=== PATIENT | male | born 1950 | race Caucasian/White ===

== ENCOUNTER → 2021-03-16 10:59 | Outpatient (BNVA) | payer MEDICARE, MEDICAID, SELFPAY | PROVIDERS: PCP Internal Medicine; Referring Provider Internal Medicine; Visit Provider Surgery | DX: K43.9 Ventral hernia without obstruction or gangrene (principal) | CPT/HCPCS: 99202 ==

== ENCOUNTER 2021-03-21 09:33 | Day surgery (SDC) | payer MEDICARE, MEDICAID, SELFPAY ==
[2021-03-21] VITALS (7 sets, daily range): BP systolic 135–153; BP diastolic 64–84; PULSE 86–99; RESP 16–18; TEMP 36.1–36.3; O2SAT 93–98; BMI 28.8
[2021-03-21 10:06] LABS: Glucose, Whole Blood 151 mg/dL (60-115)
[2021-03-21] MEDS: Lactated Ringers 1,000 ML 100 ML IVCONT (10:08)
--- NOTE | 2021-03-21 10:16 | MHC.SHP ---
Pre-Procedural Eval Section A Date of Service: 03/21/21 The patient is an INPATIENT: No Changes since office visit: Yes Patient answered all questions; No Cold of Flu in the past 2 weeks, No New Medical Problems and No Changes in Medication The History & Physical has been completed within 30 days and I have reviewed it.: Yes Section B Chief Complaint: Ventral hernia Allergies: Allergies Allergy/AdvReac Type Severity Reaction Status Date / Time No Known Allergies Allergy Unverified 06/01/20 16:43 Plan Diagnosis/Plan: Unchanged I have reviewed the history and physical and performed a pertinent physical examination on my patient. No changes have occurred unless specified.
--- NOTE | 2021-03-21 10:19 | PC.NURSE ---
PT HAS A MASS TO LEFT ANTERIOR SHOULDER AREA STS ITS A FATTY TISSUE PER PCP
--- NOTE | 2021-03-21 10:50 | HO.ANESPROP2 ---
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 If so, by whom?: No Are you DNR?: No Advance Directives: No Advance Directives Information Provided: Yes Recently lost weight without trying: No Nutrition Risks: No Nutritional Risk Meds Allergies Allergy/AdvReac Type Severity Reaction Status Date / Time No Known Allergies Allergy Verified 03/21/21 10:21 Active Medications: Current Medications Generic Name Dose Route Start Last Admin Trade Name Freq PRN Reason Stop Dose Admin Lactated Ringer's 1,000 mls @ 100 mls/hr 03/21/21 09:45 03/21/21 10:08 Lr IVCONT 100 mls/hr .Q10H FLORY Administration Home Medications Medication Instructions Recorded Confirmed Last Taken Type aspirin 81 mg tablet,delayed 81 mg PO DAILY 03/16/21 03/20/21 History release bisacodyl 5 mg tablet 5 mg PO BEDTIME 03/16/21 Unknown History blood sugar diagnostic #10 ea 03/16/21 Unknown History gabapentin 300 mg capsule 300 mg PO TID 03/16/21 Unknown History glipizide 10 mg tablet 10 mg PO DAILY 03/16/21 Unknown History insulin glargine 100 unit/mL (3 25 unit SUBCUT QPM ml 03/16/21 Unknown History mL) subcutaneous pen lancets 28 gauge #100 ea 03/16/21 Unknown History lisinopril 5 mg tablet 5 mg PO DAILY 03/16/21 Unknown History metformin 500 mg tablet 500 mg PO DAILY 03/16/21 Unknown History omeprazole 20 mg delayed mg PO 03/16/21 Unknown History release,disintegrating tablet pen needle, diabetic 31 gauge x #50 ea 03/16/21 Unknown History 3 pen needle, diabetic 32 gauge x #50 ea 03/16/21 Unknown History pioglitazone 45 mg tablet 45 mg PO DAILY 03/16/21 Unknown History psyllium 1 tbsp PO BID 03/16/21 Unknown History simvastatin 40 mg tablet 40 mg PO DAILY 03/16/21 Unknown History Exam Exam Date and Time: March 21, 2021 1050 Height,Weight and Vital Signs: Height 5 ft 9 in Weight 88.451 kg Last Vital Signs Temp 97.4 F 03/21/21 09:45 Pulse 99 03/21/21 09:45 Resp 18 03/21/21 09:45 BP 151/79 H 03/21/21 09:45 Pulse Ox 98 03/21/21 09:45 Pertinent Lab Results Pertinent Lab Results: Laboratory Tests 03/21/21 09:46 POC Glucose 151 H Airway Mallampati Class: II TM Dist: >3cm Neck ROM: Full Denture: Upper and Lower Assessment and Plan Assessment Anesthesia Assessment: Anesthesia Plan Discussed and Chart Reviewed Final Anesthetic Review NPO: Yes ASA Class: II Final Preanesthetic Review: No Changes in Pt Med Stat, Meds/Allgs Chart Reviewed, Consent Obtained/Reviewed and Anes Risks/Benef Reviewed Patient Risk: Low Procedure Risk: Low Assessment/Block/Sedation in SS: Assess/Block/Sedation-SS Anesthetic Plan Anesthetic Plan: GA Disposition: Standard PACU
--- NOTE | 2021-03-21 11:20 | P.OP_ITS ---
Operative Note Operative Note Date of Service: 03/21/21 Narrative: Preoperative diagnosis: Ventral hernia Postoperative diagnosis: same Procedure: repair of ventral hernia with mesh Surgeon: Azam Mary MD Thermal Technician: no physician Anesthesia: general LMA Indications for procedure: 70-year-old male patient presenting with a lump located above the umbilicus measuring approximately 4 cm in diameter which increases in size with lifting and decreases with light pressure. Operative findings: 4 cm ventral hernia defect in the midline just above the umbilicus, repaired with an 8 cm Ventralex mesh Specimen: none Estimated blood loss: 5 mL Complications: none Procedure details: patient was brought to the OR and placed in a supine position. After administering general anesthesia the patient's abdomen was prepped with ChloraPrep and draped in a sterile fashion. A surgical time-out was called the consent confirmed. Patient received preoperative antibiotics and Venodyne boots were in place. Local anesthesia consisting of 0.25% Sensorcaine with epinephrine was then infiltrated around the ventral hernia. A midline incision was then made just above the umbilicus carried down through subcutaneous tissue up to the hernia sac. This was then dissected circumferentially down to the hernia defect in the fascia. The defect was further defined using electrocautery. Hernia contents were then reduced into the abdominal cavity. A preperitoneal space was then created using a combination of blunt and sharp dissection. A space measuring approximately 8 cm round was then created in the preperitoneal space. The 8 cm mesh was then obtained and placed in this preperitoneal space. It was secured in 4 quadrants using a 1 Tycron suture the fascia was then closed over the mesh using [id number] 1 Tycron sutures. The incision was then irrigated with saline suctioned dry. Wounds were checked for hemostasis. Additional local was infiltrated into the subcutaneous tissue at this time. The subcutaneous tissue was closed with interrupted 3-0 Polysorb sutures. Dermis was reapproximated using interrupted 3-0 Polysorb sutures. Skin was then closed using a running subcuticular 4-0 Polysorb suture. Steri- Strips 2 x 2 gauze and Tegaderm were then applied. The patient tolerated the procedure well. Sponge, instrument, and needle counts reported as correct. He was transferred to PACU in stable condition.
== END 2021-03-21 13:15 | disposition home or self-care (01) ==
PROVIDERS: PCP Internal Medicine; Visit Provider Surgery
PROC: (CPT 49560; principal; 2021-03-21 11:10)
DX: K43.9 Ventral hernia without obstruction or gangrene (principal); I10 Essential (primary) hypertension; E78.5 Hyperlipidemia, unspecified; E11.9 Type 2 diabetes mellitus without complications; Z79.4 Long term (current) use of insulin; Z79.82 Long term (current) use of aspirin; Z79.899 Other long term (current) drug therapy
CPT/HCPCS: 49560; 49568; 82947; C1781; J0690; J1100; J2405; J3010

== ENCOUNTER 2021-03-22 19:36 | Emergency (ER) | payer MEDICARE, MEDICAID, SELFPAY ==
[2021-03-22 20:12] VITALS: BP 138/62; PULSE 90; RESP 18; TEMP 36.6; O2SAT 97; BMI 27.9
--- NOTE | 2021-03-22 20:51 | PC.NURSE ---
Patient's dressing taken down. Bandage appeared to be wet with moisture. Steri strips intact and wound not bleeding. Cover with guaze to await MD evaluation. Patient reports no pain
--- NOTE | 2021-03-22 21:34 | ED_ITS ---
HPI - General Adult General Chief complaint: Wound/Laceration Stated complaint: post op bleeding Time Seen by Provider: 03/22/21 21:23 Source: patient Mode of arrival: ambulatory Limitations: no limitations History of Present Illness HPI narrative: 70-year-old male who presents emergency department for evaluation of postoperative bleeding. The patient had a ventral hernia repair with mesh done on 03/21/[address] Mary. patient states that prior to coming to the emergency department, he sat down on the toilet to move his bowels. He states that when he did this he noted blood on his surgical dressing. He did not move his bowels. He then came to the emergency department to be seen. According to the nursing staff, the surgical dressing appeared to be wet wiith fluid and blood. The patient states that he is having a constant, 3/10, dull, abdominal pain since the surgery. he denied nausea, vomiting or fever. He has not had a bowel movement since surgery but he states that he has passing gas. He states that he has been able to eat any staying on a basic diet of liquids, broth and bread. Related Data Home Medications Medication Instructions Recorded Confirmed aspirin 81 mg tablet,delayed 81 mg PO DAILY 03/16/21 release bisacodyl 5 mg tablet 5 mg PO BEDTIME 03/16/21 blood sugar diagnostic #10 ea 03/16/21 gabapentin 300 mg capsule 300 mg PO TID 03/16/21 glipizide 10 mg tablet 10 mg PO DAILY 03/16/21 insulin glargine 100 unit/mL (3 25 unit SUBCUT QPM ml 03/16/21 mL) subcutaneous pen lancets 28 gauge #100 ea 03/16/21 lisinopril 5 mg tablet 5 mg PO DAILY 03/16/21 metformin 500 mg tablet 500 mg PO DAILY 03/16/21 omeprazole 20 mg delayed mg PO 03/16/21 release,disintegrating tablet pen needle, diabetic 31 gauge x #50 ea 03/16/2111/28 pen needle, diabetic 32 gauge x #50 ea 03/16/21 pioglitazone 45 mg tablet 45 mg PO DAILY 03/16/21 psyllium 1 tbsp PO BID 03/16/21 simvastatin 40 mg tablet 40 mg PO DAILY 03/16/21 Previous Rx's Medication Instructions Recorded oxycodone 5 mg PO Q6H PRN #20 tab 03/21/21 Allergies Allergy/AdvReac Type Severity Reaction Status Date / Time No Known Allergies Allergy Verified 03/22/21 20:11 Review of Systems Review of Systems: Yes all other systems are reviewed and are negative Neurologic: Reports Abnormal speech present [facility] Past Medical History Medical History Diabetes mellitus Hyperlipidemia Hypertension Surgical History 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 History of right inguinal hernia repair Hx of eye surgery Family History Family History Father Cancer of unknown origin Social History Social History Alcohol intake: never Patient Tobacco Use Status: Never used Tobacco Use of substances other than those prescribed or required for medical reasons: No Advance Directives: No Advance Directives Information Provided: No Physical Exam Vital Signs: Vital Signs: Last Vital Signs Temp 98 F 03/22/21 20:12 Pulse 90 03/22/21 20:12 Resp 18 03/22/21 20:12 BP 138/62 03/22/21 20:12 Pulse Ox 97 03/22/21 20:12 Body Mass Index 27.9 Const: General: cooperative Orientation/consciousness: oriented to person and oriented to place Limitations: no limitations HENMT: Head: Yes normal to inspection, Yes normocephalic and Yes atraumatic Ears: external ears normal General nose exam: Normal external nose present Face and sinus: Yes normal facial exam Mouth: Normal oral and palatal mucosa present Throat: Yes posterior oropharynx normal Eyes: Periorbital: periorbital findings normal Eyelids: Yes eyelids normal Conjunctivae: conjunctivae normal Sclerae: sclerae normal Corneas: corneas normal Pupils: Equal, round and reactive pupils present Direct Ophthalmoscopy: normal light reflex Neck: Neck: Yes full ROM, Yes no lymphadenopathy, Yes no meningeal signs, Yes trachea midline and Yes supple Chest: Chest palpation & inspection: normal inspection of the chest and normal palpation of entire chest wall Resp: Effort & Inspection: normal respiratory effort and able to speak in complete sentences Auscultation: clear to auscultation bilaterally Cardio: Rate: regular rate Rhythm: regular rhythm Heart sounds: S1 normal heart sound present, S2 normal heart sound present and no murmurs GI: Other: Patient's abdomen is soft, nontender, nondistended, has normoactive bowel sounds. The patient's surgical wound appears intact, Steri- Strips are intact, there is dried blood around the Steri-Strips. There is no evidence for cellulitis. Palpation (GI): Tenderness to palpation present (GI), Guarding due to palpation present (GI) and Rigid due to palpation : General: Yes no CVA tenderness Back/Spine/Pelvis: Back: no CVA tenderness Cervical Spine: normal cervical lordosis Thoracic/Lumbar Spine: thoracic and lumbar spine normal to inspection Skin: Lesions: no lesions Rashes: no rashes Wounds: no wounds Neuro: General: oriented to person, oriented to place and no meningeal signs Cranial nerves: Yes Equal, round and reactive pupils present Cognition (Neuro): normal cognition Speech: Abnormal speech present Motor exam (neuro): 5/5 motor strength present throughout Extrem: General: Yes normal to inspection and Yes full ROM Psych: Appearance: well kempt Mental Status: mental status grossly normal Speech and movement: Normal speech and movement present Affect: normal affect Attitude: cooperative Thought process: Normal thought process present Thought content: Normal thought content present Course Course Course Narrative: 70-year-old male postoperative day 1 after a ventral hernia repair with mesh done on 03/21/[address] Blanc who presents to the emergency department for evaluation of bleeding from the surgical site with no other concerning symptoms. Patient's physical examination revealed a benign abdomen. The patient does have dried blood around the stairs steps from the surgical site with no clear evidence for dehiscence of the wound. I suspect the patient had either a small hematoma or serosanguineous seroma that leaked out of the wound. I did discuss this with the patient. The patient will be discharged home. The patient was given verbal and printed instructions prior to discharge. The patient was advised to follow-up with their surgeon in tomorrow to discuss follow-up and to return to the emergency department if their symptoms get worse or if they develop any new symptoms that are concerning to them Discharge Plan Discharge Clinical Impression: Postoperative seroma Patient Disposition: Home, Self-Care Instructions: Seroma (DC) Additional Instructions: Sometimes after surgery, your body can put fluid and blood underneath the surgical wound which will then can leak out. This is called a seroma. I believe that you may have a small seroma that leaked out and caused the fluid and blood to saturate your dressing. Continue to wear a dressing over the wound. If you soaked through the dressing then change it. If the drainage becomes moderate to severe then [facility] otherwise she should call your surgeon tomorrow to discuss follow-up. Please return to the emergency department if your symptoms get worse or if you develop any symptoms that are concerning to you. Prescriptions: No Action oxycodone 5 mg tablet 5 mg PO Q6H PRN (Reason: pain) Qty: 20 RF: 0 bisacodyl 5 mg tablet 5 mg PO BEDTIME RF: 0 omeprazole 20 mg tablet,disintegrat, delay rel PO RF: 0 glipizide 10 mg tablet 10 mg PO DAILY RF: 0 pioglitazone [Actos] 45 mg tablet 45 mg PO DAILY RF: 0 gabapentin 300 mg capsule 300 mg PO TID RF: 0 lisinopril 5 mg tablet 5 mg PO DAILY RF: 0 simvastatin 40 mg tablet 40 mg PO DAILY RF: 0 aspirin 81 mg tablet,delayed release (DR/EC) 81 mg PO DAILY RF: 0 metformin 500 mg tablet 500 mg PO DAILY RF: 0 (DME) pen needle, diabetic [1st Tier Unifine Pentips] 31 gauge x 3/16 needle See Rx Instructions .ROUTE .MEDSUPPLY Qty: 50 RF: 0 Lantus Solostar U-100 Insulin 100 unit/mL (3 mL) insulin pen 25 unit subcut QPM RF: 0 psyllium Powder 1 tbsp PO BID RF: 0 (DME) blood sugar diagnostic Strip See Rx Instructions .ROUTE .MEDSUPPLY Qty: 10 RF: 0 (DME) lancets [FreeStyle Lancets] 28 gauge misc See Rx Instructions .ROUTE .MEDSUPPLY Qty: 100 RF: 0 (DME) pen needle, diabetic [BD Susannah 2nd Gen Pen Needle] 32 gauge x / needle See Rx Instructions .ROUTE .MEDSUPPLY Qty: 50 RF: 0 Referrals: Azam Mary MD [Physician] - 2 days ( suspect small serosanguineous hematoma leak, wound is intact with no evidence of dehiscence or cellulitis. Advised patient to contact you for follow-up)
== END 2021-03-22 21:57 | disposition home or self-care (01) ==
PROVIDERS: Emergency Provider Emergency Medicine Emergency Medical Services; PCP Internal Medicine
DX: L76.34 Postprocedural seroma of skin and subcutaneous tissue following other procedure (principal); Y83.8 Other surgical procedures as the cause of abnormal reaction of the patient, or of later complication, without mention of misadventure at the time of the procedure; Y92.9 Unspecified place or not applicable
CPT/HCPCS: 99284

== ENCOUNTER → 2021-04-03 11:01 | Outpatient (BNVA) | payer MEDICARE, MEDICAID, SELFPAY | PROVIDERS: PCP Internal Medicine; Referring Provider Internal Medicine; Visit Provider Surgery | DX: Z48.815 Encounter for surgical aftercare following surgery on the digestive system (principal); Z87.19 Personal history of other diseases of the digestive system | CPT/HCPCS: 99212 ==

== ENCOUNTER → 2021-05-04 11:25 | Outpatient (BNVA) | payer MEDICARE, MEDICAID, SELFPAY | PROVIDERS: PCP Internal Medicine; Referring Provider Internal Medicine; Visit Provider Surgery | DX: Z09 Encounter for follow-up examination after completed treatment for conditions other than malignant neoplasm (principal); Z87.19 Personal history of other diseases of the digestive system | CPT/HCPCS: 99212 ==

== ENCOUNTER 2021-08-20 13:43 | Outpatient (REF) | payer MEDICARE, MEDICAID, SELFPAY ==
--- NOTE | ~2021-08-20 | XR_ITS ---
EXAMINATION: XR FOOT, RIGHT CLINICAL INFORMATION: Foot ulcer COMPARISON: Previous x-ray May 2019 TECHNIQUE: AP, lateral, and oblique views of the right foot. FINDINGS: There is amputation of the toes of the foot. There is new osteopenia and cortical irregularity of the second metatarsal bone worrisome for osteomyelitis. There is soft tissue swelling seen in this region. There is a small radiopaque soft tissue foreign body measuring 3 mm in length that is unchanged. There are degenerative changes of the midfoot. There are calcaneal spurs. XR/XR foot RT min 3V IMPRESSION: Question osteomyelitis of the second metatarsal head.
== END 2021-08-20 13:44 | disposition home or self-care (01) ==
LOC: HO.XRAY 13:43
PROVIDERS: PCP Internal Medicine; Visit Provider Nurse Practitioner Family
DX: E11.621 Type 2 diabetes mellitus with foot ulcer (principal)
CPT/HCPCS: 73630

== ENCOUNTER 2021-08-21 10:42 | Inpatient (IN) | payer MEDICARE, MEDICAID, SELFPAY ==
--- NOTE | ~2021-08-21 | MR_ITS ---
EXAMINATION: MR FOOT WITHOUT AND WITH CONTRAST, RIGHT CLINICAL INFORMATION: Osteomyelitis. COMPARISON: Multiple priors, most recent right foot radiographs dated 08/20/2021 and right foot MRI dated 02/15/2019. TECHNIQUE: Multisequence MR imaging of the right foot was obtained before and after the administration of 9 mL Gadavist contrast on a high-field strength scanner. FINDINGS: Resection of the phalanges is redemonstrated. There is soft tissue ulceration anterior to the 2nd metatarsal head with prominent adjacent soft tissue swelling as well as a lobulated, complex and enhancing fluid collection which measures approximately 3.5 x 2.8 x 4.7 cm. Findings are consistent with cellulitis and associated soft tissue abscess. There is diffuse osseous erosion throughout the 2nd metatarsal head with associated periosteal reaction as well as edema and postcontrast enhancement extending proximally along the diaphysis. Findings are consistent with acute osteomyelitis. No additional evidence of acute osteomyelitis. 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 Edema within the intrinsic musculature of the foot, which can be seen in diabetic patients. MR/MR foot RT wo/w con IMPRESSION: Soft tissue ulceration anterior to the 2nd metatarsal head with prominent cellulitis and an associated soft tissue abscess measuring up to 4.7 cm. There is erosion of the 2nd metatarsal head with prominent marrow edema and enhancement, consistent with acute osteomyelitis.
[2021-08-21 10:57] VITALS: BP 125/70; PULSE 108; RESP 18; TEMP 36.3; O2SAT 98; BMI 27.9
[2021-08-21 12:51] LABS: MANUAL DIFF FLAG NO
[2021-08-21 13:00] LABS: INTERNATIONAL NORM RATIO 1.2 (0.9-1.1); Prothrombin Time 13.4 SEC (9.9-13.0)
[2021-08-21 13:02] LABS: Basophils Percent Auto 0.2 % (0-2); Eosinophils Absolute Auto 0.1 X10*3/uL (0.0-0.4); Eosinophils Percent Auto 1.5 % (0-4); Hemoglobin 11.1 g/dl (14.0-18.0); Imm Gran Abs Auto 0.02 X10*3/uL (0.00-0.03); Imm Gran Pct Auto 0.3 % (0.0-0.4); Lymphocytes Absolute Auto 1.4 X10*3/uL (1.2-4.9); Lymphocytes Percent Auto 20.9 % (20-40); Mean Corpuscular HGB Conc 30.8 g/dl (31.0-36.0); Mean Corpuscular Hemoglobin 24.4 pg (27.0-33.0); Mean Corpuscular Volume 79.3 fL (80.0-98.0); Mean Platelet Volume 11.3 fL (9.4-12.4); Monocytes Absolute Auto 0.5 X10*3/uL (0.1-1.2); Monocytes Percent Auto 7.3 % (2-11); Neutrophils Absolute Auto 4.6 x10*3/uL (2.0-8.3); Neutrophils Percent Auto 69.8 % (45-73); Platelet Count 230 X10*3/uL (160-400); Red Blood Count 4.54 X10*6/uL (4.60-5.80); Red Cell Distribution Width 15.6 % (11.0-16.0); White Blood Count 6.6 X10*3/uL (4.8-10.8)
[2021-08-21 13:03] LABS: Partial Thromboplastin Time 40.7 SEC (24.1-38.0)
[2021-08-21 13:09] LABS: Lactic Acid 2.7 mmol/L (0.5-2.0)
[2021-08-21 13:10] LABS: Alanine Aminotransferase 22 U/L (0-40); Alkaline Phosphatase 89 U/L (39-117); Anion Gap 13 (12-20); Aspartate Amino Transferase 16 U/L (5-37); Bilirubin Direct 0.2 mg/dL (0.0-0.5); Bilirubin Total 0.4 mg/dL (0.0-1.0); Blood Urea Nitrogen 19 mg/dL (9-16); Calcium 10.2 mg/dL (8.4-10.2); Carbon Dioxide 25 mmol/L (22-29); Chloride 104 mmol/L (96-108); Creatinine Clr Calc Pharmacy 69.8; Estimated Glomerular Filt Rate > 60; Glucose Random 295 mg/dL (60-115); Potassium 4.8 mmol/L (3.3-5.1); Sodium 137 mmol/L (135-145); Total Protein 8.2 g/dL (6.5-8.0)
--- NOTE | 2021-08-21 13:50 | ED_ITS ---
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 He states with the sandals he wears he thinks he irritated the area and 1 week ago noticed an open wound. His doctor arranged for an outpatient XR which was done here yesterday. Last night when he got home he reports looking down at his foot and there was bleeding from the wound. He denies any recent trauma. He denies any fever or chills. He states the foot / open wound has been hurting more for the last few days and he is worried about needing more surgeries/amputations. Onset (ago): week(s) (1) Extremity Location: right: foot Place: home Patient tetanus UTD: Yes Context: accidental Associated symptoms: pain Treatments prior to arrival: bandage Related Data Home Medications Medication Instructions Recorded Confirmed aspirin 81 mg tablet,delayed 81 mg PO DAILY 03/16/21 08/21/21 release bisacodyl 5 mg tablet 5 mg PO DAILY 03/16/21 08/21/21 blood sugar diagnostic #10 ea 03/16/21 gabapentin 300 mg capsule 300 mg PO TID 03/16/21 08/21/21 lancets 28 gauge (FreeStyle #100 ea 03/16/21 Lancets) metformin 500 mg tablet 500 mg PO TID 03/16/21 08/21/21 omeprazole 20 mg delayed 20 mg PO DAILY 03/16/21 08/21/21 release,disintegrating tablet pen needle, diabetic 31 gauge x #50 ea 03/16/2111/28 (1st Tier Unifine Pentips) pen needle, diabetic 32 gauge x #50 ea 03/16/21 (BD Susannah 2nd Gen Pen Needle) pioglitazone 45 mg tablet (Actos) 45 mg PO DAILY 03/16/21 08/21/21 amlodipine 2.5 mg tablet 1 tab PO DAILY 08/21/21 08/21/21 atorvastatin 40 mg tablet 1 tab PO DAILY 08/21/21 08/21/21 glipizide 10 mg tablet, extended 1 tab PO BID 08/21/21 08/21/21 release 24 hr insulin detemir U-100 100 unit/mL 50 unit SUBCUT BEDTIME 08/21/21 08/21/21 (3 mL) subcutaneous pen (Levemir FlexTouch U-100 Insulin) Allergies Allergy/AdvReac Type Severity Reaction Status Date / Time No Known Allergies Allergy Verified 05/04/21 11:40 Review of Systems Review of Systems: Constitutional: No Fever, No Chills ENT/Mouth: No sore throat, No Rhinorrhea, No Swallowing Difficulty Cardiovascular: No Chest Pain, No SOB, No Orthopnea, No Edema Respiratory: No Cough, No Sputum, No Wheezing, No dyspnea Gastrointestinal: No Nausea, No Vomiting, No Diarrhea, No abdominal Pain, No Hematochezia, No Melena Genitourinary: No Dysuria, No Urinary Frequency, No Hematuria Musculoskeletal: + joint pain, No Myalgias Skin: + Skin Lesions, No rash Neuro: No Weakness, No Numbness, No Dizziness, No Headache Psych: + Anxiety/Panic, No Depression Heme/Lymph: No Bruising, No Lymphadenopathy, +easy bleeding Endocrine: No Polyuria, No Polydipsia PMFSH Past Medical History Medical History (Updated 08/21/21 @ 18:49 by JUSTUS Melara) Diabetes mellitus Hyperlipidemia Hypertension Surgical History (Updated 05/04/21 @ 11:41 by DENNIS Hong) 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 History of right inguinal hernia repair History of ventral hernia repair Hx of eye surgery Family History Family History Father Cancer of unknown origin Social History Social History Alcohol intake: never Patient Tobacco Use Status: Never used Tobacco Advance Directives: No Advance Directives Information Provided: No Physical Exam Vital Signs: Vital Signs: Last Vital Signs Temp 98.8 F 08/21/21 17:56 Pulse 74 08/21/21 17:56 Resp 18 08/21/21 17:56 BP 132/76 08/21/21 17:56 Pulse Ox 98 08/21/21 17:56 BMI result Body Mass Index 27.9 Appearance: Alert. Oriented X3. No acute distress. Eyes: Pupils equal, round and reactive to light. ENT: Pharynx normal. Neck: Normal inspection. Neck supple. CVS: Normal heart rate and rhythm. Pulses normal. Respiratory: No respiratory distress. Breath sounds normal. Abdomen: Soft and nontender. +BS x4 Skin: Skin warm and dry. Normal skin color. Normal skin turgor. No rashes. Extremities: Right foot s/p TMA with moderate sized edematous wound centrally with clear drainage, minor area of fluctuance to medial aspect, minimal surround erythema, calleous on the plantar aspect. foot is warm with 1+ pulses Neuro: Oriented X 3. No motor deficit. No sensory deficit. Course Course Course Narrative: 71-year-old male with a history of diabetes and history of osteomyelitis in the past with several toe and ultimately had transmetatarsal amputation of the right foot who presents to the ER with oral wound on the right foot as well as some bleeding of the area. The wound has been present for about 1 week. He has had no fever or chills. He had an outpatient x-ray yesterday that is showing concerning signs of osteomyelitis. Will get septic workup and plan for IV antibiotics and admission. Reevaluation(s) Reevaluation #1: White blood cell count is normal. His lactic acid is 2.7. IV vancomycin and Zosyn have been ordered in addition to IVF, repeat lactic acid pending. He has a history of MSSA osteomyelitis in the past. Inflammatory markers added. Patient agreeable for admission. Rocío Jean NP has been tiger texted who accepts patient for admission. MDM - Wound/Laceration Lab Data Result diagrams: 08/21/21 12:43 08/21/21 12:42 Labs: Lab Results 08/21/21 08/21/21 08/21/21 Range/Units 12:42 12:42 12:42 WBC (4.8-10.8) X10*3/uL RBC (4.60-5.80) X10*6/uL Hgb (14.0-18.0) g/dl Hct (42.0-52.0) % MCV (80.0-98.0) fL MCH (27.0-33.0) pg MCHC (31.0-36.0) g/dl RDW (11.0-16.0) % Plt Count (160-400) X10*3/uL MPV (9.4-12.4) fL Immature Gran % (Auto) (0.0-0.4) % Neut % (Auto) (45-73) % Lymph % (Auto) (20-40) % [place] % (Auto) (2-11) % Eos % (Auto) (0-4) % Baso % (Auto) (0-2) % Lymph # (Auto) (1.2-4.9) X10*3/uL [place] # (Auto) (0.1-1.2) X10*3/uL Eos # (Auto) (0.0-0.4) X10*3/uL Baso # (Auto) (0.0-0.2) X10*3/uL Abs Immat Gran (auto) (0.00-0.03) X10*3/uL Absolute Neuts (auto) (2.0-8.3) x10*3/uL Absolute Nucleated RBC (0.0-0.012) X10*3/uL Nucleated RBC % (auto) (0.0-0.2) /100WBC ESR (0-15) MM/HR PT 13.4 H (9.9-13.0) SEC INR 1.2 H (0.9-1.1) APTT 40.7 H (24.1-38.0) SEC Sodium 137 (135-145) mmol/L Potassium 4.8 (3.3-5.1) mmol/L Chloride 104 (96-108) mmol/L Carbon Dioxide 25 (22-29) mmol/L Anion Gap 13 (12-20) BUN 19 H (9-16) mg/dL Creatinine 1.07 (0.5-1.4) mg/dL Estim Creat Clear Calc 69.8 Estimated GFR > 60 Random Glucose 295 H (60-115) mg/dL Lactic Acid 2.7 H* (0.5-2.0) mmol/L Lactic Acid Fup @ 2Hr (0.5-2.0) mmol/L Calcium 10.2 (8.4-10.2) mg/dL Total Bilirubin 0.4 (0.0-1.0) mg/dL Direct Bilirubin 0.2 (0.0-0.5) mg/dL AST 16 (5-37) U/L ALT 22 (0-40) U/L Alkaline Phosphatase 89 (39-117) U/L C-Reactive Protein 4.44 H (< or = 0.50) mg/dL Total Protein 8.2 H (6.5-8.0) g/dL Albumin 4.0 (3.5-5.0) g/dL COVID-19 (SERENA) (Negative) COVID-19 Clin Com 08/21/21 08/21/21 08/21/21 Range/Units 12:43 12:43 14:40 WBC 6.6 (4.8-10.8) X10*3/uL RBC 4.54 L (4.60-5.80) X10*6/uL Hgb 11.1 L (14.0-18.0) g/dl Hct 36.0 L (42.0-52.0) % MCV 79.3 L (80.0-98.0) fL MCH 24.4 L (27.0-33.0) pg MCHC 30.8 L (31.0-36.0) g/dl RDW 15.6 (11.0-16.0) % Plt Count 230 (160-400) X10*3/uL MPV 11.3 (9.4-12.4) fL Immature Gran % (Auto) 0.3 (0.0-0.4) % Neut % (Auto) 69.8 (45-73) % Lymph % (Auto) 20.9 (20-40) % [place] % (Auto) 7.3 (2-11) % Eos % (Auto) 1.5 (0-4) % Baso % (Auto) 0.2 (0-2) % Lymph # (Auto) 1.4 (1.2-4.9) X10*3/uL [place] # (Auto) 0.5 (0.1-1.2) X10*3/uL Eos # (Auto) 0.1 (0.0-0.4) X10*3/uL Baso # (Auto) 0.0 (0.0-0.2) X10*3/uL Abs Immat Gran (auto) 0.02 (0.00-0.03) X10*3/uL Absolute Neuts (auto) 4.6 (2.0-8.3) x10*3/uL Absolute Nucleated RBC 0.000 (0.0-0.012) X10*3/uL Nucleated RBC % (auto) 0.0 (0.0-0.2) /100WBC ESR 83 H (0-15) MM/HR PT (9.9-13.0) SEC INR (0.9-1.1) APTT (24.1-38.0) SEC Sodium (135-145) mmol/L Potassium (3.3-5.1) mmol/L Chloride (96-108) mmol/L Carbon Dioxide (22-29) mmol/L Anion Gap (12-20) BUN (9-16) mg/dL Creatinine (0.5-1.4) mg/dL Estim Creat Clear Calc Estimated GFR Random Glucose (60-115) mg/dL Lactic Acid (0.5-2.0) mmol/L Lactic Acid Fup @ 2Hr (0.5-2.0) mmol/L Calcium (8.4-10.2) mg/dL Total Bilirubin (0.0-1.0) mg/dL Direct Bilirubin (0.0-0.5) mg/dL AST (5-37) U/L ALT (0-40) U/L Alkaline Phosphatase (39-117) U/L C-Reactive Protein (< or = 0.50) mg/dL Total Protein (6.5-8.0) g/dL Albumin (3.5-5.0) g/dL COVID-19 (SERENA) Negative (Negative) COVID-19 Clin Com See Note 08/21/21 Range/Units 15:37 WBC (4.8-10.8) X10*3/uL RBC (4.60-5.80) X10*6/uL Hgb (14.0-18.0) g/dl Hct (42.0-52.0) % MCV (80.0-98.0) fL MCH (27.0-33.0) pg MCHC (31.0-36.0) g/dl RDW (11.0-16.0) % Plt Count (160-400) X10*3/uL MPV (9.4-12.4) fL Immature Gran % (Auto) (0.0-0.4) % Neut % (Auto) (45-73) % Lymph % (Auto) (20-40) % [place] % (Auto) (2-11) % Eos % (Auto) (0-4) % Baso % (Auto) (0-2) % Lymph # (Auto) (1.2-4.9) X10*3/uL [place] # (Auto) (0.1-1.2) X10*3/uL Eos # (Auto) (0.0-0.4) X10*3/uL Baso # (Auto) (0.0-0.2) X10*3/uL Abs Immat Gran (auto) (0.00-0.03) X10*3/uL Absolute Neuts (auto) (2.0-8.3) x10*3/uL Absolute Nucleated RBC (0.0-0.012) X10*3/uL Nucleated RBC % (auto) (0.0-0.2) /100WBC ESR (0-15) MM/HR PT (9.9-13.0) SEC INR (0.9-1.1) APTT (24.1-38.0) SEC Sodium (135-145) mmol/L Potassium (3.3-5.1) mmol/L Chloride (96-108) mmol/L Carbon Dioxide (22-29) mmol/L Anion Gap (12-20) BUN (9-16) mg/dL Creatinine (0.5-1.4) mg/dL Estim Creat Clear Calc Estimated GFR Random Glucose (60-115) mg/dL Lactic Acid (0.5-2.0) mmol/L Lactic Acid Fup @ 2Hr 2.0 (0.5-2.0) mmol/L Calcium (8.4-10.2) mg/dL Total Bilirubin (0.0-1.0) mg/dL Direct Bilirubin (0.0-0.5) mg/dL AST (5-37) U/L ALT (0-40) U/L Alkaline Phosphatase (39-117) U/L C-Reactive Protein (< or = 0.50) mg/dL Total Protein (6.5-8.0) g/dL Albumin (3.5-5.0) g/dL COVID-19 (SERENA) (Negative) COVID-19 Clin Com Critical Care Time Critical Care Time Critical Care Time: Yes Total Critical Care Time: 38 Attestation: I have personally provided critical care time exclusive of time spent on separately billable procedures. Time includes review of lab data, radiology results, discussion with consultants/hospitalist, and monitoring for potential decompensation. Intervention performed as documented. Discharge Plan Discharge Clinical Impression: Osteomyelitis Qualifiers: Osteomyelitis type: other Osteomyelitis location: foot Laterality: right Qualified Code(s): M86.8X7 - Other osteomyelitis, ankle and foot Patient Disposition: Admitted As Inpatient
[2021-08-21] MEDS: Piperacillin Sodium/Tazobactam 3.375 GM in 0.9 % Sodium Chloride 50 ML IV ×2 (14:36→21:14)
[2021-08-21] MEDS: 0.9 % Sodium Chloride 1,000 ML 999 ML IVCONT (14:36)
[2021-08-21 14:49] LABS: Reflex Lactate? Lactic Acid Added
--- NOTE | 2021-08-21 15:06 | PHA.MEDREC ---
Pharmacy Consult ? Medication Reconciliation Pharmacy has completed the medication reconciliation.
[2021-08-21 15:08] LABS: COVID-19 Test Negative (Negative)
[2021-08-21 15:10] LABS: C Reactive Protein 4.44 mg/dL (< or = 0.50)
[2021-08-21] MEDS: vancomycin HCL 1,000 MG in 0.9 % Sodium Chloride 250 ML 270 MG IV (15:11)
--- NOTE | 2021-08-21 15:13 | P.HPHOSP_ITS ---
History of Present Illness Date of Service: 08/21/21 Attending physician on admission: [facility] Chief Complaint: Foot pain 71 year old man presenting with infected wound on the dorsal aspect of the right foot at the area of prior amputation. He states with the sandals he wears he thi nks he irritated the area and one week ago noticed an open wound. He had an xray through his PCP yesterday and showed possible osteomyelitis 2nd metatarsal head. He started experiencing some bleeding and increased pain over the last several days and decided to come to the ER to be evaluated. His vital signs were stable, labs within acceptable limits other than elevated lactic acid of 2.7 He received a dose of vancomycin, Zosyn, 1 L of IV fluid. Review of Systems Verdana 4l Review of Systems: Verdana 4d Verdana 4d Denies any recent fever chills or decrease in appetite respiratory denies any shortness of breath coverage production cardiovascular denies chest pain gastrointestinal denies any dysphagia abdominal pain nausea vomiting or diarrhea genitourinarygenitourinary denies any dysuria frequency or hematuria musculoskeletal denies any joint pain or swelling neuropsych denies any weakness or seizures all other systems reviewed are negative [facility] Medical History (Updated 08/21/21 @ 16:55 by Rocío Jean NP) Diabetes mellitus Hyperlipidemia Hypertension Family History Father Cancer of unknown origin Surgical History (Updated 05/04/21 @ 11:41 by DENNIS Hong) 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 History of right inguinal hernia repair History of ventral hernia repair Hx of eye surgery Social History Alcohol intake: never Patient Tobacco Use Status: Never used Tobacco Advance Directives: No Advance Directives Information Provided: No Meds Allergies Allergy/AdvReac Type Severity Reaction Status Date / Time No Known Allergies Allergy Verified 05/04/21 11:40 Active Medications: Current Medications Pharmacy Consult (Consult Rx Perform Med Rec) 1 each MISCELLANE ONCE PRN PRN Reason: Consult order Home Medications Medication Instructions Recorded Confirmed Last Taken Type aspirin 81 mg 81 mg PO DAILY 03/16/21 08/21/21 08/21/21 History tablet,delayed release bisacodyl 5 mg 5 mg PO DAILY 03/16/21 08/21/21 08/21/21 History tablet blood sugar #10 ea 03/16/21 Unknown History diagnostic gabapentin 300 mg 300 mg PO TID 03/16/21 08/21/21 08/21/21 History capsule lancets 28 gauge #100 ea 03/16/21 Unknown History (FreeStyle Lancets) metformin 500 mg 500 mg PO TID 03/16/21 08/21/21 08/21/21 History tablet omeprazole 20 mg 20 mg PO DAILY 03/16/21 08/21/21 08/21/21 History delayed release,disintegr ating tablet pen needle, #50 ea 03/16/21 Unknown History diabetic 31 gauge x 3/16 (1st Tier Unifine Pentips) pen needle, #50 ea 03/16/21 Unknown History diabetic 32 gauge x 5/32 (BD Susannah 2nd Gen Pen Needle) pioglitazone 45 45 mg PO DAILY 03/16/21 08/21/21 08/21/21 History mg tablet (Actos) amlodipine 2.5 mg 1 tab PO DAILY 08/21/21 08/21/21 08/21/21 History tablet atorvastatin 40 1 tab PO DAILY 08/21/21 08/21/21 08/21/21 History mg tablet glipizide 10 mg 1 tab PO BID 08/21/21 08/21/21 08/21/21 History tablet, extended release 24 hr insulin detemir 50 unit SUBCUT 08/21/21 08/21/21 08/20/21 History U-100 100 unit/mL BEDTIME (3 mL) subcutaneous pen (Levemir FlexTouch U-100 Insulin) Physical Exam Verdana 4l Vital Signs and Narrative: Verdana 4d Verdana 4d Vital Signs: Verdana 4d Verdana 4Bd Last Vital Signs Verdana 4d Budget Accountant New 4d Budget Accountant New 4d Temp 97.4 F 08/21/21 10:57 Budget Accountant New 4d Pulse 108 H 08/21/21 10:57 Kanu TrejoNew 4d Resp 18 08/21/21 10:57 BP 125/70 08/21/21 10:57 Pulse Ox 98 08/21/21 10:57 BMI result Body Mass Index 27.9 Appearing in no acute distress head is normocephalic atraumatic eyes pupils are PERRLA sclera is anicteric mouth throat mucous membranes are intact and moist neck is supple no lymphadenopathy, no JVD noted lung sounds are clear to auscultation heart regular rate rhythm, clear S1, S2 positive bowel sounds, abdomen is soft, nontender neuro patient is alert x3, no focal deficits Right foot wound Results Labs CBC and Chem 7: 08/21/21 12:43 08/21/21 12:42 Labs: Laboratory Results - last 24 hr 08/21/21 08/21/21 08/21/21 12:42 12:42 12:42 MCV MCH MCHC RDW Plt Count MPV Immature Gran % (Auto) Neut % (Auto) Lymph % (Auto) [place] % (Auto) Eos % (Auto) Baso % (Auto) Lymph # (Auto) [place] # (Auto) Eos # (Auto) Baso # (Auto) Abs Immat Gran (auto) Absolute Neuts (auto) Absolute Nucleated RBC Nucleated RBC % (auto) PT 13.4 H INR 1.2 H APTT 40.7 H Anion Gap 13 Estim Creat Clear Calc 69.8 Estimated GFR > 60 Random Glucose 295 H Lactic Acid 2.7 H* Calcium 10.2 Total Bilirubin 0.4 Direct Bilirubin 0.2 AST 16 ALT 22 Alkaline Phosphatase 89 C-Reactive Protein 4.44 H Total Protein 8.2 H Albumin 4.0 COVID-19 (SERENA) COVID-19 Clin Com 08/21/21 08/21/21 12:43 14:40 MCV 79.3 L MCH 24.4 L MCHC 30.8 L RDW 15.6 Plt Count 230 MPV 11.3 Immature Gran % (Auto) 0.3 Neut % (Auto) 69.8 Lymph % (Auto) 20.9 [place] % (Auto) 7.3 Eos % (Auto) 1.5 Baso % (Auto) 0.2 Lymph # (Auto) 1.4 [place] # (Auto) 0.5 Eos # (Auto) 0.1 Baso # (Auto) 0.0 Abs Immat Gran (auto) 0.02 Absolute Neuts (auto) 4.6 Absolute Nucleated RBC 0.000 Nucleated RBC % (auto) 0.0 PT INR APTT Anion Gap Estim Creat Clear Calc Estimated GFR Random Glucose Lactic Acid Calcium Total Bilirubin Direct Bilirubin AST ALT Alkaline Phosphatase C-Reactive Protein Total Protein Albumin COVID-19 (SERENA) Negative COVID-19 Clin Com See Note Assessment and Plan (1) Osteomyelitis: Status: Acute (2) H/O: HTN (hypertension): Status: Acute (3) Diabetes mellitus: Status: Acute 71 year old man admitted with right foot wound and possible osteomyelitis Osteomyelitis. Right foot TMA Vancomycin and zosyn MRI ID consult blood cx wound care as per wound nurse Hypertension. Stable Continue home medications Diabetes mellitus. Sliding scale, ADA diet DVT prophylaxis with heparin Attending Dr. Harrell Quality Stroke Does the patient have a stroke diagnosis?: No VTE Prior VTE?: No VTE Risk Level:: Medical - moderate - high VTE Device Contraindication: Treatment Not Indicated VTE Drug Contraindication: N/A - Med Ordered
[2021-08-21 15:14] VITALS: BP 142/65; PULSE 88; RESP 18; TEMP 37.1; O2SAT 98
[2021-08-21 15:32] LABS: Erythrocyte Sedimentation Rate 83 MM/HR (0-15)
--- NOTE | 2021-08-21 17:17 | PHA.PROG ---
Admission Date/Time: August 21, 2021 16:46 Indication: BONE AND JOINT INFECTION Weight in k.451 kg Adjusted body weight in K.2 KG [place] body weight in K KG Obesity Dosing Indication % IBW: Serum Creatinine - Last 168 Hours 08/21/21 12:42 Creatinine 1.07 Estimated CrCl and GFR - Last 168 Hours 08/21/21 12:42 Estim Creat Clear Calc 69.8 Estimated GFR > 60 Vancomycin Loading Dose: 1000 MG + 500 MG = 1500 MG Current Vancomycin Dosing Regimen: 1500 MG q24H Vancomycin Monitoring using AUC goal of 400 - 600 range with trough as surrogate marker: PREDICTED AUC 451 Date and Time for next Vancomycin Level to be drawn: RANDOM LEVEL 08/23/21 @1400 (BEFORE [address] RD DOSE) Pharmacist Comments on Vancomycin Plan: EXTRA 500 MG DOSE GIVEN IN ADDITION TO 1000 MG DOSE ORDERED IN ED. Vancomycin dosing will take advantage of [employer] as a clinical decision support tool that uses Bayesian modeling to calculate individual patient's pharmacokinetic parameters and forecast the patient's drug concentration time course with the target goal AUC 24 range of 400 - 600 mg/L/hr.
[2021-08-21] MEDS: vancomycin HCL 500 MG in 0.9 % Sodium Chloride 100 ML 110 MG IV (17:44)
[2021-08-21] MEDS: Heparin Sodium,Porcine 5,000 UNIT/ML VIAL 5000 UNIT SUBCUT (17:45)
[2021-08-21 17:56] VITALS: BP 132/76; PULSE 74; RESP 18; TEMP 37.1; O2SAT 98
[2021-08-21 18:28] LABS: Glucose, Whole Blood 119 mg/dL (60-115)
[2021-08-21 20:27] LABS: Glucose, Whole Blood 249 mg/dL (60-115)
[2021-08-21] MEDS: Gabapentin 300 MG CAPSULE PO (21:11)
[2021-08-21] MEDS: Insulin Lispro 100 UNIT/ML 3 ML VIAL SUBCUT (21:12)
[2021-08-21] MEDS: Insulin Glargine,Hum.rec.anlog 100 UNIT/ML 10 ML VIAL 35 UNIT SUBCUT (21:12)
--- NOTE | 2021-08-21 22:01 | MHC.CM.PN ---
CM met with admitted patient with bed assignment pending. A&Ox3. IMM reviewed and signed per protocol 08/21/2021@2130. Copy given and copy to medical records. No HCP on file. Reviewed, completed and signed. Copies given and [place] into [facility] and [facility] [place] Pt lives alone. Has 9 children (4 live locally), 18 grandchildren and 5 great grand-children. 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 Pt is fully vaccinated with Moderna and was scheduled to get his booster tomorrow at [facility]. D/C plan is home with VNA, wound management and probable home IV terminal make up operator antibiotic therapy. Pt has had this in the past and is comfortable with process. States had [facility] in the past. MRI and ID consults pending. No referrals placed yet. Pt will arrange transportation home. CM to follow for d/c needs.
[2021-08-21 22:10] VITALS: BP 155/70; PULSE 69; RESP 16; TEMP 36.8; O2SAT 98
--- NOTE | 2021-08-21 23:07 | PC.NURSE ---
Report called to chandrika MEJIA. Pt transported to floor via , sent in stable condition w/ all belongings
[2021-08-22] VITALS (7 sets, daily range): BP systolic 106–140; BP diastolic 50–77; PULSE 55–97; RESP 16–18; TEMP 35.9–36.4; O2SAT 96–99
[2021-08-22] MEDS: Piperacillin Sodium/Tazobactam 3.375 GM in 0.9 % Sodium Chloride 50 ML IV ×4 (02:35→21:11)
[2021-08-22 05:52] LABS: MANUAL DIFF FLAG NO
[2021-08-22 06:05] LABS: Basophils Percent Auto 0.5 % (0-2); Eosinophils Absolute Auto 0.2 X10*3/uL (0.0-0.4); Eosinophils Percent Auto 3.6 % (0-4); Hemoglobin 10.6 g/dl (14.0-18.0); Imm Gran Abs Auto 0.02 X10*3/uL (0.00-0.03); Imm Gran Pct Auto 0.3 % (0.0-0.4); Lymphocytes Absolute Auto 1.5 X10*3/uL (1.2-4.9); Lymphocytes Percent Auto 23.6 % (20-40); Mean Corpuscular HGB Conc 31.2 g/dl (31.0-36.0); Mean Corpuscular Hemoglobin 24.7 pg (27.0-33.0); Mean Corpuscular Volume 79.3 fL (80.0-98.0); Mean Platelet Volume 11.6 fL (9.4-12.4); Monocytes Absolute Auto 0.6 X10*3/uL (0.1-1.2); Monocytes Percent Auto 9.3 % (2-11); Neutrophils Absolute Auto 3.9 x10*3/uL (2.0-8.3); Neutrophils Percent Auto 62.7 % (45-73); Platelet Count 224 X10*3/uL (160-400); Red Blood Count 4.29 X10*6/uL (4.60-5.80); Red Cell Distribution Width 15.6 % (11.0-16.0); White Blood Count 6.2 X10*3/uL (4.8-10.8)
[2021-08-22] MEDS: Omeprazole 20 MG CAPSULE.DR PO (06:10)
[2021-08-22] MEDS: Heparin Sodium,Porcine 5,000 UNIT/ML VIAL 5000 UNIT SUBCUT (06:10)
[2021-08-22 06:11] LABS: Anion Gap 12 (12-20); Blood Urea Nitrogen 12 mg/dL (9-16); Calcium 9.6 mg/dL (8.4-10.2); Carbon Dioxide 27 mmol/L (22-29); Chloride 106 mmol/L (96-108); Creatinine Clr Calc Pharmacy 82.1; Estimated Glomerular Filt Rate > 60; Glucose Random 141 mg/dL (60-115); Potassium 4.4 mmol/L (3.3-5.1); Sodium 141 mmol/L (135-145)
--- NOTE | 2021-08-22 08:27 | PM.CNGS ---
History of Present Illness Consult details Consult date: 08/22/21 Narrative: 71-year-old male with longstanding diabetes, did yesterday because drainage from his transmetatarsal amputation site. 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 He describes having this an ulcer on the middle part of the stump for about 4 days now. He says he has had some scanty drainage with blood. He therefore came to the ED yesterday. He thinks that this is because his stump rubs on his slippers frequently causing this irritation of the skin with breakdown. Other than that, he says that he has had good sugar control at home. He was admitted for similar problem in 2019 and was treated with antibiotics. Review of Systems Constitutional: Constitutional: Denies chills and Denies fever(s) Cardiovascular: Cardiovascular: Denies chest pain, Denies dyspnea and Denies dyspnea on exertion Respiratory: Respiratory: Denies cough, Denies dyspnea and Denies dyspnea on exertion Gastrointestinal: Gastrointestinal: Denies hematochezia and Denies change in bowel habits Genitourinary: Genitourinary: Denies hematuria and Denies difficulty urinating Musculoskeletal: Musculoskeletal: Denies back pain and Denies limited range of motion Neurologic: Denies focal weakness and Denies convulsions Psychiatric: Psychiatric: Denies depression and Denies mood swings PMFSH Past Medical History Medical History Diabetes mellitus Hyperlipidemia Hypertension Family History Family History Father Cancer of unknown origin Surgical History Surgical History 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 History of right inguinal hernia repair History of ventral hernia repair Hx of eye surgery Social History Social History Household Members: None Housing: Apartment Alcohol intake: never Patient Tobacco Use Status: Never used Tobacco service: No Current occupational status: retired Meds Allergies Allergy/AdvReac Type Severity Reaction Status Date / Time No Known Allergies Allergy Verified 05/04/21 11:40 Active Medications: Current Medications Acetaminophen (Acetaminophen 325 Mg Tablet) 650 mg PO Q6H PRN PRN Reason: Pain, Mild (Pain Scale 1-3) Amlodipine Besylate (Amlodipine Besylate 2.5 Mg Tablet) 2.5 mg PO DAILY [facility]; Protocol Aspirin (Aspirin Enteric Coated 81 Mg Tablet.) 81 mg PO DAILY [facility] Atorvastatin Calcium (Atorvastatin Calcium 40 Mg Tablet) 40 mg PO DAILY [facility] Bisacodyl (Bisacodyl 5 Mg Tablet.) 5 mg PO DAILY [facility] Dextrose (Dextrose 50 % 25 Gm/50 Ml Vial) 25 gm IVPUSH Q15M PRN; Protocol PRN Reason: per Hypoglycemia Standing Ord. Gabapentin (Gabapentin 300 Mg Capsule) 300 mg PO TID [facility] Last Admin: 08/21/21 21:11 Dose: 300 mg Documented by: Glucose (Glucose Gel 15 Gm Gel..Gram.) 15 gm PO Q15M PRN; Protocol PRN Reason: per Hypoglycemia Standing Ord. Heparin Sodium (Porcine) (Heparin Sodium,Porcine 5,000 Unit/Ml Vial) 5,000 unit SUBCUT Q12H [facility] Last Admin: 08/22/21 06:10 Dose: 5,000 unit Documented by: Piperacillin Sod/Tazobactam (Sod 3.375 gm/ Sodium Chloride) 50 mls @ 100 mls/hr IV Q6H [facility] Last Infusion: 08/22/21 03:08 Dose: Infused Documented by: Vancomycin HCl 1,500 mg/ (Sodium Chloride) 500 mls @ 333.333 mls/hr IV Q24H [facility] Insulin Glargine (Insulin Glargine,Hum.Rec.Anlog 100 Unit/Ml 10 Ml Vial) 35 unit SUBCUT BEDTIME [facility] Last Admin: 08/21/21 21:12 Dose: 35 unit Documented by: Insulin Human Lispro (Insulin Lispro 100 Unit/Ml 3 Ml Vial) 0 unit SUBCUT QIDACHS [facility]; Protocol Last Admin: 08/21/21 21:12 Dose: 4 unit Documented by: Omeprazole (Omeprazole 20 Mg Capsule.) 20 mg PO DAILY@0630 [facility] Last Admin: 08/22/21 06:10 Dose: 20 mg Documented by: Ondansetron HCl (Ondansetron Hcl 4 Mg/2 Ml Vial) 4 mg IVPUSH Q8H PRN PRN Reason: Nausea and Vomiting Pharmacy Consult (Consult Rx Perform Med Rec) 1 each MISCELLANE ONCE PRN PRN Reason: Consult order Pharmacy Consult (Consult Rx Vancomycin Dosing) 1 each MISCELLANE DAILY PRN PRN Reason: Consult order Sodium Chloride (0.9 % Sodium Chloride Flush 3 Ml Syringe) [facility] Admin: 08/21/21 23:16 Dose: Not Given Documented by: Home Medications Medication Instructions Recorded Confirmed Last Taken Type aspirin 81 mg tablet,delayed 81 mg PO DAILY 03/16/21 08/21/21 08/21/21 History release bisacodyl 5 mg tablet 5 mg PO DAILY 03/16/21 08/21/21 08/21/21 History blood sugar diagnostic #10 ea 03/16/21 Unknown History gabapentin 300 mg capsule 300 mg PO TID 03/16/21 08/21/21 08/21/21 History lancets 28 gauge (FreeStyle #100 ea 03/16/21 Unknown History Lancets) metformin 500 mg tablet 500 mg PO TID 03/16/21 08/21/21 08/21/21 History omeprazole 20 mg delayed 20 mg PO DAILY 03/16/21 08/21/21 08/21/21 History release,disintegrating tablet pen needle, diabetic 31 gauge x #50 ea 03/16/21 Unknown History 3 (1st Tier Unifine Pentips) pen needle, diabetic 32 gauge x #50 ea 03/16/21 Unknown History (BD Susannah 2nd Gen Pen Needle) pioglitazone 45 mg tablet (Actos) 45 mg PO DAILY 03/16/21 08/21/21 08/21/21 History amlodipine 2.5 mg tablet 1 tab PO DAILY 08/21/21 08/21/21 08/21/21 History atorvastatin 40 mg tablet 1 tab PO DAILY 08/21/21 08/21/21 08/21/21 History glipizide 10 mg tablet, extended 1 tab PO BID 08/21/21 08/21/21 08/21/21 History release 24 hr insulin detemir U-100 100 unit/mL 50 unit SUBCUT BEDTIME 08/21/21 08/21/21 08/20/21 History (3 mL) subcutaneous pen (Levemir FlexTouch U-100 Insulin) Physical Exam Vital Signs: Vital Signs: Last Vital Signs Temp 97.4 F 08/22/21 08:00 Pulse 85 12/08/21 08:00 Resp 16 08/22/21 08:00 BP 132/77 08/22/21 08:00 Pulse Ox 99 08/22/21 08:00 BMI result Body Mass Index 27.9 Const: General: comfortable and no acute distress Orientation/consciousness: patient oriented x3 Neck: Neck: Yes no lymphadenopathy Resp: Auscultation: clear to auscultation bilaterally Cardio: Rhythm: regular rhythm GI: Palpation (GI): Soft to palpation, nontender and no guarding Neuro: General: patient oriented x3 Extrem: Other: Transmetatarsal amputation stump on the right foot, with what appears to be an ulcer/sinus on the mid part, with scanty drainage, no cellulitis Results Labs Result diagrams: 08/23/21 05:25 08/24/21 07:18 Labs: Abnormal lab results 08/21/21 08/21/21 08/21/21 Range/Units 12:42 12:42 12:42 RBC (4.60-5.80) X10*6/uL Hgb (14.0-18.0) g/dl Hct (42.0-52.0) % MCV (80.0-98.0) fL MCH (27.0-33.0) pg MCHC (31.0-36.0) g/dl ESR (0-15) MM/HR PT 13.4 H (9.9-13.0) SEC INR 1.2 H (0.9-1.1) APTT 40.7 H (24.1-38.0) SEC BUN 19 H (9-16) mg/dL POC Glucose (60-115) mg/dL Random Glucose 295 H (60-115) mg/dL Lactic Acid 2.7 H* (0.5-2.0) mmol/L C-Reactive Protein 4.44 H (< or = 0.50) mg/dL Total Protein 8.2 H (6.5-8.0) g/dL 08/21/21 08/21/21 08/21/21 Range/Units 12:43 12:43 18:25 RBC 4.54 L (4.60-5.80) X10*6/uL Hgb 11.1 L (14.0-18.0) g/dl Hct 36.0 L (42.0-52.0) % MCV 79.3 L (80.0-98.0) fL MCH 24.4 L (27.0-33.0) pg MCHC 30.8 L (31.0-36.0) g/dl ESR 83 H (0-15) MM/HR PT (9.9-13.0) SEC INR (0.9-1.1) APTT (24.1-38.0) SEC BUN (9-16) mg/dL POC Glucose 119 H (60-115) mg/dL Random Glucose (60-115) mg/dL Lactic Acid (0.5-2.0) mmol/L C-Reactive Protein (< or = 0.50) mg/dL Total Protein (6.5-8.0) g/dL 08/21/21 08/22/21 08/22/21 Range/Units 20:23 05:21 05:21 RBC 4.29 L (4.60-5.80) X10*6/uL Hgb 10.6 L (14.0-18.0) g/dl Hct 34.0 L (42.0-52.0) % MCV 79.3 L (80.0-98.0) fL MCH 24.7 L (27.0-33.0) pg MCHC (31.0-36.0) g/dl ESR (0-15) MM/HR PT (9.9-13.0) SEC INR (0.9-1.1) APTT (24.1-38.0) SEC BUN (9-16) mg/dL POC Glucose 249 H (60-115) mg/dL Random Glucose 141 H D (60-115) mg/dL Lactic Acid (0.5-2.0) mmol/L C-Reactive Protein (< or = 0.50) mg/dL Total Protein (6.5-8.0) g/dL Short CBC 08/21/21 08/22/21 Range/Units 12:43 05:21 WBC 6.6 6.2 (4.8-10.8) X10*3/uL Hgb 11.1 L 10.6 L (14.0-18.0) g/dl Hct 36.0 L 34.0 L (42.0-52.0) % Plt Count 230 224 (160-400) X10*3/uL BMP 08/21/21 08/22/21 12:42 05:21 Sodium 137 141 Potassium 4.8 4.4 Chloride 104 106 Carbon Dioxide 25 27 BUN 19 H 12 Creatinine 1.07 0.91 Calcium 10.2 9.6 Liver Function 08/21/21 Range/Units 12:42 Total Bilirubin 0.4 (0.0-1.0) mg/dL Direct Bilirubin 0.2 (0.0-0.5) mg/dL AST 16 (5-37) U/L ALT 22 (0-40) U/L Alkaline Phosphatase 89 (39-117) U/L Albumin 4.0 (3.5-5.0) g/dL All other labs normal. Assessment and Plan (1) Osteomyelitis: Qualifiers: Laterality: right Osteomyelitis location: foot Osteomyelitis type: other Qualified Code(s): M86.8X7 - Other osteomyelitis, ankle and foot Status: Acute He has this draining small ulcer on his amputation site right foot. He had an x-ray showing suggestion of osteomyelitis on the 2nd metatarsal head of the amputation stump. I have changes dressings. Treatment options would include more proximal amputation of the 2nd metatarsal versus prolonged antibiotic treatment. At this time, he prefers not to proceed with any amputation for now. He is willing to go for antibiotic treatment. He needs good wound care as well and sugar control. I will follow along while he is in the hospital. Procedures Date of Service Date of Service: 08/22/21
[2021-08-22] MEDS: amLODIPine Besylate 2.5 MG TABLET PO (08:34)
[2021-08-22] MEDS: Aspirin Enteric Coated 81 MG TABLET.DR PO (08:34)
[2021-08-22] MEDS: Gabapentin 300 MG CAPSULE PO ×3 (08:34→21:11)
[2021-08-22] MEDS: bisacodyL 5 MG TABLET.DR PO (08:34)
[2021-08-22] MEDS: Atorvastatin Calcium 40 MG TABLET PO (08:34)
[2021-08-22] MEDS: 0.9 % Sodium Chloride Flush 3 ML SYRINGE IVFLUSH ×2 (08:35→16:36)
[2021-08-22 08:56] LABS: Glucose, Whole Blood 156 mg/dL (60-115)
--- NOTE | 2021-08-22 10:07 | MHC.CM.PN ---
Addendum entered by Mackenzie Felix RN 08/22/21 12:11: PER PT PREFERENCE REFERRALS SENT TO [facility] AND [facility], PT REPORTS HE HAS DONE IV ABX AT HOME BEFORE AND IS CONFIDENT HE CAN SELF-ADMINISTER. Original Note: EMR REVIEWED, CM MET W/HOSPITALIST TO DISCUSS CASE AND LIKELY PT WILL NEED NURSING HOME IV ABX AT HOME, CM TO PLACE REFERRALS BASED ON PT PREFERNCES FOR [facility] AND HOME [facility]ION.
--- NOTE | 2021-08-22 10:38 | PC.NURSE ---
Skin/wound assessment completed today. Patient has a diabetic ulcer to top of right foot amputation site with possibility of osteomyelitis. Wound cleansed with wound cleanser, silver alginate applied covered with non woven gauze and roll gauze. No other skin issues noted at this time.
[2021-08-22 12:15] LABS: Glucose, Whole Blood 272 mg/dL (60-115)
[2021-08-22] MEDS: Insulin Lispro 100 UNIT/ML 3 ML VIAL SUBCUT ×3 (12:37→21:11)
--- NOTE | 2021-08-22 13:08 | P.PNIM_ITS ---
Subjective Subjective Date of Service: 08/22/21 Review of Systems Follow up right foot cellulitis no pain able to ambulate in room All other systems are reviewed and are negative Physical Exam Vital Signs: Vital Signs: Last Vital Signs Temp 97.1 F 08/22/21 11:54 Pulse 65 08/22/21 11:54 Resp 18 08/22/21 11:54 BP 106/50 L 08/22/21 11:54 Pulse Ox 99 08/22/21 11:54 BMI result Body Mass Index 27.9 Appearing in no acute distress lung sounds are clear to auscultation heart regular rate rhythm, clear S1, S2 positive bowel sounds, abdomen is soft, nontender neuro patient is alert x3, no focal deficits Objective Data Active Medications Acetaminophen (Acetaminophen 325 Mg Tablet) 650 mg PO Q6H PRN PRN Reason: Pain, Mild (Pain Scale 1-3) Amlodipine Besylate (Amlodipine Besylate 2.5 Mg Tablet) 2.5 mg PO DAILY [facility]; Protocol Last Admin: 08/22/21 08:34 Dose: 2.5 mg Documented by: ELIJAH Aspirin (Aspirin Enteric Coated 81 Mg Tablet.) 81 mg PO DAILY [facility] Last Admin: 08/22/21 08:34 Dose: 81 mg Documented by: ELIJAH Atorvastatin Calcium (Atorvastatin Calcium 40 Mg Tablet) 40 mg PO DAILY [facility] Last Admin: 08/22/21 08:34 Dose: 40 mg Documented by: ELIJAH Bisacodyl (Bisacodyl 5 Mg Tablet.) 5 mg PO DAILY [facility] Last Admin: 08/22/21 08:34 Dose: 5 mg Documented by: ELIJAH Dextrose (Dextrose 50 % 25 Gm/50 Ml Vial) 25 gm IVPUSH Q15M PRN; Protocol PRN Reason: per Hypoglycemia Standing Ord. Gabapentin (Gabapentin 300 Mg Capsule) 300 mg PO TID [facility] Last Admin: 08/22/21 08:34 Dose: 300 mg Documented by: ELIJAH Glucose (Glucose Gel 15 Gm Gel..Gram.) 15 gm PO Q15M PRN; Protocol PRN Reason: per Hypoglycemia Standing Ord. Heparin Sodium (Porcine) (Heparin Sodium,Porcine 5,000 Unit/Ml Vial) 5,000 unit SUBCUT Q12H [facility] Last Admin: 08/22/21 06:10 Dose: 5,000 unit Documented by: HO.RAINAS Piperacillin Sod/Tazobactam (Sod 3.375 gm/ Sodium Chloride) 50 mls @ 100 mls/hr IV Q6H [facility] Last Infusion: 08/22/21 09:38 Dose: 0 mls/hr Documented by: ELIJAH Vancomycin HCl 1,500 mg/ (Sodium Chloride) 500 mls @ 333.333 mls/hr IV Q24H [facility] Insulin Glargine (Insulin Glargine,Hum.Rec.Anlog 100 Unit/Ml 10 Ml Vial) 35 unit SUBCUT BEDTIME [facility] Last Admin: 08/21/21 21:12 Dose: 35 unit Documented by: PEARL Insulin Human Lispro (Insulin Lispro 100 Unit/Ml 3 Ml Vial) 0 unit SUBCUT QIDACHS [facility]; Protocol Last Admin: 08/22/21 12:37 Dose: 6 unit Documented by: ELIJAH Omeprazole (Omeprazole 20 Mg Capsule.Dr) 20 mg PO DAILY@0630 [facility] Last Admin: 08/22/21 06:10 Dose: 20 mg Documented by: JEREMI Ondansetron HCl (Ondansetron Hcl 4 Mg/2 Ml Vial) 4 mg IVPUSH Q8H PRN PRN Reason: Nausea and Vomiting Pharmacy Consult (Consult Rx Perform Med Rec) 1 each MISCELLANE ONCE PRN PRN Reason: Consult order Pharmacy Consult (Consult Rx Vancomycin Dosing) 1 each MISCELLANE DAILY PRN PRN Reason: Consult order Sodium Chloride (0.9 % Sodium Chloride Flush 3 Ml Syringe) 3 ml IVFLUSH QSHIFT [facility] Last Admin: 08/22/21 08:35 Dose: 3 ml Documented by: ELIJAH Labs CBC & Chem 7: 08/22/21 05:21 08/22/21 05:21 Labs: Laboratory Results - last 24 hr 08/21/21 08/21/21 08/21/21 12:42 12:42 12:43 MCV MCH MCHC RDW Plt Count MPV Immature Gran % (Auto) Neut % (Auto) Lymph % (Auto) Cook % (Auto) Eos % (Auto) Baso % (Auto) Lymph # (Auto) Cook # (Auto) Eos # (Auto) Baso # (Auto) Abs Immat Gran (auto) Absolute Neuts (auto) Absolute Nucleated RBC Nucleated RBC % (auto) ESR 83 H Anion Gap 13 Estim Creat Clear Calc 69.8 Estimated GFR > 60 POC Glucose Random Glucose 295 H Lactic Acid 2.7 H* Lactic Acid Fup @ 2Hr Calcium 10.2 Total Bilirubin 0.4 Direct Bilirubin 0.2 AST 16 ALT 22 Alkaline Phosphatase 89 C-Reactive Protein 4.44 H Total Protein 8.2 H Albumin 4.0 COVID-19 ([facility]) COVID-19 [place] 08/21/21 08/21/21 08/21/21 14:40 15:37 18:25 MCV MCH MCHC RDW Plt Count MPV Immature Gran % (Auto) Neut % (Auto) Lymph % (Auto) Cook % (Auto) Eos % (Auto) Baso % (Auto) Lymph # (Auto) Cook # (Auto) Eos # (Auto) Baso # (Auto) Abs Immat Gran (auto) Absolute Neuts (auto) Absolute Nucleated RBC Nucleated RBC % (auto) ESR Anion Gap Estim Creat Clear Calc Estimated GFR POC Glucose 119 H Random Glucose Lactic Acid Lactic Acid Fup @ 2Hr 2.0 Calcium Total Bilirubin Direct Bilirubin AST ALT Alkaline Phosphatase C-Reactive Protein Total Protein Albumin COVID-19 ([facility]) Negative [facility]-[employer] [place] See Note 08/21/21 08/22/21 08/22/21 20:23 05:21 05:21 MCV 79.3 L MCH 24.7 L MCHC 31.2 RDW 15.6 Plt Count 224 MPV 11.6 Immature Gran % (Auto) 0.3 Neut % (Auto) 62.7 Lymph % (Auto) 23.6 Cook % (Auto) 9.3 Eos % (Auto) 3.6 Baso % (Auto) 0.5 Lymph # (Auto) 1.5 Cook # (Auto) 0.6 Eos # (Auto) 0.2 Baso # (Auto) 0.0 Abs Immat Gran (auto) 0.02 Absolute Neuts (auto) 3.9 Absolute Nucleated RBC 0.000 Nucleated RBC % (auto) 0.0 ESR Anion Gap 12 Estim Creat Clear Calc 82.1 Estimated GFR > 60 POC Glucose 249 H Random Glucose 141 H D Lactic Acid Lactic Acid Fup @ 2Hr Calcium 9.6 Total Bilirubin Direct Bilirubin AST ALT Alkaline Phosphatase C-Reactive Protein Total Protein Albumin COVID-19 ([facility]) [facility] [place] 08/22/21 08/22/21 08:10 11:56 MCV MCH MCHC RDW Plt Count MPV Immature Gran % (Auto) Neut % (Auto) Lymph % (Auto) Cook % (Auto) Eos % (Auto) Baso % (Auto) Lymph # (Auto) Cook # (Auto) Eos # (Auto) Baso # (Auto) Abs Immat Gran (auto) Absolute Neuts (auto) Absolute Nucleated RBC Nucleated RBC % (auto) ESR Anion Gap Estim Creat Clear Calc Estimated GFR POC Glucose 156 H 272 H Random Glucose Lactic Acid Lactic Acid Fup @ 2Hr Calcium Total Bilirubin Direct Bilirubin AST ALT Alkaline Phosphatase C-Reactive Protein Total Protein Albumin COVID-19 ([facility]) COVID-19 Clin Com Microbiology Microbiology Results: Microbiology 08/21/21 14:57 Gram Stain - Final Foot Right Routine Culture - Preliminary Culture in progress. Assessment and Plan (1) Osteomyelitis: Status: Acute (2) H/O: HTN (hypertension): Status: Acute (3) Diabetes mellitus: Status: Acute Assessment and Plan: 71 year old man admitted with right foot wound and possible osteomyelitis Osteomyelitis. Right foot TMA Vancomycin and zosyn MRI consistent with acute osteomyelitis ID consult blood cx wound care as per wound nurse PICC line ordered for extended tx with vancomycin Hypertension.? Stable Continue home medications Diabetes mellitus.? Sliding scale, ADA diet DVT prophylaxis with SCD boots Attending Dr. Wallis Quality Stroke Does the patient have a stroke diagnosis?: No VTE Prior VTE?: No VTE Risk Level:: Medical - moderate - high VTE Device Contraindication: Treatment Not Indicated VTE Drug Contraindication: N/A - Med Ordered
--- NOTE | 2021-08-22 13:35 | MHC.CLN ---
NUTRITION CONSULT FOR SKIN. HAS RIGHT FOOT DIABETIC ULCER, NOT PRESSURE INJURY. NO ADDITIONAL NUTRITION INTERVENTIONS.
[2021-08-22 16:08] LABS: Glucose, Whole Blood 249 mg/dL (60-115)
[2021-08-22] MEDS: vancomycin HCL 1,500 MG in 0.9 % Sodium Chloride 500 ML 333.33 MG IV (16:31)
[2021-08-22 20:42] LABS: Glucose, Whole Blood 378 mg/dL (60-115)
[2021-08-22] MEDS: Insulin Glargine,Hum.rec.anlog 100 UNIT/ML 10 ML VIAL 35 UNIT SUBCUT (21:12)
[2021-08-23] VITALS (8 sets, daily range): BP systolic 111–153; BP diastolic 59–90; PULSE 79–106; RESP 16–18; TEMP 36.2–36.6; O2SAT 97–100
[2021-08-23] MEDS: Piperacillin Sodium/Tazobactam 3.375 GM in 0.9 % Sodium Chloride 50 ML IV ×4 (02:29→19:50)
[2021-08-23 05:42] LABS: Hematocrit 34.9 % (42.0-52.0); Hemoglobin 10.9 g/dl (14.0-18.0); Mean Corpuscular HGB Conc 31.2 g/dl (31.0-36.0); Mean Corpuscular Hemoglobin 24.7 pg (27.0-33.0); Mean Corpuscular Volume 79.1 fL (80.0-98.0); Mean Platelet Volume 10.6 fL (9.4-12.4); Platelet Count 222 X10*3/uL (160-400); Red Blood Count 4.41 X10*6/uL (4.60-5.80); Red Cell Distribution Width 15.3 % (11.0-16.0); White Blood Count 5.3 X10*3/uL (4.8-10.8)
[2021-08-23 05:58] LABS: Anion Gap 11 (12-20); Blood Urea Nitrogen 14 mg/dL (9-16); Calcium 9.5 mg/dL (8.4-10.2); Carbon Dioxide 27 mmol/L (22-29); Chloride 105 mmol/L (96-108); Creatinine Clr Calc Pharmacy 71.2; Estimated Glomerular Filt Rate > 60; Glucose Random 268 mg/dL (60-115); Potassium 4.6 mmol/L (3.3-5.1); Sodium 138 mmol/L (135-145)
[2021-08-23] MEDS: Omeprazole 20 MG CAPSULE.DR PO (06:35)
[2021-08-23 07:18] LABS: Glucose, Whole Blood 227 mg/dL (60-115)
[2021-08-23] MEDS: Insulin Lispro 100 UNIT/ML 3 ML VIAL SUBCUT ×4 (08:05→20:05)
[2021-08-23] MEDS: amLODIPine Besylate 2.5 MG TABLET PO (08:05)
[2021-08-23] MEDS: Aspirin Enteric Coated 81 MG TABLET.DR PO (08:05)
[2021-08-23] MEDS: Gabapentin 300 MG CAPSULE PO ×3 (08:05→19:57)
[2021-08-23] MEDS: 0.9 % Sodium Chloride Flush 3 ML SYRINGE IVFLUSH ×2 (08:05→17:50)
[2021-08-23] MEDS: bisacodyL 5 MG TABLET.DR PO (08:05)
[2021-08-23] MEDS: Atorvastatin Calcium 40 MG TABLET PO (08:05)
[2021-08-23 11:41] LABS: Glucose, Whole Blood 306 mg/dL (60-115)
--- NOTE | 2021-08-23 12:04 | MHC.CM.PN ---
CM MET W/HOSPITALIST TO DISCUSS CASE, PT STILL AWAITING PICC LINE PLACEMENT AND ID CONSULT, PLAN FOR D/C TOMORROW 08/24, [facility] AWARE.
[2021-08-23 14:55] LABS: Vancomycin Random 6.5 mcg/mL (15-20)
--- NOTE | 2021-08-23 15:13 | P.PNGS_ITS ---
Subjective Subjective Date of Service: 08/23/21 Interval history: Feels well denies complaints no fever Physical Exam Vital Signs: Vital Signs: Last Vital Signs Temp 97.9 F 08/23/21 11:33 Pulse 87 08/23/21 11:33 Resp 18 08/23/21 11:33 BP 119/66 08/23/21 11:33 Pulse Ox 100 08/23/21 11:33 BMI result Body Mass Index 27.9 Const: General: comfortable and no acute distress Resp: Effort & Inspection: normal respiratory effort Cardio: Rate: regular rate GI: Palpation (GI): Soft to palpation and nontender Extrem: Other: right foot with ulcer at the transmetatarsal stump, scanty drainage, no cellulitis Objective Data Active Medications Acetaminophen (Acetaminophen 325 Mg Tablet) 650 mg PO Q6H PRN PRN Reason: Pain, Mild (Pain Scale 1-3) Amlodipine Besylate (Amlodipine Besylate 2.5 Mg Tablet) 2.5 mg PO DAILY [facility]; Protocol Last Admin: 08/23/21 08:05 Dose: 2.5 mg Documented by: VALENTINA Aspirin (Aspirin Enteric Coated 81 Mg Tablet.) 81 mg PO DAILY [facility] Last Admin: 08/23/21 08:05 Dose: 81 mg Documented by: VALENTINA Atorvastatin Calcium (Atorvastatin Calcium 40 Mg Tablet) 40 mg PO DAILY [facility] Last Admin: 08/23/21 08:05 Dose: 40 mg Documented by: VALENTINA Bisacodyl (Bisacodyl 5 Mg Tablet.) 5 mg PO DAILY [facility] Last Admin: 08/23/21 08:05 Dose: 5 mg Documented by: VALENTINA Dextrose (Dextrose 50 % 25 Gm/50 Ml Vial) 25 gm IVPUSH Q15M PRN; Protocol PRN Reason: per Hypoglycemia Standing Ord. Gabapentin (Gabapentin 300 Mg Capsule) 300 mg PO TID [facility] Last Admin: 08/23/21 08:05 Dose: 300 mg Documented by: VALENTINA Glucose (Glucose Gel 15 Gm Gel..Gram.) 15 gm PO Q15M PRN; Protocol PRN Reason: per Hypoglycemia Standing Ord. Piperacillin Sod/Tazobactam (Sod 3.375 gm/ Sodium Chloride) 50 mls @ 100 mls/hr IV Q6H [facility] Last Infusion: 08/23/21 14:58 Dose: 0 mls/hr Documented by: VALENTINA Vancomycin HCl 2,000 mg/ (Sodium Chloride) 540 mls @ 270 mls/hr IV Q24H [facility] Insulin Glargine (Insulin Glargine,Hum.Rec.Anlog 100 Unit/Ml 10 Ml Vial) 35 unit SUBCUT BEDTIME [facility] Last Admin: 08/22/21 21:12 Dose: 35 unit Documented by: JEREMI Insulin Human Lispro (Insulin Lispro 100 Unit/Ml 3 Ml Vial) 0 unit SUBCUT Q IDACHS [facility]; Protocol Last Admin: 08/23/21 11:50 Dose: 8 unit Documented by: VALENTINA Omeprazole (Omeprazole 20 Mg Capsule.Dr) 20 mg PO DAILY@0630 [facility] Last Admin: 08/23/21 06:35 Dose: 20 mg Documented by: JEREMI Ondansetron HCl (Ondansetron Hcl 4 Mg/2 Ml Vial) 4 mg IVPUSH Q8H PRN PRN Reason: Nausea and Vomiting Pharmacy Consult (Consult Rx Perform Med Rec) 1 each MISCELLANE ONCE PRN PRN Reason: Consult order Pharmacy Consult (Consult Rx Vancomycin Dosing) 1 each MISCELLANE DAILY PRN PRN Reason: Consult order Sodium Chloride (0.9 % Sodium Chloride Flush 3 Ml Syringe) 3 ml IVFLUSH QSHIFT [facility] Last Admin: 08/23/21 08:05 Dose: 3 ml Documented by: VALENTINA Labs CBC & Chem 7: 08/23/21 05:25 08/23/21 05:25 Labs: Laboratory Results - last 24 hr 08/22/21 08/22/21 08/23/21 16:03 20:27 05:25 MCV 79.1 L MCH 24.7 L MCHC 31.2 RDW 15.3 Plt Count 222 MPV 10.6 Absolute Nucleated RBC 0.000 Nucleated RBC % (auto) 0.0 Anion Gap Estim Creat Clear Calc Estimated GFR POC Glucose 249 H 378 H* Random Glucose Calcium Random Vancomycin 08/23/21 08/23/21 08/23/21 05:25 07:13 11:34 MCV MCH MCHC RDW Plt Count MPV Absolute Nucleated RBC Nucleated RBC % (auto) Anion Gap 11 L Estim Creat Clear Calc 71.2 Estimated GFR > 60 POC Glucose 227 H 306 H Random Glucose 268 H D Calcium 9.5 Random Vancomycin 08/23/21 14:04 MCV MCH MCHC RDW Plt Count MPV Absolute Nucleated RBC Nucleated RBC % (auto) Anion Gap Estim Creat Clear Calc Estimated GFR POC Glucose Random Glucose Calcium Random Vancomycin 6.5 L Microbiology Microbiology Results: Microbiology 08/21/21 12:43 Blood Culture - Preliminary Blood - Venous No growth after 48 hours. 08/21/21 12:43 Blood Culture - Preliminary Blood - Venous No growth after 48 hours. 08/21/21 14:57 Gram Stain - Final Foot Right Routine Culture - Final Procedures Date of Service Date of Service: 08/23/21 Progress Note: A&P Assessment and plan (1) Osteomyelitis: Status: Acute Assessment and Plan: I changes dressings alginate dressings reapplied foot wrapped in Andrea roll patient does not want for proximal amputation of the involved bone at this time IV antibiotics with PICC line Fall Risk Details Current Medications: Current Medications Acetaminophen (Acetaminophen 325 Mg Tablet) 650 mg PO Q6H PRN PRN Reason: Pain, Mild (Pain Scale 1-3) Amlodipine Besylate (Amlodipine Besylate 2.5 Mg Tablet) 2.5 mg PO DAILY [facility]; Protocol Last Admin: 08/23/21 08:05 Dose: 2.5 mg Documented by: Aspirin (Aspirin Enteric Coated 81 Mg Tablet.) 81 mg PO DAILY [facility] Last Admin: 08/23/21 08:05 Dose: 81 mg Documented by: Atorvastatin Calcium (Atorvastatin Calcium 40 Mg Tablet) 40 mg PO DAILY [facility] Last Admin: 08/23/21 08:05 Dose: 40 mg Documented by: Bisacodyl (Bisacodyl 5 Mg Tablet.) 5 mg PO DAILY [facility] Last Admin: 08/23/21 08:05 Dose: 5 mg Documented by: Dextrose (Dextrose 50 % 25 Gm/50 Ml Vial) 25 gm IVPUSH Q15M PRN; Protocol PRN Reason: per Hypoglycemia Standing Ord. Gabapentin (Gabapentin 300 Mg Capsule) 300 mg PO TID [facility] Last Admin: 08/23/21 08:05 Dose: 300 mg Documented by: Glucose (Glucose Gel 15 Gm Gel..Gram.) 15 gm PO Q15M PRN; Protocol PRN Reason: per Hypoglycemia Standing Ord. Piperacillin Sod/Tazobactam (Sod 3.375 gm/ Sodium Chloride) 50 mls @ 100 mls/hr IV Q6H [facility] Last Infusion: 08/23/21 14:58 Dose: Infused Documented by: Vancomycin HCl 2,000 mg/ (Sodium Chloride) 540 mls @ 270 mls/hr IV Q24H [facility] Insulin Glargine (Insulin Glargine,Hum.Rec.Anlog 100 Unit/Ml 10 Ml Vial) 35 unit SUBCUT BEDTIME [facility] Last Admin: 08/22/21 21:12 Dose: 35 unit Documented by: Insulin Human Lispro (Insulin Lispro 100 Unit/Ml 3 Ml Vial) 0 unit SUBCUT QIDACHS [facility]; Protocol Last Admin: 08/23/21 11:50 Dose: 8 unit Documented by: Omeprazole (Omeprazole 20 Mg Capsule.Dr) 20 mg PO DAILY@0630 [facility] Last Admin: 08/23/21 06:35 Dose: 20 mg Documented by: Ondansetron HCl (Ondansetron Hcl 4 Mg/2 Ml Vial) 4 mg IVPUSH Q8H PRN PRN Reason: Nausea and Vomiting Pharmacy Consult (Consult Rx Perform Med Rec) 1 each MISCELLANE ONCE PRN PRN Reason: Consult order Pharmacy Consult (Consult Rx Vancomycin Dosing) 1 each MISCELLANE DAILY PRN PRN Reason: Consult order Sodium Chloride (0.9 % Sodium Chloride Flush 3 Ml Syringe) 3 ml IVFLUSH QSHIFT [facility] Last Admin: 08/23/21 08:05 Dose: 3 ml Documented by: Time Spent With Patient Time: Total time spent is greater than 50% in coordination of care (as documented) at patient's floor/unit and/or counseling patient: Time with patient: 15 - 24 minutes Quality Stroke Does the patient have a stroke diagnosis?: No VTE Prior VTE?: No VTE Risk Level:: Medical - moderate - high VTE Device Contraindication: Treatment Not Indicated VTE Drug Contraindication: N/A - Med Ordered
--- NOTE | 2021-08-23 15:28 | HO.PM.IMPN ---
Subjective Subjective Date of Service: 08/23/21 Interval History: . no acute issues. Awaiting PICC line Review of Systems denies chest been excellent denies shortness of breath Denies nausea vomiting diarrhea Physical Exam Vital Signs: Vital Signs: Last Vital Signs Temp 97.9 F 08/23/21 11:33 Pulse 87 08/23/21 11:33 Resp 18 08/23/21 11:33 BP 119/66 08/23/21 11:33 Pulse Ox 100 08/23/21 11:33 BMI result Body Mass Index 27.9 Const: Other: no acute distress; pain-free Resp: Other: clear to auscultation bilaterally no rales rhonchi wheezes Cardio: Other: no S4; positive S1-S2; no S3 murmurs rubs gallops Extrem: Other: right foot with ulcer at the transmetatarsal stump, scanty drainage, no cellulitis Objective Data Active Medications Acetaminophen (Acetaminophen 325 Mg Tablet) 650 mg PO Q6H PRN PRN Reason: Pain, Mild (Pain Scale 1-3) Amlodipine Besylate (Amlodipine Besylate 2.5 Mg Tablet) 2.5 mg PO DAILY [facility]; Protocol Last Admin: 08/23/21 08:05 Dose: 2.5 mg Documented by: VALENTINA Aspirin (Aspirin Enteric Coated 81 Mg Tablet.) 81 mg PO DAILY [facility] Last Admin: 08/23/21 08:05 Dose: 81 mg Documented by: VALENTINA Atorvastatin Calcium (Atorvastatin Calcium 40 Mg Tablet) 40 mg PO DAILY [facility] Last Admin: 08/23/21 08:05 Dose: 40 mg Documented by: VALENTINA Bisacodyl (Bisacodyl 5 Mg Tablet.) 5 mg PO DAILY [facility] Last Admin: 08/23/21 08:05 Dose: 5 mg Documented by: VALENTINA Dextrose (Dextrose 50 % 25 Gm/50 Ml Vial) 25 gm IVPUSH Q15M PRN; Protocol PRN Reason: per Hypoglycemia Standing Ord. Gabapentin (Gabapentin 300 Mg Capsule) 300 mg PO TID [facility] Last Admin: 08/23/21 15:27 Dose: 300 mg Documented by: VALENTINA Glucose (Glucose Gel 15 Gm Gel..Gram.) 15 gm PO Q15M PRN; Protocol PRN Reason: per Hypoglycemia Standing Ord. Piperacillin Sod/Tazobactam (Sod 3.375 gm/ Sodium Chloride) 50 mls @ 100 mls/hr IV Q6H [facility] Last Infusion: 08/23/21 14:58 Dose: 0 mls/hr Documented by: VALENTINA Vancomycin HCl 2,000 mg/ (Sodium Chloride) 540 mls @ 270 mls/hr IV Q24H [facility] Insulin Glargine (Insulin Glargine,Hum.Rec.Anlog 100 Unit/Ml 10 Ml Vial) 35 unit SUBCUT BEDTIME [facility] Last Admin: 08/22/21 21:12 Dose: 35 unit Documented by: JEREMI Insulin Human Lispro (Insulin Lispro 100 Unit/Ml 3 Ml Vial) 0 unit SUBCUT QIDACHS [facility]; Protocol Last Admin: 08/23/21 11:50 Dose: 8 unit Documented by: VALENTINA Omeprazole (Omeprazole 20 Mg Capsule.) 20 mg PO DAILY@0630 [facility] Last Admin: 08/23/21 06:35 Dose: 20 mg Documented by: JEREMI Ondansetron HCl (Ondansetron Hcl 4 Mg/2 Ml Vial) 4 mg IVPUSH Q8H PRN PRN Reason: Nausea and Vomiting Pharmacy Consult (Consult Rx Perform Med Rec) 1 each MISCELLANE ONCE PRN PRN Reason: Consult order Pharmacy Consult (Consult Rx Vancomycin Dosing) 1 each MISCELLANE DAILY PRN PRN Reason: Consult order Sodium Chloride (0.9 % Sodium Chloride Flush 3 Ml Syringe) 3 ml IVFLUSH QSHIFT [facility] Last Admin: 08/23/21 08:05 Dose: 3 ml Documented by: VALENTINA Labs CBC & Chem 7: 08/23/21 05:25 08/23/21 05:25 Labs: Laboratory Results - last 24 hr 08/22/21 08/22/21 08/23/21 16:03 20:27 05:25 MCV 79.1 L MCH 24.7 L MCHC 31.2 RDW 15.3 Plt Count 222 MPV 10.6 Absolute Nucleated RBC 0.000 Nucleated RBC % (auto) 0.0 Anion Gap Estim Creat Clear Calc Estimated GFR POC Glucose 249 H 378 H* Random Glucose Calcium Random Vancomycin 08/23/21 08/23/21 08/23/21 05:25 07:13 11:34 MCV MCH MCHC RDW Plt Count MPV Absolute Nucleated RBC Nucleated RBC % (auto) Anion Gap 11 L Estim Creat Clear Calc 71.2 Estimated GFR > 60 POC Glucose 227 H 306 H Random Glucose 268 H D Calcium 9.5 Random Vancomycin 08/23/21 14:04 MCV MCH MCHC RDW Plt Count MPV Absolute Nucleated RBC Nucleated RBC % (auto) Anion Gap Estim Creat Clear Calc Estimated GFR POC Glucose Random Glucose Calcium Random Vancomycin 6.5 L Microbiology Microbiology Results: Microbiology 08/21/21 12:43 Blood Culture - Preliminary Blood - Venous No growth after 48 hours. 08/21/21 12:43 Blood Culture - Preliminary Blood - Venous No growth after 48 hours. 08/21/21 14:57 Gram Stain - Final Foot Right Routine Culture - Final Assessment and Plan (1) Osteomyelitis: Status: Acute (2) Diabetes mellitus: Status: Acute Assessment and Plan: 71 year old man admitted with right 2nd metatarsal head osteomyelitis 1.Osteomyelitis( right 2nd metatarsal head) Continue IV vancomycin / Zosyn 6 weeks wound care as ordered 2.Hypertension.? Acceptable control on current therapies; adjust as indicated 3.Diabetes Mellitus.? sliding scale coverage, ADA diet DVT prophylaxis with SCD boots Quality Stroke Does the patient have a stroke diagnosis?: No VTE Prior VTE?: No VTE Risk Level:: Medical - moderate - high VTE Device Contraindication: Treatment Not Indicated VTE Drug Contraindication: N/A - Med Ordered
[2021-08-23 15:58] LABS: Glucose, Whole Blood 274 mg/dL (60-115)
--- NOTE | 2021-08-23 17:37 | HO.PICC ---
PICC Line Insertion NPICC Diagnosis: [OSTEOMYELITIS] Indication: 6 WEEKS OF ANTIBX VANCOMYCIN Pertinent Labs: [REVIEWED] Technique: Following informed consent including risks, benefits and alternatives and using sterile technique including cap and mask, sterile gown, glove and drape, the [RIGHT] arm was prepped and draped in the usual sterile fashion of full barrier technique with CHG. Following completion of [place] Protocol the skin and soft tissues were anesthetized with 1% Lidocaine plain. Using ultrasound guidance, [RIGHT BASILIC] vein access was obtained ON FIRST ATTEMPT. Over an 0.018 wire through peel-away sheath, a [4FR SINGLE LUMEN] PICC line was positioned. Catheter length is [44CM] internal length, [1CM] external length, for a total trimmed length of [45CM]. The procedure was performed in [RM. 272]. Tip verification was performed by Brenda Mooney with [employer]lock 3CG. Tip located in SVC. Ultrasound was used to document vein patency and for needle entry. A formal ultrasound picture and cardiac rhythm strip was recorded. Vascular Biochemistry Technologist has released the line for use and it is currently dressed with a StatLock, Tegaderm, and CHG disc. Verification has been performed for blood return and line patency. Arm Circumference: [29.5CM] Equipment: [[employer] POWER PICC SOLO Catheter Type: [4FR SINGLE LUMEN PICC] Lot #: [[id number]]
[2021-08-23] MEDS: 0.9 % Sodium Chloride Flush 10 ML SYRINGE 5 ML IVFLUSH (19:58)
[2021-08-23] MEDS: Insulin Glargine,Hum.rec.anlog 100 UNIT/ML 10 ML VIAL 35 UNIT SUBCUT (20:05)
[2021-08-23 20:15] LABS: Glucose, Whole Blood 305 mg/dL (60-115)
[2021-08-24] MEDS: Piperacillin Sodium/Tazobactam 3.375 GM in 0.9 % Sodium Chloride 50 ML IV ×2 (03:49→08:32)
[2021-08-24] MEDS: Omeprazole 20 MG CAPSULE.DR PO (06:14)
[2021-08-24 07:22] VITALS: BP 128/72; PULSE 85; RESP 16; TEMP 36.5; O2SAT 100
[2021-08-24 07:28] LABS: Glucose, Whole Blood 202 mg/dL (60-115)
[2021-08-24 07:50] LABS: Anion Gap 10 (12-20); Blood Urea Nitrogen 13 mg/dL (9-16); Calcium 9.3 mg/dL (8.4-10.2); Carbon Dioxide 27 mmol/L (22-29); Chloride 107 mmol/L (96-108); Creatinine Clr Calc Pharmacy 81.2; Estimated Glomerular Filt Rate > 60; Glucose Random 213 mg/dL (60-115); Potassium 4.3 mmol/L (3.3-5.1); Sodium 140 mmol/L (135-145)
[2021-08-24] MEDS: Insulin Lispro 100 UNIT/ML 3 ML VIAL SUBCUT ×2 (08:31→12:08)
[2021-08-24] MEDS: 0.9 % Sodium Chloride Flush 10 ML SYRINGE 5 ML IVFLUSH ×2 (08:33→15:50)
[2021-08-24] MEDS: bisacodyL 5 MG TABLET.DR PO (08:33)
[2021-08-24] MEDS: Aspirin Enteric Coated 81 MG TABLET.DR PO (08:33)
[2021-08-24] MEDS: amLODIPine Besylate 2.5 MG TABLET PO (08:33)
[2021-08-24] MEDS: Atorvastatin Calcium 40 MG TABLET PO (08:33)
[2021-08-24] MEDS: Gabapentin 300 MG CAPSULE PO ×2 (08:34→15:51)
[2021-08-24 11:04] VITALS: BP 100/65; PULSE 81; RESP 16; TEMP 36.7; O2SAT 99
[2021-08-24 11:14] LABS: Glucose, Whole Blood 360 mg/dL (60-115)
--- NOTE | 2021-08-24 14:07 | P.CNID_ITS ---
History of Present Illness Data of Consult Service Date: 08/24/21 Requesting physician: Jasbir Khan Primary Care Provider: MD ELIAS Silva Reason for consult: right foot osteomyelitis He presents to hospital with right dorsal foot discomfort and pain I had seen him in the past with diabetic foot complications. He has one week of foot discomfort after wearing tight shoes. 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 History of right inguinal hernia repair History of ventral hernia repair Hx of eye surgery Social History Social History Household Members: None Housing: Apartment Alcohol intake: never Patient Tobacco Use Status: Never used Tobacco service: No Current occupational status: retired [employer] Allergies Allergy/AdvReac Type Severity Reaction Status Date / Time No Known Allergies Allergy Verified 05/04/21 11:40 Active Medications: Current Medications Acetaminophen (Acetaminophen 325 Mg Tablet) 650 mg PO Q6H PRN PRN Reason: Pain, Mild (Pain Scale 1-3) Amlodipine Besylate (Amlodipine Besylate 2.5 Mg Tablet) 2.5 mg PO DAILY [facility]; Protocol Last Admin: 08/24/21 08:33 Dose: 2.5 mg Documented by: Aspirin (Aspirin Enteric Coated 81 Mg Tablet.) 81 mg PO DAILY [facility] Last Admin: 08/24/21 08:33 Dose: 81 mg Documented by: Atorvastatin Calcium (Atorvastatin Calcium 40 Mg Tablet) 40 mg PO DAILY [facility] Last Admin: 08/24/21 08:33 Dose: 40 mg Documented by: Bisacodyl (Bisacodyl 5 Mg Tablet.) 5 mg PO DAILY [facility] Last Admin: 08/24/21 08:33 Dose: 5 mg Documented by: Dextrose (Dextrose 50 % 25 Gm/50 Ml Vial) 25 gm IVPUSH Q15M PRN; Protocol PRN Reason: per Hypoglycemia Standing Ord. Gabapentin (Gabapentin 300 Mg Capsule) 300 mg PO TID [facility] Last Admin: 08/24/21 08:34 Dose: 300 mg Documented by: Glucose (Glucose Gel 15 Gm Gel..Gram.) 15 gm PO Q15M PRN; Protocol PRN Reason: per Hypoglycemia Standing Ord. Insulin Glargine (Insulin Glargine,Hum.Rec.Anlog 100 Unit/Ml 10 Ml Vial) 35 unit SUBCUT BEDTIME [facility] Last Admin: 08/23/21 20:05 Dose: 35 unit Documented by: Insulin Human Lispro (Insulin Lispro 100 Unit/Ml 3 Ml Vial) 0 unit SUBCUT QIDACHS [facility]; Protocol Last Admin: 08/24/21 12:08 Dose: 10 unit Documented by: Omeprazole (Omeprazole 20 Mg Capsule.Dr) 20 mg PO DAILY@0630 [facility] Last Admin: 08/24/21 06:14 Dose: 20 mg Documented by: Ondansetron HCl (Ondansetron Hcl 4 Mg/2 Ml Vial) 4 mg IVPUSH Q8H PRN PRN Reason: Nausea and Vomiting Pharmacy Consult (Consult Rx Perform Med Rec) 1 each MISCELLANE ONCE PRN PRN Reason: Consult order Pharmacy Consult (Consult Rx Vancomycin Dosing) 1 each MISCELLANE DAILY PRN PRN Reason: Consult order Sodium Chloride (0.9 % Sodium Chloride Flush 3 Ml Syringe) 3 ml IVFLUSH QSHIFT [facility] Last Admin: 08/24/21 08:32 Dose: Not Given Documented by: Sodium Chloride (0.9 % Sodium Chloride Flush 10 Ml Syringe) 5 ml IVFLUSH TID [facility] Last Admin: 08/24/21 08:33 Dose: 5 ml Documented by: Home Medications Medication Instructions Recorded Confirmed Last Taken Type aspirin 81 mg tablet,delayed 81 mg PO DAILY 03/16/21 08/21/21 08/21/21 History release bisacodyl 5 mg tablet 5 mg PO DAILY 03/16/21 08/21/21 08/21/21 History blood sugar diagnostic #10 ea 03/16/21 Unknown History gabapentin 300 mg capsule 300 mg PO TID 03/16/21 08/21/21 08/21/21 History lancets 28 gauge (FreeStyle #100 ea 03/16/21 Unknown History Lancets) metformin 500 mg tablet 500 mg PO TID 03/16/21 08/21/21 08/21/21 History omeprazole 20 mg delayed 20 mg PO DAILY 03/16/21 08/21/21 08/21/21 History release,disintegrating tablet pen needle, diabetic 31 gauge x #50 ea 03/16/21 Unknown History 3/16 (1st Tier Unifine Pentips) pen needle, diabetic 32 gauge x #50 ea 03/16/21 Unknown History (BD Susannah 2nd Gen Pen Needle) pioglitazone 45 mg tablet (Actos) 45 mg PO DAILY 03/16/21 08/21/21 08/21/21 History amlodipine 2.5 mg tablet 1 tab PO DAILY 08/21/21 08/21/21 08/21/21 History atorvastatin 40 mg tablet 1 tab PO DAILY 08/21/21 08/21/21 08/21/21 History glipizide 10 mg tablet, extended 1 tab PO BID 08/21/21 08/21/21 08/21/21 History release 24 hr insulin detemir U-100 100 unit/mL 50 unit SUBCUT BEDTIME 08/21/21 08/21/21 08/20/21 History (3 mL) subcutaneous pen (Levemir FlexTouch U-100 Insulin) Physical Exam Vital Signs: Vital Signs: Last Vital Signs Temp 98.0 F 08/24/21 11:04 Pulse 81 08/24/21 11:04 Resp 16 08/24/21 11:04 BP 100/65 08/24/21 11:04 Pulse Ox 99 08/24/21 11:04 BMI result Body Mass Index 27.9 Const: General: cooperative Eyes: General: appearance normal, both eyes and all related structures Resp: Effort & Inspection: normal respiratory effort Cardio: Rate: regular rate Rhythm: regular rhythm GI: Palpation (GI): Soft to palpation and nontender : General: Yes no CVA tenderness Back/Spine/Pelvis: Back: no CVA tenderness Extrem: Other: right dorsum foot 2 cm open area neuropathy no cellulitis Results Labs CBC & Chem 7: 08/23/21 05:25 08/24/21 07:18 Labs: BMP 08/24/21 07:18 Sodium 140 Potassium 4.3 Chloride 107 Carbon Dioxide 27 BUN 13 Creatinine 0.92 Calcium 9.3 Microbiology Microbiology Results: Microbiology 08/21/21 12:43 Blood - Venous Blood Culture - Preliminary No growth after 48 hours. 12/07/21 12:43 Blood - Venous Blood Culture - Preliminary No growth after 48 hours. 08/21/21 14:57 Foot Right Gram Stain - Final 08/21/21 14:57 Foot Right Routine Culture - Final Assessment and Plan (1) Diabetes mellitus: Status: Acute (2) Osteomyelitis: Qualifiers: Laterality: right Osteomyelitis location: foot Osteomyelitis type: other Qualified Code(s): M86.8X7 - Other osteomyelitis, ankle and foot Status: Acute New osteomyelitis with erosion second metatarsal head He has had MSSA bacteremia before,no MRSA seen Six weeks IV Ertapenem one gram IV daily and then po Doxycycline for one to two months
--- NOTE | 2021-08-24 14:23 | PM.EVENT ---
Event Note Date of Service: 08/24/21 Event Note: He feels well Denies significant foot pain Dressings changed Note of ulcer on the transmetatarsal site, scanty drainage I placed a dressings and wrapped the foot in Andrea roll IV antibiotics Patient already has a PICC line The rest of management as per hospitalist service
--- NOTE | 2021-08-24 15:24 | PM.DS ---
DS: Providers Provider Date of Service: 08/24/21 Date of admission: 08/21/21 16:46 Primary care physician: Ania Ballesteros MD Consults: 08/21/21 16:50 Consult to General Surgery Routine Consulting Provider: Jaxon Qiu Reason for consultation: foot wound, right tma Has provider been notified: No 08/22/21 13:09 Consult to Infectious Diseases Routine Consulting Provider: Michelle Quiñonez Reason for consultation: osteo right foot Has provider been notified: No 08/24/21 14:57 Consult to Infectious Diseases Routine Consulting Provider: Michelle Quiñonez Reason for consultation: seen for osteo Has provider been notified: Yes DS: Diagnosis Discharge Diagnosis (1) Diabetes mellitus: Status: Acute (2) Osteomyelitis: Status: Acute DS: Summary Hospital Course Hospital Course: 71-year-old male presents with infected wound on the dorsal aspect of his right foot at the area of prior amputation. He was admitted and placed on IV vancomycin and IV Zosyn. Subsequent MRI confirmed diagnosis. PICC line was placed for long-term antibiotics; discussed with surgeon and offered further debridement verses long-term antibiotic and patient prefers antibiotic trial prior to consideration of further surgery. Seen by Infectious Disease, recommendation her to pendulum 1 g daily for 6 weeks followed by doxycycline 100 mg b.i.d. for 2 weeks. He will be given the 1st dose of ertapenem in the hospital and discharged to home for completion of therapy in follow-up with PCP Time Spent with Patient Time attestation: Total time spent providing and/or coordinating discharge services: Discharge coordination time: Greater than 30 minutes Quality: Stroke Does the patient have a stroke diagnosis?: No Physical Exam Vital Signs: Vital Signs: Last Vital Signs Temp 98.0 F 08/24/21 11:04 Pulse 81 08/24/21 11:04 Resp 16 08/24/21 11:04 BP 100/65 08/24/21 11:04 Pulse Ox 99 08/24/21 11:04 BMI result Body Mass Index 27.9 Const: Other: no acute distress; pain-free Resp: Other: clear to auscultation bilaterally no rales rhonchi wheezes Cardio: Other: no S4; positive S1-S2; no S3 murmurs rubs gallops Extrem: Other: right foot with ulcer at the transmetatarsal stump, scanty drainage, no cellulitis DS: Data Data Completed and Pending Labs on day of discharge: Laboratory Results - last 24 hr 08/23/21 08/23/21 08/24/21 15:53 20:01 07:18 Sodium 140 Potassium 4.3 Chloride 107 Carbon Dioxide 27 Anion Gap 10 L BUN 13 Creatinine 0.92 Estim Creat Clear Calc 81.2 Estimated GFR > 60 POC Glucose 274 H 305 H Random Glucose 213 H Calcium 9.3 08/24/21 08/24/21 07:21 11:06 Sodium Potassium Chloride Carbon Dioxide Anion Gap BUN Creatinine Estim Creat Clear Calc Estimated GFR POC Glucose 202 H 360 H* Random Glucose Calcium Preliminary micro results at discharge 08/21/21 12:43 Blood Culture - Preliminary Blood - Venous No growth after 48 hours. 08/21/21 12:43 Blood Culture - Preliminary Blood - Venous No growth after 48 hours. Discharge Plan Discharge Patient Disposition: Home Health Service Discharge Diagnosis: ostomyelitis 2nd right metatarsal head Referrals: Ania Ballesteros MD [Primary Care Provider] - 1 Week Discharge Medications: New ertapenem 1 gram recon soln 1 g IV DAILY Qty: 10 RF: 3 Continued amlodipine 2.5 mg tablet 1 tab PO DAILY RF: 0 Levemir FlexTouch U-100 Insuln 100 unit/mL (3 mL) insulin pen 50 unit subcut BEDTIME RF: 0 glipizide 10 mg tablet extended release 24hr 1 tab PO BID RF: 0 atorvastatin 40 mg tablet 1 tab PO DAILY RF: 0 bisacodyl 5 mg tablet 5 mg PO DAILY RF: 0 omeprazole 20 mg tablet,disintegrat, delay rel 20 mg PO DAILY RF: 0 pioglitazone [Actos] 45 mg tablet 45 mg PO DAILY RF: 0 gabapentin 300 mg capsule 300 mg PO TID RF: 0 aspirin 81 mg tablet,delayed release (DR/EC) 81 mg PO DAILY RF: 0 metformin 500 mg tablet 500 mg PO TID RF: 0 (DME) pen needle, diabetic [1st Tier Unifine Pentips] 31 gauge x 3/16 needle See Rx Instructions .ROUTE .MEDSUPPLY Qty: 50 RF: 0 (DME) blood sugar diagnostic Strip See Rx Instructions .ROUTE .MEDSUPPLY Qty: 10 RF: 0 (DME) lancets [FreeStyle Lancets] 28 gauge misc See Rx Instructions .ROUTE .MEDSUPPLY Qty: 100 RF: 0 (DME) pen needle, diabetic [BD Susannah 2nd Gen Pen Needle] 32 gauge x 5/32 needle See Rx Instructions .ROUTE .MEDSUPPLY Qty: 50 RF: 0 Discharge Orders: Discharge Order (Routine); Ordered 08/24/21 Ordered By: Jasbir Khan Diet: advance to usual diet Activity on Discharge: As tolerated Stand Alone Forms: Patient Portal Discharge page Care Plan Goals: complete IV therapy in follow-up with PCM [facility] Concerns: resolution Plan of Treatment: as ordered Assessment: osteomyelitis
[2021-08-24] MEDS: Ertapenem Sodium 1 GM in 0.9 % Sodium Chloride 50 ML IV (15:49)
--- NOTE | 2021-08-24 15:59 | P.F2F_ITS ---
Service Date Service Date: 08/24/21 Encounter Encounter: seen in hospital 08/24/2021 Reasons for Services Signs and symptoms assessed: osteomyelitis right foot on IV antibiotics x6 weeks Homebound: Leaving the home is medically contraindicated at this time without the asist of a device and/or another person due th the listed conditions above and below. Certification: Based on the above findings, I certify that this patient is confined to the home and needs intermittent long-term care, physical therapy and/or speech therapy, or continues to need occupational therapy. The patient is under my care, and I have initiated the establishment of the plan of care. The patient will be followed by a physician who will periodically review the plan of care.
--- NOTE | 2021-08-24 16:33 | P.F2F_ITS ---
Service Date Service Date: 08/24/21 Encounter Encounter: clarita as inpatient 08/24/21 Reasons for Services Reason for custodial: wound care and administration of IV, SQ, or IM injection Homebound: Leaving the home is medically contraindicated at this time without the asist of a device and/or another person due th the listed conditions above and below. Certification: Based on the above findings, I certify that this patient is confined to the home and needs intermittent custodial care, physical therapy and/or speech therapy, or continues to need occupational therapy. The patient is under my care, and I have initiated the establishment of the plan of care. The patient will be followed by a physician who will periodically review the plan of care.
--- NOTE | 2021-08-24 16:35 | MHC.CM.PN ---
PT DISCHARGING HOME W/NEW [facility] FOR IV ERTAPENEM X6 WKS, PT'S SON FOR TRANSPORT.
== END 2021-08-24 17:16 | disposition home health service (06) | DRG 565 ==
LOC: HO.ED 14:23 → HO.EDOVER 16:55 → HO.S3 22:40
PROVIDERS: Physician Assistant; Admitting Provider Nurse Practitioner Acute Care; Emergency Provider Emergency Medicine Emergency Medical Services; PCP Internal Medicine; Visit Provider Hospitalist
DX: T87.43 Infection of amputation stump, right lower extremity (principal); M86.171 Other acute osteomyelitis, right ankle and foot; L02.611 Cutaneous abscess of right foot; E11.69 Type 2 diabetes mellitus with other specified complication; E78.5 Hyperlipidemia, unspecified; K21.9 Gastro-esophageal reflux disease without esophagitis; Z20.822 Contact with and (suspected) exposure to COVID-19; Z79.82 Long term (current) use of aspirin; Z79.84 Long term (current) use of oral hypoglycemic drugs; Z79.899 Other long term (current) drug therapy
CPT/HCPCS: 36415; 36573; 73630; 73720; 80048; 80076; 80202; 82947; 83605; 85025; 85027; 85610; 85652; 85730; 86140; 87040; 87071; 87205; 87635; 99284; A9585; C1751; J1335; J2543; J3370

== ENCOUNTER 2021-08-30 11:28 | Outpatient (REF) | payer MEDICARE, MEDICAID, SELFPAY ==
[2021-08-30 11:32] LABS: MANUAL DIFF FLAG NO
[2021-08-30 11:38] LABS: Basophils Percent Auto 0.3 % (0-2); Eosinophils Absolute Auto 0.2 X10*3/uL (0.0-0.4); Eosinophils Percent Auto 2.7 % (0-4); Hematocrit 34.5 % (42.0-52.0); Hemoglobin 10.9 g/dl (14.0-18.0); Imm Gran Abs Auto 0.02 X10*3/uL (0.00-0.03); Imm Gran Pct Auto 0.3 % (0.0-0.4); Lymphocytes Absolute Auto 1.6 X10*3/uL (1.2-4.9); Lymphocytes Percent Auto 24.1 % (20-40); Mean Corpuscular HGB Conc 31.6 g/dl (31.0-36.0); Mean Corpuscular Hemoglobin 24.9 pg (27.0-33.0); Mean Corpuscular Volume 78.9 fL (80.0-98.0); Mean Platelet Volume 11.7 fL (9.4-12.4); Monocytes Absolute Auto 0.5 X10*3/uL (0.1-1.2); Monocytes Percent Auto 6.7 % (2-11); Neutrophils Absolute Auto 4.4 x10*3/uL (2.0-8.3); Neutrophils Percent Auto 65.9 % (45-73); Platelet Count 220 X10*3/uL (160-400); Red Blood Count 4.37 X10*6/uL (4.60-5.80); Red Cell Distribution Width 15.9 % (11.0-16.0); White Blood Count 6.7 X10*3/uL (4.8-10.8)
[2021-08-30 12:10] LABS: Alanine Aminotransferase 26 U/L (0-40); Albumin Level 3.8 g/dL (3.5-5.0); Alkaline Phosphatase 79 U/L (39-117); Anion Gap 12 (12-20); Aspartate Amino Transferase 18 U/L (5-37); Bilirubin Total 0.3 mg/dL (0.0-1.0); Blood Urea Nitrogen 17 mg/dL (9-16); Calcium 9.4 mg/dL (8.4-10.2); Carbon Dioxide 26 mmol/L (22-29); Chloride 105 mmol/L (96-108); Estimated Glomerular Filt Rate > 60; Glucose Random 199 mg/dL (60-115); Potassium 4.7 mmol/L (3.3-5.1); Sodium 138 mmol/L (135-145); Total Protein 7.7 g/dL (6.5-8.0)
== END 2021-08-30 11:29 | disposition home or self-care (01) ==
LOC: HO.HVNA 11:28
PROVIDERS: Visit Provider Internal Medicine
DX: M86.171 Other acute osteomyelitis, right ankle and foot (principal)
CPT/HCPCS: 36415; 80053; 85025

== ENCOUNTER 2021-09-06 13:20 | Outpatient (REF) | payer MEDICARE, MEDICAID, SELFPAY ==
[2021-09-06 13:25] LABS: MANUAL DIFF FLAG NO
[2021-09-06 13:36] LABS: Basophils Percent Auto 0.3 % (0-2); Eosinophils Absolute Auto 0.2 X10*3/uL (0.0-0.4); Hematocrit 32.9 % (42.0-52.0); Hemoglobin 10.3 g/dl (14.0-18.0); Imm Gran Abs Auto 0.02 X10*3/uL (0.00-0.03); Imm Gran Pct Auto 0.3 % (0.0-0.4); Lymphocytes Absolute Auto 1.5 X10*3/uL (1.2-4.9); Lymphocytes Percent Auto 23.5 % (20-40); Mean Corpuscular HGB Conc 31.3 g/dl (31.0-36.0); Mean Corpuscular Hemoglobin 24.6 pg (27.0-33.0); Mean Corpuscular Volume 78.7 fL (80.0-98.0); Mean Platelet Volume 12.4 fL (9.4-12.4); Monocytes Absolute Auto 0.4 X10*3/uL (0.1-1.2); Monocytes Percent Auto 6.9 % (2-11); Neutrophils Absolute Auto 4.2 x10*3/uL (2.0-8.3); Platelet Count 210 X10*3/uL (160-400); Red Blood Count 4.18 X10*6/uL (4.60-5.80); Red Cell Distribution Width 15.9 % (11.0-16.0); White Blood Count 6.4 X10*3/uL (4.8-10.8)
[2021-09-06 13:48] LABS: Alanine Aminotransferase 28 U/L (0-40); Albumin Level 3.8 g/dL (3.5-5.0); Alkaline Phosphatase 75 U/L (39-117); Anion Gap 10 (12-20); Aspartate Amino Transferase 18 U/L (5-37); Bilirubin Total 0.4 mg/dL (0.0-1.0); Blood Urea Nitrogen 19 mg/dL (9-16); Calcium 9.7 mg/dL (8.4-10.2); Carbon Dioxide 27 mmol/L (22-29); Chloride 104 mmol/L (96-108); Estimated Glomerular Filt Rate > 60; Glucose Random 208 mg/dL (60-115); Potassium 4.9 mmol/L (3.3-5.1); Sodium 136 mmol/L (135-145); Total Protein 7.5 g/dL (6.5-8.0)
== END 2021-09-06 13:21 | disposition home or self-care (01) ==
LOC: HO.LNP 13:20
PROVIDERS: Visit Provider Internal Medicine
DX: T87.89 Other complications of amputation stump (principal)
CPT/HCPCS: 80053; 85025

== ENCOUNTER 2021-09-13 11:28 | Outpatient (REF) | payer MEDICARE, MEDICAID, SELFPAY ==
[2021-09-13 11:32] LABS: MANUAL DIFF FLAG NO
[2021-09-13 11:35] LABS: Basophils Percent Auto 0.3 % (0-2); Eosinophils Absolute Auto 0.2 X10*3/uL (0.0-0.4); Eosinophils Percent Auto 2.4 % (0-4); Hematocrit 33.4 % (42.0-52.0); Hemoglobin 10.6 g/dl (14.0-18.0); Imm Gran Abs Auto 0.02 X10*3/uL (0.00-0.03); Imm Gran Pct Auto 0.3 % (0.0-0.4); Lymphocytes Absolute Auto 1.6 X10*3/uL (1.2-4.9); Lymphocytes Percent Auto 23.6 % (20-40); Mean Corpuscular HGB Conc 31.7 g/dl (31.0-36.0); Mean Corpuscular Volume 78.8 fL (80.0-98.0); Mean Platelet Volume 11.3 fL (9.4-12.4); Monocytes Absolute Auto 0.5 X10*3/uL (0.1-1.2); Monocytes Percent Auto 7.4 % (2-11); Neutrophils Absolute Auto 4.5 x10*3/uL (2.0-8.3); Platelet Count 189 X10*3/uL (160-400); Red Blood Count 4.24 X10*6/uL (4.60-5.80); Red Cell Distribution Width 16.1 % (11.0-16.0); White Blood Count 6.8 X10*3/uL (4.8-10.8)
[2021-09-13 12:23] LABS: Alanine Aminotransferase 27 U/L (0-40); Albumin Level 3.7 g/dL (3.5-5.0); Alkaline Phosphatase 71 U/L (39-117); Anion Gap 9 (12-20); Aspartate Amino Transferase 17 U/L (5-37); Bilirubin Total 0.4 mg/dL (0.0-1.0); Blood Urea Nitrogen 26 mg/dL (9-16); Calcium 9.4 mg/dL (8.4-10.2); Carbon Dioxide 27 mmol/L (22-29); Chloride 106 mmol/L (96-108); Estimated Glomerular Filt Rate > 60; Glucose Random 141 mg/dL (60-115); Potassium 4.7 mmol/L (3.3-5.1); Sodium 137 mmol/L (135-145); Total Protein 7.5 g/dL (6.5-8.0)
== END 2021-09-13 11:29 | disposition home or self-care (01) ==
LOC: HO.HVNA 11:28
PROVIDERS: Visit Provider Internal Medicine
DX: T87.89 Other complications of amputation stump (principal)
CPT/HCPCS: 36415; 80053; 85025

== ENCOUNTER 2021-09-20 11:19 | Outpatient (REF) | payer MEDICARE, MEDICAID, SELFPAY ==
[2021-09-20 11:23] LABS: MANUAL DIFF FLAG NO
[2021-09-20 11:32] LABS: Basophils Percent Auto 0.2 % (0-2); Eosinophils Absolute Auto 0.3 X10*3/uL (0.0-0.4); Eosinophils Percent Auto 6.9 % (0-4); Hematocrit 31.6 % (42.0-52.0); Hemoglobin 10.3 g/dl (14.0-18.0); Imm Gran Abs Auto 0.01 X10*3/uL (0.00-0.03); Imm Gran Pct Auto 0.2 % (0.0-0.4); Lymphocytes Absolute Auto 1.1 X10*3/uL (1.2-4.9); Lymphocytes Percent Auto 23.2 % (20-40); Mean Corpuscular HGB Conc 32.6 g/dl (31.0-36.0); Mean Corpuscular Hemoglobin 25.2 pg (27.0-33.0); Mean Corpuscular Volume 77.3 fL (80.0-98.0); Mean Platelet Volume 11.2 fL (9.4-12.4); Monocytes Absolute Auto 0.5 X10*3/uL (0.1-1.2); Monocytes Percent Auto 9.2 % (2-11); Neutrophils Percent Auto 60.3 % (45-73); Platelet Count 166 X10*3/uL (160-400); Red Blood Count 4.09 X10*6/uL (4.60-5.80); Red Cell Distribution Width 15.9 % (11.0-16.0); White Blood Count 4.9 X10*3/uL (4.8-10.8)
[2021-09-20 12:00] LABS: Alanine Aminotransferase 27 U/L (0-40); Albumin Level 3.6 g/dL (3.5-5.0); Alkaline Phosphatase 67 U/L (39-117); Anion Gap 10 (12-20); Aspartate Amino Transferase 21 U/L (5-37); Bilirubin Total 0.2 mg/dL (0.0-1.0); Blood Urea Nitrogen 19 mg/dL (9-16); Calcium 9.6 mg/dL (8.4-10.2); Carbon Dioxide 28 mmol/L (22-29); Chloride 106 mmol/L (96-108); Estimated Glomerular Filt Rate > 60; Glucose Random 97 mg/dL (60-115); Potassium 4.8 mmol/L (3.3-5.1); Sodium 139 mmol/L (135-145); Total Protein 7.3 g/dL (6.5-8.0)
== END 2021-09-20 11:20 | disposition home or self-care (01) ==
LOC: HO.HVNA 11:19
PROVIDERS: Visit Provider Internal Medicine
DX: T87.43 Infection of amputation stump, right lower extremity (principal)
CPT/HCPCS: 36415; 80053; 85025

== ENCOUNTER 2021-09-27 11:25 | Outpatient (REF) | payer MEDICARE, MEDICAID, SELFPAY ==
[2021-09-27 11:29] LABS: MANUAL DIFF FLAG NO
[2021-09-27 11:34] LABS: Basophils Percent Auto 0.4 % (0-2); Eosinophils Absolute Auto 0.2 X10*3/uL (0.0-0.4); Eosinophils Percent Auto 2.7 % (0-4); Imm Gran Abs Auto 0.04 X10*3/uL (0.00-0.03); Imm Gran Pct Auto 0.5 % (0.0-0.4); Lymphocytes Absolute Auto 1.9 X10*3/uL (1.2-4.9); Lymphocytes Percent Auto 25.2 % (20-40); Mean Corpuscular HGB Conc 31.4 g/dl (31.0-36.0); Mean Corpuscular Hemoglobin 24.7 pg (27.0-33.0); Mean Corpuscular Volume 78.5 fL (80.0-98.0); Mean Platelet Volume 11.6 fL (9.4-12.4); Monocytes Absolute Auto 0.6 X10*3/uL (0.1-1.2); Monocytes Percent Auto 7.9 % (2-11); Neutrophils Absolute Auto 4.7 x10*3/uL (2.0-8.3); Neutrophils Percent Auto 63.3 % (45-73); Platelet Count 265 X10*3/uL (160-400); Red Blood Count 4.46 X10*6/uL (4.60-5.80); Red Cell Distribution Width 15.9 % (11.0-16.0); White Blood Count 7.4 X10*3/uL (4.8-10.8)
[2021-09-27 12:31] LABS: Alanine Aminotransferase 26 U/L (0-40); Albumin Level 3.9 g/dL (3.5-5.0); Alkaline Phosphatase 79 U/L (39-117); Anion Gap 10 (12-20); Aspartate Amino Transferase 18 U/L (5-37); Bilirubin Total 0.3 mg/dL (0.0-1.0); Blood Urea Nitrogen 24 mg/dL (9-16); Calcium 9.7 mg/dL (8.4-10.2); Carbon Dioxide 28 mmol/L (22-29); Chloride 105 mmol/L (96-108); Estimated Glomerular Filt Rate > 60; Glucose Random 184 mg/dL (60-115); Sodium 138 mmol/L (135-145); Total Protein 7.9 g/dL (6.5-8.0)
== END 2021-09-27 11:26 | disposition home or self-care (01) ==
LOC: HO.HVNA 11:25
PROVIDERS: Visit Provider Internal Medicine
DX: T87.43 Infection of amputation stump, right lower extremity (principal)
CPT/HCPCS: 36415; 80053; 85025

== ENCOUNTER 2021-10-04 11:17 | Outpatient (REF) | payer MEDICARE, MEDICAID, SELFPAY ==
[2021-10-04 11:20] LABS: MANUAL DIFF FLAG NO
[2021-10-04 11:37] LABS: Basophils Percent Auto 0.3 % (0-2); Eosinophils Absolute Auto 0.1 X10*3/uL (0.0-0.4); Eosinophils Percent Auto 2.4 % (0-4); Hematocrit 33.6 % (42.0-52.0); Hemoglobin 10.6 g/dl (14.0-18.0); Imm Gran Abs Auto 0.02 X10*3/uL (0.00-0.03); Imm Gran Pct Auto 0.3 % (0.0-0.4); Lymphocytes Absolute Auto 1.4 X10*3/uL (1.2-4.9); Lymphocytes Percent Auto 23.2 % (20-40); Mean Corpuscular HGB Conc 31.5 g/dl (31.0-36.0); Mean Corpuscular Hemoglobin 24.4 pg (27.0-33.0); Mean Corpuscular Volume 77.2 fL (80.0-98.0); Mean Platelet Volume 11.9 fL (9.4-12.4); Monocytes Absolute Auto 0.5 X10*3/uL (0.1-1.2); Monocytes Percent Auto 7.7 % (2-11); Neutrophils Absolute Auto 3.9 x10*3/uL (2.0-8.3); Neutrophils Percent Auto 66.1 % (45-73); Platelet Count 220 X10*3/uL (160-400); Red Blood Count 4.35 X10*6/uL (4.60-5.80); Red Cell Distribution Width 16.2 % (11.0-16.0); White Blood Count 5.9 X10*3/uL (4.8-10.8)
[2021-10-04 12:11] LABS: Alanine Aminotransferase 28 U/L (0-40); Albumin Level 3.8 g/dL (3.5-5.0); Alkaline Phosphatase 72 U/L (39-117); Anion Gap 10 (12-20); Aspartate Amino Transferase 18 U/L (5-37); Bilirubin Total 0.3 mg/dL (0.0-1.0); Blood Urea Nitrogen 20 mg/dL (9-16); Calcium 9.6 mg/dL (8.4-10.2); Carbon Dioxide 28 mmol/L (22-29); Chloride 106 mmol/L (96-108); Estimated Glomerular Filt Rate > 60; Glucose Random 139 mg/dL (60-115); Sodium 139 mmol/L (135-145); Total Protein 7.5 g/dL (6.5-8.0)
== END 2021-10-04 11:18 | disposition home or self-care (01) ==
LOC: HO.HVNA 11:17
PROVIDERS: Internal Medicine; Visit Provider Orthopaedic Surgery
DX: T87.43 Infection of amputation stump, right lower extremity (principal)
CPT/HCPCS: 36415; 80053; 85025

== ENCOUNTER 2022-06-11 08:03 | Outpatient (RCR) | payer MEDICARE, MEDICAID, SELFPAY ==
--- NOTE | ~2022-06-11 | XR_ITS ---
EXAMINATION: XR FOOT, LEFT CLINICAL INFORMATION: Wound. COMPARISON: Radiographs dated 09/01/2022. TECHNIQUE: AP, lateral, and oblique views of the left foot. FINDINGS: There has been a prior fusion of the left first metatarsophalangeal joint. There has been a prior resection of the left fourth toe and the head of the left fourth metatarsal, with some heterotopic bone now noted at the resection site. No acute fracture or dislocation is seen. There is soft tissue irregularity of the plantar forefoot, without gas or foreign body. Boehler's angle is normal. There is no left ankle joint effusion. No focal erosion is noted. There are small posterior and minimal plantar calcaneal spurs. XR/XR foot LT 2V IMPRESSION: There are postoperative changes, as detailed. There is soft tissue irregularity of the plantar forefoot, without gas or foreign body noted. No abnormal bone erosion or periosteal thickening is seen.
--- NOTE | ~2022-06-11 | XR_ITS ---
EXAMINATION: XR FOOT, LEFT CLINICAL INFORMATION: Question osteochondral. COMPARISON: 10/08/2013 and 07/22/2013. TECHNIQUE: AP, lateral, and oblique views of the left foot. FINDINGS: Status post previous resection 4th toe and metatarsal head. No erosive change about the amputation site is seen. There is some soft tissue edema present within adjacent soft tissues. There is a linear metallic density along the lateral aspect of the 4th proximal interphalangeal joint with narrowing of the joint space. There is appearance of surgical resection portion distal tuft of the 2nd distal phalanx without new erosive change. There is some soft tissue prominence present. There appears be surgical resection portion of the 1st distal tuft. There is loss of joint space of the 2nd distal interphalangeal joint. There is loss of the 1st metatarsophalangeal joint with what appears to be bony union. No acute fracture or dislocation is evident. There is flattening of the 3rd and 4th metatarsal heads without definite acute erosive change. Calcaneal spurs are present. XR/XR foot LT min 3V IMPRESSION: Stable postsurgical changes of the left foot. No definite plain film findings to suggest acute osteomyelitis. Linear metallic density about the 4th proximal interphalangeal joint which may be postsurgical in nature. No new destructive erosive change appreciated. Plantar and Achilles calcaneal spurs.
[2022-06-27 10:17] LABS: MANUAL DIFF FLAG NO
[2022-06-27 10:35] LABS: Basophils Percent Auto 0.3 % (0-2); Eosinophils Absolute Auto 0.2 X10*3/uL (0.0-0.4); Eosinophils Percent Auto 2.6 % (0-4); Hematocrit 35.7 % (42.0-52.0); Hemoglobin 11.2 g/dl (14.0-18.0); Imm Gran Abs Auto 0.03 X10*3/uL (0.00-0.03); Imm Gran Pct Auto 0.5 % (0.0-0.4); Lymphocytes Absolute Auto 1.7 X10*3/uL (1.2-4.9); Lymphocytes Percent Auto 25.8 % (20-40); Mean Corpuscular HGB Conc 31.4 g/dl (31.0-36.0); Mean Corpuscular Hemoglobin 25.4 pg (27.0-33.0); Mean Platelet Volume 12.4 fL (9.4-12.4); Monocytes Absolute Auto 0.4 X10*3/uL (0.1-1.2); Monocytes Percent Auto 6.7 % (2-11); Neutrophils Absolute Auto 4.2 x10*3/uL (2.0-8.3); Neutrophils Percent Auto 64.1 % (45-73); Platelet Count 206 X10*3/uL (160-400); Red Blood Count 4.41 X10*6/uL (4.60-5.80); Red Cell Distribution Width 15.2 % (11.0-16.0); White Blood Count 6.5 X10*3/uL (4.8-10.8)
[2022-06-27 10:43] LABS: Estimated Average Glucose 232 mg/dL; Hemoglobin A1c % 9.7 %
[2022-06-27 11:21] LABS: Erythrocyte Sedimentation Rate 28 MM/HR (0-15)
[2022-06-27 12:48] LABS: Anion Gap 19 (12-20); Blood Urea Nitrogen 33 mg/dL (9-16); C Reactive Protein 0.78 mg/dL (< or = 0.50); Calcium 9.5 mg/dL (8.4-10.2); Carbon Dioxide 19 mmol/L (22-29); Chloride 103 mmol/L (96-108); Estimated Glomerular Filt Rate 52; Glucose Random 357 mg/dL (60-115); Potassium 5.5 mmol/L (3.3-5.1); Sodium 135 mmol/L (135-145)
[2022-07-25 10:10] LABS: MANUAL DIFF FLAG NO
[2022-07-25 10:57] LABS: Basophils Percent Auto 0.4 % (0-2); Eosinophils Absolute Auto 0.1 X10*3/uL (0.0-0.4); Eosinophils Percent Auto 2.4 % (0-4); Hematocrit 35.6 % (42.0-52.0); Hemoglobin 11.4 g/dl (14.0-18.0); Imm Gran Abs Auto 0.02 X10*3/uL (0.00-0.03); Imm Gran Pct Auto 0.4 % (0.0-0.4); Lymphocytes Absolute Auto 1.3 X10*3/uL (1.2-4.9); Lymphocytes Percent Auto 24.9 % (20-40); Mean Corpuscular Hemoglobin 25.8 pg (27.0-33.0); Mean Corpuscular Volume 80.5 fL (80.0-98.0); Mean Platelet Volume 12.1 fL (9.4-12.4); Monocytes Absolute Auto 0.5 X10*3/uL (0.1-1.2); Monocytes Percent Auto 9.3 % (2-11); Neutrophils Absolute Auto 3.4 x10*3/uL (2.0-8.3); Neutrophils Percent Auto 62.6 % (45-73); Platelet Count 199 X10*3/uL (160-400); Red Blood Count 4.42 X10*6/uL (4.60-5.80); Red Cell Distribution Width 14.9 % (11.0-16.0); White Blood Count 5.4 X10*3/uL (4.8-10.8)
[2022-07-25 11:03] LABS: Blood Urea Nitrogen 19 mg/dL (9-16); Calcium 9.8 mg/dL (8.4-10.2); Estimated Glomerular Filt Rate > 60; Glucose Random 252 mg/dL (60-115)
[2022-07-25 11:08] LABS: Estimated Average Glucose 240 mg/dL
[2022-07-25 11:22] LABS: Anion Gap 16 (12-20); Carbon Dioxide 24 mmol/L (22-29); Chloride 103 mmol/L (96-108); Potassium 6.1 mmol/L (3.3-5.1); Sodium 137 mmol/L (135-145)
[2022-07-25 12:01] LABS: Erythrocyte Sedimentation Rate 26 MM/HR (0-15)
== END 2022-12-30 12:59 | disposition home or self-care (01) ==
LOC: HO.WCC 08:03
PROVIDERS: PCP Internal Medicine; Visit Provider Physician Assistant
DX: Z09 Encounter for follow-up examination after completed treatment for conditions other than malignant neoplasm (principal); E11.51 Type 2 diabetes mellitus with diabetic peripheral angiopathy without gangrene; E11.40 Type 2 diabetes mellitus with diabetic neuropathy, unspecified; L84 Corns and callosities; I10 Essential (primary) hypertension; Z89.422 Acquired absence of other left toe(s); Z89.421 Acquired absence of other right toe(s); Z89.411 Acquired absence of right great toe; Z86.31 Personal history of diabetic foot ulcer
CPT/HCPCS: 10060; 11042; 11043; 36415; 73620; 73630; 80048; 83036; 84134; 85025; 85652; 86140; 87070; 87073; 87077; 87186; 87205; 99212; 99213

== ENCOUNTER 2022-07-25 16:31 | Emergency (ER) | payer MEDICARE, MEDICAID, SELFPAY ==
[2022-07-25 16:33] VITALS: BP 153/80; PULSE 109; RESP 18; TEMP 36.4; O2SAT 99; BMI 27.9
--- NOTE | 2022-07-25 16:35 | ECG_ITS ---
Test Reason : elevated Potassium Blood Pressure : / mmHG Vent. Rate : 106 BPM Atrial Rate : 106 BPM P-R Int : 194 ms QRS Dur : 088 ms QT Int : 346 ms P-R-T Axes : 051 -38 035 degrees QTc Int : 459 ms Sinus tachycardia with frequent Premature ventricular complexes Left anterior fascicular block Abnormal ECG When compared with ECG of 17-JAN-2019 09:49, in a pattern of bigeminy is no longer Present Referred By: Carin Gaffney Electronically Signed By:PEDRO DALY MD
--- NOTE | 2022-07-25 16:37 | ED.RECABL ---
HPI - Recheck/Abnormal Lab/Rx General Chief Complaint: Recheck/Abnormal Lab/Rx <JUSTUS Prieto - Last Filed: 07/25/22 16:38> Stated Complaint: Abnormal Labs <JUSTUS Prieto - Last Filed: 07/25/22 16:38> Time Seen by Provider: 07/25/22 20:41 <JUSTUS Prieto - Last Filed: 07/25/22 16:38> Source: patient <Dorita Streeter MD - Last Filed: 07/25/22 21:54> Mode of arrival: ambulatory <Dorita Streeter MD - Last Filed: 07/25/22 21:54> Limitations: no limitations <Dorita Streeter MD - Last Filed: 07/25/22 21:54> History of Present Illness HPI narrative: Patient comes to the emergency room complaining of abnormal labs. Patient states that he was seen at the wound clinic for an open wound on his left foot which has been healing well. Blood work was done today, showed hyperkalemia, potassium of 6.1 at 10 in the morning. Patient was asked to come to the emergency room for further evaluation. When patient was seen in triage, labs were ordered around 17:00, potassium was 5.4. EKG was done showing no peak T-waves, patient received 1 dose of Lokelma. Repeat labs are pending. Patient states that he is completely asymptomatic. <Dorita Streeter MD - Last Filed: 07/25/22 21:54> Related Data Home Medications: Home Medications Medication Instructions Recorded Confirmed aspirin 81 mg tablet,delayed 81 mg PO DAILY 03/16/21 08/21/21 release bisacodyl 5 mg tablet 5 mg PO DAILY 03/16/21 08/21/21 blood sugar diagnostic #10 ea 03/16/21 gabapentin 300 mg capsule 300 mg PO TID 03/16/21 08/21/21 lancets 28 gauge (FreeStyle #100 ea 03/16/21 Lancets) metformin 500 mg tablet 500 mg PO TID 03/16/21 08/21/21 omeprazole 20 mg delayed 20 mg PO DAILY 03/16/21 08/21/21 release,disintegrating tablet pen needle, diabetic 31 gauge x #50 ea 03/16/2111/28 (1st Tier Unifine Pentips) pen needle, diabetic 32 gauge x #50 ea 03/16/21 (BD Susannah 2nd Gen Pen Needle) pioglitazone 45 mg tablet (Actos) 45 mg PO DAILY 03/16/21 08/21/21 amlodipine 2.5 mg tablet 1 tab PO DAILY 08/21/21 08/21/21 atorvastatin 40 mg tablet 1 tab PO DAILY 08/21/21 08/21/21 glipizide 10 mg tablet, extended 1 tab PO BID 08/21/21 08/21/21 release 24 hr insulin detemir U-100 100 unit/mL 50 unit subcut BEDTIME 08/21/21 08/21/21 (3 mL) subcutaneous pen (Levemir FlexTouch U-100 Insulin) Previous Rx's Medication Instructions Recorded ertapenem 1 gram solution for 1 g IV DAILY #10 ea 08/24/21 injection <JUSTUS Prieto - Last Filed: 07/25/22 16:38> Allergies/Adverse Reactions: Allergies Allergy/AdvReac Type Severity Reaction Status Date / Time No Known Allergies Allergy Verified 07/25/22 16:33 <JUSTUS Prieto - Last Filed: 07/25/22 16:38> Review of Systems Review of Systems: Constitutional : No Weight loss, No Fever, No Chills, No Night Sweats, No Fatigue, No Malaise ENT/Mouth : No Hearing loss, No Ear Pain, No Nasal Congestion, No Sinus Pain, No Hoarseness, No sore throat, No Rhinorrhea, No Swallowing Difficulty Eyes: No Eye Pain, No Swelling, No Redness, No Foreign Body, No Discharge, No Vision Changes Cardiovascular : No Chest Pain, No SOB, No Dyspnea on Exertion, No Orthopnea, No Edema, No Palpitations Respiratory : No Cough, No Sputum, No Wheezing, No Smoke Exposure, No Dyspnea Gastrointestinal : No Nausea, No Vomiting, No Diarrhea, No Constipation, No abdominal Pain, No Hematochezia, No Melena Genitourinary : no irregular bleeding, No Dysuria, No Urinary Frequency, No Hematuria, No Urinary Incontinence, No Urgency, No Flank Pain, No Urinary Flow Changes, No Hesitancy Musculoskeletal : No joint pain, No Myalgias, No Joint Swelling Skin : No Skin Lesions, No rash Neuro : No Weakness, No Numbness, No Paresthesias, No Loss of Consciousness, No Dizziness, No Headache Psych : No Anxiety/Panic, No Depression, No SI/HI/AH/VH, No Social Issues, Heme/Lymph: No Bruising, No Bleeding,No Lymphadenopathy Endocrine : No Polyuria, No Polydipsia, No Temperature Intolerance <Dorita Streeter MD - Last Filed: 07/25/22 21:54> [facility] Past Medical History Medical History: Medical History Diabetes mellitus History of acute renal failure Hyperlipidemia Hypertension <JUSTUS Prieto - Last Filed: 07/25/22 16:38> Surgical History: Surgical History 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 History of right inguinal hernia repair History of ventral hernia repair Hx of eye surgery <JUSTUS Prieto - Last Filed: 07/25/22 16:38> Family History Family History: Family History Father Cancer of unknown origin <JUSTUS Prieto - Last Filed: 07/25/22 16:38> Social History Social History: Social History Household Members: None Housing: Apartment Alcohol intake: never Patient Tobacco Use Status: Never used Tobacco Smoked in Last 30 Days: No Use of substances other than those prescribed or required for medical reasons: No service: No Current occupational status: retired <JUSTUS Prieto - Last Filed: 07/25/22 16:38> Physical Exam Vital Signs: Vital Signs: Last Vital Signs Temp 98.0 F 07/25/22 21:44 Pulse 72 07/25/22 21:44 Resp 22 H 07/25/22 21:44 BP 132/53 L 07/25/22 21:44 Pulse Ox 98 07/25/22 21:44 O2 Del Method 07/25/22 21:44 BMI result Body Mass Index 27.9 <JUSTUS Prieto - Last Filed: 07/25/22 16:38> Vital Signs: Last Vital Signs Temp 98.0 F 07/25/22 21:44 Pulse 72 07/25/22 21:44 Resp 22 H 07/25/22 21:44 BP 132/53 L 07/25/22 21:44 Pulse Ox 98 07/25/22 21:44 O2 Del Method 07/25/22 21:44 BMI result Body Mass Index 27.9 <Dorita Streeter MD - Last Filed: 07/25/22 21:54> Const: Other: Appearance: Alert. Oriented X3. No acute distress. Eyes: Pupils equal, round and reactive to light. ENT: Pharynx normal. Neck: Normal inspection. Neck supple. No lymph nodes noted. No crepitus CVS: Normal heart rate and rhythm. Pulses normal. Normal S1 and S2 Respiratory: No respiratory distress. Breath sounds normal. No Wheezing. No rales Abdomen: Soft and nontender. No rigidity. No distention. Skin: Skin warm and dry. Normal skin color. Normal skin turgor. Extremities: No lower extremity edema. No Lacerations. No Rash Neuro: Oriented X 3. No motor deficit. No sensory deficit. Moving all extremities. No slurred speech. CN 2 through 12 grossly intact Psych: calm, cooperative, normal affect <Dorita Streeter MD - Last Filed: 07/25/22 21:54> Course Course Course Narrative: RME--71yo M sent in from wound clinic for hyperkalemia noted 6.1. admits to intermittent cp x1 week. Wound is healing appropriately. EKG, Labs and 10g Lokelma ordered in triage <JUSTUS Prieto - Last Filed: 07/25/22 16:38> RME--71yo M sent in from wound clinic for hyperkalemia noted 6.1. admits to intermittent cp x1 week. Wound is healing appropriately. EKG, Labs and 10g Lokelma ordered in triage Patient's potassium is 5.0. Borderline on the higher side. Patient will receive 1 more dose of Lokelma. Patient instructed to have close follow-up with his primary care physician. Patient remains asymptomatic <Dorita Streeter MD - Last Filed: 07/25/22 21:54> Medications Administered Discontinued Medications Generic Name Dose Route Start Last Admin Trade Name Freq PRN Reason Stop Dose Admin Sodium Zirconium Cyclosilicate 10 gm 07/25/22 16:33 07/25/22 18:30 Sodium Zirconium Cyclosilicate 10 Gm Powd.Pack PO 07/25/22 16:34 10 gm ONCE ONE Administration <JUSTUS Prieto - Last Filed: 07/25/22 16:38> Medications Administered Discontinued Medications Generic Name Dose Route Start Last Admin Trade Name Aaron PRN Reason Stop Dose Admin Sodium Zirconium Cyclosilicate 10 gm 07/25/22 16:33 07/25/22 18:30 Sodium Zirconium Cyclosilicate 10 Gm Powd.Pack PO 07/25/22 16:34 10 gm ONCE ONE Administration <Dorita Streeter MD - Last Filed: 07/25/22 21:54> MDM - Recheck/Abnormal Lab/Rx Lab Data Result diagrams: : 07/25/22 16:50 07/25/22 20:27 <JUSTUS Prieto - Last Filed: 07/25/22 16:38> Labs: Lab Results 07/25/22 07/25/22 07/25/22 Range/Units 16:50 16:50 16:50 WBC 6.0 (4.8-10.8) X10*3/uL RBC 4.18 L (4.60-5.80) X10*6/uL Hgb 10.5 L (14.0-18.0) g/dl Hct 33.5 L (42.0-52.0) % MCV 80.1 (80.0-98.0) fL MCH 25.1 L (27.0-33.0) pg MCHC 31.3 (31.0-36.0) g/dl RDW 15.0 (11.0-16.0) % Plt Count 187 (160-400) X10*3/uL MPV 11.7 (9.4-12.4) fL Immature Gran % (Auto) 0.3 (0.0-0.4) % Neut % (Auto) 64.0 (45-73) % Lymph % (Auto) 23.4 (20-40) % [place] % (Auto) 9.5 (2-11) % Eos % (Auto) 2.5 (0-4) % Baso % (Auto) 0.3 (0-2) % Lymph # (Auto) 1.4 (1.2-4.9) X10*3/uL [place] # (Auto) 0.6 (0.1-1.2) X10*3/uL Eos # (Auto) 0.2 (0.0-0.4) X10*3/uL Baso # (Auto) 0.0 (0.0-0.2) X10*3/uL Abs Immat Gran (auto) 0.02 (0.00-0.03) X10*3/uL Absolute Neuts (auto) 3.9 (2.0-8.3) x10*3/uL Absolute Nucleated RBC 0.000 (0.0-0.012) X10*3/uL Nucleated RBC % (auto) 0.0 (0.0-0.2) /100WBC Sodium 136 (135-145) mmol/L Potassium 5.4 H (3.3-5.1) mmol/L Chloride 104 (96-108) mmol/L Carbon Dioxide 22 (22-29) mmol/L Anion Gap 15 (12-20) BUN 18 H (9-16) mg/dL Creatinine 1.16 (0.5-1.4) mg/dL Estim Creat Clear Calc 64.4 Estimated GFR > 60 Random Glucose 344 H D (60-115) mg/dL Calcium 9.1 D (8.4-10.2) mg/dL Magnesium 1.7 (1.6-2.6) mg/dL Troponin I High Sens < 3.5 (<3.5-35.0) ng/L 07/25/22 Range/Units 20:27 WBC (4.8-10.8) X10*3/uL RBC (4.60-5.80) X10*6/uL Hgb (14.0-18.0) g/dl Hct (42.0-52.0) % MCV (80.0-98.0) fL MCH (27.0-33.0) pg MCHC (31.0-36.0) g/dl RDW (11.0-16.0) % Plt Count (160-400) X10*3/uL MPV (9.4-12.4) fL Immature Gran % (Auto) (0.0-0.4) % Neut % (Auto) (45-73) % Lymph % (Auto) (20-40) % [place] % (Auto) (2-11) % Eos % (Auto) (0-4) % Baso % (Auto) (0-2) % Lymph # (Auto) (1.2-4.9) X10*3/uL [place] # (Auto) (0.1-1.2) X10*3/uL Eos # (Auto) (0.0-0.4) X10*3/uL Baso # (Auto) (0.0-0.2) X10*3/uL Abs Immat Gran (auto) (0.00-0.03) X10*3/uL Absolute Neuts (auto) (2.0-8.3) x10*3/uL Absolute Nucleated RBC (0.0-0.012) X10*3/uL Nucleated RBC % (auto) (0.0-0.2) /100WBC Sodium 138 (135-145) mmol/L Potassium 5.0 (3.3-5.1) mmol/L Chloride 104 (96-108) mmol/L Carbon Dioxide 23 (22-29) mmol/L Anion Gap 16 (12-20) BUN 16 (9-16) mg/dL Creatinine 1.05 (0.5-1.4) mg/dL Estim Creat Clear Calc 71.2 Estimated GFR > 60 Random Glucose 202 H D (60-115) mg/dL Calcium 9.6 (8.4-10.2) mg/dL Magnesium (1.6-2.6) mg/dL Troponin I High Sens (<3.5-35.0) ng/L <JUSTUS Prieto - Last Filed: 07/25/22 16:38> Lab Results 07/25/22 07/25/22 07/25/22 Range/Units 16:50 16:50 16:50 WBC 6.0 (4.8-10.8) X10*3/uL RBC 4.18 L (4.60-5.80) X10*6/uL Hgb 10.5 L (14.0-18.0) g/dl Hct 33.5 L (42.0-52.0) % MCV 80.1 (80.0-98.0) fL MCH 25.1 L (27.0-33.0) pg MCHC 31.3 (31.0-36.0) g/dl RDW 15.0 (11.0-16.0) % Plt Count 187 (160-400) X10*3/uL MPV 11.7 (9.4-12.4) fL Immature Gran % (Auto) 0.3 (0.0-0.4) % Neut % (Auto) 64.0 (45-73) % Lymph % (Auto) 23.4 (20-40) % [place] % (Auto) 9.5 (2-11) % Eos % (Auto) 2.5 (0-4) % Baso % (Auto) 0.3 (0-2) % Lymph # (Auto) 1.4 (1.2-4.9) X10*3/uL [place] # (Auto) 0.6 (0.1-1.2) X10*3/uL Eos # (Auto) 0.2 (0.0-0.4) X10*3/uL Baso # (Auto) 0.0 (0.0-0.2) X10*3/uL Abs Immat Gran (auto) 0.02 (0.00-0.03) X10*3/uL Absolute Neuts (auto) 3.9 (2.0-8.3) x10*3/uL Absolute Nucleated RBC 0.000 (0.0-0.012) X10*3/uL Nucleated RBC % (auto) 0.0 (0.0-0.2) /100WBC Sodium 136 (135-145) mmol/L Potassium 5.4 H (3.3-5.1) mmol/L Chloride 104 (96-108) mmol/L Carbon Dioxide 22 (22-29) mmol/L Anion Gap 15 (12-20) BUN 18 H (9-16) mg/dL Creatinine 1.16 (0.5-1.4) mg/dL Estim Creat Clear Calc 64.4 Estimated GFR > 60 Random Glucose 344 H D (60-115) mg/dL Calcium 9.1 D (8.4-10.2) mg/dL Magnesium 1.7 (1.6-2.6) mg/dL Troponin I High Sens < 3.5 (<3.5-35.0) ng/L 07/25/22 Range/Units 20:27 WBC (4.8-10.8) X10*3/uL RBC (4.60-5.80) X10*6/uL Hgb (14.0-18.0) g/dl Hct (42.0-52.0) % MCV (80.0-98.0) fL MCH (27.0-33.0) pg MCHC (31.0-36.0) g/dl RDW (11.0-16.0) % Plt Count (160-400) X10*3/uL MPV (9.4-12.4) fL Immature Gran % (Auto) (0.0-0.4) % Neut % (Auto) (45-73) % Lymph % (Auto) (20-40) % [place] % (Auto) (2-11) % Eos % (Auto) (0-4) % Baso % (Auto) (0-2) % Lymph # (Auto) (1.2-4.9) X10*3/uL [place] # (Auto) (0.1-1.2) X10*3/uL Eos # (Auto) (0.0-0.4) X10*3/uL Baso # (Auto) (0.0-0.2) X10*3/uL Abs Immat Gran (auto) (0.00-0.03) X10*3/uL Absolute Neuts (auto) (2.0-8.3) x10*3/uL Absolute Nucleated RBC (0.0-0.012) X10*3/uL Nucleated RBC % (auto) (0.0-0.2) /100WBC Sodium 138 (135-145) mmol/L Potassium 5.0 (3.3-5.1) mmol/L Chloride 104 (96-108) mmol/L Carbon Dioxide 23 (22-29) mmol/L Anion Gap 16 (12-20) BUN 16 (9-16) mg/dL Creatinine 1.05 (0.5-1.4) mg/dL Estim Creat Clear Calc 71.2 Estimated GFR > 60 Random Glucose 202 H D (60-115) mg/dL Calcium 9.6 (8.4-10.2) mg/dL Magnesium (1.6-2.6) mg/dL Troponin I High Sens (<3.5-35.0) ng/L <Dorita Streeter MD - Last Filed: 07/25/22 21:54> Discharge Plan Discharge Clinical Impression: Acute hyperkalemia <JUSTUS Prieto - Last Filed: 07/25/22 16:38> Patient Disposition: Home, Self-Care <JUSTUS Prieto - Last Filed: 07/25/22 16:38> Instructions: Hyperkalemia (ED) <JUSTUS Prieto - Last Filed: 07/25/22 16:38> Additional Instructions: Please follow-up with your primary care physician tomorrow. If you have any worsening or new symptoms, please return to the emergency room or call 911 <JUSTUS Prieto - Last Filed: 07/25/22 16:38> Prescriptions: No Action amlodipine 2.5 mg tablet 1 tab PO DAILY Levemir FlexTouch U-100 Insuln 100 unit/mL (3 mL) insulin pen 50 unit subcut BEDTIME glipizide 10 mg tablet extended release 24hr 1 tab PO BID atorvastatin 40 mg tablet 1 tab PO DAILY ertapenem 1 gram recon soln 1 g IV DAILY Qty: 10 3RF bisacodyl 5 mg tablet 5 mg PO DAILY omeprazole 20 mg tablet,disintegrat, delay rel 20 mg PO DAILY pioglitazone [Actos] 45 mg tablet 45 mg PO DAILY gabapentin 300 mg capsule 300 mg PO TID aspirin 81 mg tablet,delayed release (DR/EC) 81 mg PO DAILY metformin 500 mg tablet 500 mg PO TID (DME) pen needle, diabetic [1st Tier Unifine Pentips] 31 gauge x 3/16 needle See Rx Instructions .ROUTE .MEDSUPPLY Qty: 50 Rx Instructions: As directed (DME) blood sugar diagnostic Strip See Rx Instructions .ROUTE .MEDSUPPLY Qty: 10 Rx Instructions: As directed (DME) lancets [FreeStyle Lancets] 28 gauge misc See Rx Instructions .ROUTE .MEDSUPPLY Qty: 100 Rx Instructions: As directed (DME) pen needle, diabetic [BD Susannah 2nd Gen Pen Needle] 32 gauge x 5/32 needle See Rx Instructions .ROUTE .MEDSUPPLY Qty: 50 Rx Instructions: As directed <JUSTUS Prieto - Last Filed: 07/25/22 16:38>
[2022-07-25 16:54] LABS: MANUAL DIFF FLAG NO
[2022-07-25 16:56] LABS: Basophils Percent Auto 0.3 % (0-2); Eosinophils Absolute Auto 0.2 X10*3/uL (0.0-0.4); Eosinophils Percent Auto 2.5 % (0-4); Hematocrit 33.5 % (42.0-52.0); Hemoglobin 10.5 g/dl (14.0-18.0); Imm Gran Abs Auto 0.02 X10*3/uL (0.00-0.03); Imm Gran Pct Auto 0.3 % (0.0-0.4); Lymphocytes Absolute Auto 1.4 X10*3/uL (1.2-4.9); Lymphocytes Percent Auto 23.4 % (20-40); Mean Corpuscular HGB Conc 31.3 g/dl (31.0-36.0); Mean Corpuscular Hemoglobin 25.1 pg (27.0-33.0); Mean Corpuscular Volume 80.1 fL (80.0-98.0); Mean Platelet Volume 11.7 fL (9.4-12.4); Monocytes Absolute Auto 0.6 X10*3/uL (0.1-1.2); Monocytes Percent Auto 9.5 % (2-11); Neutrophils Absolute Auto 3.9 x10*3/uL (2.0-8.3); Platelet Count 187 X10*3/uL (160-400); Red Blood Count 4.18 X10*6/uL (4.60-5.80)
[2022-07-25 17:16] LABS: Anion Gap 15 (12-20); Blood Urea Nitrogen 18 mg/dL (9-16); Calcium 9.1 mg/dL (8.4-10.2); Carbon Dioxide 22 mmol/L (22-29); Chloride 104 mmol/L (96-108); Creatinine Clr Calc Pharmacy 64.4; Estimated Glomerular Filt Rate > 60; Glucose Random 344 mg/dL (60-115); Magnesium 1.7 mg/dL (1.6-2.6); Potassium 5.4 mmol/L (3.3-5.1); Sodium 136 mmol/L (135-145)
[2022-07-25 17:25] LABS: Troponin-I High Sensitivity < 3.5 ng/L (<3.5-35.0)
[2022-07-25] MEDS: Sodium Zirconium Cyclosilicate 10 GM POWD.PACK PO (18:30)
--- NOTE | 2022-07-25 18:30 | PC.NURSE ---
pt medicated per order
[2022-07-25 20:29] VITALS: BP 143/82; PULSE 95; RESP 16; TEMP 37.1; O2SAT 98
[2022-07-25 20:56] LABS: Anion Gap 16 (12-20); Blood Urea Nitrogen 16 mg/dL (9-16); Calcium 9.6 mg/dL (8.4-10.2); Carbon Dioxide 23 mmol/L (22-29); Chloride 104 mmol/L (96-108); Creatinine Clr Calc Pharmacy 71.2; Estimated Glomerular Filt Rate > 60; Glucose Random 202 mg/dL (60-115); Sodium 138 mmol/L (135-145)
[2022-07-25 21:44] VITALS: BP 132/53; PULSE 72; RESP 22; TEMP 36.7; O2SAT 98
[2022-07-25] MEDS: Sodium Zirconium Cyclosilicate 5 GM POWD.PACK 10 GM PO (22:02)
== END 2022-07-25 22:08 | disposition home or self-care (01) ==
LOC: HO.ED 21:56
PROVIDERS: Physician Assistant; Emergency Provider Emergency Medicine; PCP Internal Medicine
DX: E87.5 Hyperkalemia (principal); E11.9 Type 2 diabetes mellitus without complications; I10 Essential (primary) hypertension; E78.5 Hyperlipidemia, unspecified; Z79.84 Long term (current) use of oral hypoglycemic drugs; Z79.899 Other long term (current) drug therapy; Z79.02 Long term (current) use of antithrombotics/antiplatelets
CPT/HCPCS: 36415; 80048; 83735; 84484; 85025; 93005; 99283; 99284

== ENCOUNTER 2022-08-12 09:49 | Outpatient (REF) | payer MEDICARE, MEDICAID, SELFPAY ==
--- NOTE | ~2022-08-12 | CT_ITS ---
EXAMINATION: CT FOOT WITHOUT AND WITH CONTRAST, LEFT CLINICAL INFORMATION: Type 2 diabetes melitis. Osteomyelitis. COMPARISON: Multiple priors, most recent left foot radiographs dated 06/27/2022. Left foot MRI dated 10/08/2013. TECHNIQUE: Contiguous axial CT images of the left foot were obtained before and after the administration of 85 mL Omnipaque 350 contrast. Multiplanar reformats were provided and reviewed. This CT examination was performed using dose optimization techniques as appropriate, variously including the following: *Automated exposure control *Adjustment of mA and/or kV according to patient size (this includes techniques or standardized protocols for targeted exams where dose is matched to indication/reason for exam; i.e. extremities or head) *Use of iterative reconstruction technique DLP: 300 mGy-cm FINDINGS: Soft tissue ulceration along the plantar aspect of the distal 4th metatarsal with prominent skin thickening and associated enhancement, consistent with acute cellulitis. No peripherally enhancing fluid collection to suggest abscess formation. Resection of the adjacent distal 4th metatarsal and 4th phalanx is redemonstrated. No adjacent osseous erosion or periosteal reaction to suggest acute osteomyelitis. Very early osteomyelitis may be occult on CT examination and if there is persistent clinical concern, nuclear medicine bone scan or MRI without and with contrast could help further evaluate. Irregularity of the 2nd and 3rd metatarsal heads as well as joint effusion at the 1st metatarsophalangeal joint and 3rd proximal interphalangeal joint appear unchanged when compared to the prior examination. No acute fracture or dislocation. No concerning lytic or blastic osseous lesion. Small plantar and dorsal calcaneal spurs. Focal subchondral cystic change within the anteromedial aspect of the talar dome measuring up to 0.4 cm without evidence of fragmentation or instability. The visualized muscles and tendons are grossly intact however, evaluation is limited on CT examination. CT/CT foot LT wo/w IV con IMPRESSION: 1. Soft tissue ulceration along the plantar aspect of the distal fourth metatarsal with prominent skin thickening and associated enhancement, consistent with acute cellulitis. No evidence of abscess formation. Resection of the adjacent distal fourth metatarsal and fourth phalanx is redemonstrated. No adjacent osseous erosion or periosteal reaction to suggest acute osteomyelitis. Very early osteomyelitis may be occult on CT examination and if there is persistent clinical concern, nuclear medicine bone scan or MRI without and with contrast could help further evaluate. 2. Irregularity of the second and third metatarsal heads as well as joint effusions at the first metatarsophalangeal joint and third proximal interphalangeal joint appear unchanged when compared to the prior examination. 3. Focal subchondral cystic change within the anteromedial aspect of the talar dome measuring up to 0.4 cm without evidence of fragmentation or instability.
[2022-08-12] MEDS: iohexoL 350 MG/ML 100 ML INFUS..BTL IV (11:45)
== END 2022-08-12 09:50 | disposition home or self-care (01) ==
LOC: HO.CT 09:49
PROVIDERS: PCP Internal Medicine; Visit Provider Physician Assistant
DX: L97.522 Non-pressure chronic ulcer of other part of left foot with fat layer exposed (principal); E11.621 Type 2 diabetes mellitus with foot ulcer
CPT/HCPCS: 73702; Q9967

== ENCOUNTER 2022-09-01 11:16 | Inpatient (IN) | payer MEDICARE, MEDICAID, SELFPAY ==
--- NOTE | ~2022-09-01 | MR_ITS ---
EXAMINATION: MR FOOT WITHOUT AND WITH CONTRAST, LEFT CLINICAL INFORMATION: Osteomyelitis COMPARISON: Most recent left foot radiographs dated 09/01/[address] dated 08/12/2022. TECHNIQUE: Multisequence MR imaging of the left foot was obtained before and after the IV administration of 9 mL Gadavist contrast on a high-field strength scanner. FINDINGS: Soft tissue ulceration/wound along the plantar aspect of the distal 4th metatarsal in the region of the previous resection. There is associated skin thickening and subcutaneous edema with mild postcontrast enhancement, consistent with acute cellulitis. There is a peripherally enhancing collection dorsally which measures 3.8 x 1.9 x 1.2 cm (AP by ML by CC), concerning for abscess formation. Correlate for history of recent incision and drainage. The adjacent 4th metatarsal in the region of the resection demonstrates normal T1 and T2 signal without significant postcontrast enhancement. No definite evidence of recurrent osteomyelitis. Joint space narrowing with marginal osteophytes at the metatarsophalangeal joints. No stress reaction or fracture. Edema and atrophy throughout the intrinsic musculature of the foot which can be seen in diabetic patients. No measurable muscle or tendon tear. The Lisfranc ligament is intact. Prominent dorsal subcutaneous edema without additional abscess formation. MR/MR foot LT wo/w con IMPRESSION: 1. Soft tissue ulceration/wound along the plantar aspect of the distal 4th metatarsal in the region of the previous resection. Adjacent soft tissue edema and enhancement, consistent with cellulitis. Peripherally enhancing collection dorsally measuring up to 3.8 cm, concerning for abscess formation. No definite evidence of recurrent osteomyelitis. 2. Prominent dorsal subcutaneous edema without an additional abscess formation. 3. 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 4. Edema and atrophy throughout the intrinsic musculature of the foot which can be seen in diabetic patients.
--- NOTE | ~2022-09-01 | XR_ITS ---
EXAMINATION: XR FOOT, LEFT CLINICAL INFORMATION: Osteomyelitis. COMPARISON: Multiple priors, most recent left foot CT dated 08/12/2022. TECHNIQUE: AP, lateral, and oblique views of the left foot. FINDINGS: Resection of the 4th phalanx is redemonstrated. Fusion of the 1st metatarsophalangeal joint is redemonstrated. No acute fracture or dislocation. No new osseous erosion. Flattening of the 2nd and 3rd metatarsal heads is unchanged. No abnormal soft tissue calcification. XR/XR foot LT 2V IMPRESSION: No new osseous erosion. Early osteomyelitis may be occult on plain radiographs, and if there is clinical concern, bone scan or MR without and with contrast could help further evaluate.
--- NOTE | ~2022-09-01 | US_ITS ---
EXAMINATION: COLOR-FLOW DUPLEX IMAGING OF THE BILATERAL LOWER EXTREMITY ARTERIAL SYSTEM. VELOCITY MEASUREMENTS THROUGHOUT THE FEMORAL ARTERIES. CLINICAL INFORMATION: This is a 72-year-old female with osteomyelitis and nonpalpable pedal pulses. RIGHT FEMORAL RUNOFF VELOCITIES: The right common femoral artery peak systolic velocity is 149 cm/s. The waveform is triphasic. The right proximal profunda femoral artery peak systolic velocity is 97 cm/s. The waveform is biphasic. The right proximal superficial femoral artery peak systolic velocity is 100 cm/s. The waveform is triphasic. The right mid superficial femoral artery peak systolic velocity is 70 cm/s. The waveform is triphasic. The right distal superficial femoral artery peak systolic velocity is 74 cm/s. The waveform is triphasic. The right popliteal artery peak systolic velocity is 106 cm/s. The waveform is triphasic. The right posterior tibial artery peak systolic velocity is 106 cm/s. The waveform is triphasic. LEFT FEMORAL RUNOFF VELOCITIES: The left common femoral artery peak systolic velocity is 178 cm/s. The waveform is triphasic. The left proximal profunda femoral artery peak systolic velocity is 107 cm/s. The waveform is biphasic. The left proximal superficial femoral artery peak systolic velocity is 129 cm/s. The waveform is triphasic. The left mid superficial femoral artery peak systolic velocity is 114 cm/s. The waveform is triphasic. The left distal superficial femoral artery peak systolic velocity is 122 cm/s. The waveform is triphasic. The left popliteal artery peak systolic velocity is 180 cm/s. The waveform is biphasic. The left posterior tibial artery peak systolic velocity is 145 cm/s. The waveform is triphasic. US/US arterial duplex LE BI IMPRESSION: No hemodynamically significant bilateral lower extremity inflow or outflow peripheral arterial disease is noted.
[2022-09-01 11:34] VITALS: BP 148/86; BP 154/84; PULSE 112; PULSE 120; RESP 20; TEMP 36.8; O2SAT 98; BMI 27.8
--- NOTE | 2022-09-01 12:39 | ED.GENADULT ---
HPI - General Adult General Chief complaint: Skin/Abscess/Foreign Body Stated complaint: LEFT FOOT PAIN FROM WOUND PER EMS Time Seen by Provider: 09/01/22 12:15 Source: patient Mode of arrival: ambulatory Limitations: no limitations History of Present Illness HPI narrative: 71-year-old male past medical history of GERD, diabetic foot, peripheral vascular disease, to adenocarcinoma, diabetes, and osteomyelitis presents to ED for left plantar for wound evaluation. Patient states having wound for 4 months came to the ED for mild yellow discharge from wound. Patient negative for any swelling of foot, redness, or any recent trauma. patient states no fever or chills. Related Data Home Medications Medication Instructions Recorded Confirmed aspirin 81 mg tablet,delayed 81 mg PO DAILY 03/16/21 09/01/22 release bisacodyl 5 mg tablet 10 mg PO Q OTHER DAY 03/16/21 09/01/22 blood sugar diagnostic #10 ea 03/16/21 gabapentin 300 mg capsule 300 mg PO TID 03/16/21 09/01/22 lancets 28 gauge (FreeStyle #100 ea 03/16/21 Lancets) metformin 500 mg tablet 1,000 mg PO BID 03/16/21 09/01/22 omeprazole 20 mg delayed 20 mg PO DAILY@0630 03/16/21 09/01/22 release,disintegrating tablet pen needle, diabetic 31 gauge x #50 ea 03/16/21 3/16 (1st Tier Unifine Pentips) pen needle, diabetic 32 gauge x #50 ea 03/16/21 (BD Susannah 2nd Gen Pen Needle) pioglitazone 45 mg tablet (Actos) 45 mg PO DAILY 03/16/21 09/01/22 atorvastatin 40 mg tablet 1 tab PO BEDTIME 08/21/21 09/01/22 glipizide 10 mg tablet, extended 1 tab PO BID 08/21/21 09/01/22 release 24 hr insulin detemir U-100 100 unit/mL 60 unit subcut BEDTIME 08/21/21 09/01/22 (3 mL) subcutaneous pen (Levemir FlexTouch U-100 Insulin) insulin detemir U-100 100 unit/mL 10 unit subcut DAILY 09/01/22 09/01/22 (3 mL) subcutaneous pen (Levemir FlexTouch U-100 Insulin) lisinopril 5 mg tablet 1 tab PO DAILY 09/01/22 09/01/22 polyvinyl alcohol 1.4 % eye drops 1 drp ophthalmic (eye) QID 09/01/22 09/01/22 (Artificial Tears (polyvinyl alcohol)) psyllium 1 packet PO TID 09/01/22 09/01/22 simethicone 80 mg chewable tablet 80 mg PO BEDTIME 09/01/22 09/01/22 Allergies Allergy/AdvReac Type Severity Reaction Status Date / Time No Known Allergies Allergy Verified 07/25/22 16:33 Review of Systems Review of Systems: left plantar foot wound Yes all other systems are reviewed and are negative [facility] Past Medical History Medical History Diabetes mellitus Diabetic foot ulcer Diabetic polyneuropathy History of acute renal failure Hyperlipidemia Hypertension Osteomyelitis Peripheral vascular disease Tubular adenoma of colon Surgical History 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 History of right inguinal hernia repair History of ventral hernia repair Hx of eye surgery Family History Family History Father Cancer of unknown origin Diabetes Mother No problems noted. Social History Social History Household Members: None Housing: Apartment Alcohol intake: never Patient Tobacco Use Status: Never used Tobacco Advance Directives Date on File: 08/22/21 service: No Current occupational status: retired Physical Exam ED Vital Signs: Vital Signs - 24 hr 09/01/22 11:34 Temperature 98.2 F Pulse Rate 112 H Respiratory Rate 20 Blood Pressure 154/84 H Pulse Oximetry 98 Oxygen Delivery Method Room Air BMI result Body Mass Index 27.8 Const General: cooperative, healthy appearing, comfortable, no acute distress, well developed, alert, awake and Physically active Orientation/consciousness: oriented to person, oriented to place, oriented to time and patient oriented x3 HENMT Head: Yes normal to inspection, Yes No palpable skull fracture present, Yes normocephalic, Yes atraumatic and No abrasion Eyes General: appearance normal, both eyes and all related structures Neck Neck: Yes normal visual inspection, Yes full ROM, Yes no lymphadenopathy, Yes no meningeal signs, Yes trachea midline, Yes supple, No anterior neck swelling and No tender Chest Chest palpation & inspection: normal inspection of the chest and normal palpation of entire chest wall Resp Effort & Inspection: normal respiratory effort and able to speak in complete sentences Cardio Jugular venous distension: no JVD Heart sounds: S1 normal heart sound present and S2 normal heart sound present GI Inspection: Yes normal to inspection and No abdominal wall ecchymosis Palpation (GI): Soft to palpation, not firm, nontender, no guarding and not rigid General: No CVA tenderness and Yes no CVA tenderness Back/Spine/Pelvis Back: no CVA tenderness, No CVA tenderness and No back tenderness Skin General skin exam: no rashes or lesions noted and elasticity normal Neuro General: oriented to person, oriented to place, oriented to time, patient oriented x3, tone normal, moves all extremities, Normal light touch and pain sensation, no meningeal signs and CN's II-XI intact bilaterally Extrem Other: Course Course Course Narrative: Patient will have a workup to rule out osteomyelitis diabetic foot ulcer. Labs images ordered Reevaluation(s) Reevaluation #1: Case discussed with Dr. Khan recommend patient be admitted for MRI for possible early osteomyelitis. Patient has elevated ESR and CRP. They had unusual. Patient well-appearing. Antibiotic started Medications Administered Generic Name Dose Route Start Last Admin Trade Name Freq PRN Reason Stop Dose Admin Acetaminophen 650 mg 09/01/22 15:16 09/01/22 19:24 Acetaminophen 325 Mg Tablet PO 650 mg Q6H PRN Administration Pain, Mild, fever Artificial Tears 1 drop 09/01/22 17:00 09/02/22 08:44 Artificial Tears 15 Ml Drops EYE-BOTH 1 drop QID FLORY Administration Aspirin 81 mg 09/02/22 09:00 09/02/22 08:42 Aspirin Enteric Coated 81 Mg Tablet. PO 81 mg DAILY FLORY Administration Atorvastatin Calcium 40 mg 09/01/22 21:00 09/01/22 21:30 Atorvastatin Calcium 40 Mg Tablet PO 40 mg BEDTIME FLORY Administration Enoxaparin Sodium 40 mg 09/01/22 18:00 09/01/22 16:16 Enoxaparin Sodium 40 Mg/0.4 Ml Syringe SUBCUT 40 mg Q24H FLORY Administration Gabapentin 300 mg 09/01/22 21:00 09/02/22 08:42 Gabapentin 300 Mg Capsule PO 300 mg TID FLORY Administration Cefepime HCl 2 gm/ Sodium 50 mls @ 100 mls/hr 12/18/22 16:00 09/02/22 09:32 Chloride IV Infused Q8H FLORY Infusion Vancomycin HCl 750 mg/ Sodium 265 mls @ 265 mls/hr 09/02/22 08:00 09/02/22 09:27 Chloride IV 265 mls/hr Q12H FLORY Administration Insulin Glargine 5 unit 09/02/22 09:00 09/02/22 08:42 Insulin Glargine,Hum.Rec.Anlog 100 Unit/Ml 10 Ml Vial SUBCUT 5 unit DAILY FLORY Administration Insulin Glargine 32 unit 09/01/22 21:00 09/01/22 21:31 Insulin Glargine,Hum.Rec.Anlog 100 Unit/Ml 10 Ml Vial SUBCUT 32 unit BEDTIME FLORY Administration Insulin Human Lispro 0 unit 09/01/22 16:30 09/02/22 08:42 Insulin Lispro 100 Unit/Ml 3 Ml Vial SUBCUT 4 unit QIDACHS [facility] Administration Protocol Lisinopril 5 mg 09/02/22 09:00 09/02/22 08:42 Lisinopril 5 Mg Tablet PO 5 mg DAILY FLORY Administration Protocol Omeprazole 20 mg 09/02/22 06:30 09/02/22 05:22 Omeprazole 20 Mg Capsule.Dr PO 20 mg DAILY@0630 [facility] Administration Psyllium Hydrophilic Mucilloid 3.4 gm 09/01/22 21:00 09/02/22 08:41 Psyllium Seed 3.4 Gm Powd.Pack PO 3.4 gm TID FLORY Administration Simethicone 80 mg 09/01/22 21:00 09/01/22 21:30 Simethicone 80 Mg Tab.Chew PO 80 mg BEDTIME FLORY Administration Sodium Chloride 3 ml 09/01/22 16:00 09/02/22 08:43 0.9 % Sodium Chloride Flush 3 Ml Syringe IVFLUSH 3 ml QSHIFT FLORY Administration Discontinued Medications Generic Name Dose Route Start Last Admin Trade Name Freq PRN Reason Stop Dose Admin Piperacillin Sod/Tazobactam 50 mls @ 100 mls/hr 09/01/22 15:13 09/01/22 15:54 Sod 3.375 gm/ Sodium Chloride IV 09/01/22 15:42 Infused ONCE ONE Infusion Vancomycin HCl 2,000 mg in 520 mls @ 260 mls/hr 09/01/22 15:32 09/01/22 20:04 Vancomycin/Ns IV 09/01/22 17:31 Infused ONCE ONE Infusion Medical Decision Making Medical Decision Making [facility] Narrative: Surgically old male with history of diabetes and osteomyelitis in the past presents to the ED for left foot wound that has worsened. ESR CRP elevated although does normal white count negative lactate. Discuss case with hospitalist recommend patient be admitted with antibiotics being given to rule out early osteomyelitis with MRI in the morning. Lab Data Result Diagrams: 09/01/22 12:48 09/02/22 06:09 Labs: Lab Results 09/01/22 09/01/22 09/01/22 Range/Units 12:48 12:48 12:48 WBC 9.7 (4.8-10.8) X10*3/uL RBC 4.04 L (4.60-5.80) X10*6/uL Hgb 9.8 L (14.0-18.0) g/dl Hct 31.3 L (42.0-52.0) % MCV 77.5 L (80.0-98.0) fL MCH 24.3 L (27.0-33.0) pg MCHC 31.3 (31.0-36.0) g/dl RDW 14.8 (11.0-16.0) % Plt Count 180 (160-400) X10*3/uL MPV 10.5 (9.4-12.4) fL Immature Gran % (Auto) 0.5 H (0.0-0.4) % Neut % (Auto) 79.2 H (45-73) % Lymph % (Auto) 11.1 L (20-40) % [place] % (Auto) 8.7 (2-11) % Eos % (Auto) 0.4 (0-4) % Baso % (Auto) 0.1 (0-2) % Lymph # (Auto) 1.1 L (1.2-4.9) X10*3/uL [place] # (Auto) 0.8 (0.1-1.2) X10*3/uL Eos # (Auto) 0.0 (0.0-0.4) X10*3/uL Baso # (Auto) 0.0 (0.0-0.2) X10*3/uL Abs Immat Gran (auto) 0.05 H (0.00-0.03) X10*3/uL Absolute Neuts (auto) 7.7 (2.0-8.3) x10*3/uL Absolute Nucleated RBC 0.000 (0.0-0.012) X10*3/uL Nucleated RBC % (auto) 0.0 (0.0-0.2) /100WBC ESR 102 H (0-15) MM/HR Sodium 134 L (135-145) mmol/L Potassium 4.4 (3.3-5.1) mmol/L Chloride 100 (96-108) mmol/L Carbon Dioxide 24 (22-29) mmol/L Anion Gap 14 (12-20) BUN 18 H (9-16) mg/dL Creatinine 1.04 (0.5-1.4) mg/dL Estim Creat Clear Calc 70.6 Estimated GFR > 60 Random Glucose 186 H (60-115) mg/dL Lactic Acid (0.5-2.0) mmol/L Calcium 9.2 (8.4-10.2) mg/dL Iron 10 L (45-160) mcg/dL TIBC 276 (228-428) mcg/dL % Saturation 4 L (15-50) % Unsat Iron Binding 266 ug/dL Ferritin 94 (20-250) ng/mL Total Bilirubin 0.5 (0.0-1.0) mg/dL AST 19 (5-37) U/L ALT 25 (0-40) U/L Alkaline Phosphatase 62 (39-117) U/L C-Reactive Protein 31.18 H (< or = 0.50) mg/dL Total Protein 7.4 (6.5-8.0) g/dL Albumin 3.8 (3.5-5.0) g/dL 09/01/22 Range/Units 12:48 WBC (4.8-10.8) X10*3/uL RBC (4.60-5.80) X10*6/uL Hgb (14.0-18.0) g/dl Hct (42.0-52.0) % MCV (80.0-98.0) fL MCH (27.0-33.0) pg MCHC (31.0-36.0) g/dl RDW (11.0-16.0) % Plt Count (160-400) X10*3/uL MPV (9.4-12.4) fL Immature Gran % (Auto) (0.0-0.4) % Neut % (Auto) (45-73) % Lymph % (Auto) (20-40) % [place] % (Auto) (2-11) % Eos % (Auto) (0-4) % Baso % (Auto) (0-2) % Lymph # (Auto) (1.2-4.9) X10*3/uL [place] # (Auto) (0.1-1.2) X10*3/uL Eos # (Auto) (0.0-0.4) X10*3/uL Baso # (Auto) (0.0-0.2) X10*3/uL Abs Immat Gran (auto) (0.00-0.03) X10*3/uL Absolute Neuts (auto) (2.0-8.3) x10*3/uL Absolute Nucleated RBC (0.0-0.012) X10*3/uL Nucleated RBC % (auto) (0.0-0.2) /100WBC ESR (0-15) MM/HR Sodium (135-145) mmol/L Potassium (3.3-5.1) mmol/L Chloride (96-108) mmol/L Carbon Dioxide (22-29) mmol/L Anion Gap (12-20) BUN (9-16) mg/dL Creatinine (0.5-1.4) mg/dL Estim Creat Clear Calc Estimated GFR Random Glucose (60-115) mg/dL Lactic Acid 1.4 (0.5-2.0) mmol/L Calcium (8.4-10.2) mg/dL Iron (45-160) mcg/dL TIBC (228-428) mcg/dL % Saturation (15-50) % Unsat Iron Binding ug/dL Ferritin (20-250) ng/mL Total Bilirubin (0.0-1.0) mg/dL AST (5-37) U/L ALT (0-40) U/L Alkaline Phosphatase (39-117) U/L C-Reactive Protein (< or = 0.50) mg/dL Total Protein (6.5-8.0) g/dL Albumin (3.5-5.0) g/dL Discharge Plan Discharge Clinical Impression: Diabetic Foot Ulcer Patient Disposition: Admitted As Inpatient Interventions: Admission Worksheet (ED) Last Done: 09/01/22 19:35 Discharge Date/Time: 09/01/22 20:06
[2022-09-01 12:55] LABS: MANUAL DIFF FLAG NO
[2022-09-01 12:57] LABS: Basophils Percent Auto 0.1 % (0-2); Eosinophils Percent Auto 0.4 % (0-4); Hematocrit 31.3 % (42.0-52.0); Hemoglobin 9.8 g/dl (14.0-18.0); Imm Gran Abs Auto 0.05 X10*3/uL (0.00-0.03); Imm Gran Pct Auto 0.5 % (0.0-0.4); Lymphocytes Absolute Auto 1.1 X10*3/uL (1.2-4.9); Lymphocytes Percent Auto 11.1 % (20-40); Mean Corpuscular HGB Conc 31.3 g/dl (31.0-36.0); Mean Corpuscular Hemoglobin 24.3 pg (27.0-33.0); Mean Corpuscular Volume 77.5 fL (80.0-98.0); Mean Platelet Volume 10.5 fL (9.4-12.4); Monocytes Absolute Auto 0.8 X10*3/uL (0.1-1.2); Monocytes Percent Auto 8.7 % (2-11); Neutrophils Absolute Auto 7.7 x10*3/uL (2.0-8.3); Neutrophils Percent Auto 79.2 % (45-73); Platelet Count 180 X10*3/uL (160-400); Red Blood Count 4.04 X10*6/uL (4.60-5.80); Red Cell Distribution Width 14.8 % (11.0-16.0); White Blood Count 9.7 X10*3/uL (4.8-10.8)
[2022-09-01 13:06] LABS: Lactic Acid 1.4 mmol/L (0.5-2.0)
[2022-09-01 13:10] LABS: Alanine Aminotransferase 25 U/L (0-40); Albumin Level 3.8 g/dL (3.5-5.0); Alkaline Phosphatase 62 U/L (39-117); Anion Gap 14 (12-20); Aspartate Amino Transferase 19 U/L (5-37); Bilirubin Total 0.5 mg/dL (0.0-1.0); Blood Urea Nitrogen 18 mg/dL (9-16); C Reactive Protein 31.18 mg/dL (< or = 0.50); Calcium 9.2 mg/dL (8.4-10.2); Carbon Dioxide 24 mmol/L (22-29); Chloride 100 mmol/L (96-108); Creatinine Clr Calc Pharmacy 70.6; Estimated Glomerular Filt Rate > 60; Glucose Random 186 mg/dL (60-115); Potassium 4.4 mmol/L (3.3-5.1); Sodium 134 mmol/L (135-145); Total Protein 7.4 g/dL (6.5-8.0)
[2022-09-01 14:05] LABS: Erythrocyte Sedimentation Rate 102 MM/HR (0-15)
[2022-09-01] MEDS: Piperacillin Sodium/Tazobactam 3.375 GM in 0.9 % Sodium Chloride 50 ML IV (15:27)
--- NOTE | 2022-09-01 15:37 | P.HPHOSP_ITS ---
History of Present Illness Date of Service: 09/01/22 Attending physician on admission: Jasbir Khan Chief Complaint: weakness, left plantar wound with purulent drainage 72-year-old male with history of GERD, peripheral vascular disease, history tubular adenoma colon, insulin-dependent type 2 diabetes, diabetic polyneuropathy, htn, hyperlipidemia, chronic left diabetic foot ulcer of follo wing with [facility], and history osteomyelitis s/p right transmetatarsal amputation presented to the ED for evaluation of purulent drainage from left plantar wound ongoing for several days. He is noted increased tenderness in the left foot and lower leg along with generalized weakness and decreased p.o. intake for the last 3 days. No fevers, chills, nausea, vomiting, abdominal pain, diarrhea, shortness of breath, lightheadedness, chest pain. On arrival, patient afebrile, mild tachycardia to 112. No leukocytosis. Microcytic anemia with H/H 9.8/31.3%, MCV 77.5. Previously a chronic normocytic anemia. Denies any melena, hematochezia. Not on any blood thinners. Renal function baseline, electrolytes normal except for mild hyponatremia 134. Glucose 186. Lactic acid 1.4. CRP 31.18, ESR 102. X-ray of the left foot without any new osseous erosions. Patient given empiric dose of Zosyn, to be admitted with question of acute osteomyelitis of left foot with chronic nonhealing ulcer left foot. Review of Systems Review of Systems: General: +anorexia, +generalized weakness. No fevers, malaise, unintentional weight loss HEENT: No blurred vision, diplopia Cardiovascular: No chest pain, palpitations, or leg edema Respiratory: No shortness of breath, wheezing, cough GI: No abdominal pain, nausea, vomiting, diarrhea, constipation, melena, hematochezia : No dysuria, hematuria, increased urinary frequency, decreased urinary output MSK: No myalgia, back pain Neuro: No headaches, focal weakness, paresthesias Skin: No rashes. +nonhealing wound plantar left foot [facility] Medical History (Updated 09/01/22 @ 15:53 by JUSTUS Medley) Diabetes mellitus Diabetic foot ulcer Diabetic polyneuropathy History of acute renal failure Hyperlipidemia Hypertension Osteomyelitis Peripheral vascular disease Tubular adenoma of colon Family History Father Cancer of unknown origin Diabetes Mother No problems noted. Surgical History 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 History of right inguinal hernia repair History of ventral hernia repair Hx of eye surgery Social History Household Members: None Housing: Apartment Alcohol intake: never Patient Tobacco Use Status: Never used Tobacco Smoked in Last 30 Days: No Use of substances other than those prescribed or required for medical reasons: No Advance Directives: Yes Advance Directives on File: Yes Advance Directives Date on File: 08/22/21 service: No Current occupational status: retired [employer] Allergies Allergy/AdvReac Type Severity Reaction Status Date / Time No Known Allergies Allergy Verified 07/25/22 16:33 Active Medications: Current Medications Acetaminophen (Acetaminophen 325 Mg Tablet) 650 mg PO Q6H PRN PRN Reason: Pain, Mild, fever Dextrose (Dextrose 50 % 25 Gm/50 Ml Syringe) 25 gm IVPUSH Q15M PRN; Protocol PRN Reason: per Hypoglycemia Standing Ord. Docusate Sodium (Docusate Sodium 100 Mg Capsule) 100 mg PO DAILY PRN PRN Reason: Constipation Enoxaparin Sodium (Enoxaparin Sodium 40 Mg/0.4 Ml Syringe) 40 mg SUBCUT Q24H FLORY Glucose (Glucose Gel 15 Gm Gel..Gram.) 15 gm PO Q15M PRN; Protocol PRN Reason: per Hypoglycemia Standing Ord. Piperacillin Sod/Tazobactam (Sod 3.375 gm/ Sodium Chloride) 50 mls @ 100 mls/hr IV ONCE ONE Stop: 09/01/22 15:42 Last Admin: 09/01/22 15:27 Dose: 100 mls/hr Cefepime HCl 2 gm/ Sodium (Chloride) 50 mls @ 100 mls/hr IV Q8H FLORY Vancomycin HCl (Vancomycin/Ns) 2,000 mg in 520 mls @ 260 mls/hr IV ONCE ONE Stop: 09/01/22 17:31 Vancomycin HCl 750 mg/ Sodium (Chloride) 265 mls @ 265 mls/hr IV Q12H FLORY Insulin Human Lispro (Insulin Lispro 100 Unit/Ml 3 Ml Vial) 0 [facility]; Protocol Ondansetron HCl (Ondansetron Hcl 4 Mg/2 Ml Vial) 4 mg IVPUSH Q8H PRN PRN Reason: Nausea and Vomiting Pharmacy Consult (Consult Rx Vancomycin Dosing) 1 each MISCELLANE DAILY PRN PRN Reason: Consult order Sodium Chloride (0.9 % Sodium Chloride Flush 3 Ml Syringe) 3 ml IVFLUSH [facility] Home Medications Medication Instructions Recorded Confirmed Last Taken Type aspirin 81 mg tablet,delayed 81 mg PO DAILY 03/16/21 08/21/21 08/21/21 History release bisacodyl 5 mg tablet 5 mg PO DAILY 03/16/21 08/21/21 08/21/21 History blood sugar diagnostic #10 ea 03/16/21 Unknown History gabapentin 300 mg capsule 300 mg PO TID 03/16/21 08/21/21 08/21/21 History lancets 28 gauge (FreeStyle #100 ea 03/16/21 Unknown History Lancets) metformin 500 mg tablet 500 mg PO TID 03/16/21 08/21/21 08/21/21 History omeprazole 20 mg delayed 20 mg PO DAILY 03/16/21 08/21/21 08/21/21 History release,disintegrating tablet pen needle, diabetic 31 gauge x #50 ea 03/16/21 Unknown History 3/ (1st Tier Unifine Pentips) pen needle, diabetic 32 gauge x #50 ea 03/16/21 Unknown History (BD Susannah 2nd Gen Pen Needle) pioglitazone 45 mg tablet (Actos) 45 mg PO DAILY 03/16/21 08/21/21 08/21/21 History atorvastatin 40 mg tablet 1 tab PO DAILY 08/21/21 08/21/21 08/21/21 History glipizide 10 mg tablet, extended 1 tab PO BID 08/21/21 08/21/21 08/21/21 History release 24 hr insulin detemir U-100 100 unit/mL 50 unit subcut BEDTIME 08/21/21 08/21/21 08/20/21 History (3 mL) subcutaneous pen (Levemir FlexTouch U-100 Insulin) insulin detemir U-100 100 unit/mL 10 unit subcut DAILY 09/01/22 09/01/22 08/31/22 History (3 mL) subcutaneous pen (Levemir FlexTouch U-100 Insulin) lisinopril 5 mg tablet 1 tab PO DAILY 09/01/22 09/01/22 08/31/22 History polyvinyl alcohol 1.4 % eye drops 1 drp ophthalmic (eye) QID 09/01/22 09/01/22 Unknown History (Artificial Tears (polyvinyl alcohol)) psyllium 1 packet PO TID 09/01/22 09/01/22 Unknown History simethicone 80 mg chewable tablet 80 mg PO BEDTIME 09/01/22 09/01/22 Unknown History Physical Exam Vital Signs and Narrative: Vital Signs: Last Vital Signs Temp 98.2 F 09/01/22 11:34 Pulse 112 H 09/01/22 11:34 Resp 20 09/01/22 11:34 BP 154/84 H 09/01/22 11:34 Pulse Ox 98 09/01/22 11:34 O2 Del Method 09/01/22 11:34 BMI result Body Mass Index 27.8 Constitutional - Awake and Alert, No apparent distress Eyes - PERRLA, EOMI Cardiovascular - S1S2, RRR, 2+ edema LLE. Non palpable pedal pulses Respiratory - Normal lung expansion, Normal respiratory effort, No respiratory distress, CTA bilaterally Gastrointestinal - NT / ND; +BS; No rebound or guarding Extremities - no calf tenderness bilaterally. Swelling/2+ edema LLE with warmth, erythema left foot. 1cm x1cm shallow ulceration plantar surface left foot with dried purulent drainage Skin - Warm/Dry Neurological - Alert & oriented x3, CN II-XII in tact, 5/5 strength BUE and BLE Psychological - Appropriate affect Results Labs CBC and Chem 7: 09/01/22 12:48 09/01/22 12:48 Labs: Laboratory Results - last 24 hr 09/01/22 09/01/22 09/01/22 12:48 12:48 12:48 MCV 77.5 L MCH 24.3 L MCHC 31.3 RDW 14.8 Plt Count 180 MPV 10.5 Immature Gran % (Auto) 0.5 H Neut % (Auto) 79.2 H Lymph % (Auto) 11.1 L [place] % (Auto) 8.7 Eos % (Auto) 0.4 Baso % (Auto) 0.1 Lymph # (Auto) 1.1 L [place] # (Auto) 0.8 Eos # (Auto) 0.0 Baso # (Auto) 0.0 Abs Immat Gran (auto) 0.05 H Absolute Neuts (auto) 7.7 Absolute Nucleated RBC 0.000 Nucleated RBC % (auto) 0.0 ESR 102 H Anion Gap 14 Estim Creat Clear Calc 70.6 Estimated GFR > 60 Random Glucose 186 H Lactic Acid Calcium 9.2 Total Bilirubin 0.5 AST 19 ALT 25 Alkaline Phosphatase 62 C-Reactive Protein 31.18 H Total Protein 7.4 Albumin 3.8 09/01/22 12:48 MCV MCH MCHC RDW Plt Count MPV Immature Gran % (Auto) Neut % (Auto) Lymph % (Auto) [place] % (Auto) Eos % (Auto) Baso % (Auto) Lymph # (Auto) [place] # (Auto) Eos # (Auto) Baso # (Auto) Abs Immat Gran (auto) Absolute Neuts (auto) Absolute Nucleated RBC Nucleated RBC % (auto) ESR Anion Gap Estim Creat Clear Calc Estimated GFR Random Glucose Lactic Acid 1.4 Calcium Total Bilirubin AST ALT Alkaline Phosphatase C-Reactive Protein Total Protein Albumin Imaging Radiologist's Impressions: Impressions Foot X-Ray 09/01/22 12:28 IMPRESSION: No new osseous erosion. Early osteomyelitis may be occult on plain radiographs, and if there is clinical concern, bone scan or MR without and with contrast could help further evaluate. Assessment and Plan (1) Diabetic foot ulcer: Status: Acute (2) Peripheral vascular disease: Status: Acute Plan 72-year-old male with history of GERD, peripheral vascular disease, history tubular adenoma colon, insulin-dependent type 2 diabetes, diabetic polyneuropathy, htn, hyperlipidemia, chronic left diabetic foot ulcer of following with [facility], and history osteomyelitis s/p right tr ansmetatarsal amputation admitted for suspected osteomyelitis left foot with nonhealing diabetic left foot ulcer. #Nonhealing foot ulcer related to uncontrolled type 2 diabetes vs PVD with acute cellulitis suspected osteomyelitis left foot -XRay negative for acute osseous abnormality in ED -CT foot from 08/12 with soft tissue ulceration along the plantar aspect of the distal 4th metatarsal with prominent skin thickening and associated enhancement, consistent with acute cellulitis, no evidence of abscess formation, s/p resection distal 4th metatarsal and 4th phalanx without any adjacent osseous erosion or periosteal reaction suggestive of osteomyelitis however Sruthi osteomyelitis cannot be excluded on CT exam. Irregularity of the 2nd and 3rd metatarsal heads noted as well as joint effusions at the first metatarsophalangeal joint and 3rd proximal interphalangeal joint unchanged from prior exam -Sinus tach 112, WBC normal, vitals otherwise normal, lactic acid normal. No sepsis -ESR 102, CRP 31 -MRI foot w/wo contrast ordered -General surgery consulted for wound care -ID consulted -IV vanco and cefepime for cellulitis and ?osteomyelitis -Follow cultures #Mild hyponatremia -Na 134 in ed -Given IVF -Follow BMP # insulin-dependent type 2 diabetes with hyperglycemia -POC glucose -Diabetic diet -Dose adjusted insulin glargine -Humalog SSI -Hold PO antihyperglycemics # peripheral vascular disease -nonpalpable pedal pulses, complicated by edema -given nonhealing ulcer, will check arterial duplex -Consider vascular consult pending results -continue asa/statin #HTN- reasonably controlled -continue home meds #Diabetic polyneuropathy -continue gabapentin #HLD -continue statin #Acute microcytic anemia with background chronic normocytic anemia -Denies melena/hematochezia. Does have history of tubular adenoma of the colon -iron studies pending -follow CBC # GERD -continue ppi DVT prophylaxis-Lovenox Full code Patient requires inpatient stay of at least 2 midnights for management of acute cellulitis and question of osteomyelitis of the left foot with nonhealing ulceration the plantar left foot requiring IV antibiotics and expert consultation Time Spent With Patient Time: Total time managing care of this patient today ____ minutes. Quality Stroke Does the patient have a stroke diagnosis?: No VTE Prior VTE?: No VTE Risk Level:: Medical - moderate - high VTE Device Contraindication: Treatment Not Indicated VTE Drug Contraindication: N/A - Med Ordered
[2022-09-01 15:58] VITALS: BP 123/80; PULSE 112; RESP 15; O2SAT 100
--- NOTE | 2022-09-01 16:05 | PHA.MEDREC ---
Pharmacy Consult ? Medication Reconciliation Pharmacy has completed the medication reconciliation.
[2022-09-01 16:16] LABS: Iron 10 mcg/dL (45-160); Percent Iron Saturation 4 % (15-50); Total Iron Binding Capacity 276 mcg/dL (228-428); Unsaturated Iron Binding 266 ug/dL
[2022-09-01] MEDS: Enoxaparin Sodium 40 MG/0.4 ML SYRINGE SUBCUT (16:16)
[2022-09-01] MEDS: cefEPime HCl 2 GM in 0.9 % Sodium Chloride 50 ML IV ×2 (16:17→23:47)
[2022-09-01 17:03] LABS: Ferritin 94 ng/mL (20-250)
[2022-09-01 18:11] VITALS: BP 132/78; PULSE 87; RESP 18; TEMP 36.9; O2SAT 98
[2022-09-01 19:16] VITALS: BP 145/79; PULSE 115; RESP 18; TEMP 37.7; O2SAT 99
--- NOTE | 2022-09-01 19:17 | PC.NURSE ---
Care of patient assumed in ED at 1900. Patient is alert, oriented x4, and denies pain (he does endorse pain to left foot plantar ulcer when he stands up, but not currently in bed). Temp and HR noted to be increasing- will give prn tylenol and closely monitor. Patient understands plan for admission for new diabetic foot ulcer and is agreeable. All toes to right foot missing and several toes to left foot also missing. Quarter-sized ulcer to bottom of left foot noted. Vanco infusing through patent IV.
[2022-09-01] MEDS: Acetaminophen 325 MG TABLET 650 MG PO (19:24)
[2022-09-01 19:47] LABS: COVID-19 Test Negative (Negative)
[2022-09-01 20:54] VITALS: BMI 27.8
[2022-09-01 21:06] LABS: Glucose, Whole Blood 285 mg/dL (60-115)
[2022-09-01 21:27] VITALS: BP 151/89; PULSE 106; RESP 18; TEMP 37; O2SAT 98
[2022-09-01] MEDS: Simethicone 80 MG TAB.CHEW PO (21:30)
[2022-09-01] MEDS: Atorvastatin Calcium 40 MG TABLET PO (21:30)
[2022-09-01] MEDS: Gabapentin 300 MG CAPSULE PO (21:30)
[2022-09-01] MEDS: Insulin Glargine,Hum.rec.anlog 100 UNIT/ML 10 ML VIAL 32 UNIT SUBCUT (21:31)
[2022-09-01] MEDS: Insulin Lispro 100 UNIT/ML 3 ML VIAL SUBCUT (21:31)
[2022-09-01] MEDS: 0.9 % Sodium Chloride Flush 3 ML SYRINGE IVFLUSH (21:32)
[2022-09-01] MEDS: Artificial Tears 15 ML DROPS 1 DROP EYE-BOTH (22:01)
[2022-09-02] VITALS: RESP 18
[2022-09-02 01:43] VITALS: BP 122/83; PULSE 107; TEMP 37.2; O2SAT 97
[2022-09-02 04:00] VITALS: BP 132/60; PULSE 101; RESP 18; TEMP 37.1; O2SAT 97
[2022-09-02] MEDS: Omeprazole 20 MG CAPSULE.DR PO (05:22)
[2022-09-02 07:22] LABS: Anion Gap 15 (12-20); Blood Urea Nitrogen 13 mg/dL (9-16); Calcium 9.3 mg/dL (8.4-10.2); Carbon Dioxide 23 mmol/L (22-29); Chloride 102 mmol/L (96-108); Creatinine Clr Calc Pharmacy 85.4; Estimated Glomerular Filt Rate > 60; Glucose Random 215 mg/dL (60-115); Potassium 4.2 mmol/L (3.3-5.1); Sodium 136 mmol/L (135-145)
[2022-09-02 07:30] VITALS: BP 137/64; PULSE 104; RESP 18; TEMP 37.3; O2SAT 96
[2022-09-02 07:48] LABS: Glucose, Whole Blood 238 mg/dL (60-115)
[2022-09-02] MEDS: lisinopriL 5 MG TABLET PO (08:42)
[2022-09-02] MEDS: Insulin Glargine,Hum.rec.anlog 100 UNIT/ML 10 ML VIAL SUBCUT (08:42)
[2022-09-02] MEDS: Insulin Lispro 100 UNIT/ML 3 ML VIAL SUBCUT ×4 (08:42→20:31)
[2022-09-02] MEDS: Aspirin Enteric Coated 81 MG TABLET.DR PO (08:42)
[2022-09-02] MEDS: Gabapentin 300 MG CAPSULE PO ×3 (08:42→20:30)
[2022-09-02] MEDS: cefEPime HCl 2 GM in 0.9 % Sodium Chloride 50 ML IV ×3 (08:43→21:57)
[2022-09-02] MEDS: 0.9 % Sodium Chloride Flush 3 ML SYRINGE IVFLUSH ×2 (08:43→15:42)
[2022-09-02] MEDS: Artificial Tears 15 ML DROPS 1 DROP EYE-BOTH ×4 (08:44→20:32)
--- NOTE | 2022-09-02 09:26 | PM.CNGS ---
History of Present Illness Consult details Consult date: 09/02/22 Narrative: 72-year-old male, known diabetic, admitted for drainage from a plantar ulcer on the left. He has a history of amputation of the 2nd toe on this side in the distant past. He been doing well apparently but he says that he was sent to the ER by his nurse because of drainage from a plantar aspect of the left foot. He describes a little bit of pain with pressure on the area. Denies any fever or chills He also has had history of transmetatarsal amputation on the right foot. Review of Systems Constitutional: Constitutional: Denies chills and Denies fever(s) Cardiovascular: Cardiovascular: Denies chest pain, Denies dyspnea and Denies dyspnea on exertion Respiratory: Respiratory: Denies cough, Denies dyspnea and Denies dyspnea on exertion Gastrointestinal: Gastrointestinal: Denies hematochezia and Denies change in bowel habits Genitourinary: Genitourinary: Denies hematuria and Denies difficulty urinating Musculoskeletal: Musculoskeletal: Denies back pain and Denies limited range of motion Neurologic: Denies focal weakness and Denies convulsions Psychiatric: Psychiatric: Denies depression and Denies mood swings [facility] Past Medical History Medical History (Updated 09/03/22 @ 14:03 by Jaxon Qiu MD) Diabetes mellitus Diabetic foot ulcer Diabetic polyneuropathy Foot abscess History of acute renal failure Hyperlipidemia Hypertension Osteomyelitis Peripheral vascular disease Tubular adenoma of colon Family History Family History Father Cancer of unknown origin Diabetes Mother No problems noted. Surgical History Surgical History 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 History of right inguinal hernia repair History of ventral hernia repair Hx of eye surgery Social History Social History Household Members: None Housing: Apartment Alcohol intake: never Patient Tobacco Use Status: Never used Tobacco Advance Directives Date on File: 08/22/21 service: No Current occupational status: retired Meds Allergies Allergy/AdvReac Type Severity Reaction Status Date / Time No Known Allergies Allergy Verified 07/25/22 16:33 Active Medications: Current Medications Acetaminophen (Acetaminophen 325 Mg Tablet) 650 mg PO Q6H PRN PRN Reason: Pain, Mild, fever Last Admin: 09/01/22 19:24 Dose: 650 mg Artificial Tears (Artificial Tears 15 Ml Drops) 1 drop EYE-BOTH QID [facility] Last Admin: 09/02/22 08:44 Dose: 1 drop Aspirin (Aspirin Enteric Coated 81 Mg Tablet.Dr) 81 mg PO DAILY [facility] Last Admin: 09/02/22 08:42 Dose: 81 mg Atorvastatin Calcium (Atorvastatin Calcium 40 Mg Tablet) 40 mg PO BEDTIME [facility] Last Admin: 09/01/22 21:30 Dose: 40 mg Dextrose (Dextrose 50 % 25 Gm/50 Ml Syringe) 25 gm IVPUSH Q15M PRN; Protocol PRN Reason: per Hypoglycemia Standing Ord. Docusate Sodium (Docusate Sodium 100 Mg Capsule) 100 mg PO DAILY PRN PRN Reason: Constipation Enoxaparin Sodium (Enoxaparin Sodium 40 Mg/0.4 Ml Syringe) 40 mg SUBCUT Q24H [facility] Last Admin: 09/01/22 16:16 Dose: 40 mg Gabapentin (Gabapentin 300 Mg Capsule) 300 mg PO TID [facility] Last Admin: 09/02/22 08:42 Dose: 300 mg Glucose (Glucose Gel 15 Gm Gel..Gram.) 15 gm PO Q15M PRN; Protocol PRN Reason: per Hypoglycemia Standing Ord. Cefepime HCl 2 gm/ Sodium (Chloride) 50 mls @ 100 mls/hr IV Q8H [facility] Last Admin: 09/02/22 08:43 Dose: 100 mls/hr Vancomycin HCl 750 mg/ Sodium (Chloride) 265 mls @ 265 mls/hr IV Q12H [facility] Insulin Glargine (Insulin Glargine,Hum.Rec.Anlog 100 Unit/Ml 10 Ml Vial) 5 unit SUBCUT DAILY [facility] Last Admin: 09/02/22 08:42 Dose: 5 unit Insulin Glargine (Insulin Glargine,Hum.Rec.Anlog 100 Unit/Ml 10 Ml Vial) 32 unit SUBCUT BEDTIME [facility] Last Admin: 09/01/22 21:31 Dose: 32 unit Insulin Human Lispro (Insulin Lispro 100 Unit/Ml 3 Ml Vial) 0 unit SUBCUT QIDACHS [facility]; Protocol Last Admin: 09/02/22 08:42 Dose: 4 unit Lisinopril (Lisinopril 5 Mg Tablet) 5 mg PO DAILY [facility]; Protocol Last Admin: 09/02/22 08:42 Dose: 5 mg Omeprazole (Omeprazole 20 Mg Capsule.Dr) 20 mg PO DAILY@0630 [facility] Last Admin: 09/02/22 05:22 Dose: 20 mg Ondansetron HCl (Ondansetron Hcl 4 Mg/2 Ml Vial) 4 mg IVPUSH Q8H PRN PRN Reason: Nausea and Vomiting Pharmacy Consult (Consult Rx Vancomycin Dosing) 1 each MISCELLANE DAILY PRN PRN Reason: Consult order Psyllium Hydrophilic Mucilloid (Psyllium Seed 3.4 Gm Powd.Pack) 3.4 gm PO TID [facility] Last Admin: 09/02/22 08:41 Dose: 3.4 gm Simethicone (Simethicone 80 Mg Tab.Chew) 80 mg PO BEDTIME [facility] Last Admin: 09/01/22 21:30 Dose: 80 mg Sodium Chloride (0.9 % Sodium Chloride Flush 3 Ml Syringe) 3 ml IVFLUSH QSHIFT [facility] Last Admin: 09/02/22 08:43 Dose: 3 ml Home Medications Medication Instructions Recorded Confirmed Last Taken Type aspirin 81 mg tablet,delayed 81 mg PO DAILY 03/16/21 09/01/22 08/31/22 History release bisacodyl 5 mg tablet 10 mg PO Q OTHER DAY 03/16/21 09/01/22 08/21/21 History blood sugar diagnostic #10 ea 03/16/21 Unknown History gabapentin 300 mg capsule 300 mg PO TID 03/16/21 09/01/22 08/31/22 History lancets 28 gauge (FreeStyle #100 ea 03/16/21 Unknown History Lancets) metformin 500 mg tablet 1,000 mg PO BID 03/16/21 09/01/22 08/31/22 History omeprazole 20 mg delayed 20 mg PO DAILY@0630 03/16/21 09/01/22 08/31/22 History release,disintegrating tablet pen needle, diabetic 31 gauge x #50 ea 03/16/21 Unknown History 3 (1st Tier Unifine Pentips) pen needle, diabetic 32 gauge x #50 ea 03/16/21 Unknown History (BD Susannah 2nd Gen Pen Needle) pioglitazone 45 mg tablet (Actos) 45 mg PO DAILY 03/16/21 09/01/22 08/31/22 History atorvastatin 40 mg tablet 1 tab PO BEDTIME 08/21/21 09/01/22 08/31/22 History glipizide 10 mg tablet, extended 1 tab PO BID 08/21/21 09/01/22 08/31/22 History release 24 hr insulin detemir U-100 100 unit/mL 60 unit subcut BEDTIME 08/21/21 09/01/22 08/31/22 History (3 mL) subcutaneous pen (Levemir FlexTouch U-100 Insulin) insulin detemir U-100 100 unit/mL 10 unit subcut DAILY 09/01/22 09/01/22 08/31/22 History (3 mL) subcutaneous pen (Levemir FlexTouch U-100 Insulin) lisinopril 5 mg tablet 1 tab PO DAILY 09/01/22 09/01/22 08/31/22 History polyvinyl alcohol 1.4 % eye drops 1 drp ophthalmic (eye) QID 09/01/22 09/01/22 Unknown History (Artificial Tears (polyvinyl alcohol)) psyllium 1 packet PO TID 09/01/22 09/01/22 Unknown History simethicone 80 mg chewable tablet 80 mg PO BEDTIME 09/01/22 09/01/22 Unknown History Physical Exam Vital Signs: Vital Signs: Last Vital Signs Temp 99.2 F 09/02/22 07:30 Pulse 104 H 09/02/22 07:30 Resp 18 09/02/22 07:30 BP 137/64 09/02/22 07:30 Pulse Ox 96 09/02/22 07:30 O2 Del Method 09/02/22 07:30 BMI result Body Mass Index 27.8 Const: General: comfortable and no acute distress Orientation/consciousness: patient oriented x3 Neck: Neck: Yes no lymphadenopathy Resp: Auscultation: clear to auscultation bilaterally Cardio: Rhythm: regular rhythm GI: Palpation (GI): Soft to palpation, nontender and no guarding Neuro: General: patient oriented x3 Extrem: Other: Amputation of the toe well-healed left foot,2nd toe; dry callus on the plantar aspect, no active drainage at this time, some mild cellulitic changes on the forefoot Results Labs Result diagrams: 09/04/22 05:11 09/04/22 05:11 Labs: Abnormal lab results 12/18/22 12/18/22 12/18/22 Range/Units 12:48 12:48 12:48 RBC 4.04 L (4.60-5.80) X10*6/uL Hgb 9.8 L (14.0-18.0) g/dl Hct 31.3 L (42.0-52.0) % MCV 77.5 L (80.0-98.0) fL MCH 24.3 L (27.0-33.0) pg Immature Gran % (Auto) 0.5 H (0.0-0.4) % Neut % (Auto) 79.2 H (45-73) % Lymph % (Auto) 11.1 L (20-40) % Lymph # (Auto) 1.1 L (1.2-4.9) X10*3/uL Abs Immat Gran (auto) 0.05 H (0.00-0.03) X10*3/uL ESR 102 H (0-15) MM/HR Sodium 134 L (135-145) mmol/L BUN 18 H (9-16) mg/dL POC Glucose (60-115) mg/dL Random Glucose 186 H (60-115) mg/dL Iron 10 L (45-160) mcg/dL % Saturation 4 L (15-50) % C-Reactive Protein 31.18 H (< or = 0.50) mg/dL 09/01/22 09/02/22 09/02/22 Range/Units 21:02 06:09 07:29 RBC (4.60-5.80) X10*6/uL Hgb (14.0-18.0) g/dl Hct (42.0-52.0) % MCV (80.0-98.0) fL MCH (27.0-33.0) pg Immature Gran % (Auto) (0.0-0.4) % Neut % (Auto) (45-73) % Lymph % (Auto) (20-40) % Lymph # (Auto) (1.2-4.9) X10*3/uL Abs Immat Gran (auto) (0.00-0.03) X10*3/uL ESR (0-15) MM/HR Sodium (135-145) mmol/L BUN (9-16) mg/dL POC Glucose 285 H 238 H (60-115) mg/dL Random Glucose 215 H (60-115) mg/dL Iron (45-160) mcg/dL % Saturation (15-50) % C-Reactive Protein (< or = 0.50) mg/dL Short CBC 09/01/22 Range/Units 12:48 WBC 9.7 (4.8-10.8) X10*3/uL Hgb 9.8 L (14.0-18.0) g/dl Hct 31.3 L (42.0-52.0) % Plt Count 180 (160-400) X10*3/uL BMP 09/01/22 09/02/22 12:48 06:09 Sodium 134 L 136 Potassium 4.4 4.2 Chloride 100 102 Carbon Dioxide 24 23 BUN 18 H 13 Creatinine 1.04 0.86 Calcium 9.2 9.3 Liver Function 09/01/22 Range/Units 12:48 Total Bilirubin 0.5 (0.0-1.0) mg/dL AST 19 (5-37) U/L ALT 25 (0-40) U/L Alkaline Phosphatase 62 (39-117) U/L Albumin 3.8 (3.5-5.0) g/dL All other labs normal. Assessment and Plan (1) Diabetic foot ulcer: Status: Acute He was sent to the hospital because of what was described as drainage from the plantar aspect. The areas currently dry. There is no area of fluctuance. There is no need for any debridement or I&D at this time. However, if osteomyelitis is being considered, I would agree with an MRI. He otherwise looks well and does not appear septic. Time Spent With Patient Time: Total time managing care of this patient today ____ minutes. Procedures Date of Service Date of Service: 09/02/22
[2022-09-02] MEDS: vancomycin HCL 750 MG in 0.9 % Sodium Chloride 250 ML 265 MG IV (09:27)
--- NOTE | 2022-09-02 10:12 | MHC.CM.PN ---
Addendum entered by Diana Ward RN 09/03/22 10:12: CORRECTION; PATIENT IS ONLY ACTIVE WITH [facility] BUT [facility] IS FOLLOWING FOR POTENTIAL IV ABX NEEDS Original Note: PATIENT IS A READMIT FROM HOME. HE IS ACTIVE WITH [facility] AND [facility] REFERRALS PLACED TO BOTH HCP ON FILE AND VERIFIED. SON, JERAMY, TO TRANSPORT HOME IMM 09/02 IN CHART
--- NOTE | 2022-09-02 12:28 | P.PNIM_ITS ---
Subjective Subjective Date of Service: 09/02/22 Interval History: Admitted with diabetic foot ulcer concern for osteomyelitis. No acute events overnight. MRI pending Review of Systems Denies chest pain Denies shortness of breath Denies nausea vomiting diarrhea Denies fever chills Physical Exam Vital Signs: Vital Signs: Last Vital Signs Temp 99.2 F 09/02/22 07:30 Pulse 104 H 09/02/22 07:30 Resp 18 09/02/22 07:30 BP 137/64 09/02/22 07:30 Pulse Ox 96 09/02/22 07:30 O2 Del Method 09/02/22 07:30 BMI result Body Mass Index 27.8 Const: Other: No acute distress Resp: Other: Clear to auscultation bilaterally no rales rhonchi or wheezes Cardio: Other: No S4; positive S1-S2; no S3 murmurs rubs or gallops Extrem: Other: Amputation of the toe well-healed le ft foot,2nd toe; d ry callus on the p lantar aspect, no active drainage at this time, some m ild cellulitic eduardo nges on the forefo ot Objective Data Active Medications Acetaminophen (Acetaminophen 325 Mg Tablet) 650 mg PO Q6H PRN PRN Reason: Pain, Mild, fever Last Admin: 09/01/22 19:24 Dose: 650 mg Documented By: LEENA Artificial Tears (Artificial Tears 15 Ml Drops) 1 drop EYE-BOTH QID [facility] Last Admin: 09/02/22 08:44 Dose: 1 drop Documented By: ELIJAH Aspirin (Aspirin Enteric Coated 81 Mg Tablet.) 81 mg PO DAILY [facility] Last Admin: 09/02/22 08:42 Dose: 81 mg Documented By: LEIJAH Atorvastatin Calcium (Atorvastatin Calcium 40 Mg Tablet) 40 mg PO BEDTIME [facility] Last Admin: 09/01/22 21:30 Dose: 40 mg Documented By: SERJIOORALClary Dextrose (Dextrose 50 % 25 Gm/50 Ml Syringe) 25 gm IVPUSH Q15M PRN; Protocol PRN Reason: per Hypoglycemia Standing Ord. Docusate Sodium (Docusate Sodium 100 Mg Capsule) 100 mg PO DAILY PRN PRN Reason: Constipation Enoxaparin Sodium (Enoxaparin Sodium 40 Mg/0.4 Ml Syringe) 40 mg SUBCUT Q24H [facility] Last Admin: 09/01/22 16:16 Dose: 40 mg Documented By: GORDON Gabapentin (Gabapentin 300 Mg Capsule) 300 mg PO TID [facility] Last Admin: 09/02/22 08:42 Dose: 300 mg Documented By: ELIJAH Glucose (Glucose Gel 15 Gm Gel..Gram.) 15 gm PO Q15M PRN; Protocol PRN Reason: per Hypoglycemia Standing Ord. Cefepime HCl 2 gm/ Sodium (Chloride) 50 mls @ 100 mls/hr IV Q8H [facility] Last Infusion: 09/02/22 09:32 Dose: 0 mls/hr Documented By: ELIJAH Vancomycin HCl 750 mg/ Sodium (Chloride) 265 mls @ 265 mls/hr IV Q12H [facility] Last Infusion: 09/02/22 10:51 Dose: 0 mls/hr Documented By: ELIJAH Insulin Glargine (Insulin Glargine,Hum.Rec.Anlog 100 Unit/Ml 10 Ml Vial) 5 unit SUBCUT DAILY [facility] Last Admin: 09/02/22 08:42 Dose: 5 unit Documented By: ELIJAH Insulin Glargine (Insulin Glargine,Hum.Rec.Anlog 100 Unit/Ml 10 Ml Vial) 32 unit SUBCUT BEDTIME [facility] Last Admin: 09/01/22 21:31 Dose: 32 unit Documented By: CELESTINO Insulin Human Lispro (Insulin Lispro 100 Unit/Ml 3 Ml Vial) 0 unit SUBCUT QIDACHS [facility]; Protocol Last Admin: 09/02/22 08:42 Dose: 4 unit Documented By: ELIJAH Lisinopril (Lisinopril 5 Mg Tablet) 5 mg PO DAILY [facility]; Protocol Last Admin: 09/02/22 08:42 Dose: 5 mg Documented By: ELIJAH Omeprazole (Omeprazole 20 Mg Capsule.) 20 mg PO DAILY@0630 [facility] Last Admin: 09/02/22 05:22 Dose: 20 mg Documented By: CELESTINO Ondansetron HCl (Ondansetron Hcl 4 Mg/2 Ml Vial) 4 mg IVPUSH Q8H PRN PRN Reason: Nausea and Vomiting Pharmacy Consult (Consult Rx Vancomycin Dosing) 1 each MISCELLANE DAILY PRN PRN Reason: Consult order Psyllium Hydrophilic Mucilloid (Psyllium Seed 3.4 Gm Powd.Pack) 3.4 gm PO TID [facility] Last Admin: 09/02/22 08:41 Dose: 3.4 gm Documented By: ELIJAH Simethicone (Simethicone 80 Mg Tab.Chew) 80 mg PO BEDTIME [facility] Last Admin: 09/01/22 21:30 Dose: 80 mg Documented By: SERJIOORALClary Sodium Chloride (0.9 % Sodium Chloride Flush 3 Ml Syringe) 3 ml IVFLUSH QSHIFT [facility] Last Admin: 09/02/22 08:43 Dose: 3 ml Documented By: ELIJAH Labs CBC & Chem 7: 09/01/22 12:48 09/02/22 06:09 Labs: Laboratory Results - last 24 hr 09/01/22 09/01/22 09/01/22 12:48 12:48 12:48 MCV 77.5 L MCH 24.3 L MCHC 31.3 RDW 14.8 Plt Count 180 MPV 10.5 Immature Gran % (Auto) 0.5 H Neut % (Auto) 79.2 H Lymph % (Auto) 11.1 L [place] % (Auto) 8.7 Eos % (Auto) 0.4 Baso % (Auto) 0.1 Lymph # (Auto) 1.1 L [place] # (Auto) 0.8 Eos # (Auto) 0.0 Baso # (Auto) 0.0 Abs Immat Gran (auto) 0.05 H Absolute Neuts (auto) 7.7 Absolute Nucleated RBC 0.000 Nucleated RBC % (auto) 0.0 ESR 102 H Anion Gap 14 Estim Creat Clear Calc 70.6 Estimated GFR > 60 POC Glucose Random Glucose 186 H Lactic Acid Calcium 9.2 Iron 10 L TIBC 276 % Saturation 4 L Unsat Iron Binding 266 Ferritin 94 Total Bilirubin 0.5 AST 19 ALT 25 Alkaline Phosphatase 62 C-Reactive Protein 31.18 H Total Protein 7.4 Albumin 3.8 COVID-19 ([facility]) COVID-19 Clin Com 09/01/22 09/01/22 09/01/22 12:48 19:09 21:02 MCV MCH MCHC RDW Plt Count MPV Immature Gran % (Auto) Neut % (Auto) Lymph % (Auto) [place] % (Auto) Eos % (Auto) Baso % (Auto) Lymph # (Auto) [place] # (Auto) Eos # (Auto) Baso # (Auto) Abs Immat Gran (auto) Absolute Neuts (auto) Absolute Nucleated RBC Nucleated RBC % (auto) ESR Anion Gap Estim Creat Clear Calc Estimated GFR POC Glucose 285 H Random Glucose Lactic Acid 1.4 Calcium Iron TIBC % Saturation Unsat Iron Binding Ferritin Total Bilirubin AST ALT Alkaline Phosphatase C-Reactive Protein Total Protein Albumin COVID-19 ([facility]) Negative COVID-19 Clin Com See Note 09/02/22 09/02/22 06:09 07:29 MCV MCH MCHC RDW Plt Count MPV Immature Gran % (Auto) Neut % (Auto) Lymph % (Auto) [place] % (Auto) Eos % (Auto) Baso % (Auto) Lymph # (Auto) [place] # (Auto) Eos # (Auto) Baso # (Auto) Abs Immat Gran (auto) Absolute Neuts (auto) Absolute Nucleated RBC Nucleated RBC % (auto) ESR Anion Gap 15 Estim Creat Clear Calc 85.4 Estimated GFR > 60 POC Glucose 238 H Random Glucose 215 H Lactic Acid Calcium 9.3 Iron TIBC % Saturation Unsat Iron Binding Ferritin Total Bilirubin AST ALT Alkaline Phosphatase C-Reactive Protein Total Protein Albumin COVID-19 ([facility]) COVID-19 Clin Com Microbiology Microbiology Results: Microbiology 09/01/22 15:52 Blood Culture - Final Blood - Venous Assessment and Plan (1) Diabetic foot ulcer: Status: Acute (2) Diabetes mellitus: Status: Acute (3) H/O: HTN (hypertension): Status: Acute Plan 72-year-old male with history of GERD, peripheral vascular disease, history tubular adenoma colon, insulin-dependent type 2 diabetes, diabetic polyneuropathy, htn, hyperlipidemia, chronic left diabetic foot ulcer of following with [facility], and history osteomyelitis s/p right transmetatarsal amputation admitted for suspected osteomyelitis left foot with nonhealing diabetic left foot ulcer. 1.Nonhealing foot ulcer -continue vancomycin and Cefipime -MRI pending -ID consult 2.?DMII -list pro sliding scale -diabetic diet -adjust as indicated 3. Hypertension -acceptable control on current therapies -adjust as indicated Lovenox Full Code Patient requires ongoing hospitalization for treatment of presumed osteomyelitis and complete Time Spent With Patient Time: Total time managing care of this patient today ____ minutes. Quality Stroke Does the patient have a stroke diagnosis?: No VTE Prior VTE?: No VTE Risk Level:: Medical - moderate - high VTE Device Contraindication: Treatment Not Indicated VTE Drug Contraindication: N/A - Med Ordered
[2022-09-02 13:59] LABS: Glucose, Whole Blood 291 mg/dL (60-115)
[2022-09-02 15:52] VITALS: BP 145/70; PULSE 105; RESP 20; TEMP 36.7; O2SAT 100
[2022-09-02 16:01] LABS: Glucose, Whole Blood 284 mg/dL (60-115)
[2022-09-02] MEDS: Enoxaparin Sodium 40 MG/0.4 ML SYRINGE SUBCUT (16:56)
[2022-09-02 18:53] LABS: Vancomycin Random 9.3 mcg/mL (15-20)
--- NOTE | 2022-09-02 19:07 | HE.PHANOTE ---
RE NICOLETTE INCREASING DOSE TO 1000MG Q12H . NEW AUC 512, TROUGH 17.2 ALYSE
[2022-09-02 19:26] VITALS: BP 133/61; PULSE 109; RESP 20; TEMP 35.9; O2SAT 98
[2022-09-02 20:03] LABS: Glucose, Whole Blood 220 mg/dL (60-115)
[2022-09-02] MEDS: Simethicone 80 MG TAB.CHEW PO (20:30)
[2022-09-02] MEDS: Atorvastatin Calcium 40 MG TABLET PO (20:30)
[2022-09-02] MEDS: vancomycin HCL 1,000 MG in 0.9 % Sodium Chloride 250 ML 270 MG IV (20:31)
[2022-09-02] MEDS: Insulin Glargine,Hum.rec.anlog 100 UNIT/ML 10 ML VIAL 32 UNIT SUBCUT (20:31)
[2022-09-03] VITALS: BP 132/62; PULSE 102; RESP 19; TEMP 36.8; O2SAT 95
--- NOTE | 2022-09-03 | ECG_ITS ---
Test Reason : tachycardia Blood Pressure : / mmHG Vent. Rate : 103 BPM Atrial Rate : 103 BPM P-R Int : 198 ms QRS Dur : 090 ms QT Int : 342 ms P-R-T Axes : 029 -41 038 degrees QTc Int : 448 ms Sinus tachycardia Left axis deviation Abnormal ECG When compared with ECG of 25-JUL-2022 16:38, Premature ventricular complexes are no longer Present Referred By: Madison Ricks Electronically Signed By:Mark Anthony Radford
[2022-09-03 04:00] VITALS: BP 104/61; PULSE 123; RESP 18; TEMP 36.7; O2SAT 97
[2022-09-03] MEDS: 0.9 % Sodium Chloride Flush 3 ML SYRINGE IVFLUSH ×4 (04:51→23:47)
[2022-09-03] MEDS: Omeprazole 20 MG CAPSULE.DR PO (05:17)
[2022-09-03 06:16] LABS: Hematocrit 29.6 % (42.0-52.0); Hemoglobin 9.4 g/dl (14.0-18.0); Mean Corpuscular HGB Conc 31.8 g/dl (31.0-36.0); Mean Corpuscular Hemoglobin 24.3 pg (27.0-33.0); Mean Corpuscular Volume 76.5 fL (80.0-98.0); Mean Platelet Volume 10.2 fL (9.4-12.4); Platelet Count 205 X10*3/uL (160-400); Red Blood Count 3.87 X10*6/uL (4.60-5.80); Red Cell Distribution Width 14.8 % (11.0-16.0); White Blood Count 6.9 X10*3/uL (4.8-10.8)
[2022-09-03 06:30] LABS: Alanine Aminotransferase 46 U/L (0-40); Albumin Level 3.3 g/dL (3.5-5.0); Alkaline Phosphatase 77 U/L (39-117); Anion Gap 14 (12-20); Aspartate Amino Transferase 41 U/L (5-37); Bilirubin Total 0.4 mg/dL (0.0-1.0); Blood Urea Nitrogen 16 mg/dL (9-16); Carbon Dioxide 23 mmol/L (22-29); Chloride 104 mmol/L (96-108); Creatinine Clr Calc Pharmacy 71.3; Estimated Glomerular Filt Rate > 60; Glucose Fasting 257 mg/dL (60-99); Potassium 4.4 mmol/L (3.3-5.1); Sodium 137 mmol/L (135-145); Total Protein 6.6 g/dL (6.5-8.0)
--- NOTE | 2022-09-03 07:22 | HE.PHANOTE ---
Vancomycin Dosing, Dose was increase last night due based on level. SCr increased from 0.86 to 1.03. Due to cahnge in renal function, will get a trough after 2 doses from dose change. [facility] @ 1800. Stephany Travis, SamD
[2022-09-03 07:30] LABS: Glucose, Whole Blood 249 mg/dL (60-115)
[2022-09-03 08:00] VITALS: BP 123/60; PULSE 102; RESP 18; TEMP 37.1; O2SAT 99
[2022-09-03] MEDS: Gabapentin 300 MG CAPSULE PO ×3 (08:24→20:05)
[2022-09-03] MEDS: lisinopriL 5 MG TABLET PO (08:24)
[2022-09-03] MEDS: Aspirin Enteric Coated 81 MG TABLET.DR PO (08:24)
[2022-09-03] MEDS: vancomycin HCL 1,000 MG in 0.9 % Sodium Chloride 250 ML 270 MG IV ×2 (08:25→20:06)
[2022-09-03] MEDS: cefEPime HCl 2 GM in 0.9 % Sodium Chloride 50 ML IV ×3 (08:25→23:47)
[2022-09-03] MEDS: Insulin Glargine,Hum.rec.anlog 100 UNIT/ML 10 ML VIAL SUBCUT (08:26)
[2022-09-03] MEDS: Insulin Lispro 100 UNIT/ML 3 ML VIAL SUBCUT ×6 (08:26→21:00)
[2022-09-03] MEDS: Artificial Tears 15 ML DROPS 1 DROP EYE-BOTH ×4 (08:27→20:06)
--- NOTE | 2022-09-03 09:15 | MHC.CDI.CONC ---
CDI Concurrent Query Documentation Clarification: PHYSICIAN'S DOCUMENTATION REQUEST Date of Query: 09/03/22 0916 Patient Name: Leila Roberts Admit Date: 09/01/22 Dear Doctor, A review of the medical record indicates additional documentation may be needed. Please review below and update the documentation accordingly. Clinical Indicators Risk Factors/Clinical Indicators/Treatments DM Type 2 PN: 09/02 - some mild cellulitic changes on forefoot. IV Vancomycin, Cefepime. H&P 09/01 - Nonhealing foot ulcer related to uncontrolled Type 2 Diabetes vs. PVD with Acute Cellulitis. Left plantar wound with purulent drainage, tenderness of left foot, erythema. IV Zosyn. Please clarify the relationship between these conditions: Acute cellulitis associated with/due to Diabetes mellitus Type 2 Yes, [ ] is related to / associated with / due to [ ] No, [ ] is not related to / associated with / due to [ ] Unable to determine Use of terms such as suspected, likely, concern for, or probable (associated with a specific diagnosis that is being evaluated, monitored, or treated as if it exists) are acceptable and can be coded in the inpatient setting, when documented at the time of discharge. Thank you, Ban Tanner [facility], CDIS Extension: [phone] Please use your independent medical judgment in providing your response. THIS QUERY IS PART OF THE PERMANENT MEDICAL RECORD Other Diagnosis: not my patient
[2022-09-03 11:29] LABS: Glucose, Whole Blood 347 mg/dL (60-115)
[2022-09-03 12:00] VITALS: BP 112/56; PULSE 106; RESP 18; TEMP 36.7; O2SAT 100
--- NOTE | 2022-09-03 12:55 | P.PNIM_ITS ---
Subjective Subjective Date of Service: 09/03/22 Interval History: Seen in follow up for left foot cellulitis with chronic diabetic foot ulcer Interval History: Pt reports improved pain in the foot with ambulation. No other complaints at this time. Review of Systems General: No fevers, malaise, unintentional weight loss Cardiovascular: No chest pain, palpitations, or leg edema Respiratory: No shortness of breath, wheezing, cough GI: No abdominal pain, nausea, vomiting, diarrhea : No dysuria, hematuria, increased urinary frequency MSK: No myalgia, back pain. +pain left foot Skin: No rashes. +left plantar foot ulcer Physical Exam Vital Signs: Vital Signs: Last Vital Signs Temp 98.7 F 09/03/22 08:00 Pulse 102 H 09/03/22 08:00 Resp 18 09/03/22 08:00 BP 123/60 09/03/22 08:00 Pulse Ox 99 09/03/22 08:00 O2 Del Method 09/03/22 08:00 BMI result Body Mass Index 27.8 Constitutional - Awake and Alert, No apparent distress Eyes - PERRLA, EOMI Cardiovascular - S1S2, RRR, 2+ edema LLE. Respiratory - Normal lung expansion, Normal respiratory effort, No respiratory distress, CTA bilaterally Gastrointestinal - NT / ND; +BS; No rebound or guarding Extremities - no calf tenderness bilaterally. Swelling/2+ edema LLE with warmth, erythema left foot. 1cm x1cm shallow ulceration plantar surface left foot with dried purulent drainage, no induration or fluctuance Skin - Warm/Dry Neurological - Alert & oriented x3, CN II-XII in tact, 5/5 strength BUE and BLE Psychological - Appropriate affect Objective Data Active Medications Acetaminophen (Acetaminophen 325 Mg Tablet) 650 mg PO Q6H PRN PRN Reason: Pain, Mild, fever Last Admin: 09/01/22 19:24 Dose: 650 mg Documented By: LEENA Artificial Tears (Artificial Tears 15 Ml Drops) 1 drop EYE-BOTH QID [facility] Last Admin: 09/03/22 12:37 Dose: 1 drop Documented By: ROSEANNA Aspirin (Aspirin Enteric Coated 81 Mg Tablet.) 81 mg PO DAILY [facility] Last Admin: 09/03/22 08:24 Dose: 81 mg Documented By: ROSEANNA Atorvastatin Calcium (Atorvastatin Calcium 40 Mg Tablet) 40 mg PO BEDTIME [facility] Last Admin: 09/02/22 20:30 Dose: 40 mg Documented By: ISAEL Dextrose (Dextrose 50 % 25 Gm/50 Ml Syringe) 25 gm IVPUSH Q15M PRN; Protocol PRN Reason: per Hypoglycemia Standing Ord. Docusate Sodium (Docusate Sodium 100 Mg Capsule) 100 mg PO DAILY PRN PRN Reason: Constipation Enoxaparin Sodium (Enoxaparin Sodium 40 Mg/0.4 Ml Syringe) 40 mg SUBCUT Q24H [facility] Last Admin: 09/02/22 16:56 Dose: 40 mg Documented By: ELIJAH Gabapentin (Gabapentin 300 Mg Capsule) 300 mg PO TID [facility] Last Admin: 09/03/22 08:24 Dose: 300 mg Documented By: ROSEANNA Glucose (Glucose Gel 15 Gm Gel..Gram.) 15 gm PO Q15M PRN; Protocol PRN Reason: per Hypoglycemia Standing Ord. Cefepime HCl 2 gm/ Sodium (Chloride) 50 mls @ 100 mls/hr IV Q8H [facility] Last Infusion: 09/03/22 08:56 Dose: 0 mls/hr Documented By: ROSEANNA Vancomycin HCl 1,000 mg/ (Sodium Chloride) 270 mls @ 270 mls/hr IV Q12H [facility] Last Infusion: 09/03/22 10:28 Dose: 0 mls/hr Documented By: ROSEANNA Insulin Glargine (Insulin Glargine,Hum.Rec.Anlog 100 Unit/Ml 10 Ml Vial) 5 unit SUBCUT DAILY [facility] Last Admin: 09/03/22 08:26 Dose: 5 unit Documented By: ROSEANNA Insulin Glargine (Insulin Glargine,Hum.Rec.Anlog 100 Unit/Ml 10 Ml Vial) 32 unit SUBCUT BEDTIME [facility] Last Admin: 09/02/22 20:31 Dose: 32 unit Documented By: ISAEL Insulin Human Lispro (Insulin Lispro 100 Unit/Ml 3 Ml Vial) 0 unit SUBCUT QIDACHS [facility]; Protocol Last Admin: 09/03/22 12:36 Dose: 8 unit Documented By: ROSEANNA Lisinopril (Lisinopril 5 Mg Tablet) 5 mg PO DAILY [facility]; Protocol Last Admin: 09/03/22 08:24 Dose: 5 mg Documented By: ROSEANNA Omeprazole (Omeprazole 20 Mg Capsule.Dr) 20 mg PO DAILY@0630 [facility] Last Admin: 09/03/22 05:17 Dose: 20 mg Documented By: ISAEL Ondansetron HCl (Ondansetron Hcl 4 Mg/2 Ml Vial) 4 mg IVPUSH Q8H PRN PRN Reason: Nausea and Vomiting Pharmacy Consult (Consult Rx Vancomycin Dosing) 1 each MISCELLANE DAILY PRN PRN Reason: Consult order Psyllium Hydrophilic Mucilloid (Psyllium Seed 3.4 Gm Powd.Pack) 3.4 gm PO TID [facility] Last Admin: 09/03/22 08:25 Dose: 3.4 gm Documented By: ROSEANNA Simethicone (Simethicone 80 Mg Tab.Chew) 80 mg PO BEDTIME [facility] Last Admin: 09/02/22 20:30 Dose: 80 mg Documented By: ISAEL Sodium Chloride (0.9 % Sodium Chloride Flush 3 Ml Syringe) 3 ml IVFLUSH QSHIFT [facility] Last Admin: 09/03/22 08:26 Dose: 3 ml Documented By: ROSEANNA Labs CBC & Chem 7: 09/03/22 05:13 09/03/22 05:13 Labs: Laboratory Results - last 24 hr 09/02/22 09/02/22 09/02/22 13:53 15:55 18:09 MCV MCH MCHC RDW Plt Count MPV Absolute Nucleated RBC Nucleated RBC % (auto) Anion Gap Estim Creat Clear Calc Estimated GFR POC Glucose 291 H 284 H Fasting Glucose Calcium Total Bilirubin AST ALT Alkaline Phosphatase Total Protein Albumin Random Vancomycin 9.3 L 09/02/22 09/03/22 09/03/22 19:56 05:13 05:13 MCV 76.5 L MCH 24.3 L MCHC 31.8 RDW 14.8 Plt Count 205 MPV 10.2 Absolute Nucleated RBC 0.000 Nucleated RBC % (auto) 0.0 Anion Gap 14 Estim Creat Clear Calc 71.3 Estimated GFR > 60 POC Glucose 220 H Fasting Glucose 257 H Calcium 9.0 Total Bilirubin 0.4 AST 41 H ALT 46 H Alkaline Phosphatase 77 Total Protein 6.6 Albumin 3.3 L Random Vancomycin 09/03/22 09/03/22 07:24 11:25 MCV MCH MCHC RDW Plt Count MPV Absolute Nucleated RBC Nucleated RBC % (auto) Anion Gap Estim Creat Clear Calc Estimated GFR POC Glucose 249 H 347 H Fasting Glucose Calcium Total Bilirubin AST ALT Alkaline Phosphatase Total Protein Albumin Random Vancomycin Microbiology Microbiology Results: Microbiology 09/01/22 12:48 Blood Culture - Preliminary Blood - Venous No growth after 24 hours. 09/01/22 15:52 Blood Culture - Final Blood - Venous Assessment and Plan (1) Diabetic foot ulcer: Status: Acute (2) Cellulitis of left foot: Status: Acute Plan 72-year-old male with history of GERD, peripheral vascular disease, history tubular adenoma colon, insulin-dependent type 2 diabetes, diabetic polyneuropathy, htn, hyperlipidemia, chronic left diabetic foot ulcer of following with [facility], and history osteomyelitis s/p right transmetatarsal amputation admitted for suspected osteomyelitis left foot with nonhealing diabetic left foot ulcer. #Acute cellulitis related to Nonhealing left foot ulcer related to uncontrolled type 2 diabetes vs PVD -MRI foot negative for osteomyelitis, but shows soft tissue edema and enhancement consistent with cellulitis as well as peripherally enhancing collection dorsally measuring up to 3.8 cm concerning for abscess formation. -ESR 102, CRP 31 -Appreciatge gen surgery input -Continue IV vanco and cefepime for cellulitis and abscess -Follow cultures #Tachycardia- persistent -No other SIRS criteria, no sepsis -EKG ordered for further evaluation #Mild hyponatremia -Resolved # insulin-dependent type 2 diabetes with hyperglycemia -POC glucose -Diabetic diet -Dose adjusted insulin glargine -Humalog SSI -Hold PO antihyperglycemics # peripheral vascular disease -Arterial duplex negative for PAD -continue asa/statin #HTN- reasonably controlled -continue home meds #Diabetic polyneuropathy -continue gabapentin #HLD -continue statin #Acute iron deficiency anemia with background chronic normocytic anemia -Denies melena/hematochezia.? Does have history of tubular adenoma of the colon -Ferrous sulfate qd -Occult blood stool ordered -Consider GI consult if + -H/H stable -follow CBC # GERD -continue ppi DVT prophylaxis-Lovenox Full code Patient requires ongoing inpt stay for management of acute cellulitis with probable abscess formation requiring IV abx and surgical evaluation Time Spent With Patient Time: Total time managing care of this patient today ____ minutes. Quality Stroke Does the patient have a stroke diagnosis?: No VTE Prior VTE?: No VTE Risk Level:: Medical - moderate - high VTE Device Contraindication: Treatment Not Indicated VTE Drug Contraindication: N/A - Med Ordered
--- NOTE | 2022-09-03 14:01 | P.PNGS_ITS ---
Subjective Subjective Date of Service: 09/03/22 Interval history: Denies new complaints Says left foot pain well controlled MRI suggests abscess on the dorsum, no osteomyelitis Physical Exam Vital Signs: Vital Signs: Last Vital Signs Temp 98.0 F 09/03/22 12:00 Pulse 106 H 09/03/22 12:00 Resp 18 09/03/22 12:00 BP 112/56 L 09/03/22 12:00 Pulse Ox 100 09/03/22 12:00 O2 Del Method 09/03/22 12:00 BMI result Body Mass Index 27.8 Const: General: comfortable and no acute distress Resp: Effort & Inspection: normal respiratory effort Cardio: Rate: regular rate GI: Palpation (GI): Soft to palpation Extrem: Other: Left foot edema has improved thin small area of fluctuance on the dorsum left foot near the amputation site on the 4th digit Objective Data Active Medications Acetaminophen (Acetaminophen 325 Mg Tablet) 650 mg PO Q6H PRN PRN Reason: Pain, Mild, fever Last Admin: 09/01/22 19:24 Dose: 650 mg Documented By: LEENA Artificial Tears (Artificial Tears 15 Ml Drops) 1 drop EYE-BOTH QID [facility] Last Admin: 09/03/22 12:37 Dose: 1 drop Documented By: ROSEANNA Aspirin (Aspirin Enteric Coated 81 Mg Tablet.) 81 mg PO DAILY [facility] Last Admin: 09/03/22 08:24 Dose: 81 mg Documented By: ROSEANNA Atorvastatin Calcium (Atorvastatin Calcium 40 Mg Tablet) 40 mg PO BEDTIME [facility] Last Admin: 09/02/22 20:30 Dose: 40 mg Documented By: ISAEL Dextrose (Dextrose 50 % 25 Gm/50 Ml Syringe) 25 gm IVPUSH Q15M PRN; Protocol PRN Reason: per Hypoglycemia Standing Ord. Docusate Sodium (Docusate Sodium 100 Mg Capsule) 100 mg PO DAILY PRN PRN Reason: Constipation Enoxaparin Sodium (Enoxaparin Sodium 40 Mg/0.4 Ml Syringe) 40 mg SUBCUT Q24H [facility] Last Admin: 09/02/22 16:56 Dose: 40 mg Documented By: ELIJAH Ferrous Sulfate (Ferrous Sulfate 324 Mg Tablet.) 324 mg PO DAILY [facility] Gabapentin (Gabapentin 300 Mg Capsule) 300 mg PO TID [facility] Last Admin: 09/03/22 08:24 Dose: 300 mg Documented By: ROSEANNA Glucose (Glucose Gel 15 Gm Gel..Gram.) 15 gm PO Q15M PRN; Protocol PRN Reason: per Hypoglycemia Standing Ord. Cefepime HCl 2 gm/ Sodium (Chloride) 50 mls @ 100 mls/hr IV Q8H [facility] Last Infusion: 09/03/22 08:56 Dose: 0 mls/hr Documented By: ROSEANNA Vancomycin HCl 1,000 mg/ (Sodium Chloride) 270 mls @ 270 mls/hr IV Q12H [facility] Last Infusion: 09/03/22 10:28 Dose: 0 mls/hr Documented By: ROSEANNA Insulin Glargine (Insulin Glargine,Hum.Rec.Anlog 100 Unit/Ml 10 Ml Vial) 5 unit SUBCUT DAILY [facility] Last Admin: 09/03/22 08:26 Dose: 5 unit Documented By: ROSEANNA Insulin Glargine (Insulin Glargine,Hum.Rec.Anlog 100 Unit/Ml 10 Ml Vial) 32 unit SUBCUT BEDTIME [facility] Last Admin: 09/02/22 20:31 Dose: 32 unit Documented By: ISAEL Insulin Human Lispro (Insulin Lispro 100 Unit/Ml 3 Ml Vial) 0 unit SUBCUT QIDACHS [facility]; Protocol Last Admin: 09/03/22 12:36 Dose: 8 unit Documented By: ROSEANNA Lisinopril (Lisinopril 5 Mg Tablet) 5 mg PO DAILY [facility]; Protocol Last Admin: 09/03/22 08:24 Dose: 5 mg Documented By: ROSEANNA Omeprazole (Omeprazole 20 Mg Capsule.Dr) 20 mg PO DAILY@0630 [facility] Last Admin: 09/03/22 05:17 Dose: 20 mg Documented By: ISAEL Ondansetron HCl (Ondansetron Hcl 4 Mg/2 Ml Vial) 4 mg IVPUSH Q8H PRN PRN Reason: Nausea and Vomiting Pharmacy Consult (Consult Rx Vancomycin Dosing) 1 each MISCELLANE DAILY PRN PRN Reason: Consult order Psyllium Hydrophilic Mucilloid (Psyllium Seed 3.4 Gm Powd.Pack) 3.4 gm PO TID [facility] Last Admin: 09/03/22 08:25 Dose: 3.4 gm Documented By: HO.LYSZ Simethicone (Simethicone 80 Mg Tab.Chew) 80 mg PO BEDTIME [facility] Last Admin: 09/02/22 20:30 Dose: 80 mg Documented By: ISAEL Sodium Chloride (0.9 % Sodium Chloride Flush 3 Ml Syringe) 3 ml IVFLUSH QSHIFT [facility] Last Admin: 09/03/22 08:26 Dose: 3 ml Documented By: ROSEANNA Labs CBC & Chem 7: 09/03/22 05:13 09/03/22 05:13 Labs: Laboratory Results - last 24 hr 09/02/22 09/02/22 09/02/22 15:55 18:09 19:56 MCV MCH MCHC RDW Plt Count MPV Absolute Nucleated RBC Nucleated RBC % (auto) Anion Gap Estim Creat Clear Calc Estimated GFR POC Glucose 284 H 220 H Fasting Glucose Calcium Total Bilirubin AST ALT Alkaline Phosphatase Total Protein Albumin Random Vancomycin 9.3 L 09/03/22 09/03/22 09/03/22 05:13 05:13 07:24 MCV 76.5 L MCH 24.3 L MCHC 31.8 RDW 14.8 Plt Count 205 MPV 10.2 Absolute Nucleated RBC 0.000 Nucleated RBC % (auto) 0.0 Anion Gap 14 Estim Creat Clear Calc 71.3 Estimated GFR > 60 POC Glucose 249 H Fasting Glucose 257 H Calcium 9.0 Total Bilirubin 0.4 AST 41 H ALT 46 H Alkaline Phosphatase 77 Total Protein 6.6 Albumin 3.3 L Random Vancomycin 09/03/22 11:25 MCV MCH MCHC RDW Plt Count MPV Absolute Nucleated RBC Nucleated RBC % (auto) Anion Gap Estim Creat Clear Calc Estimated GFR POC Glucose 347 H Fasting Glucose Calcium Total Bilirubin AST ALT Alkaline Phosphatase Total Protein Albumin Random Vancomycin Microbiology Microbiology Results: Microbiology 09/01/22 12:48 Blood Culture - Preliminary Blood - Venous No growth after 24 hours. 09/01/22 15:52 Blood Culture - Final Blood - Venous Procedures Date of Service Date of Service: 09/03/22 Progress Note: A&P Assessment and plan (1) Foot abscess: Status: Acute Assessment and Plan: I was able to poke through the skin and allow spontaneous drainage of the absces Small amount of pus was drained I wrapped the area and foot with Andrea roll Continue antibiotics No osteomyelitis on MRI Will follow Time Spent With Patient Time: Total time managing care of this patient today ____ minutes. Quality Stroke Does the patient have a stroke diagnosis?: No VTE Prior VTE?: No VTE Risk Level:: Medical - moderate - high VTE Device Contraindication: Treatment Not Indicated VTE Drug Contraindication: N/A - Med Ordered
[2022-09-03] MEDS: Ferrous Sulfate 324 MG TABLET.DR PO (15:18)
[2022-09-03 16:00] VITALS: BP 125/65; PULSE 100; RESP 20; TEMP 36.4; O2SAT 97
[2022-09-03 16:24] LABS: Glucose, Whole Blood 383 mg/dL (60-115)
[2022-09-03] MEDS: Enoxaparin Sodium 40 MG/0.4 ML SYRINGE SUBCUT (17:14)
[2022-09-03 18:45] LABS: Vancomycin Random 13.5 mcg/mL (15-20)
--- NOTE | 2022-09-03 18:53 | HE.PHANOTE ---
AFIA WILL CONTINUE CURRENT DOSE, NEXT TROUGH DUE 09/04 @1800. MONITOR RENAL FUNCTION ALYSE
[2022-09-03] MEDS: Simethicone 80 MG TAB.CHEW PO (20:05)
[2022-09-03] MEDS: Atorvastatin Calcium 40 MG TABLET PO (20:05)
[2022-09-03 20:31] VITALS: BP 140/63; PULSE 95; RESP 18; TEMP 37; O2SAT 98
[2022-09-03 20:39] LABS: Glucose, Whole Blood 334 mg/dL (60-115)
[2022-09-03] MEDS: Insulin Glargine,Hum.rec.anlog 100 UNIT/ML 10 ML VIAL 32 UNIT SUBCUT (20:58)
[2022-09-04] VITALS: BP 139/80; PULSE 95; RESP 17; TEMP 36.8; O2SAT 95
[2022-09-04 04:00] VITALS: BP 148/78; PULSE 71; RESP 17; TEMP 36.8; O2SAT 94
[2022-09-04] MEDS: Omeprazole 20 MG CAPSULE.DR PO (05:56)
[2022-09-04 06:18] LABS: Hematocrit 28.2 % (42.0-52.0); Hemoglobin 8.9 g/dl (14.0-18.0); Mean Corpuscular HGB Conc 31.6 g/dl (31.0-36.0); Mean Corpuscular Hemoglobin 24.4 pg (27.0-33.0); Mean Corpuscular Volume 77.3 fL (80.0-98.0); Mean Platelet Volume 10.6 fL (9.4-12.4); Platelet Count 233 X10*3/uL (160-400); Red Blood Count 3.65 X10*6/uL (4.60-5.80); Red Cell Distribution Width 14.9 % (11.0-16.0); White Blood Count 7.3 X10*3/uL (4.8-10.8)
[2022-09-04 06:37] LABS: Alanine Aminotransferase 53 U/L (0-40); Albumin Level 3.1 g/dL (3.5-5.0); Alkaline Phosphatase 78 U/L (39-117); Anion Gap 13 (12-20); Aspartate Amino Transferase 32 U/L (5-37); Bilirubin Total 0.3 mg/dL (0.0-1.0); Blood Urea Nitrogen 21 mg/dL (9-16); Carbon Dioxide 22 mmol/L (22-29); Chloride 106 mmol/L (96-108); Creatinine Clr Calc Pharmacy 66.8; Estimated Glomerular Filt Rate > 60; Glucose Fasting 318 mg/dL (60-99); Potassium 4.8 mmol/L (3.3-5.1); Sodium 136 mmol/L (135-145); Total Protein 6.4 g/dL (6.5-8.0)
[2022-09-04 07:51] LABS: Glucose, Whole Blood 288 mg/dL (60-115)
[2022-09-04 08:00] VITALS: BP 119/69; PULSE 105; RESP 18; TEMP 36.4; O2SAT 97
[2022-09-04] MEDS: Aspirin Enteric Coated 81 MG TABLET.DR PO (08:10)
[2022-09-04] MEDS: lisinopriL 5 MG TABLET PO (08:10)
[2022-09-04] MEDS: Gabapentin 300 MG CAPSULE PO (08:10)
[2022-09-04] MEDS: Insulin Glargine,Hum.rec.anlog 100 UNIT/ML 10 ML VIAL SUBCUT (08:11)
[2022-09-04] MEDS: Insulin Lispro 100 UNIT/ML 3 ML VIAL SUBCUT ×5 (08:11→12:24)
[2022-09-04] MEDS: Ferrous Sulfate 324 MG TABLET.DR PO (08:11)
[2022-09-04] MEDS: vancomycin HCL 1,000 MG in 0.9 % Sodium Chloride 250 ML 270 MG IV (08:14)
[2022-09-04] MEDS: cefEPime HCl 2 GM in 0.9 % Sodium Chloride 50 ML IV (08:14)
[2022-09-04] MEDS: Artificial Tears 15 ML DROPS 1 DROP EYE-BOTH ×2 (08:18→12:27)
[2022-09-04] MEDS: 0.9 % Sodium Chloride Flush 3 ML SYRINGE IVFLUSH (08:18)
--- NOTE | 2022-09-04 09:35 | PM.PNGS ---
Subjective Subjective Date of Service: 09/04/22 Interval history: Feels well today Denies significant pain on the left foot Physical Exam Vital Signs: Vital Signs: Last Vital Signs Temp 97.6 F 09/04/22 08:00 Pulse 105 H 09/04/22 08:00 Resp 18 09/04/22 08:00 BP 119/69 09/04/22 08:00 Pulse Ox 97 09/04/22 08:00 O2 Del Method 09/04/22 08:00 BMI result Body Mass Index 27.8 Const: General: comfortable and no acute distress Resp: Effort & Inspection: normal respiratory effort Cardio: Rate: regular rate Extrem: Other: Left foot is abscess site with an open wound, dorsum, at the old 4th toe amputation site draining spontaneously, very little drainage, edema and redness has improved significantly Objective Data Active Medications Acetaminophen (Acetaminophen 325 Mg Tablet) 650 mg PO Q6H PRN PRN Reason: Pain, Mild, fever Last Admin: 09/01/22 19:24 Dose: 650 mg Documented By: LEENA Artificial Tears (Artificial Tears 15 Ml Drops) 1 drop EYE-BOTH QID [facility] Last Admin: 09/04/22 08:18 Dose: 1 drop Documented By: ROSEANNA Aspirin (Aspirin Enteric Coated 81 Mg Tablet.) 81 mg PO DAILY [facility] [place] Last Admin: 09/04/22 08:10 Dose: 81 mg Documented By: ROSEANNA Atorvastatin Calcium (Atorvastatin Calcium 40 Mg Tablet) 40 mg PO BEDTIME [facility] [place] Last Admin: 09/03/22 20:05 Dose: 40 mg Documented By: SRUTHI Dextrose (Dextrose 50 % 25 Gm/50 Ml Syringe) 25 gm IVPUSH Q15M PRN; Protocol PRN Reason: per Hypoglycemia Standing Ord. Docusate Sodium (Docusate Sodium 100 Mg Capsule) 100 mg PO DAILY PRN PRN Reason: Constipation Enoxaparin Sodium (Enoxaparin Sodium 40 Mg/0.4 Ml Syringe) 40 mg SUBCUT Q24H [facility] [place] Last Admin: 09/03/22 17:14 Dose: 40 mg Documented By: ROSEANNA Ferrous Sulfate (Ferrous Sulfate 324 Mg Tablet.) 324 mg PO DAILY [facility] [place] Last Admin: 09/04/22 08:11 Dose: 324 mg Documented By: ROSEANNA Gabapentin (Gabapentin 300 Mg Capsule) 300 mg PO TID [facility] [place] Last Admin: 09/04/22 08:10 Dose: 300 mg Documented By: ROSEANNA Glucose (Glucose Gel 15 Gm Gel..Gram.) 15 gm PO Q15M PRN; Protocol PRN Reason: per Hypoglycemia Standing Ord. Cefepime HCl 2 gm/ Sodium (Chloride) 50 mls @ 100 mls/hr IV Q8H [facility] [place] Last Infusion: 09/04/22 08:49 Dose: 0 mls/hr Documented By: ROSEANNA Vancomycin HCl 1,000 mg/ (Sodium Chloride) 270 mls @ 270 mls/hr IV Q12H [facility] [place] Last Infusion: 09/04/22 08:49 Dose: 270 mls/hr Documented By: ROSEANNA Insulin Glargine (Insulin Glargine,Hum.Rec.Anlog 100 Unit/Ml 10 Ml Vial) 5 unit SUBCUT DAILY [facility] [place] Last Admin: 09/04/22 08:11 Dose: 5 unit Documented By: ROSEANNA Insulin Glargine (Insulin Glargine,Hum.Rec.Anlog 100 Unit/Ml 10 Ml Vial) 32 unit SUBCUT BEDTIME [facility] [place] Last Admin: 09/03/22 20:58 Dose: 32 unit Documented By: SRUTHI Insulin Human Lispro (Insulin Lispro 100 Unit/Ml 3 Ml Vial) 0 unit SUBCUT QIDACHS [facility] [place]; Protocol Last Admin: 09/04/22 08:11 Dose: 6 unit Documented By: ROSEANNA Insulin Human Lispro (Insulin Lispro 100 Unit/Ml 3 Ml Vial) 5 unit SUBCUT QIDACHS [facility] [place] Last Admin: 09/04/22 08:13 Dose: 5 unit Documented By: ROSEANNA Lisinopril (Lisinopril 5 Mg Tablet) 5 mg PO DAILY [facility]; Protocol Last Admin: 09/04/22 08:10 Dose: 5 mg Documented By: ROSEANNA Omeprazole (Omeprazole 20 Mg Capsule.Dr) 20 mg PO DAILY@0630 [facility] [place] Last Admin: 09/04/22 05:56 Dose: 20 mg Documented By: SRUTHI Ondansetron HCl (Ondansetron Hcl 4 Mg/2 Ml Vial) 4 mg IVPUSH Q8H PRN PRN Reason: Nausea and Vomiting Pharmacy Consult (Consult Rx Vancomycin Dosing) 1 each MISCELLANE DAILY PRN PRN Reason: Consult order Psyllium Hydrophilic Mucilloid (Psyllium Seed 3.4 Gm Powd.Pack) 3.4 gm PO TID [facility] [place] Last Admin: 09/04/22 08:19 Dose: 3.4 gm Documented By: ROSEANNA Simethicone (Simethicone 80 Mg Tab.Chew) 80 mg PO BEDTIME [facility] [place] Last Admin: 09/03/22 20:05 Dose: 80 mg Documented By: SRUTHI Sodium Chloride (0.9 % Sodium Chloride Flush 3 Ml Syringe) 3 ml IVFLUSH QSHIFT [facility] [place] Last Admin: 09/04/22 08:18 Dose: 3 ml Documented By: ROSEANNA Labs CBC & Chem 7: 09/04/22 05:11 09/04/22 05:11 Labs: Laboratory Results - last 24 hr 09/03/22 09/03/22 09/03/22 11:25 16:19 18:13 MCV MCH MCHC RDW Plt Count MPV Absolute Nucleated RBC Nucleated RBC % (auto) Anion Gap Estim Creat Clear Calc Estimated GFR POC Glucose 347 H 383 H* Fasting Glucose Calcium Total Bilirubin AST ALT Alkaline Phosphatase Total Protein Albumin Random Vancomycin 13.5 L 09/03/22 09/04/22 09/04/22 20:35 05:11 05:11 MCV 77.3 L MCH 24.4 L MCHC 31.6 RDW 14.9 Plt Count 233 MPV 10.6 Absolute Nucleated RBC 0.000 Nucleated RBC % (auto) 0.0 Anion Gap 13 Estim Creat Clear Calc 66.8 Estimated GFR > 60 POC Glucose 334 H Fasting Glucose 318 H Calcium 9.0 Total Bilirubin 0.3 AST 32 ALT 53 H Alkaline Phosphatase 78 Total Protein 6.4 L Albumin 3.1 L Random Vancomycin 09/04/22 07:33 MCV MCH MCHC RDW Plt Count MPV Absolute Nucleated RBC Nucleated RBC % (auto) Anion Gap Estim Creat Clear Calc Estimated GFR POC Glucose 288 H Fasting Glucose Calcium Total Bilirubin AST ALT Alkaline Phosphatase Total Protein Albumin Random Vancomycin Microbiology Microbiology Results: Microbiology 09/01/22 12:48 Blood Culture - Preliminary Blood - Venous No growth after 48 hours. Procedures Date of Service Date of Service: 09/04/22 Progress Note: A&P Assessment and plan (1) Foot abscess: Status: Acute Assessment and Plan: This has drained spontaneously Edema and, induration and redness has markedly improved I have changes dressings No osteomyelitis on MRI Oral antibiotics on discharge Blood sugar control Wound care with dry dressings daily Time Spent With Patient Time: Total time managing care of this patient today ____ minutes. Quality Stroke Does the patient have a stroke diagnosis?: No VTE Prior VTE?: No VTE Risk Level:: Medical - moderate - high VTE Device Contraindication: Treatment Not Indicated VTE Drug Contraindication: N/A - Med Ordered
--- NOTE | 2022-09-04 11:23 | PM.DS ---
DS: Providers Provider Date of Service: 09/04/22 Date of admission: 09/01/22 15:16 Date of discharge: 09/04/22 Primary care physician: Ania Ballesteros MD Admitting clinician: Madison Ricks Attending physician on admission: Jasbir Khan Consults: 09/01/22 15:58 Consult to General Surgery Routine Consulting Provider: Jaxon Qiu Reason for consultation: diabetic foot ulcer plantar surface left foot Attending physician on discharge: [facility] Discharging clinician: Madison Ricks DS: Diagnosis Discharge Diagnosis (1) Diabetic foot ulcer: Status: Acute (2) Cellulitis and abscess of left lower extremity: Status: Acute DS: Summary Hospital Course Hospital Course: HPI on admission 09/01/22: 72-year-old male with history of GERD, peripheral vascular disease, history tubular adenoma colon, insulin-dependent type 2 diabetes, diabetic polyneuropathy, htn, hyperlipidemia, chronic left diabetic foot ulcer of following with [facility], and history osteomyelitis s/p right transmetatarsal amputation presented to the ED for evaluation of purulent drainage from left plantar wound ongoing for several days.? He is noted increased tenderness in the left foot and lower leg along with generalized weakness and decreased p.o. intake for the last 3 days.? No fevers, chills, nausea, vomiting, abdominal pain, diarrhea, shortness of breath, lightheadedness, chest pain.? On arrival, patient afebrile, mild tachycardia to 112.? No leukocytosis.? Microcytic anemia with H/H 9.8/31.3%, MCV 77.5.? Previously a chronic normocytic anemia.? Denies any melena, hematochezia.? Not on any blood thinners.? Renal function baseline, electrolytes normal except for mild hyponatremia 134.? Glucose 186.? Lactic acid 1.4.? CRP 31.18, ESR 102.? X-ray of the left foot without any new osseous erosions.? Patient given empiric dose of Zosyn, to be admitted with question of acute osteomyelitis of left foot with chronic nonhealing ulcer left foot. Hospital Course: Pt admitted for acute cellulitis LLE with chronic nonhealing ulcer left foot with concern for osteomyelitis. MRI left foot was negative for osteomyelitis but did show soft tissue edema and enhancement consistent with cellulitis as well as peripherally enhancing collection dorsally measuring up to 3.8 cm concerning for abscess formation. Pedal pulses difficult to palpate given edema. Subsequent arterial duplex ordered for evaluation and negative for PAD. Treated empirically with cefepime and vancomycin. Evaluated by general surgery give abscess noted on MRI. Small puncture made to dorsum of left foot with spontaneous purulent drainage. Significant improvement in edema, induration, and erythema following drainage. There were intermittent episodes of tachycardia throughout admission wt EKG showing sinus tachycardia 103 with HR improving to 70s-80s. Vitals otherwise stable throughout admission- no other SIRS criteria/no sepsis. Patient will be discharged on 10 days augmentin BID and 10 days doxycycline 100mg BID to complete course of treatment. He will continue following with the wound clinic for management of chronic ulcer plantar aspect of left foot and will continue with home VNA. General surgery advising daily dressing changes. Follow up with PCP soon. Status at Discharge Functional status at discharge: independent ambulation Overall status at discharge: patient is back to baseline Time Spent with Patient Time attestation: Total time managing care of this patient today ____ minutes. Discharge coordination time: Greater than 30 minutes Quality: Safe Use of Opioids Does Pt have an Active Cancer Diagnosis on the Problem List?: No Quality: Stroke Does the patient have a stroke diagnosis?: No Physical Exam Vital Signs: Vital Signs: Last Vital Signs Temp 97.6 F 09/04/22 08:00 Pulse 105 H 09/04/22 08:00 Resp 18 09/04/22 08:00 BP 119/69 09/04/22 08:00 Pulse Ox 97 09/04/22 08:00 O2 Del Method 09/04/22 08:00 BMI result Body Mass Index 27.8 Constitutional - Awake and Alert, No apparent distress Eyes - PERRLA, EOMI Cardiovascular - S1S2, RRR, 1+ edema LLE. Respiratory - Normal lung expansion, Normal respiratory effort, No respiratory distress, CTA bilaterally Gastrointestinal - NT / ND; +BS; No rebound or guarding Extremities - no calf tenderness bilaterally. Swelling/1+ edema LLE with warmth, erythema left foot- significnantly improved. Clean dressing on left foot Skin - Warm/Dry Neurological - Alert & oriented x3 Psychological - Appropriate affect DS: Data Data Completed and Pending Completed studies during hospitalization [Text1]: Procedures Insertion of Infusion Device into Superior Vena Cava, Percutaneous Approach (08/21/21) Labs on day of discharge: Laboratory Results - last 24 hr 09/03/22 09/03/22 09/03/22 11:25 16:19 18:13 WBC RBC Hgb Hct MCV MCH MCHC RDW Plt Count MPV Absolute Nucleated RBC Nucleated RBC % (auto) Sodium Potassium Chloride Carbon Dioxide Anion Gap BUN Creatinine Estim Creat Clear Calc Estimated GFR POC Glucose 347 H 383 H* Fasting Glucose Calcium Total Bilirubin AST ALT Alkaline Phosphatase Total Protein Albumin Random Vancomycin 13.5 L 09/03/22 09/04/22 09/04/22 20:35 05:11 05:11 WBC 7.3 RBC 3.65 L Hgb 8.9 L Hct 28.2 L MCV 77.3 L MCH 24.4 L MCHC 31.6 RDW 14.9 Plt Count 233 MPV 10.6 Absolute Nucleated RBC 0.000 Nucleated RBC % (auto) 0.0 Sodium 136 Potassium 4.8 Chloride 106 Carbon Dioxide 22 Anion Gap 13 BUN 21 H Creatinine 1.10 Estim Creat Clear Calc 66.8 Estimated GFR > 60 POC Glucose 334 H Fasting Glucose 318 H Calcium 9.0 Total Bilirubin 0.3 AST 32 ALT 53 H Alkaline Phosphatase 78 Total Protein 6.4 L Albumin 3.1 L Random Vancomycin 09/04/22 07:33 WBC RBC Hgb Hct MCV MCH MCHC RDW Plt Count MPV Absolute Nucleated RBC Nucleated RBC % (auto) Sodium Potassium Chloride Carbon Dioxide Anion Gap BUN Creatinine Estim Creat Clear Calc Estimated GFR POC Glucose 288 H Fasting Glucose Calcium Total Bilirubin AST ALT Alkaline Phosphatase Total Protein Albumin Random Vancomycin Preliminary micro results at discharge 09/01/22 12:48 Blood Culture - Preliminary Blood - Venous No growth after 48 hours. Discharge Plan Discharge Anticipated Discharge Date/Time: 09/04/22 11:12 Patient Disposition: Home, Self-Care Discharge Diagnosis: left foot abscess with cellulitis Referrals: Ania Ballesteros MD [Primary Care Provider] - 1 Week Discharge Medications: New amoxicillin-pot clavulanate 875-125 mg tablet 1 tab PO Q12H Qty: 20 0RF Rx Instructions: Take with food doxycycline hyclate 100 mg capsule 100 mg PO BID Qty: 20 0RF Rx Instructions: Take with food and full glass of water. Do not lay down for 1 hour after taking medication Continued Levemir FlexTouch U-100 Insuln 100 unit/mL (3 mL) insulin pen 60 unit subcut BEDTIME glipizide 10 mg tablet extended release 24hr 1 tab PO BID atorvastatin 40 mg tablet 1 tab PO BEDTIME polyvinyl alcohol [Artificial Tears (polyvin alc)] 1.4 % drops 1 drp ophthalmic (eye) QID Metamucil Packet 1 packet PO TID Rx Instructions: mix into at least 8 oz of water or juice before administering lisinopril 5 mg tablet 1 tab PO DAILY simethicone 80 mg Tablet,Chewable 80 mg PO BEDTIME Levemir FlexTouch U-100 Insuln 100 unit/mL (3 mL) insulin pen 10 unit subcut DAILY bisacodyl 5 mg tablet 10 mg PO Q OTHER DAY omeprazole 20 mg tablet,disintegrat, delay rel 20 mg PO DAILY@0630 pioglitazone [Actos] 45 mg tablet 45 mg PO DAILY gabapentin 300 mg capsule 300 mg PO TID aspirin 81 mg tablet,delayed release (DR/EC) 81 mg PO DAILY metformin 500 mg tablet 1,000 mg PO BID (DME) pen needle, diabetic [1st Tier Unifine Pentips] 31 gauge x 3/16 needle See Rx Instructions .ROUTE .MEDSUPPLY Qty: 50 Rx Instructions: As directed (DME) blood sugar diagnostic Strip See Rx Instructions .ROUTE .MEDSUPPLY Qty: 10 Rx Instructions: As directed (DME) lancets [FreeStyle Lancets] 28 gauge misc See Rx Instructions .ROUTE .MEDSUPPLY Qty: 100 Rx Instructions: As directed (DME) pen needle, diabetic [BD Susannah 2nd Gen Pen Needle] 32 gauge x 5/32 needle See Rx Instructions .ROUTE .MEDSUPPLY Qty: 50 Rx Instructions: As directed Diet: Diabetic diet Activity on Discharge: As tolerated Stand Alone Forms: Patient Portal Discharge page Care Plan Goals: Continue oral antibiotics to treat infection Continue following with wound clinic/VNA for wound management and dressings Continue working on glucose control with medication compliance and diabetic diet. Health Concerns: Cellultitis and abscess left foot Type II diabetes Plan of Treatment: Cellulitis and abscess left foot -The abscess on the top of the left foot has drained spontaneously following small puncture by general surgery. Your edema and redness has markedly improved after treatment with IV antibiotics (cefepime and vancomycin) -Complete course of antibiotics without skipping any doses to resolve infection. Take Amoxicillin-clavulanic acid 875mg twice daily (next dose due tonight) and doxycycline 100mg twice daily (next dose due tonight). It is important to take the doxycline with food and a full class of water and avoid laying down for 1 hour after taking medication to prevent stomach and esophageal irritation/nausea/vomiting -Follow up with wound clinic and continue with VNA for dressing changes and ongoing management of chronic left foot ulcer. Dressing changes daily per general surgery -Your MRI was negative for any osteomyelitis Type II Diabetes -Continue home medication, follow diabetic diet, and monitor glucose levels Assessment: See above
[2022-09-04 11:25] VITALS: BP 120/56; PULSE 98; RESP 18; TEMP 36.2; O2SAT 99
[2022-09-04 11:35] LABS: Glucose, Whole Blood 402 mg/dL (60-115)
[2022-09-04] MEDS: metFORMIN HCl 1,000 MG TABLET 1000 MG PO (12:30)
[2022-09-04 13:14] LABS: Glucose, Whole Blood 421 mg/dL (60-115)
[2022-09-04 14:03] LABS: Glucose, Whole Blood 391 mg/dL (60-115)
--- NOTE | 2022-09-04 14:51 | MHC.CM.PN ---
PATIENT IS DISCHARGED HOME WITH RESUMPTION OF HIS [facility] SERVICES. IMM 09/02 PREVIOUSLY COMPLETED.
[2022-09-04 15:05] LABS: Glucose, Whole Blood 320 mg/dL (60-115)
== END 2022-09-04 15:58 | disposition home health service (06) | DRG 638 ==
LOC: HO.ED 12:48 → HO.EDOVER 15:22 → HO.S3 19:01
PROVIDERS: Hospitalist; Physician Assistant; Admitting Provider Physician Assistant; Emergency Provider Emergency Medicine; PCP Internal Medicine; Visit Provider Physician Assistant
DX: E11.621 Type 2 diabetes mellitus with foot ulcer (principal); E87.1 Hypo-osmolality and hyponatremia; L97.429 Non-pressure chronic ulcer of left heel and midfoot with unspecified severity; L02.612 Cutaneous abscess of left foot; E78.5 Hyperlipidemia, unspecified; E11.42 Type 2 diabetes mellitus with diabetic polyneuropathy; D64.9 Anemia, unspecified; R00.0 Tachycardia, unspecified; E11.628 Type 2 diabetes mellitus with other skin complications; E11.51 Type 2 diabetes mellitus with diabetic peripheral angiopathy without gangrene; D50.9 Iron deficiency anemia, unspecified; Z20.822 Contact with and (suspected) exposure to COVID-19; Z79.82 Long term (current) use of aspirin; Z79.84 Long term (current) use of oral hypoglycemic drugs; Z79.899 Other long term (current) drug therapy
CPT/HCPCS: 36415; 73620; 73720; 80048; 80053; 80202; 82728; 82947; 83540; 83605; 85025; 85027; 85652; 86140; 87040; 87635; 93005; 93925; 99285; A9585; J0692; J1650; J2543; J3370

== ENCOUNTER 2022-10-03 11:57 | Outpatient (REF) | payer MEDICARE, MEDICAID, SELFPAY | END 2022-10-03 11:58 | disposition home or self-care (01) | LOC: HO.LNP 11:57 | PROVIDERS: Visit Provider Physician Assistant | DX: S91.302D Unspecified open wound, left foot, subsequent encounter (principal) | CPT/HCPCS: 87070; 87077; 87186; 87205 ==

== ENCOUNTER 2022-11-27 11:35 | Emergency (ER) | payer MEDICARE, MEDICAID, SELFPAY ==
--- NOTE | ~2022-11-27 | XR_ITS ---
EXAMINATION: XR RIBS, LEFT CLINICAL INFORMATION: Fall. Left rib pain. COMPARISON: Most recent chest radiograph dated 05/07/2017. TECHNIQUE: PA view of the chest as well as 3 views of the left ribs were obtained. FINDINGS: Linear scarring versus atelectasis within the left lung base. No confluent airspace consolidation. No pleural effusion or pneumothorax. Stable cardiomediastinal silhouette. No displaced rib fracture. No lytic or blastic osseous lesion. No abnormal soft tissue calcification. XR/XR ribs LT min 3V w CXR1V IMPRESSION: 1. No displaced rib fracture. 2. Linear scarring versus atelectasis within the left lung base.
[2022-11-27 11:52] VITALS: BP 159/80; PULSE 107; RESP 16; TEMP 36.7; O2SAT 98; BMI 29.0
--- NOTE | 2022-11-27 11:52 | ED_ITS ---
HPI - Fall General Chief Complaint: Dyspnea <JUSTUS Prieto - Last Filed: 11/27/22 11:57> Stated Complaint: Fall/L rib pain <JUSTUS Prieto - Last Filed: 11/27/22 11:57> Time Seen by Provider: 11/27/22 13:19 <JUSTUS Prieto - Last Filed: 11/27/22 11:57> Source: patient <Sergio Milton MD - Last Filed: 11/27/22 15:17> Mode of arrival: ambulatory <Sergio Milton MD - Last Filed: 11/27/22 15:17> Limitations: no limitations <Sergio Milton MD - Last Filed: 11/27/22 15:17> History of Present Illness HPI Narrative: 72-year-old male came in for evaluation of left-sided chest wall after falling down 3 days ago at nighttime. Patient stated that he was getting out of bed going to the bathroom at 04:00 tripped and fell protected his fall with his both forearms and elbows did not hit head, no LOC, no neck pain, no CP no SOB. Patient been complaining since he fell with 3 days constant pain under the left breast more with touching it or taking a deep breath or movement, otherwise patient declined any blood in the urine no other trauma. <Sergio Milton MD - Last Filed: 11/27/22 15:17> Related Data Home Medications: Home Medications Medication Instructions Recorded Confirmed aspirin 81 mg tablet,delayed 81 mg PO DAILY 03/16/21 09/01/22 release bisacodyl 5 mg tablet 10 mg PO Q OTHER DAY 03/16/21 09/01/22 blood sugar diagnostic #10 ea 03/16/21 gabapentin 300 mg capsule 300 mg PO TID 03/16/21 09/01/22 lancets 28 gauge (FreeStyle #100 ea 03/16/21 Lancets) metformin 500 mg tablet 1,000 mg PO BID 03/16/21 09/01/22 omeprazole 20 mg delayed 20 mg PO DAILY@0630 03/16/21 09/01/22 release,disintegrating tablet pen needle, diabetic 31 gauge x #50 ea 03/16/21 3/16 (1st Tier Unifine Pentips) pen needle, diabetic 32 gauge x #50 ea 03/16/21/32 (BD Susannah 2nd Gen Pen Needle) pioglitazone 45 mg tablet (Actos) 45 mg PO DAILY 03/16/21 09/01/22 atorvastatin 40 mg tablet 1 tab PO BEDTIME 08/21/21 09/01/22 glipizide 10 mg tablet, extended 1 tab PO BID 08/21/21 09/01/22 release 24 hr insulin detemir U-100 100 unit/mL 60 unit subcut BEDTIME 08/21/21 09/01/22 (3 mL) subcutaneous pen (Levemir FlexTouch U-100 Insulin) insulin detemir U-100 100 unit/mL 10 unit subcut DAILY 09/01/22 09/01/22 (3 mL) subcutaneous pen (Levemir FlexTouch U-100 Insulin) lisinopril 5 mg tablet 1 tab PO DAILY 09/01/22 09/01/22 polyvinyl alcohol 1.4 % eye drops 1 drp ophthalmic (eye) QID 09/01/22 09/01/22 (Artificial Tears (polyvinyl alcohol)) psyllium 1 packet PO TID 09/01/22 09/01/22 simethicone 80 mg chewable tablet 80 mg PO BEDTIME 09/01/22 09/01/22 Previous Rx's Medication Instructions Recorded amoxicillin 875 mg-potassium 1 tab PO Q12H #20 tabs 09/04/22 clavulanate 125 mg tablet doxycycline hyclate 100 mg capsule 100 mg PO BID #20 caps 09/04/22 <JUSTUS Prieto - Last Filed: 11/27/22 11:57> Allergies/Adverse Reactions: Allergies Allergy/AdvReac Type Severity Reaction Status Date / Time No Known Allergies Allergy Verified 11/27/22 11:52 <JUSTUS Prieto - Last Filed: 11/27/22 11:57> Review of Systems Review of Systems: All other systems are reviewed and are negative Constitutional: Reports as per HPI and Reports no additional constitutional complaints Eyes: Reports as per HPI and Reports no additional eye complaints Reports system reviewed and no additional complaints, except as documented Cardiovascular: Reports as per HPI and Reports no additional cardiovascular complaints Respiratory: Reports as per HPI and Reports no additional respiratory complaints Gastrointestinal: Reports as per HPI and Reports no additional gastrointestinal complaints Genitourinary: Reports no additional female genitourinary complaints Musculoskeletal: Reports no additional musculoskeletal complaints Skin/Breast: Reports system reviewed and no additional complaints, except as docu Psychiatric: Reports no additional psychiatric complaints Endocrine: Reports no additional endocrine complaints Hematologic/Lymphatic: Reports no additional hematologic/lymphatic complaints Allergic/Immunologic: Reports no additional allergic/immunologic complaints Reports system reviewed and no additional complaints, except as documented and Reports Abnormal speech present <Sergio Milton MD - Last Filed: 11/27/22 15:17> [facility] Past Medical History Medical History: Medical History Diabetes mellitus Diabetic foot ulcer Diabetic polyneuropathy Foot abscess History of acute renal failure Hyperlipidemia Hypertension Osteomyelitis Peripheral vascular disease Tubular adenoma of colon <JUSTUS Prieto - Last Filed: 11/27/22 11:57> Surgical History: Surgical History 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 History of right inguinal hernia repair History of ventral hernia repair Hx of eye surgery <JUSTUS Prieto - Last Filed: 11/27/22 11:57> Family History Family History: Family History Father Cancer of unknown origin Diabetes Mother No problems noted. <JUSTUS Prieto - Last Filed: 11/27/22 11:57> Social History Social History: Social History Household Members: None Housing: Apartment Alcohol intake: never Patient Tobacco Use Status: Never used Tobacco Smoked in Last 30 Days: No Use of substances other than those prescribed or required for medical reasons: No Advance Directives: Yes Advance Directives on File: Yes Advance Directives Date on File: 08/22/21 service: No Current occupational status: retired <JUSTUS Prieto - Last Filed: 11/27/22 11:57> Physical Exam Vital Signs: Vital Signs: Last Vital Signs Temp 98.1 F 11/27/22 11:52 Pulse 107 H 11/27/22 11:52 Resp 16 11/27/22 11:52 BP 159/80 H 11/27/22 11:52 Pulse Ox 98 11/27/22 11:52 O2 Del Method 11/27/22 11:52 BMI result Body Mass Index 29.0 <JUSTUS Prieto - Last Filed: 11/27/22 11:57> Vital Signs: Last Vital Signs Temp 98.1 F 11/27/22 11:52 Pulse 107 H 11/27/22 11:52 Resp 16 11/27/22 11:52 BP 159/80 H 11/27/22 11:52 Pulse Ox 98 11/27/22 11:52 O2 Del Method 11/27/22 11:52 BMI result Body Mass Index 29.0 Vital signs have been reviewed as appeared to be correct. Blood pressure normal. Heart rate normal. Respiration rate normal. Temperature normal. Oxygen saturation normal. <Sergio Milton MD - Last Filed: 11/27/22 15:17> Appearance: Alert. Oriented X3. No acute distress. Head: Normal external exam. Normocephalic. Atraumatic. No Moreau signs noted. No raccoon eyes noted Eyes: PERRLA. EOMI. Conjunctiva and sclera normal. Eyelids normal. ENT: TM's Normal. Pharynx normal. Uvula midline. Moist mucous membranes. No trismus noted. No drooling noted. No muffled voice noted. Neck: Normal inspection. Neck supple. FROM. No adenopathy. Thyroid Normal. No meningeal signs. No neck mass noted. CVS: Normal heart rate and rhythm. Heart sound normal. No murmurs noted. Pulses normal throughout. Respiratory: No respiratory distress. Painless inspiration. Breath sounds normal. No wheezes/rales/rhonchi noted. Anterior chest wall tenderness under the left breast no deformity, no step-off.. No accessory muscle usage noted or decreased air movement noted. Abdomen: Soft and nontender. Bowel sounds normal in all 4 quadrants. No d istention noted. No organomegaly noted. No visible injury noted. Back: No CVA tenderness. Full range of motion noted. Skin: Skin warm and dry. Normal skin color. Normal skin turgor. No rashes/l esions/lacerations noted. Extremities: No lower extremity edema. Extremities exhibit normal range of motion. Extremities nontender. Neuro: Oriented X 3. Cranial nerve exam: II-XII are grossly intact No motor deficit. No sensory deficit. Reflexes normal. <Sergio Milton MD - Last Filed: 11/27/22 15:17> Course Course Course Narrative: VIVEK--72-year-old male with a past medical history of diabetes HLD, HTN, PVD, c/o L upper rib pain s/p mechanical fall on Friday morning 4AM. Denies head trauma or LOC. Denies sx prior to fall. Pain worse with breathing +L anterior rib ttp under breast, no flail chest, no ecchymosis or erythema. Abd soft and nontender. +superficial abrasion to L knee Rib XR ordered <JUSTUS Prieto - Last Filed: 11/27/22 11:57> Medical Decision Making Differential Diagnosis Differential Diagnoses: The differential diagnosis associated with the presentation includes (ACS, fracture rib, chest wall contusion, severe anemia, pneumothorax, lung contusion.) <Sergio Milton MD - Last Filed: 11/27/22 15:17> Lab Data MDM Lab Attestation statement: I reviewed the patient's lab results. <Sergio Milton MD - Last Filed: 11/27/22 15:17> Result Diagrams: 11/27/22 13:52 11/27/22 13:52 <JUSTUS Prieto - Last Filed: 11/27/22 11:57> Labs: Lab Results 11/27/22 11/27/22 11/27/22 Range/Units 13:52 13:52 13:52 WBC 7.5 (4.8-10.8) X10*3/uL RBC 4.44 L D (4.60-5.80) X10*6/uL Hgb 10.9 L D (14.0-18.0) g/dl Hct 34.9 L D (42.0-52.0) % MCV 78.6 L (80.0-98.0) fL MCH 24.5 L (27.0-33.0) pg MCHC 31.2 (31.0-36.0) g/dl RDW 16.3 H (11.0-16.0) % Plt Count 176 (160-400) X10*3/uL MPV 11.1 (9.4-12.4) fL Immature Gran % (Auto) 0.4 (0.0-0.4) % Neut % (Auto) 73.7 H (45-73) % Lymph % (Auto) 18.0 L (20-40) % [place] % (Auto) 6.1 (2-11) % Eos % (Auto) 1.5 (0-4) % Baso % (Auto) 0.3 (0-2) % Lymph # (Auto) 1.4 (1.2-4.9) X10*3/uL [place] # (Auto) 0.5 (0.1-1.2) X10*3/uL Eos # (Auto) 0.1 (0.0-0.4) X10*3/uL Baso # (Auto) 0.0 (0.0-0.2) X10*3/uL Abs Immat Gran (auto) 0.03 (0.00-0.03) X10*3/uL Absolute Neuts (auto) 5.6 (2.0-8.3) x10*3/uL Absolute Nucleated RBC 0.000 (0.0-0.012) X10*3/uL Nucleated RBC % (auto) 0.0 (0.0-0.2) /100WBC Sodium 139 (135-145) mmol/L Potassium 4.9 (3.3-5.1) mmol/L Chloride 106 (96-108) mmol/L Carbon Dioxide 26 (22-29) mmol/L Anion Gap 12 (12-20) BUN 18 H (9-16) mg/dL Creatinine 0.99 (0.5-1.4) mg/dL Estim Creat Clear Calc 66.6 Estimated GFR > 60 Random Glucose 216 H (60-115) mg/dL Calcium 9.0 (8.4-10.2) mg/dL Total Bilirubin 0.3 (0.0-1.0) mg/dL Direct Bilirubin < 0.2 (0.0-0.5) mg/dL AST 17 (5-37) U/L ALT 26 (0-40) U/L Alkaline Phosphatase 62 (39-117) U/L Total Creatine Kinase 74 (38-174) U/L Troponin I High Sens < 3.5 (<3.5-35.0) ng/L Total Protein 7.3 (6.5-8.0) g/dL Albumin 4.0 (3.5-5.0) g/dL Lipase 26 (8-78) U/L <JUSTUS Prieto - Last Filed: 11/27/22 11:57> Lab Results 11/27/22 11/27/22 11/27/22 Range/Units 13:52 13:52 13:52 WBC 7.5 (4.8-10.8) X10*3/uL RBC 4.44 L D (4.60-5.80) X10*6/uL Hgb 10.9 L D (14.0-18.0) g/dl Hct 34.9 L D (42.0-52.0) % MCV 78.6 L (80.0-98.0) fL MCH 24.5 L (27.0-33.0) pg MCHC 31.2 (31.0-36.0) g/dl RDW 16.3 H (11.0-16.0) % Plt Count 176 (160-400) X10*3/uL MPV 11.1 (9.4-12.4) fL Immature Gran % (Auto) 0.4 (0.0-0.4) % Neut % (Auto) 73.7 H (45-73) % Lymph % (Auto) 18.0 L (20-40) % [place] % (Auto) 6.1 (2-11) % Eos % (Auto) 1.5 (0-4) % Baso % (Auto) 0.3 (0-2) % Lymph # (Auto) 1.4 (1.2-4.9) X10*3/uL [place] # (Auto) 0.5 (0.1-1.2) X10*3/uL Eos # (Auto) 0.1 (0.0-0.4) X10*3/uL Baso # (Auto) 0.0 (0.0-0.2) X10*3/uL Abs Immat Gran (auto) 0.03 (0.00-0.03) X10*3/uL Absolute Neuts (auto) 5.6 (2.0-8.3) x10*3/uL Absolute Nucleated RBC 0.000 (0.0-0.012) X10*3/uL Nucleated RBC % (auto) 0.0 (0.0-0.2) /100WBC Sodium 139 (135-145) mmol/L Potassium 4.9 (3.3-5.1) mmol/L Chloride 106 (96-108) mmol/L Carbon Dioxide 26 (22-29) mmol/L Anion Gap 12 (12-20) BUN 18 H (9-16) mg/dL Creatinine 0.99 (0.5-1.4) mg/dL Estim Creat Clear Calc 66.6 Estimated GFR > 60 Random Glucose 216 H (60-115) mg/dL Calcium 9.0 (8.4-10.2) mg/dL Total Bilirubin 0.3 (0.0-1.0) mg/dL Direct Bilirubin < 0.2 (0.0-0.5) mg/dL AST 17 (5-37) U/L ALT 26 (0-40) U/L Alkaline Phosphatase 62 (39-117) U/L Total Creatine Kinase 74 (38-174) U/L Troponin I High Sens < 3.5 (<3.5-35.0) ng/L Total Protein 7.3 (6.5-8.0) g/dL Albumin 4.0 (3.5-5.0) g/dL Lipase 26 (8-78) U/L <Sergio Milton MD - Last Filed: 11/27/22 15:17> Independent Interpretation I performed an independent interpretation of an: EKG (Sinus tachycardia at 1 1 beats per minute, left axis deviation, first-degree AV block with prolonged IL intervals, otherwise unremarkable intervals, no ST-T changes.) and Plain X-Ray (Chest: Left ribs: No displaced rib fracture) <Sergio Milton MD - Last Filed: 11/27/22 15:17> Radiology Impression Discussion of test interpretation with radiology: I have reviewed the radiologist's reading. <Sergio Milton MD - Last Filed: 11/27/22 15:17> Discharge Plan Discharge Clinical Impression: Chest wall contusion <JUSTUS Prieto - Last Filed: 11/27/22 11:57> Patient Disposition: Home, Self-Care <JUSTUS Prieto - Last Filed: 11/27/22 11:57> Instructions: Contusion in Adults (ED) <JUSTUS Prieto - Last Filed: 11/27/22 11:57> Additional Instructions: Take pbpe-[id number] Tylenol tablet 500 mg every 6 hours if needed for pain. <JUSTUS Prieto - Last Filed: 11/27/22 11:57> Prescriptions: No Action Levemir FlexTouch U-100 Insuln 100 unit/mL (3 mL) insulin pen 60 unit subcut BEDTIME glipizide 10 mg tablet extended release 24hr 1 tab PO BID atorvastatin 40 mg tablet 1 tab PO BEDTIME polyvinyl alcohol [Artificial Tears (polyvin alc)] 1.4 % drops 1 drp ophthalmic (eye) QID psyllium Packet 1 packet PO TID Rx Instructions: mix into at least 8 oz of water or juice before administering lisinopril 5 mg tablet 1 tab PO DAILY simethicone 80 mg Tablet,Chewable 80 mg PO BEDTIME Levemir FlexTouch U-100 Insuln 100 unit/mL (3 mL) insulin pen 10 unit subcut DAILY amoxicillin-pot clavulanate 875-125 mg tablet 1 tab PO Q12H Qty: 20 0RF Rx Instructions: Take with food doxycycline hyclate 100 mg capsule 100 mg PO BID Qty: 20 0RF Rx Instructions: Take with food and full glass of water. Do not lay down for 1 hour after taking medication bisacodyl 5 mg tablet 10 mg PO Q OTHER DAY omeprazole 20 mg tablet,disintegrat, delay rel 20 mg PO DAILY@0630 pioglitazone [Actos] 45 mg tablet 45 mg PO DAILY gabapentin 300 mg capsule 300 mg PO TID aspirin 81 mg tablet,delayed release (DR/EC) 81 mg PO DAILY metformin 500 mg tablet 1,000 mg PO BID (DME) pen needle, diabetic [1st Tier Unifine Pentips] 31 gauge x 3/16 needle See Rx Instructions .ROUTE .MEDSUPPLY Qty: 50 Rx Instructions: As directed (DME) blood sugar diagnostic Strip See Rx Instructions .ROUTE .MEDSUPPLY Qty: 10 Rx Instructions: As directed (DME) lancets [FreeStyle Lancets] 28 gauge misc See Rx Instructions .ROUTE .MEDSUPPLY Qty: 100 Rx Instructions: As directed (DME) pen needle, diabetic [BD Susannah 2nd Gen Pen Needle] 32 gauge x 5/32 needle See Rx Instructions .ROUTE .MEDSUPPLY Qty: 50 Rx Instructions: As directed <JUSTUS Prieto - Last Filed: 11/27/22 11:57> Referrals: Ania Ballesteros MD [Primary Care Provider] - <JUSTUS Prieto - Last Filed: 11/27/22 11:57>
--- OUTSIDE RECORDS SUMMARY | 2022-11-27 13:17 | XMS_ITS ---
:[address] [facility] Address [address] [place] [address] Care Team Providers Name Role Phone Catarino Cordova Unavailable Unavailable PROBLEMS Type Condition ICD9-CM Code JNU40-MG Code Onset Condition SNO MED Code Dates Status Problem H/O adenomatous V12.72 Active 4282 40089 polyp of colon Problem Colon cancer V76.51 Active 9245009 04 screening Problem GERD 530.81 Active 059285905 (gastroesophageal reflux disease) Problem Constipation 564.00 Active 9608324 8 Problem Long-term V58.66 Active 972124537 (current) use of aspirin ALLERGIES No Known Allergies ENCOUNTERS Encounter Location Date Diagnosis [place] [address], [facility] [address] [place] [address] [place] [address], [facility] [address] [place] [address] [facility] [address] [place] [address] May, [place] [phone] [place] [address], [facility] [address] [address] [place] [address], [facility] [address] [address] [place] [address], Co nstipation 564.00 ; [facility] [address] [place] Long-term (curre nt) use [address] of aspirin V58.6 6 ; Colon cancer screening V76.51 ; H/O adenomatous polyp of colon V12.72 and GERD (gastroesophagea l reflux disease) 530.81 [facility] [address] Oct, [place] [phone] [facility] [address] [place], [place] [phone] [facility] [address] Oct, [place] [phone] IMMUNIZATIONS No Known Immunizations SOCIAL HISTORY Never Assessed REASON FOR REFERRAL FUNCTIONAL STATUS PLAN OF CARE Activity Details Future Appointment Provider Name:Catarino Cordova , 2023-01-15 02:00:00 PM, [address] [place] [address], [address], [place], [address], Future/Pending Procedure COLONOSCOPY 20140112 VITAL SIGNS Weight 182 lbs 2014-01-12 Height 64 in 2014-01-12 BMI 31.24 kg/m2 2014-01-12 Heart Rate 100 /min 2014-01-12 Blood pressure systolic 120 mm Hg 2014-01-12 Blood pressure diastolic 70 mm Hg 2014-01-12 MEDICATIONS Medication Instructions Dosage Frequency Start End Duration Statu s Date Date glipiZIDE 10 MG Orally Once a 1 tablet 24h A ctive day Simvastatin 40 Orally Once a 1 tablet in 24h Active MG day the evening Colyte w Flavor Orally as as directed Dec, day(s) A ctive Packs 240 GM directed 2013 Omeprazole 20 MG Orally Once a 1 capsule 24h Active day Pioglitazone HCl Orally Once a 1 tablet 24h Active 45 MG day Bisacodyl 5 MG Orally Once a 1 tablet as 24h Active day needed Lisinopril 5 MG Orally Once a 1 tablet 24h A ctive day [facility] Active Aspirin PROCEDURES Procedure Date Ordered Result Body Site DOC MEDS VERIFIED W/PT OR RE January 12, 2014 RESULTS No Results REASON FOR VISIT Patient presents today for a screening colonoscopy,anemia, Pt no show, screening colonoscopy, screening colonoscopy, hx of polyps, screening, needs to R/S colon, sign off on colyte prep, PRE-COLON Insurance Providers [facility] Patient Patient Patient Patient Patient Subscriber Subscriber Subscriber Group Insurance Plan Plan Plan Plan ID Relationship Address Phone Name Date of ID Name Date of No Type Insurance Insurance Insurance Coverage to Subscriber Address Phone Name Dates MEDICARE [phone] MEDICARE self [place] [id number] [place] [address] [place] [address] MEDICAID [phone] MEDICAID self [place]ON[place] [id number] [place] [id number] [place] [address] [address] [facility] [place] [facility] [place] [address]
--- NOTE | 2022-11-27 13:34 | ECG_ITS ---
Test Reason : chest pain Blood Pressure : / mmHG Vent. Rate : 101 BPM Atrial Rate : 101 BPM P-R Int : 202 ms QRS Dur : 090 ms QT Int : 354 ms P-R-T Axes : 037 -34 052 degrees QTc Int : 459 ms Sinus tachycardia with Fusion complexes Left axis deviation Abnormal ECG When compared with ECG of 03-SEP-2022 13:38, Fusion complexes are now Present Referred By: Sergio Milton Electronically Signed By:Mark Anthony Radford
[2022-11-27 13:57] LABS: MANUAL DIFF FLAG NO
[2022-11-27 13:58] LABS: Basophils Percent Auto 0.3 % (0-2); Eosinophils Absolute Auto 0.1 X10*3/uL (0.0-0.4); Eosinophils Percent Auto 1.5 % (0-4); Hematocrit 34.9 % (42.0-52.0); Hemoglobin 10.9 g/dl (14.0-18.0); Imm Gran Abs Auto 0.03 X10*3/uL (0.00-0.03); Imm Gran Pct Auto 0.4 % (0.0-0.4); Lymphocytes Absolute Auto 1.4 X10*3/uL (1.2-4.9); Mean Corpuscular HGB Conc 31.2 g/dl (31.0-36.0); Mean Corpuscular Hemoglobin 24.5 pg (27.0-33.0); Mean Corpuscular Volume 78.6 fL (80.0-98.0); Mean Platelet Volume 11.1 fL (9.4-12.4); Monocytes Absolute Auto 0.5 X10*3/uL (0.1-1.2); Monocytes Percent Auto 6.1 % (2-11); Neutrophils Absolute Auto 5.6 x10*3/uL (2.0-8.3); Neutrophils Percent Auto 73.7 % (45-73); Platelet Count 176 X10*3/uL (160-400); Red Blood Count 4.44 X10*6/uL (4.60-5.80); Red Cell Distribution Width 16.3 % (11.0-16.0); White Blood Count 7.5 X10*3/uL (4.8-10.8)
[2022-11-27 14:16] LABS: Alanine Aminotransferase 26 U/L (0-40); Alkaline Phosphatase 62 U/L (39-117); Anion Gap 12 (12-20); Aspartate Amino Transferase 17 U/L (5-37); Bilirubin Direct < 0.2 mg/dL (0.0-0.5); Bilirubin Total 0.3 mg/dL (0.0-1.0); Blood Urea Nitrogen 18 mg/dL (9-16); Carbon Dioxide 26 mmol/L (22-29); Chloride 106 mmol/L (96-108); Creatinine Clr Calc Pharmacy 66.6; Estimated Glomerular Filt Rate > 60; Glucose Random 216 mg/dL (60-115); Lipase 26 U/L (8-78); Potassium 4.9 mmol/L (3.3-5.1); Sodium 139 mmol/L (135-145); Total Protein 7.3 g/dL (6.5-8.0)
[2022-11-27 14:19] LABS: Troponin-I High Sensitivity < 3.5 ng/L (<3.5-35.0)
== END 2022-11-27 15:27 | disposition home or self-care (01) ==
PROVIDERS: Emergency Provider Emergency Medicine; PCP Internal Medicine
DX: R06.02 Shortness of breath (principal); R07.81 Pleurodynia; R07.89 Other chest pain; Z79.899 Other long term (current) drug therapy
CPT/HCPCS: 36415; 71101; 80048; 80076; 82550; 83690; 84484; 85025; 93005; 99283; 99284

== ENCOUNTER 2023-01-20 | Outpatient (RCR) | payer MEDICARE, MEDICAID, SELFPAY | END 2023-03-31 16:00 | disposition home or self-care (01) | LOC: HO.WCC | PROVIDERS: PCP Internal Medicine; Visit Provider Physician Assistant | DX: E11.621 Type 2 diabetes mellitus with foot ulcer (principal); E11.51 Type 2 diabetes mellitus with diabetic peripheral angiopathy without gangrene; L97.526 Non-pressure chronic ulcer of other part of left foot with bone involvement without evidence of necrosis; T87.89 Other complications of amputation stump; E11.69 Type 2 diabetes mellitus with other specified complication; M86.9 Osteomyelitis, unspecified; E11.40 Type 2 diabetes mellitus with diabetic neuropathy, unspecified; I10 Essential (primary) hypertension; Z89.422 Acquired absence of other left toe(s); Z89.421 Acquired absence of other right toe(s); Z89.411 Acquired absence of right great toe | CPT/HCPCS: 11042; 99212 ==

== ENCOUNTER 2023-04-28 08:47 | Outpatient (REF) | payer MEDICARE, MEDICAID, SELFPAY ==
[2023-04-28 12:41] LABS: Cholesterol 154 mg/dL; HDL Cholesterol 34 mg/dL; LDL Cholesterol Calculated 67 mg/dl; Triglycerides 266 mg/dL
[2023-04-28 12:57] LABS: Anion Gap 13 (12-20); Blood Urea Nitrogen 19 mg/dL (9-16); Carbon Dioxide 24 mmol/L (22-29); Chloride 109 mmol/L (96-108); Estimated Glomerular Filt Rate > 60; Ferritin 20 ng/mL (20-250); Glucose Random 156 mg/dL (60-115); Iron 38 mcg/dL (45-160); Percent Iron Saturation 11 % (15-50); Potassium 4.9 mmol/L (3.3-5.1); Sodium 141 mmol/L (135-145); TSH reflex Free T4 0.98 uIU/mL (0.32-4.0); Total Iron Binding Capacity 338 mcg/dL (228-428); Unsaturated Iron Binding 300 ug/dL; Vitamin D 25-OH Total 30.4 ng/mL (>30)
[2023-04-28 13:03] LABS: Microalbum/Creatinine Ratio Ur 155.3 ug/mg cr
[2023-04-28 18:02] LABS: Reflex LDLD? No
== END 2023-04-28 08:48 | disposition home or self-care (01) ==
LOC: HO.HHCL 08:47
PROVIDERS: Visit Provider Internal Medicine
DX: E11.622 Type 2 diabetes mellitus with other skin ulcer (principal); L98.499 Non-pressure chronic ulcer of skin of other sites with unspecified severity; E11.621 Type 2 diabetes mellitus with foot ulcer; L97.509 Non-pressure chronic ulcer of other part of unspecified foot with unspecified severity; D50.9 Iron deficiency anemia, unspecified; E11.42 Type 2 diabetes mellitus with diabetic polyneuropathy; E78.00 Pure hypercholesterolemia, unspecified; N17.9 Acute kidney failure, unspecified; I10 Essential (primary) hypertension; I47.29 Other ventricular tachycardia
CPT/HCPCS: 36415; 80048; 80061; 82043; 82306; 82728; 83540; 84443

== ENCOUNTER 2023-11-19 13:54 | Outpatient (RCR) | payer OTHER, SELFPAY | END 2024-04-09 12:33 | disposition home or self-care (01) | LOC: HO.WCC 13:54 | PROVIDERS: PCP Internal Medicine; Visit Provider Surgery | DX: E11.621 Type 2 diabetes mellitus with foot ulcer (principal); L97.512 Non-pressure chronic ulcer of other part of right foot with fat layer exposed; E11.40 Type 2 diabetes mellitus with diabetic neuropathy, unspecified; E11.51 Type 2 diabetes mellitus with diabetic peripheral angiopathy without gangrene; I10 Essential (primary) hypertension; Z89.411 Acquired absence of right great toe; Z89.421 Acquired absence of other right toe(s); Z89.422 Acquired absence of other left toe(s) | CPT/HCPCS: 11042; 11045; 87070; 87073; 87076; 87185; 87205; 99212 ==

== ENCOUNTER 2023-12-30 14:30 | Outpatient (REF) | payer OTHER, SELFPAY ==
[2023-12-30 16:03] LABS: MANUAL DIFF FLAG NO
[2023-12-30 16:16] LABS: Basophils Percent Auto 0.3 % (0-2); Eosinophils Absolute Auto 0.1 X10*3/uL (0.0-0.4); Eosinophils Percent Auto 2.1 % (0-4); Hematocrit 43.5 % (42.0-52.0); Hemoglobin 13.7 g/dl (14.0-18.0); Imm Gran Abs Auto 0.05 X10*3/uL (0.00-0.03); Imm Gran Pct Auto 0.7 % (0.0-0.4); Lymphocytes Absolute Auto 1.7 X10*3/uL (1.2-4.9); Lymphocytes Percent Auto 25.6 % (20-40); Mean Corpuscular HGB Conc 31.5 g/dl (31.0-36.0); Mean Corpuscular Hemoglobin 26.5 pg (27.0-33.0); Mean Corpuscular Volume 84.1 fL (80.0-98.0); Mean Platelet Volume 12.6 fL (9.4-12.4); Monocytes Absolute Auto 0.5 X10*3/uL (0.1-1.2); Monocytes Percent Auto 6.9 % (2-11); Neutrophils Absolute Auto 4.3 x10*3/uL (2.0-8.3); Neutrophils Percent Auto 64.4 % (45-73); Platelet Count 203 X10*3/uL (160-400); Red Blood Count 5.17 X10*6/uL (4.60-5.80); Red Cell Distribution Width 15.7 % (11.0-16.0); White Blood Count 6.7 X10*3/uL (4.8-10.8)
[2023-12-30 16:55] LABS: Anion Gap 11 (12-20); Blood Urea Nitrogen 21 mg/dL (9-16); Calcium 9.6 mg/dL (8.4-10.2); Carbon Dioxide 26 mmol/L (22-29); Chloride 104 mmol/L (96-108); Estimated Glomerular Filt Rate > 60; Glucose Random 176 mg/dL (60-115); Potassium 4.2 mmol/L (3.3-5.1); Sodium 137 mmol/L (135-145)
[2023-12-30 17:00] LABS: Creatinine Urine 59.02 mg/dL; Microalbum/Creatinine Ratio Ur 49.1 ug/mg cr (<30)
== END 2023-12-30 14:31 | disposition home or self-care (01) ==
LOC: HO.HHCL 14:30
PROVIDERS: Visit Provider Internal Medicine
DX: E11.622 Type 2 diabetes mellitus with other skin ulcer (principal); L98.499 Non-pressure chronic ulcer of skin of other sites with unspecified severity; D50.9 Iron deficiency anemia, unspecified
CPT/HCPCS: 36415; 80048; 82043; 82570; 85025

== ENCOUNTER → 2024-01-07 05:45 | Day surgery (SDC) | payer OTHER, SELFPAY ==
[2023-10-06 14:00] VITALS: BMI 33.3
--- NOTE | 2023-10-07 09:45 | HO.ANESPROP2 ---
HPI - Anesthesia Eval Consult details Narrative: 73yo M for Upper Endoscopy and Colonoscopy [facility] Active Problems Active Problems: All Active Problems (Updated 10/06/23 @ 13:50 by Janae Sanchez RN) Cellulitis and abscess of left lower extremity (Acute) Cellulitis of left foot (Acute) Diabetes mellitus (Acute) H/O: HTN (hypertension) (Acute) Ventral hernia (Acute) Foot abscess (Acute) Diabetic foot ulcer (Acute) Peripheral vascular disease (Acute) Past Medical History Medical History (Updated 10/06/23 @ 13:50 by Janae Sanchez RN) GERD (gastroesophageal reflux disease) Foot abscess Diabetic foot ulcer History of acute renal failure Diabetic polyneuropathy Peripheral vascular disease Tubular adenoma of colon Osteomyelitis Hyperlipidemia Hypertension Diabetes mellitus Family History Family History Father Cancer of unknown origin Diabetes Mother No problems noted. Surgical History Surgical History (Updated 10/06/23 @ 13:50 by Janae Sanchez RN) History of esophagogastroduodenoscopy (EGD) History of ventral hernia repair Hx of eye surgery History of right inguinal hernia repair 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 Social History Social History Household Members: None Housing: Apartment Alcohol intake: never Patient Tobacco Use Status: Never used Tobacco Advance Directives Date on File: 08/22/21 service: No Current occupational status: retired Meds Allergies Allergy/AdvReac Type Severity Reaction Status Date / Time No Known Allergies Allergy Verified 11/27/22 11:52 Home Medications Medication Instructions Recorded Confirmed Last Taken Type aspirin 81 mg tablet,delayed 81 mg PO DAILY 03/16/21 10/06/23 08/31/22 History release bisacodyl 5 mg tablet 10 mg PO DAILY PRN Constipation 03/16/21 10/06/23 08/21/21 History blood sugar diagnostic #10 ea 03/16/21 Unknown History gabapentin 300 mg capsule 300 mg PO DAILY 03/16/21 10/06/23 08/31/22 History lancets 28 gauge (FreeStyle #100 ea 03/16/21 Unknown History Lancets) metformin 500 mg tablet 500 mg PO DAILY 03/16/21 10/06/23 08/31/22 History omeprazole 20 mg delayed 20 mg PO DAILY@0630 03/16/21 10/06/23 08/31/22 History release,disintegrating tablet pen needle, diabetic 31 gauge x #50 ea 03/16/21 Unknown History 3 (1st Tier Unifine Pentips) pen needle, diabetic 32 gauge x #50 ea 03/16/21 Unknown History (BD Susannah 2nd Gen Pen Needle) atorvastatin 40 mg tablet 1 tab PO BEDTIME 08/21/21 10/06/23 08/31/22 History glipizide 10 mg tablet, extended 1 tab PO DAILY 08/21/21 10/06/23 08/31/22 History release 24 hr lisinopril 5 mg tablet 1 tab PO DAILY 09/01/22 10/06/23 08/31/22 History ferrous sulfate 325 mg (65 mg 325 mg PO QAM 10/06/23 10/06/23 Unknown History iron) tablet (FeroSul) insulin degludec 200 unit/mL (3 unit subcut 10/06/23 Unknown History mL) subcutaneous pen (Tresiba FlexTouch U-200 insulin) Exam Height,Weight and Vital Signs: Height 5 ft 4 in Weight 87.997 kg Pertinent Lab Results Pertinent Lab Results: Laboratory Tests 11/27/22 04/28/23 13:52 08:58 WBC 7.5 Hgb 10.9 L D Hct 34.9 L D Plt Count 176 Sodium 141 Potassium 4.9 Chloride 109 H Carbon Dioxide 24 BUN 19 H Creatinine 1.03 Narrative Narrative: EKG 2022 Vent. Rate : 101 BPM Atrial Rate : 101 BPM P-R Int : 202 ms QRS Dur : 090 ms QT Int : 354 ms P-R-T Axes : 037 -34 052 degrees QTc Int : 459 ms Sinus tachycardia with Fusion complexes Left axis deviation Abnormal ECG When compared with ECG of 03-SEP-2022 13:38, Fusion complexes are now Present Assessment and Plan Assessment Anesthesia Assessment: Chart Reviewed
[2024-01-05 12:45] VITALS: BMI 33.3
--- NOTE | 2024-01-06 10:30 | HO.ANESPROP2 ---
HPI - Anesthesia Eval Consult details Narrative: 73yo M for Upper Endoscopy and Colonoscopy Anesthesia Pre-Procedure Meds Is the patient on any of the following meds?: Any other SGL-1 drugs or drugs that delay gastric emptying (Jardiance) PMFSH Active Problems Active Problems: All Active Problems Cellulitis and abscess of left lower extremity (Acute) Cellulitis of left foot (Acute) Diabetes mellitus (Acute) H/O: HTN (hypertension) (Acute) Ventral hernia (Acute) Foot abscess (Acute) Diabetic foot ulcer (Acute) Peripheral vascular disease (Acute) Past Medical History Medical History (Updated 10/06/23 @ 13:50 by Janae Sanchez RN) GERD (gastroesophageal reflux disease) Foot abscess Diabetic foot ulcer History of acute renal failure Diabetic polyneuropathy Peripheral vascular disease Tubular adenoma of colon Osteomyelitis Hyperlipidemia Hypertension Diabetes mellitus Family History Family History Father Cancer of unknown origin Diabetes Mother No problems noted. Surgical History Surgical History (Updated 01/05/24 @ 12:28 by Janae Sanchez RN) H/O colonoscopy History of esophagogastroduodenoscopy (EGD) History of ventral hernia repair Hx of eye surgery History of right inguinal hernia repair 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 Social History Social History Household Members: None Housing: Apartment Alcohol intake: never Patient Tobacco Use Status: Never used Tobacco Advance Directives Date on File: 08/22/21 service: No Current occupational status: retired Meds Allergies Allergy/AdvReac Type Severity Reaction Status Date / Time No Known Allergies Allergy Verified 11/27/22 11:52 Home Medications ?Medication ?Instructions ?Recorded ?Confirmed ?Last Taken ?Type aspirin 81 mg tablet,delayed 81 mg PO DAILY 03/16/21 10/06/23 08/31/22 History release bisacodyl 5 mg tablet 10 mg PO DAILY PRN Constipation 03/16/21 10/06/23 08/21/21 History blood sugar diagnostic #10 ea 03/16/21 Unknown History gabapentin 300 mg capsule 300 mg PO DAILY 03/16/21 10/06/23 08/31/22 History lancets 28 gauge (FreeStyle #100 ea 03/16/21 Unknown History Lancets) metformin 500 mg tablet 500 mg PO DAILY 03/16/21 10/06/23 08/31/22 History omeprazole 20 mg delayed 20 mg PO DAILY@0630 03/16/21 10/06/23 08/31/22 History release,disintegrating tablet pen needle, diabetic 31 gauge x #50 ea 03/16/21 Unknown History 316 (1st Tier Unifine Pentips) pen needle, diabetic 32 gauge x #50 ea 03/16/21 Unknown History (BD Susannah 2nd Gen Pen Needle) glipizide 10 mg tablet, extended 1 tab PO DAILY 08/21/21 10/06/23 08/31/22 History release 24 hr lisinopril 5 mg tablet 1 tab PO DAILY 09/01/22 10/06/23 08/31/22 History ferrous sulfate 325 mg (65 mg 325 mg PO QAM 10/06/23 10/06/23 Unknown History iron) tablet (FeroSul) insulin degludec 200 unit/mL (3 unit subcut 10/06/23 Unknown History mL) subcutaneous pen (Tresiba FlexTouch U-200 insulin) empagliflozin 25 mg tablet 25 mg PO QAM 01/05/24 01/05/24 Unknown History (Jardiance) simvastatin 40 mg tablet 40 mg PO BEDTIME 01/05/24 01/05/24 Unknown History Exam Height,Weight and Vital Signs: Height 5 ft 4 in Weight 87.997 kg Assessment and Plan Assessment Anesthesia Assessment: Chart Reviewed
[2024-01-07 07:07] VITALS: BMI 34.1
[2024-01-07 08:18] LABS: Glucose, Whole Blood 165 mg/dL (60-115)
== END ==
PROVIDERS: PCP Internal Medicine; Visit Provider Internal Medicine
DX: D50.9 Iron deficiency anemia, unspecified (principal); Z53.8 Procedure and treatment not carried out for other reasons; E11.621 Type 2 diabetes mellitus with foot ulcer; Z86.010 Personal history of colon polyps
CPT/HCPCS: 82947

== ENCOUNTER 2024-02-24 14:31 | Outpatient (AMB) | payer OTHER, SELFPAY ==
[2024-02-24 14:32] VITALS: BMI 34.0
--- NOTE | 2024-02-24 14:32 | A.OFFVIS_ITS ---
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 Pt has Hx of right transmet amputation by , Pt states dressing changed QOD Ton Container Filler Required: No Accompanied by: Self / Same As Patient Allergies No Known Allergies Allergy (Verified 02/24/24 14:38) HPI HPI [facility] Non Healing Ulcer: Details: Very pleasant 73-year-old gentleman with a longstanding history of diabetes and recurrent ulcers presents with a nonhealing transmetatarsal amputation. Has this plantar ulceration on the right foot which has been a recurrent ulcer. [facility]. It remains nonhealing. Of note he has been a diabetic since 1996 which was an incidental finding. He had undergone trans met by Dr. Qiu on 04/01/2017 [facility] Medical History GERD (gastroesophageal reflux disease) Foot abscess Diabetic foot ulcer History of acute renal failure Diabetic polyneuropathy Peripheral vascular disease Tubular adenoma of colon Osteomyelitis Hyperlipidemia Hypertension Diabetes mellitus Surgical History H/O colonoscopy History of esophagogastroduodenoscopy (EGD) History of ventral hernia repair Hx of eye surgery History of right inguinal hernia repair 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 Family History Father Cancer of unknown origin Diabetes Mother No problems noted. Social History Household Members: None Housing: Apartment Alcohol intake: never Patient Tobacco Use Status: Never used Tobacco Advance Directives Date on File: 08/22/21 service: No Current occupational status: retired Review of Systems Const All systems reviewed & are unremarkable except as noted in HPI and below Reports no additional complaints ENT Reports Normal hearing present Card Denies chest pain, Denies chest pain at rest, Denies chest pain with activity and Denies pedal edema Resp Denies cough GI Denies abdominal pain Musc Denies abnormal gait, Denies muscle cramps and Denies radiating pain into limb Skin/Breast Denies skin ulcer and Denies wounds Neuro Reports Normal hearing present and Denies abnormal gait Psych Reports no additional complaints Physical Exam Vital Signs: BMI result Body Mass Index 34.0 Const General: cooperative, healthy appearing and comfortable Orientation/consciousness: oriented to person, oriented to place and oriented to time HEENT Head: Yes normal to inspection Neck Neck: Yes normal visual inspection Carotids: no bruits Chest Chest palpation & inspection: normal inspection of the chest Resp Effort & Inspection: normal respiratory effort and able to speak in complete sentences Auscultation: clear to auscultation bilaterally, no crackles, no rales, no rhonchi and no wheezes Cardio Rate: regular rate Rhythm: regular rhythm Heart sounds: S1 normal heart sound present and S2 normal heart sound present Bruits: no carotid bruits Peripheral pulses: Peripheral pulses 2+ throughout GI Inspection: Yes normal to inspection Skin Other: Right trans met nonhealing ulcer on the plantar aspect of the 4th metatarsal head Wounds: no wounds Hair: normal Neuro General: oriented to person, oriented to place and oriented to time Cranial nerves: Yes CN's II-XII intact bilaterally and Yes Normal hearing present Cognition (Neuro): normal cognition Motor exam (neuro): 5/5 motor strength present throughout Extrem Other: venous exam: No significant superficial varicosities or spider telangiectasias, minimal edema General: No clubbing, No cyanosis and No edema Psych Appearance: grossly normal Mental Status: mental status grossly normal Speech and movement: Normal speech and movement present Assessment & Plan Assessment & Plan (1) Peripheral vascular disease: Code(s): I73.9 - Peripheral vascular disease, unspecified Category: Medical Plan: In short patient is a diabetic with longstanding nonhealing right lower extremity ulcers. I did not appreciate good palpable pulses and I have taken the liberty of ordering noninvasive arterial testing. Should that prove to be negative will have to repeat image that foot and see if further resection of the bone is required to heal this area. This was discussed in detail with the patient. They understood and would like to move forward. Thank you for allowing us to assist in his care. If there are any questions or concerns please do not hesitate to contact us. Orders: Orders US arterial duplex LE BI 1 Week I73.9 - Peripheral vascular disease, unspecified Coding Level of Care Code New Pt Level 4 (14278) Diagnoses Peripheral vascular disease I73.9
--- OUTSIDE RECORDS SUMMARY | 2024-02-24 14:33 | XMS_ITS | Patient Health Record ---
Author Organization [facility] Address [address] [place] [address] Care Team Providers Care Electric Motor Repair Supervisor Name Role Phone Lesli LESTER, Ania Primary Care Provider Unavail able Catarino Cordova Unavailable [phone] ALLERGIES No Known Allergies RESULTS Component Value Reference Range Notes Glucose, Whole Blood Reviewed date:01/07/2024 01:01:02 PM Interpretation: Performing Lab:[facility], [address] [place] [id number] Notes/Report: Glucose, Whole Blood 165 60-115 mg/dL METER # : [id number] REASON FOR REFERRAL No Information MEDICATIONS Medication SIG (Take, Route, Frequency, Duration) Notes Start Date End Date Status Bisacodyl 5 MG 1 tablet as needed Orally Once a day Active Simvastatin 40 MG 1 tablet in the evening Orally Once a day Active Duc Childrens Aspirin Active Lisinopril 5 MG 1 tablet Orally Once a day Active glipiZIDE 10 MG 1 tablet Orally Once a day Active glipiZIDE ER 10 MG Oral for 90 Active Omeprazole 20 MG 1 capsule Orally Onc e a day Active Gabapentin 300 MG 1 capsule Orally Onc e a day for 30 day(s) Active Tresiba FlexTouch 200 UNIT/ML Subcutaneous for 45 Active FeroSul 325 (65 Fe) MG TAKE 1 TABLET BY MOUTH DAILY IN THE MORNING WITH BREAKFAST DO NOT BREAK, CRUSH, DISSOLVE OR CHEW Oral for 90 D509,Unavailabl e Active Lantus SoloStar 100 UNIT/ML as directed Subcutaneous Active Actos 45 MG 1 tablet Orally Once a day for 30 day(s) Active metFORMIN HCl 500 MG Oral for 90 Active Dulcolax (colon prep) 5 MG take at 3:00 p.m and 7:00p.m. Orally two tablets twice a day for one day for 1 day 07/16/2023 Active MiraLax (colon prep) 17 GM/SCOOP 1 238Gm bottle mixed with Gatorade or Crystal Light Orally begin at 5:00 p.m. the day before the procedure for 1 day 07/16/2023 Active Dulcolax (colon prep) 5 MG take at 3:00 p.m and 7:00p.m. Orally two tablets twice a day for one day for 1 day 12/24/2023 Active MiraLax (colon prep) 17 GM/SCOOP 1 238 Gm bottle mixed with Gatorade or Crystal Light Orally begin at 5:00 p.m. the day before the procedure for 1 day 12/24/2023 Active SOCIAL HISTORY Sex Assigned At : Social History Observation Description Sex Assigned At Unknown Alcohol Screen Question Answer Notes Did you have a drink containing alcohol in the p ast year? No Points 0 Interpretation Negative PROBLEMS Problem Type ICD Code Onset Dates Problem Status W/U Status Risk SNOMED Code Notes Problem History of adenomatous polyp of colon (Z86.010) Active confirmed 190938560 Problem Iron deficiency anemia, unspecified iron deficiency anemia type (D50.9) Active confirmed 23254119 VITAL SIGNS Temperature 98.2 degrees Fahrenheit 07/15/2023 Blood pressure diastolic 00 mm Hg 07/15/2023 Height 64 in 07/15/2023 Blood pressure systolic 00 mm Hg 07/15/2023 Weight 194 lbs 07/15/2023 BMI 33.30 kg/m2 07/15/2023 Encounters Encounter Location Date Provider Diagnosis [facility] [place] [address] [place] [phone] 01/07/2024 Catarino Cordova [facility] [address] [place] [phone] 07/15/2023 Catarino Cordova Iron deficiency anemia, unspecified iron deficiency anemia type D50.9 and History of adenomatous polyp of colon Z86.010 [facility] [address] [place] [phone] 07/15/2023 Catarino Cordova [facility] [address] [place] [phone] 10/07/2023 Catarino Cordova [facility] [address] [place] [phone] 12/24/2023 Catarino Cordova [facility] [address] [place] [phone] 01/04/2024 Catarino Cordova [facility] [address] [place] [phone] 01/11/2024 Catarino Cordova [facility] [address] [place] [phone] 01/12/2024 Catarino oCrdova ASSESSMENTS Encounter Date Diagnosis Assessment Notes Treatment Notes Treatment Clinical Notes 07/15/2023 History of adenomatous polyp of colon (ICD-10 - Z86.010) 07/15/2023 Iron deficiency anemia, unspecified iron deficiency anemia type (ICD-10 - D50.9) Speak with Dr. Ballesteros to have her give you instructions about adjusting your diabetes medications for the day before and the day of the procedures. Stop Iron and aspirin for 1 week before the procedures PLAN OF TREATMENT Pending Test Test Name Order Date IRON + IBC (FE) 07/15/2023 CBC w DIFF 07/15/2023 Ferritin 07/15/2023 Future Test Test Name Order Date COLONOSCOPY 01/12/2014 UPPER GI ENDOSCOPY 07/15/2023 COLONOSCOPY 07/15/2023 Next Appt Details Provider Name:Catarino Cordova , 04/02/2024 01:00:00 PM, [address] [place] [address] , [place], [place], [id number], Insurance Providers Payer Name Payer Address Payer Phone Subscriber Number Group Number Insured Name Patient Relationship to Insured Coverage Start Date Coverage End Date [facility] [address] [place] [address] [id number] LUI SIMON Self - patient is the insured MEDICAL (GENERAL) HISTORY Medical History History ICD Code NIDDM Hyperlipidemia Hypertension GERD--EGD in 09/2008--neg. es ophagitis/Denis's, gastric bx. neg for H.pylori Osteomyelitis Screening colonoscopy 2008 Tubular adeno mas removed in 09/2008 Denies [place],CVA,Lung disease,renal disease Negative Screening Colonoscopy in 2013 Surgical History Surgery Date(Month/Year) Hernia x 2 Amputation of toes in relati on to osteomyelitis and vascular disease from his diabetes Left eye surgery-retina
== END 2024-02-25 13:00 | disposition home or self-care (01) ==
LOC: HO.HVS 14:31
PROVIDERS: PCP Internal Medicine Rheumatology; Visit Provider Surgery Vascular Surgery
DX: I73.9 Peripheral vascular disease, unspecified (principal)
CPT/HCPCS: 99203

== ENCOUNTER → 2024-02-24 14:31 | Outpatient (BNVA) | payer OTHER, SELFPAY | PROVIDERS: PCP Internal Medicine Rheumatology; Visit Provider Surgery Vascular Surgery | DX: I73.9 Peripheral vascular disease, unspecified (principal) | CPT/HCPCS: 99202 ==

== ENCOUNTER 2024-03-04 13:40 | Outpatient (REF) | payer OTHER, SELFPAY ==
--- NOTE | ~2024-03-04 | US_ITS ---
EXAMINATION: NONINVASIVE ASSESSMENT OF THE ARTERIES OF BOTH LOWER EXTREMITIES WITH PVR EXAM AND BILATERAL LOWER EXTREMITY DUPLEX Naomi Quezada MD CLINICAL INFORMATION: Peripheral vascular disease TECHNIQUE: Ankle pulse volume recordings, ankle pressure measurements and ankle brachial indices were obtained of the lower extremity arterial system bilaterally in addition to duplex Doppler techniques with wave form analysis and measurement of velocities in the common femoral, profunda femoral, superficial femoral, popliteal and tibial arteries. The study was performed only at rest. COMPARISON: Arterial duplex on 09/02/2022 FINDINGS: a) AT REST: RIGHT LE. The right ankle-brachial index is: 1.09 * >0.97-1.25 = normal - no significant arterial disease * 0.75-0.96 = mild peripheral arterial disease * 0.5-0.74 = moderate peripheral arterial disease * <0.50 = severe peripheral arterial disease 2. Right ankle pressure: normal. 3. Right ankle PVR waveform: normal. 4. Right direct duplex Doppler findings: Common femoral artery: 160 cm/s, Multiphasic Profunda femoris artery: 138 cm/s, Multiphasic Superficial femoral artery (proximal): 105 cm/s, Multiphasic Superficial femoral artery (mid): 88 cm/s, Multiphasic Superficial femoral artery (distal): 80 cm/s, Multiphasic Proximal Popliteal artery: 102 cm/s, Multiphasic Mid posterior tibial artery: 132 cm/s, Multiphasic LEFT LE. The left ankle-brachial index is: 1.02 * >0.97-1.25 = normal - no significant arterial disease * 0.75-0.96 = mild peripheral arterial disease * 0.5-0.74 = moderate peripheral arterial disease * <0.50 = severe peripheral arterial disease 2. Left ankle pressure: normal. 3. Left ankle PVR waveform: normal. 4. Left direct duplex Doppler findings: Common femoral artery: 106 cm/s, Multiphasic Profunda femoris artery: 66 cm/s, Multiphasic Superficial femoral artery (proximal): 138 cm/s, Multiphasic Superficial femoral artery (mid): 73 cm/s, Multiphasic Superficial femoral artery (distal): 76 cm/s, Multiphasic Proximal Popliteal artery: 115 cm/s, Multiphasic Mid posterior tibial artery: 134 cm/s, Multiphasic Incidental note of arrhythmia. There is diffuse bilateral atherosclerotic disease. US/US arterial duplex BI w/ LUCIAN IMPRESSION: RIGHT LEG: No hemodynamically significant stenosis. LEFT LEG: No hemodynamically significant stenosis.
== END 2024-03-04 13:41 | disposition home or self-care (01) ==
LOC: HO.US 13:40
PROVIDERS: PCP Internal Medicine; Visit Provider Surgery Vascular Surgery
DX: I73.9 Peripheral vascular disease, unspecified (principal)
CPT/HCPCS: 93922; 93925

== ENCOUNTER 2024-04-02 11:51 | Day surgery (SDC) | payer OTHER, SELFPAY ==
[2024-03-31 15:20] VITALS: BMI 33.3
--- NOTE | 2024-04-01 10:01 | HO.ANESPROP2 ---
HPI - Anesthesia Eval Consult details Narrative: 73yo M for Upper Endoscopy and Colonoscopy Anesthesia Pre-Procedure Meds Is the patient on any of the following meds?: SGLT2 Inhib PMFSH Active Problems Active Problems: All Active Problems Cellulitis and abscess of left lower extremity (Acute) Cellulitis of left foot (Acute) Diabetes mellitus (Acute) H/O: HTN (hypertension) (Acute) Ventral hernia (Acute) Foot abscess (Acute) Diabetic foot ulcer (Acute) Peripheral vascular disease (Acute) Past Medical History Medical History GERD (gastroesophageal reflux disease) Foot abscess Diabetic foot ulcer History of acute renal failure Diabetic polyneuropathy Peripheral vascular disease Tubular adenoma of colon Osteomyelitis Hyperlipidemia Hypertension Diabetes mellitus Family History Family History Father Cancer of unknown origin Diabetes Mother No problems noted. Surgical History Surgical History H/O colonoscopy History of esophagogastroduodenoscopy (EGD) History of ventral hernia repair Hx of eye surgery History of right inguinal hernia repair 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 Social History Social History Household Members: None Housing: Apartment Alcohol intake: never Patient Tobacco Use Status: Never used Tobacco Advance Directives Date on File: 08/22/21 service: No Current occupational status: retired Meds Allergies Allergy/AdvReac Type Severity Reaction Status Date / Time No Known Allergies Allergy Verified 02/24/24 14:38 Home Medications ?Medication ?Instructions ?Recorded ?Confirmed ?Last Taken ?Type aspirin 81 mg tablet,delayed 81 mg PO DAILY 03/16/21 03/31/24 12/31/23 History release bisacodyl 5 mg tablet 10 mg PO DAILY PRN Constipation 03/16/21 03/31/24 08/21/21 History blood sugar diagnostic #10 ea 03/16/21 Unknown History gabapentin 300 mg capsule 300 mg PO DAILY 03/16/21 03/31/24 08/31/22 History lancets 28 gauge (FreeStyle #100 ea 03/16/21 Unknown History Lancets) metformin 500 mg tablet 500 mg PO DAILY 03/16/21 03/31/24 08/31/22 History omeprazole 20 mg delayed 20 mg PO DAILY@0630 03/16/21 03/31/24 08/31/22 History release,disintegrating tablet pen needle, diabetic 31 gauge x #50 ea 03/16/21 Unknown History 11/28 (1st Tier Unifine Pentips) pen needle, diabetic 32 gauge x #50 ea 03/16/21 Unknown History (BD Susannah 2nd Gen Pen Needle) glipizide 10 mg tablet, extended 1 tab PO DAILY 08/21/21 03/31/24 01/05/24 History release 24 hr lisinopril 5 mg tablet 1 tab PO DAILY 09/01/22 03/31/24 01/07/24 History insulin degludec 200 unit/mL (3 68 unit subcut BEDTIME 10/06/23 03/31/24 Unknown History mL) subcutaneous pen (Tresiba FlexTouch U-200 insulin) empagliflozin 25 mg tablet 25 mg PO QAM 01/05/24 03/31/24 01/05/24 History (Jardiance) simvastatin 40 mg tablet 40 mg PO BEDTIME 01/05/24 03/31/24 Unknown History Exam Height,Weight and Vital Signs: Height 5 ft 4 in Weight 87.997 kg Pertinent Lab Results Pertinent Lab Results: Laboratory Tests 12/30/23 14:31 WBC 6.7 Hgb 13.7 L D Hct 43.5 D Plt Count 203 Sodium 137 Potassium 4.2 Chloride 104 Carbon Dioxide 26 BUN 21 H Creatinine 1.05 Assessment and Plan Assessment Anesthesia Assessment: Chart Reviewed
[2024-04-02 12:21] VITALS: BMI 32.6
[2024-04-02 12:25] LABS: Glucose, Whole Blood 138 mg/dL (60-115)
[2024-04-02 12:30] VITALS: BP 119/72; PULSE 107; RESP 16; TEMP 36.7; O2SAT 94
[2024-04-02] MEDS: Lactated Ringers 1,000 ML 100 ML IVCONT (12:59)
--- NOTE | 2024-04-02 13:58 | PC.NURSE ---
24hr update documented on paper
[2024-04-02 14:50] VITALS: BP 93/37; PULSE 94; RESP 16; TEMP 36.4; O2SAT 96
--- NOTE | 2024-04-02 14:52 | P.BOP_ITS ---
Brief Operative Note Date of Service: 04/02/24 Pre-op diagnosis: Anemia, Hx of polyps Post-op diagnosis: other (Hiatal hernia, R/O celiac disease, Diverticulosis) Procedure: EGD with biopsies, Colonoscopy to the cecum and TI Surgeon: Catarino Cordova MD Anesthesia: MAC Was an Electro Mechanical Solar Technician used for this Procedure?: No Estimated blood loss (mL): 2.0 Pathology: other (A. Descending duodenum) Condition: stable Disposition: PACU
[2024-04-02 15:05] VITALS: BP 119/64; PULSE 96; RESP 18; TEMP 36.8; O2SAT 99
--- NOTE | 2024-04-03 02:43 | OP_ITS ---
DATE OF SERVICE: 04/02/2024 SURGEON: Catarino Cordova MD INDICATIONS: The patient presents for evaluation of iron-deficiency anemia, personal history of colon polyps, gastroesophageal reflux. Full consent was obtained from him for this, including risks of bleeding and perforation. PREOPERATIVE DIAGNOSIS: POSTOPERATIVE DIAGNOSIS: PROCEDURE PERFORMED: Esophagogastroduodenoscopy with biopsies and colonoscopy to the cecum and terminal ileum. ESTIMATED BLOOD LOSS: COMPLICATIONS: ANESTHESIA: Monitored anesthesia care. ASSISTANTS: SPECIMENS: PREOPERATIVE DIAGNOSES: Iron deficiency anemia, gastroesophageal reflux, and history of colon polyps. POSTOPERATIVE DIAGNOSES: Iron deficiency anemia, gastroesophageal reflux, and history of colon polyps; small hiatal hernia; rule out celiac disease; diverticulosis, and internal hemorrhoids. DESCRIPTION OF PROCEDURE: The patient was placed in the left lateral decubitus position. The Olympus video gastroscope was passed in the posterior oropharynx and upper esophagus under direct vision. The scope was passed slowly into the distal esophagus. The gastroesophageal junction appeared at 36 cm and appeared normal. There was no sign of any esophagitis nor Denis esophagus. The scope entered the stomach. There was a small hiatal hernia. The scope was advanced to pylorus. The duodenum was cannulated to the descending portion. The duodenum including the bulb appeared normal without mass or ulceration. Biopsies were obtained from the 2nd and 3rd portions of duodenum. The scope was withdrawn back in the stomach and the gastric antrum and body appeared normal with good peristalsis. The scope was retroflexed, visualizing the proximal stomach carefully, which appeared normal, without any sign of mass or ulceration. The scope was straightened and withdrawn back to the esophagus. The esophageal mucosa appeared normal. The scope was withdrawn from the patient. He was turned around for colonoscopy. The digital rectal exam revealed no abnormalities. The Olympus video pediatric colonoscope was entered into the rectum and advanced to the cecum. Advancement was somewhat difficult, but the cecum was reached. Preparation in various parts of the colon did require a lot of irrigation and suctioning on the way to the cecum. Once in the cecum, after irrigation, I did obtain good visualization, including the appendiceal orifice. The entire cecum and ileocecal valve appeared normal. The terminal ileum was cannulated and appeared normal. Scope was withdrawn back in the colon. The scope was then slowly withdrawn assessing all mucosal surfaces carefully. After a lot of irrigation and suctioning, there was a very good preparation. I did not visualize any sign of polyps, colitis, nor angiodysplasia. There was a mild amount of sigmoid diverticulosis. In the rectum, scope was retroflexed visualizing internal hemorrhoids, but no other pathology. The rectal mucosa appeared normal. The scope was straightened and withdrawn from the patient. He tolerated both procedures well and was returned to recovery area in stable condition. IMPRESSION: 1. Small hiatal hernia. 2. Rule out celiac disease. 3. Diverticulosis. 4. Internal hemorrhoids. PLAN: The results of the biopsy will be checked. Given his age and the negative colonoscopy, I do not think he would need any further screening colonoscopies. His hemoglobin can be followed and if it remains stable, then I would not pursue further workup. If he develops any worsening anemia, then he may need further evaluation with a small bowel video capsule study. He was advised to resume his usual diabetic regimen today. He was advised that he could resume iron and aspirin today as well. MD JV Grove/CYNTHIA / [phone]
== END 2024-04-02 15:22 | disposition home or self-care (01) ==
PROVIDERS: PCP Internal Medicine; Visit Provider Internal Medicine
PROC: (CPT 45378; principal; 2024-04-02 13:10)
DX: D50.9 Iron deficiency anemia, unspecified (principal); Z86.010 Personal history of colon polyps; K57.30 Diverticulosis of large intestine without perforation or abscess without bleeding; K64.8 Other hemorrhoids; K21.9 Gastro-esophageal reflux disease without esophagitis; K44.9 Diaphragmatic hernia without obstruction or gangrene; M86.9 Osteomyelitis, unspecified; Z89.422 Acquired absence of other left toe(s); I10 Essential (primary) hypertension; E78.5 Hyperlipidemia, unspecified; E11.9 Type 2 diabetes mellitus without complications; Z79.4 Long term (current) use of insulin; Z79.84 Long term (current) use of oral hypoglycemic drugs; Z79.85 Long-term (current) use of injectable non-insulin antidiabetic drugs; Z79.82 Long term (current) use of aspirin; Z79.899 Other long term (current) drug therapy; Z98.890 Other specified postprocedural states
CPT/HCPCS: 45378; 43239; 82947; 88305; 88313; J2704

== ENCOUNTER → 2024-04-06 13:12 | Outpatient (REF) | payer OTHER, SELFPAY ==
--- NOTE | 2024-04-06 | HM_ITS ---
Conclusion: 1. Patient was monitored for total period of 2 days 2. Baseline rhythm was normal sinus rhythm with average heart rate of 98 beats per minute 3. Frequent PVCs noted with total burden of 12 point 9% with frequent 3 beat salvos of nonsustained VT, fastest at 158 beats per minute 4. No significant pauses noted 5. No patient reported events MTDD
== END ==
LOC: HO.CARD 13:12
PROVIDERS: PCP Internal Medicine; Visit Provider Internal Medicine
DX: I47.29 Other ventricular tachycardia (principal)
CPT/HCPCS: 93225

== ENCOUNTER → 2024-04-06 13:30 | Outpatient (BNV) | payer OTHER, SELFPAY | PROVIDERS: PCP Internal Medicine; Visit Provider Internal Medicine Cardiovascular Disease | DX: I49.3 Ventricular premature depolarization (principal) | CPT/HCPCS: 93227 ==

== ENCOUNTER 2024-11-27 08:13 | Emergency (ER) | payer OTHER, SELFPAY ==
[2024-11-27 08:19] VITALS: BP 140/78; PULSE 110; O2SAT 97
[2024-11-27 08:28] VITALS: BP 146/90; PULSE 114; RESP 18; TEMP 36.9; O2SAT 99; BMI 27.4
--- OUTSIDE RECORDS SUMMARY | 2024-11-27 08:39 | XMS_ITS | Encounter Summary ---
Author Organization [employer] Address [address] [facility] 7t [place] [address] Care Team Providers Care Laboratory Chemical Assistant Name Role Phone Ania Ballesteros MD Primary Care Provider + Encounter Details Date Type Department Care Team (Late Contact Info) Description 01/20/2023 Orders Only [facility] MED & PEDS [address] [place], [place] [phone] Trini Sun LPN Social History Tobacco Use Types Packs/Day Years Used Date Smoking Tobacco: Never Smokeless Tobacco: Never Alcohol Use Standard Drinks/Week Comments Not Currently 0 (1 standard drink = 0.6 oz pur e alcohol) Sex and Gender Information Value Date Recorded Sex Assigned at Male 07/15/2022 10:18 AM EDT Legal Sex Male 10:18 AM EDT Gender Identity Male 07/15/2022 10:18 AM EDT Sexual Orientation Straight 07/15/2022 10 :18 AM EDT documented as of this encounter Plan of Treatment Upcoming Encounters Date Type Department Care Team (Late st Contact Info) Description 01/14/2025 9:00 AM EDT Office Visit [facility] MEDICINE [address] [place] [address] Ania Ballesteros MD [address] [place], [place] [phone] documented as of this encounter Visit Diagnoses Not on filedocumented in this encounter Care Teams Laboratory Chemical Assistant Relationship Specialty Start Date End Date Ania Ballesteros MD [address] [place], [place] [phone] PCP - General Family Medicine 11/20/16 [facility] 06/28/24 documented as of this encounter
--- OUTSIDE RECORDS SUMMARY | 2024-11-27 08:39 | XMS_ITS | Encounter Summary ---
Author Organization [employer] Address [address] [facility] 7t [place] [address] Care Team Providers Care Account Receivable Associate Name Role Phone Ania Ballesteros MD Primary Care Provider + Encounter Details Date Type Department Care Team (Late st Contact Info) Description 02/17/2023 Abstract [facility] MEDICINE [address] [place] [phone] Ania Ballesteros MD [address] [place] [phone] Social History Tobacco Use Types Packs/Day Years Used Date Smoking Tobacco: Never Smokeless Tobacco: Never Alcohol Use Standard Drinks/Week Comments Not Currently 0 (1 standard drink = 0.6 oz pur e alcohol) Depression Answer Date Recorded Patient Health Questionnaire-2 Score 0 02/12/2023 Sex and Gender Information Value Date Recorded Sex Assigned at Male 07/15/2022 10:18 AM EDT Legal Sex Male 10:18 AM EDT Gender Identity Male 07/15/2022 10:18 AM EDT Sexual Orientation Straight 07/15/2022 10 :18 AM EDT COVID-19 Exposure Response Date Recorded In the last 10 days, have yo u been in contact with someone who was confirmed or suspected to have Coronavirus/COVID-19? No / Unsure 02/12/2023 11:02 AM EDT documented as of this encounter Plan of Treatment Upcoming Encounters Date Type Department Care Team (Late Contact Info) Description 01/14/2025 9:00 AM EDT Office Visit [facility] MEDICINE [address] [place] [phone] Ania Ballesteros MD [address] [place] [address] documented as of this encounter Visit Diagnoses Not on filedocumented in this encounter Care Teams Account Receivable Associate Relationship Specialty Start Date End Date Ania Ballesteros MD [address] [place], [place] [phone] PCP - General Family Medicine 11/20/16 [employer] 06/28/24 documented as of this encounter
--- OUTSIDE RECORDS SUMMARY | 2024-11-27 08:40 | XMS_ITS | Encounter Summary ---
Author Organization [employer] Address [address] [facility] 7t [place] [address] Care Team Providers Care Resident Intern Name Role Phone Ania Ballesteros MD Primary Care Provider + Reason for Visit * Reason Comments Med Refill Encounter Details Date Type Department Care Team ([facility] st Contact Info) Description 10/19/2023 Refill [facility] MEDICINE [address] [place], [place] [phone] Ania Ballesteros MD [address] [place], [place] [phone] Diabetic polyneuropathy associated with type 2 diabetes mellitus (CMS/HCC) Social History Tobacco Use Types Packs/Day Years Used Date Smoking Tobacco: Never Smokeless Tobacco: Never Alcohol Use Standard Drinks/Week Comments Not Currently 0 (1 standard drink = 0.6 oz pur e alcohol) Housing Stability Answer Date Recorded What is your housing situation today? I have andra arroyo 06/30/[address] you li ve. Do you have problems with any of the following? None of the above 06/30/2023 Food Insecurity Answer Date Recorded Within the past 12 months, y ou worried that your food would run out before you got money to buy more: Never True 06/30/2023 Within the past 12 months,th e food you bought just didn't last and you didn't have enough money to get more: Never True Transportation Answer Date Recorded In the past 12 months, has l ack of transportation kept you from medical appts, meetings, work or from getting things needed for daily living? No 06/30/2023 Utilities Answer Date Recorded In the past 12 months, has t he electric, gas, oil or water company threatened to shut off services in your home? No 06/30/2023 Depression Answer Date Recorded Patient Health Questionnaire-2 [...] Description 01/14/2025 9:00 AM EDT Office Visit [facility] MEDICINE [address] [place], [place] [phone] Ania Ballesteros MD [address] [place] [address] documented as of this encounter Visit Diagnoses Diagnosis Diabetic polyneuropathy associated with type 2 diabetes mellitus ([facility]) documented in this encounter Care Teams Resident Intern Relationship Specialty Start Date End Date Ania Ballesteros MD [address] [place] [phone] PCP - General Family Medicine 11/20/16 [employer] 06/28/24 documented as of this encounter
--- OUTSIDE RECORDS SUMMARY | 2024-11-27 08:40 | XMS_ITS ---
Author Organization [facility] Address [address] [place] [address] Care Team Providers Care Administrative Law Judge Name Role Phone Lesli LESTER, Ania Primary Care Provider Catarino Morse [phone] RE[address] Cordova pt cancelled procedure Encounters Encounter Location Date Provider Diagnosis [facility] [address] [place] [address] 01/12/2024 Catarino Cordova Plan Of Treatment No Information Progress Notes * LUI SIMON RDOB: (73 yo M)Acc No.[id number]:01/12/2024 Patient:?SHELBY SIMON :1950???Age:73 Y???Sex:Male Address:[address] [place] [address] * true * Date:? Generated for Navyai alivia/Lilly/eTransmitting on:?11/27/2024 08:40 AM EDT
--- OUTSIDE RECORDS SUMMARY | 2024-11-27 08:40 | XMS_ITS | Patient Health Record ---
Author Organization [facility] Address [address] [place] [address] Care Team Providers Care President Trust Company Name Role Phone Lesli LESTER, Ania Primary Care Provider Unavail able Catarino Cordova Unavailable [phone] Allergies No Known Allergies Results Component Value Reference Range Notes Glucose, Whole Blood Reviewed date:01/07/2024 01:01:02 PM Interpretation: Performing Lab:[facility], [address] [place] [phone] Notes/Report: Glucose, Whole Blood 165 60-115 mg/dL METER # : [id number] Glucose, Whole Blood Reviewed date:04/03/2024 06:40:13 PM Interpretation: Performing Lab:[facility], [address] [place] [phone] Notes/Report: Glucose, Whole Blood 138 60-115 mg/dL METER # : [id number] Pathology Reviewed date:04/10/2024 06:35:14 PM Interpretation: Performing Lab:[facility], [address] [place] [phone] Notes/Report: ---- Name: Leila Simon Age/Sex: 73/M : 1950 Unit#: [id number] Attend Dr: Catarino Cordova MD Re04/02/24 Status : [facility] Location: [facility] Disch: ---- SPEC : [id number] RECD : 04/02/24-151 STATUS: JOSEFINA BRIGHT NUM: [id number] SAIRA: 04/02/24-[address] [facility] DR: Catarino Cordova MD ENTERED: 04/02/24- SP TYPE: Surgical OTHR DR: Ania Ballesteros MD ORDERED: HE Stain/3, Gross Micro L4, Special st. 2, AB/PAS Diagnosis Duodenum, biopsy: Duodenal mucosa within normal limits; negative for celiac disease. Clinical History Pre-Op Dx: Screening , GERD Post-Op Dx: Hiatal hernia Microscopic Description Microscopic sections examined. No metaplastic changes are seen, supported by AB/PAS stains. Material Received Descending duodenum, r/o celiac Gross Description Received in formalin labeled ?descending duodenum, rule out celiac? are 7 mead-pink irregular tissue fragments ran ging from 0.15-0.3 cm, submitted in toto in a cassette labeled A. CEDS Special studies orde red and performed: AB/PAS stains Copies To: Ania Ballesteros MD [address] [address] Catarino Cordova MD [facility] [address] [place] [address] ---- Signed (signature on file) Erik Lane MD 04/06/24 1432 ---- END OF REPORT Reason For Referral No Information Medications Medication SIG (Take, Route, Frequency, Duration) Notes [...] capsule Orally Onc e a day Active Dulcolax (colon prep) 5 MG take at 3:00 p.m and 7:00p.m. Orally two tablets twice a day for one day for 1 day 12/24/2023 Active Gabapentin 300 MG 1 capsule Orally Onc e a day for 30 day(s) Active Tresiba FlexTouch 200 UNIT/ML Subcutaneous for 45 Active FeroSul 325 (65 Fe) MG TAKE 1 TABLET BY MOUTH DAILY IN THE MORNING WITH BREAKFAST DO NOT BREAK, CRUSH, DISSOLVE OR CHEW Oral for 90 D509,Unavailabl e Active Lantus SoloStar 100 UNIT/ML as directed Subcutaneous Active MiraLax (colon prep) 17 GM/SCOOP 1 238 Gm bottle mixed with Gatorade or Crystal Light Orally begin at 5:00 p.m. the day before the procedure for 1 day 12/24/2023 Active Actos 45 MG 1 tablet Orally [...] the procedure for 1 day 07/16/2023 Active Social History Alcohol Screen Question Answer Notes Did you have a drink containing alcohol in the p ast year? No Points 0 Interpretation Negative Section Notes: Nonsmoker; no sig alcohol. Originally from [facility]--1996 Nonsmoker; No alcohol since 2007 Originally from [facility]--1996 Problems Problem Type SNOMED Code ICD Code Onset Dates Problem Status W/U Status Risk Notes Problem 836654504 History of adenomatous polyp of colon (Z86.010) Active confirmed Problem History of polyp of colon (situation) (226303831) Personal history of colonic polyps (Z86.010) Active confirmed Problem Diverticular disease of colon (773311072) Diverticulosis of large intestine without perforation or abscess without bleeding (K57.30) Active confirmed Problem Gastroesophageal reflux disease (590529808) Gastroesophageal reflux disease (K21.9) Active confirmed Problem Iron deficiency anemia (20947682) Iron deficiency anemia (D50.9) Active confirmed Problem 04149729 Iron deficiency anemia, unspecified iron deficiency anemia type (D50.9) Active confirmed Encounters Encounter Location Date Provider Diagnosis [facility] Outpatient [address] [place] [phone] 04/02/2024 Catarino Cordova Iron deficiency anem ia D50.9 ; Personal history of colonic polyps Z86.010 ; Diverticulosis of large intestine without perforation or abscess without bleeding K57.30 ; Other hemorrhoids K64.8 ; Hiatal hernia K44.9 and Gastroesophageal reflux disease K21.9 [facility] [address] [place] [phone] 12/24/2023 Catarino Cordova [facility] [address] [place] [phone] 01/04/2024 Catarino Cordova [facility] [address] [place] [phone] 01/11/2024 Catarino Cordova [facility] [address] [place] [phone] 01/12/2024 Catarino Cordova [facility] [address] [place] [address] 03/24/2024 Catarino Cordova Assessments Encounter Date Diagnosis (ICD Code) Assessment Notes Treatment Notes Treatment Clinical Notes Section Notes 04/02/2024 Personal history of colonic polyps (ICD-10 - Z86.010) 04/02/2024 Iron deficiency anemia (ICD-10 - D50.9) 04/02/2024 Diverticulosis of large intestine without perforation or abscess without bleeding (ICD-10 - K57.30) 04/02/2024 Other hemorrhoids (ICD-10 - K64.8) 04/02/2024 Hiatal hernia (ICD-10 - K44.9) 04/02/2024 Gastroesophageal reflux disease (ICD-10 - K21.9) Plan Of Treatment Pending Test Test Name Order Date IRON + IBC (FE) 07/15/2023 CBC w DIFF 07/15/2023 Ferritin 07/15/2023 Future Test Test Name Order Date COLONOSCOPY 01/12/2014 UPPER GI ENDOSCOPY 07/15/2023 COLONOSCOPY 07/15/2023 Insurance Providers Payer Name Payer Address Payer Phone Subscriber Number Group Number Insured Name Patient Relationship to Insured Coverage Start Date Coverage End Date [facility] [address] Attn Claims JUSTUS Hadd[place] [id number] LEILA SIMON Self - patient is the insured Medical (General) History Medical History History ICD Code NIDDM Hyperlipidemia Hypertension GERD--EGD in 09/2008--neg. es ophagitis/Denis's, gastric bx. 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
--- OUTSIDE RECORDS SUMMARY | 2024-11-27 08:40 | XMS_ITS | Encounter Summary ---
Author Organization [employer] Address [address] [place] [address] Care Team Providers Care Carrier Packer Name Role Phone Ania Ballesteros MD Primary Care Provider + Encounter Details Date Type Department Care Team (Late st Contact Info) Description 01/28/2024 Orders Only [facility] [address] [place] [address] Provider, MD Yoli Social History Tobacco Use Types Packs/Day Years Used Date Smoking Tobacco: Never Smokeless Tobacco: Never Alcohol Use Standard Drinks/Week Comments Not Currently 0 (1 standard drink = 0.6 oz pur e alcohol) Housing Stability Answer Date Recorded What is your housing situation today? I have andranoa arroyo 06/30/[address] you [...] Description 01/14/2025 9:00 AM EDT Office Visit [facility] [address] [place] [address] Ania Ballesteros MD [address] [place] [address] documented as of this encounter Visit Diagnoses Not on filedocumented in this encounter Care Teams Carrier Packer Relationship Specialty Start Date End Date Ania Ballesteros MD [address] [place] [phone] PCP - General Family Medicine 11/20/16 [employer] 06/28/24 documented as of this encounter
--- OUTSIDE RECORDS SUMMARY | 2024-11-27 08:40 | XMS_ITS | Encounter Summary ---
Author Organization [employer] Address [address] [place] [address] 7t [place] [address] Care Team Providers Care Dice Table Operator Name Role Phone Ania Ballesteros MD Primary Care Provider + Reason for Visit * Reason Comments Med Refill Encounter Details Date Type Department Care Team (Late Contact Info) Description 05/14/2023 Refill [facility] [address] [place] [address] [phone] Ania Ballesteros MD [address] [place] [address] [phone] Type 2 diabetes mellitus with ulcer ([facility]) Social History Tobacco Use Types Packs/Day Years [...] Description 01/14/2025 9:00 AM EDT Office Visit [facility] [address] [place] [address] [phone] Ania Ballesteros MD [address] [place], [place] [phone] documented as of this encounter Visit Diagnoses Diagnosis 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) documented in this encounter Care Teams Dice Table Operator Relationship Specialty Start Date End Date Ania Ballesteros MD [address] [place] [phone] PCP - General Family Medicine 11/20/16 [employer] 06/28/24 documented as of this encounter
--- OUTSIDE RECORDS SUMMARY | 2024-11-27 08:40 | XMS_ITS | Clinical Summary ---
Author Organization [employer] Address [address] [facility] 7t [place] [address] Care Team Providers Care Supervisor Network Control Operators Name Role Phone Ania Acevedo MD Primary Care Provider + Allergies No known active allergies Medications aspirin 81 MG EC tablet Take 1 tablet by mouth in the morning and at bedtime. Active bisacodyl (Dulcolax) 5 MG EC tablet Take 2 tablets by mouth every other day. Active psyllium (Metamucil Smooth Texture) 58.6 % powder Take 1 g by mouth in the morning and at bedtime. Active Blood Glucose Monitoring Suppl (FreeStyle [place] Lite) w/Device kit TEST BLOOD SUGAR DIRECTED 1 kit 023 Active atorvastatin (Lipitor) 40 MG tabletIndications:Pure hypercholesterolemia Take 1 tablet (40 mg) by mouth Once per day. 90 tablet 3 024 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) USE DIRECTED WITH INSULIN 100 each 11 024 Active empagliflozin (Jardiance) 25 MGIndications: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) Take 1 tablet (25 mg) by mouth Once per day. 90 tablet 3 024 2024 Active glucose blood (FREESTYLE LITE) test stripIndications:Type 2 diabetes mellitus with hyperglycemia (CMS/HCC) TEST BLOOD SUGAR FOUR TIMES DAILY 100 strip 11 024 Active glipiZIDE XL (Glucotrol XL) 10 MG 24 hr tablet TAKE 1 TABLET BY MOUTH TWICE DAILY 180 tablet 3 024 Active gabapentin (Neurontin) 300 MG capsuleIndications:Diab etic polyneuropathy associated with type 2 diabetes mellitus (CMS/HCC) Take 1 capsule (300 mg) by mouth 3 times daily. 270 capsule 1 Active insulin degludec (Tresiba FlexTouch) 200 UNIT/ML injectionIndications:Ty pe 2 diabetes mellitus with ulcer (CMS/HCC) Inject 90 Units under the skin Once per day. 40.5 mL 3 024 2024 Active pioglitazone (Actos) 45 MG tablet TAKE 1 TABLET BY MOUTH EVERY DAY 90 tablet 3 Active metFORMIN (Glucophage) 500 MG tablet TAKE 2 TABLETS BY MOUTH TWICE DAILY 360 tablet 1 Active lisinopril 5 MG tablet TAKE 1 TABLET BY MOUTH EVERY DAY 90 tablet Active omeprazole (PriLOSEC) [address] capsule TAKE 1 CAPSULE BY MOUTH EVERY DAY 90 capsule 3 Active Pentips Generic Pen [place] 32G X 4 MM misc USE WITH LEVEMIR TWICE DAILY 100 each 2 Active TRUEplus Lancets 33G miscIndications:Type 2 diabetes mellitus with hyperglycemia (CMS/HCC) USE DIRECTED TO TEST BLOOD SUGAR FOUR TIMES DAILY 100 each 11 Active TRUEplus Lancets 33G miscIndications:Type 2 diabetes mellitus with hyperglycemia (CMS/HCC) TEST BLOOD SUGAR FOUR TIMES DAILY 100 each 11 024 2024 Discontinued Pentips 32G X 4 MM misc USE WITH levemir TWICE DAILY 100 each 2 024 2024 Discontinued Active Problems Problem Noted Date Diagnosed Date Overweight 08/11/2024 Assessment & Plan (08/11/2024 9:57 AM EST): Discussed re weight reduction options including exercise, life style modifications, diet. Recommended to decrease soda and sugary beverage consumption, increase protein intake with meals (at least 1 portion of protein with each meal) to assist with satiety, increase dietary fiber Recommended at least 150 min/week of moderate intensity exercise. Gait disturbance 12/30/2023 Induration of right breast 08/04/2023 Assessment & Plan (08/04/2023 10:03 AM EST): No significant findings may be related to Gynecomastia. Crude Unit Operator to avoid squeezing or picking on breast If symptoms continue, will be due for the walk up clinic Constipation 05/02/2023 Gastroesophageal reflux disease 05/02/2023 History of colonic polyps 05/02/2023 Encounter for screening for malignant neoplasm o f colon 05/02/2023 Exercise counseling 03/21/2023 Problem with medical care compliance 03/21/2023 Assessment & Plan (03/21/2023 12:13 PM EDT): Pt with longstanding difficulty with complaince with appointments and some medications, unclear if he forgets Will refer to CM to support him to comply with his appointments Dietary counseling 03/21/2023 Diabetes mellitus due to und erlying condition with hyperglycemia, with long-term current use of insulin 02/12/2023 Assessment & Plan (08/04/2023 10:01 AM EST): Uncontrolled, patient is tolerating medications well, but is not compliant with insulin dose. Reminded him to use Tresiba in the morning, restart with 10 units and titrate up to 15 units over two weeks Continue Tresiba 66 units 2PM Assessment & Plan (05/02/2023 10:19 AM EDT): A1c improving, not yet at goal Inc jardiance to 25mg daily Cont actos, glipizide, metformin, and tresiba as rx'd Counseled re more frequent low calorie/carb meals. Check fgstk BID Encouraged physical activity as tolerated. FU 3 mos Hyperkalemia 02/11/2023 Other ventricular tachycardia 09/19/2022 Assessment & Plan (08/11/2024 10:00 AM EST): On sae, has a ppt with cardiology on September Assessment & Plan (06/22/2024 10:12 AM EDT): - refer to cardiology for further eval, may need to start on beta bonnie Assessment & Plan (03/24/2024 10:34 AM EDT): - persistent+ LAFB - will order 48 hour holter monitoring to r/o other issues and decide if he should be referred to a ore feeder Assessment & Plan (09/19/2022 11:19 PM EST): EKG with occasional PVCs, patient mainly asymptomatic. RO electrolyte imbalance, anemia? Ongoing infection? Check lytes and correct K if 5.3-5.9, if > 6, the will send to ED. Consider cardiol referral next appt. Iron deficiency anemia 09/19/2022 Assessment & Plan (11/18/2023 2:37 PM EST): R/o GIB vs CRF. Colonoscopy secheduled for December 2023. Ordered labs and will follow up in 6 weeks to review. Assessment & Plan (08/04/2023 9:59 AM EST): Hemoglobin is improved F/u coloscopy on 10/08/23 Assessment & Plan (05/02/2023 10:20 AM EDT): Likely multifactorial from chronic foot ulcer/GIB He has appt w/ GI for colonoscopy FU in 4 mos Assessment & Plan (02/12/2023 12:26 PM EDT): Slowly improving. order Feratin levels, encouraged iron supplementation daily I gave GI referral information so he can reschedule appointment and FU TA Assessment & Plan (09/19/2022 11:08 PM EST): Recent hb is 9. Has hx TA >10y ago, neg on 2013. Refr to GI again ro GIB Start Iron supplemetnation Callosity 08/17/2022 Ulcer of right foot 08/17/2022 Assessment & Plan (08/11/2024 9:56 AM EST): Improved, it has a callus formation, no openings now. Advised to wear DM shoes with inserts and a pad support on the callus. Advised to check feet and callus regularly, watch for ulcers. Keep DM under control. Assessment & Plan (06/22/2024 10:36 AM EDT): - non-healing will continue wound dressing per wound clinic recommendations - advised regarding tight control of DM - no signs of ulcer infection - f/u in 6 weeks Assessment & Plan (12/30/2023 3:24 PM EDT): - is improving, continue calcium alginate dressings by VNA and f/u with wound clinic - refer to vascular surgery - will refer to evaluation of mobility device to help reduce foot pain Tubular adenoma of colon 08/17/2022 Umbilical hernia 08/17/2022 Acute renal failure syndrome 01/28/2019 Amputated toe of left foot 07/31/2016 Peripheral vascular disease 07/31/2016 Assessment & Plan (03/21/2023 12:34 PM EDT): Secondary to DM Has a left plantar ulcer, follow up with Dr. Rowland Counseled regarding tight control of DM, reminded to get labs done Blood in urine 07/06/2012 Diabetic polyneuropathy 02/17/2012 Assessment & Plan (06/22/2024 10:35 AM EDT): - discussed about importance of tight control of DM - continue Gabapentin 300 mg TID - reminded him to reschedule appt with podiatry for foot care, I advised to call [facility] healthcare administrative assistant to help with filling out out the forms - reminded regarding daily foot check - will f/u with DM shoe provider regarding prescription sent 3 months ago Essential hypertension 02/17/2012 Assessment & Plan (03/21/2023 12:15 PM EDT): Stage 1 today Bring BP log at next appointment Continue lisinopril 5mg and check labs Counseled re low salt diet/increase moderate physical activity. Check home BP BIW and prn CP/AVENDAÑO/CEBALLOS Non smoking patient. FU with me in 6 weeks Pure hypercholesterolemia 02/17/2012 Type 2 diabetes mellitus with ulcer 02/17/2012 Assessment & Plan (08/11/2024 9:57 AM EST): Most likely it is improved, refused Ozempic Continue Tresiba 70 u at bedtime + 20 U Qam + Actos + Metformin+ Jardiance same dose Counseled re more frequent low calorie/carb meals. Check fgstk 3x daily Encouraged physical activity as tolerated. FU in 2-3 months. Assessment & Plan (06/22/2024 2:07 PM EDT): - uncontrolled, will increase Tresiba to 90u/d (instead of bid dosing) and fu in 4w. -Patient agreed to start GLP1 if we can arrange for someone to administer injection. I will check with [facility] CM to see if a VNA can go 1x/w for Ozempic 0.25mg (he had previously not tolerated Trulicity). - Continue Metformin, Actos, glipizide and Jardiance same dose. - Strongly encouraged to cut down carb intake, specially root veggies, rice. Assessment & Plan (03/24/2024 2:28 PM EDT): -DM is better controlled. A1c is not at goal yet. No change in medications, continue on Tresiba 20 units + 68 units/ Actos 45/ Jardiance 25/ Glipizide 10 mg BID -Counseled re more frequent low calorie/carb meals. -Check fgstk BID -Encouraged physical activity as tolerated. -Foot ulcer is improving, needs further foot care by pump and blower operator, I will obtain Dr. Anderson's notes from this year. -Rx DM shoes faxed on 11/26/23 and 03/11/24 has NOT been processed by DME provider? We'll call P&O and check on this rx, patient needs new DM shoes and inserts to prevent new ulcer formation, amputations and further morbidity and mortality, unclear if they can process the rx (there is confirmation of receipt in chart) or I will write a new rx if needed. FU in 3 months. Assessment & Plan (12/30/2023 3:23 PM EDT): - having hypoglycemic episodes - Lower Tresiba to 68 units at night and continue 20 units during the daytime - advised to be more compliant with lower calorie diet - no change in medications - stressed importance of getting labs done and f/u in 6 weeks Assessment & Plan (11/18/2023 11:08 AM EST): Type 2 diabetes is still uncontrolled. Pt is not compliant with Insulin. Counseled to use Tresiba 70 units in the morning. He refuses to use any other type of Insulin. He refuses to use Trulicity or any other injectable. Patient declines to be followed up with CDTM clinic, he understands the complications arising from long time uncontrolled Diabetes. Continue glipizide, Metformin and Jardiance and Actos. Declined to be set up for a CGM device, he does not want to be fingerstick checked that often. Counseled re more frequent low calorie/carb meals. Encouraged physical activity as tolerated. He has a new ulcer on the right foot, dressing done by the nurse. Will continue to follow up by wound clinic. Follow up with me in 6 weeks. Assessment & Plan (11/18/2023 10:19 AM EST): >>ASSESSMENT AND PLAN FOR ULCER OF TOE DUE TO TYPE 2 DIABETES MELLITUS (CMS/HCC) WRITTEN ON 05/02/2023 10:21 AM BY CORNELIUS Taylor Counseled control DM FU Dr Solorio/podiatry and wound clinic prn Assessment & Plan (08/04/2023 9:58 AM EST): New ulcer on left great toe tip Ulcer was cleaned and dried with antibiotic ointment, patient to continue daily dressings and checkups if not improved within a week he will make an appt at the walking center or call the clinic. TD is up to date f/u with me in 6 weeks Assessment & Plan (11/18/2023 10:19 AM EST): >>ASSESSMENT AND PLAN FOR TYPE 2 DIABETES MELLITUS WITH ULCER (CMS/HCC) WRITTEN ON 03/21/2023 12:34 PM BY JUSTEN DAMIAN Uncontrolled, improving with increased dose of tresiba continue tresiba, actos, and metformin, and glipizide same dose (refuses to use novolog) Add Jardiance 10mg and fu in 6 weeks Reminded to get labs done prior to next appointment Counseled re more frequent low calorie/carb meals. Encouraged physical activity as tolerated. Has an appointment with opthalmology on 05/06 >>ASSESSMENT AND PLAN FOR ULCER OF TOE DUE TO TYPE 2 DIABETES MELLITUS (CMS/HCC) WRITTEN ON 03/21/2023 12:14 PM BY JUSTEN DAMIAN On left foot, dressings by VNA qOD FU with Dr. Rowland will probably require amuptation counseled regarding tight contol of DM Assessment & Plan (11/18/2023 10:19 AM EST): >>ASSESSMENT AND PLAN FOR TYPE 2 DIABETES MELLITUS WITH ULCER (CMS/HCC) WRITTEN ON 02/12/2023 12:28 PM BY JUSTEN DAMIAN Uncontrolled. A1C is improving Add ten units of tresiba in the morning, continue 66 at night Continue metformin 1000BID + Glipizide + actose Did not tolerate trulicity and noncompliant with humalog Discussed importance of endocrinology evaluation that may facilitate insulin administration through insulin pump but he declines at this time Counseled re more frequent low calorie/carb meals. Encouraged physical activity as tolerated. FU with me in 4 weeks >>ASSESSMENT AND PLAN FOR ULCER OF TOE DUE TO TYPE 2 DIABETES MELLITUS (CMS/HCC) WRITTEN ON 02/12/2023 12:26 PM BY JUSTEN DAMIAN On left foot, nonhealing for over 6 months recommended tight control of DM, see above close follow up with wound clinic orthopedic fu for left foot bone remodeling pending Assessment & Plan (11/18/2023 10:19 AM EST): >>ASSESSMENT AND PLAN FOR TYPE 2 DIABETES MELLITUS WITH ULCER (CMS/HCC) WRITTEN ON 09/19/2022 11:16 PM BY ANIA ACEVEDO MD DM is uncontrolled, A1c is improving. D/w him re importance of meal compliance, decrease snack size, specially if high calorie/carbs Increase Levemir to 20u qam, continue 65 qpm FU in 4w >>ASSESSMENT AND PLAN FOR ULCER OF TOE DUE TO TYPE 2 DIABETES MELLITUS (CMS/HCC) WRITTEN ON 09/19/2022 11:02 PM BY ANIA ACEVEDO MD On left toes, improving. Continue calcium alginate dressings by VNA every other day. FU closely by wound clinic. Counseled the importance of tight DM control Resolved Problems Problem Noted Date Diagnosed Date Resolved Date Subacute osteomyelitis of right foot 01/28/2019 03/21/2023 Osteomyelitis of ankle and foot 02/17/2012 03/21/2023 Osteomyelitis 02/17/2012 03/21/2023 Encounters Date Type Department Care Team Description 11/14/2024 Refill [facility] [address] [place], [place] [phone] Ania Acevedo MD Type 2 diabetes mellitus with hyperglycemia ([facility]) 11/09/2024 Refill [facility] [address] [place] [address] Ania Acevedo MD 10/03/2024 Refill [facility] [address] [place] [address] Ania Acevedo MD 09/16/2024 Refill [facility] [address] [place], [place] [phone] Ania Acevedo MD 08/31/2024 Telephone [facility] [address] [place], [place] [phone] Ania Acevedo MD October recall from Last 3 Months Immunizations Name Administration Dates Next Due Hep B, adult 06/11/2012,03/17/2007,02/11/2007 Influenza High-dose Quadriva lent Preservative Free 08/04/2023,06/28/2021 Influenza injectable quadriv alent IIV4 with preservative 07/23/2016 Influenza injectable quadriv alent preservative free 08/01/2022 Influenza, High Dose Seasona l, Preservative Free 06/22/2024,08/02/2019,06/18/2018,06/06 Influenza, IIV3, injectable 07/12/2014, 1 Influenza, Split (incl. antolin fied surface antigen) 08/02/2013,06/11/2012 Moderna Covid-19 Vaccine 12+ 10/05/2021,12/20/19 21,11/21/2020 Pfizer Covid-19 Vaccine 12+ 08/11/2024, Pneumococcal Conjugate PCV 13 02/09/2016 Pneumococcal Polysaccharide PPSV23 08/03/2021, RSV Bivalent 02/06/2024 TD (adult), 2 Lf tetanus tox oid, preservative free, adsorbed 02/11/2007 Tdap 07/31/2016 Zoster, Recombinant 02/06/2024,11/28/2023 Zoster, live 02/09/2016 Social History Tobacco Use Types Packs/Day Years Used Date Smoking Tobacco: Never Smokeless Tobacco: Never Tobacco Cessation:Counseling Given: Not Answered Alcohol Use Standard Drinks/Week Comments Not Currently [...] Date Recorded Patient Health Questionnaire-2 Score 0 03/24/2024 Sex and Gender Information Value Date Recorded Sex Assigned at Male 07/15/2022 10:18 AM EDT Legal Sex Male 10:18 AM EDT Gender Identity Male 07/15/2022 10:18 AM EDT Sexual Orientation Straight 07/15/2022 10 :18 AM EDT Last Filed Vital Signs Vital Sign Reading Time Taken Comments Blood Pressure 135/83 08/11/2024 9:18 AM EST Pulse 118 08/11/2024 9:18 AM EST Temperature 35.3 ??C (95.6 ??F) 08/11/2024 9:18 AM ES T Respiratory Rate 16 06/22/2024 9:08 AM EDT Oxygen Saturation 100% 06/22/2024 10:08 AM EDT Inhaled Oxygen Concentration - - Weight 89 kg (196 lb 2 oz) 08/11/2024 9:18 AM ES T Height 177.8 cm (5' 10 ) 08/11/2024 9:18 AM EST Body Mass Index 28.14 08/11/2024 9:18 AM EST Plan of Treatment Upcoming Encounters Date Type Department Care Team (Late st Contact Info) Description 01/14/2025 9:00 AM EDT Office Visit [facility] [address] [place] [address] Ania Acevedo MD [address] [place] [address] Health Maintenance Due Date Last Done Comments CT Colonography 1949 Colonoscopy 1949 Colorectal Cancer Screening 1949 FIT DNA/Cologuard 1949 FIT 1949 FOBT 1949 Sigmoidoscopy 1949 Eye Exam 1959 Alcohol/Substance Use Screening 1961 Hepatitis C Screening 1967 SDOH Screening 02/13/2024 02/12/2023 Lipid Panel 04/28/2024 04/28/2023, 02/27/2021 Diabetes: Hemoglobin A1C 09/22/2024 024, 03/24/2024, 11/18/2023, Additional history exists Diabetes: Urine Protein Screening 12/29/2024 12/30/2023, 04/28/2023, 02/27/2021 Depression Screening 03/24/2025 03/24/2024, 03/24/20 24 Diabetes: Foot Exam 08/11/2025 08/11/2024, 08/11/2024, 08/11/2024, Additional history exists Tobacco Screening 08/11/2025 08/11/2024 DTaP/Tdap/Td Vaccines (2 - Td or Tdap) 07/31/2026 07/31/2016, 02/11/2007 Hepatitis B Vaccines Completed 06/11/2012, 03/17/2007, 02/11/2007 Pneumococcal Vaccine: 50+ Years Completed 08/03/2021, 02/09/2016, 08/27/2006 RSV Patients and Patients Aged 60 years or older Completed 02/06/2024 Zoster Vaccines Completed 02/06/2024, 11/13, 02/09/2016 Influenza Vaccine Completed 06/22/2024, , 08/01/2022, Additional history exists COVID-19 Vaccine Completed 08/11/2024, 01/2024, 08/01/2022, Additional history exists HIB Vaccines Aged Out No longer eligi ble based on patient's age to complete this topic HPV Vaccines Aged Out No longer eligi ble based on patient's age to complete this topic Hepatitis A Vaccines Aged Out No long er eligible based on patient's age to complete this topic IPV Vaccines Aged Out No longer eligi ble based on patient's age to complete this topic Meningococcal Vaccine Aged Out No jeri kevin eligible based on patient's age to complete this topic RSV under 20 months Aged Out No longe r eligible based on patient's age to complete this topic Rotavirus Vaccines Aged Out No longer eligible based on patient's age to complete this topic Procedures Procedure Name Priority Date/Time Associated Diagnosis Comments POCT GLYCATED HEMOGLOBIN, TOTAL Routine 06/22/2024 9:24 AM EDT 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) ALBUMIN, RANDOM URINE W/CREATININE Routine 12/30/2023 2:31 PM EDT 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) LIPID PANEL WITH REFLEX TO DIRECT LDL Routine 04/28/2023 8:58 AM EDT 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) from Last 3 Months or Most Recently Relevant to Health Maintenance Results * (ABNORMAL) POCT HGB A1C (06/22/2024 9:24 AM EDT) Hemoglobin A1C 9.1(A) 4.0 - 6.0 % QC Media Lot # [id number] Lot# Expiration Date ,[id number] Blood 06/22/2024 9:24 AM EDT Ania Acevedo MD POINT OF CARE TEST ENTER /EDIT ORDERABLES Final Result * (ABNORMAL) Albumin, Random Urine W/Creatinine (12/30/2023 2:31 PM EDT) Creatinine, Urine 59.02 mg/dL [facility] Microalbumin Urine 29.0 mg/L H [facility] Microalbum Creatinine Ratio Ur 49.1(H) <30 ug/mg cr [facility] Comment:Albumin/Creatinine R atio Reference Ranges: Normal: < 30 ug/mg creatinine Microalbuminuria: 30 - 300 ug/mg creatinineClinical Albuminuria: > 300 ug/mg creatinine Urine (Urine, Random) 12/30/2023 2:31 PM EDT 12/30/2023 3:54 PM EDT us Ania Acevedo MD LAB URINE ORDERABLES Fin al Result [facility] [address] [place] [phone] * Lipid Panel with Reflex to Direct LDL (04/28/2023 8:58 AM EDT) Triglycerides 266 mg/dL [facility] Comment:Desirable Triglyceri de: less than 150 mg/dLBorderline High Triglyceride 150-199 mg/dLHigh Triglyceride: 200-499 mg/dLVery High Triglyceride: greater than or equal to 5OO mg/dL Cholesterol 154 mg/dL [facility] Comment:Desirable Cholestero l: less than 200 mg/dLBorderline High Cholesterol: 200-239 mg/dLHigh Cholesterol: greater than 239 mg/dL LDL Cholesterol Calculated 67 mg/dl [facility] Comment:Desirable LDL: less than 100 mg/dLNear Optimal/Above Optimal LDL: 110- 129 mg/dLBorderline High LDL: 130-159 mg/dLHigh LDL: 160-189 mg/dLVery High LDL: greater than or equal to 190 mg/dL HDL Cholesterol 34 mg/dL [facility] Comment:Desirable HDL: great er than 40 mg/dL Note: This HDL assay may give artificially low results in patients with liver disease. 04/28/2023 8:58 AM EDT 04/28/2023 11:39 AM EDT Ania Acevedo MD LAB BLOOD ORDERABLES Fin al Result [facility] [address] [place] [address] [phone] from Last 3 Months or Most Recently Relevant to Health Maintenance Insurance [facility] Care Teams Supervisor Network Control Operators Relationship Specialty Start Date End Date Ania Acevedo MD [address] [place] [phone] PCP - General Family Medicine 11/20/16 [place] 06/28/24
--- OUTSIDE RECORDS SUMMARY | 2024-11-27 08:40 | XMS_ITS | Encounter Summary ---
Author Organization [employer] Address [address] [facility] 7t [place] [address] Care Team Providers Care Scrubbing Machine Operator Name Role Phone Ania Ballesteros MD Primary Care Provider + Encounter Details Date Type Department Care Team (Late st Contact Info) Description 02/27/2023 Abstract [facility] [address] [place] [phone] Ania Ballesteros MD [address] [place] [phone] Social History Tobacco Use Types Packs/Day Years [...] 01/14/2025 9:00 AM EDT Office Visit [facility] [address] [place] [phone] Ania Ballesteros MD [address] [place] [address] documented as of this encounter Visit Diagnoses Not on filedocumented in this encounter Care Teams Scrubbing Machine Operator Relationship Specialty Start Date End Date Ania Ballesteros MD [address] [place], [place] [phone] PCP - General Family Medicine 11/20/16 [employer] 06/28/24 documented as of this encounter
--- OUTSIDE RECORDS SUMMARY | 2024-11-27 08:40 | XMS_ITS | Encounter Summary ---
Author Organization [employer] Address [address] [facility] 7t [place] [address] Care Team Providers Care Line And Frame Poler Name Role Phone Ania Ballesteros MD Primary Care Provider + Reason for Visit * Reason Comments Med Refill Encounter Details Date Type Department Care Team ([facility] st Contact Info) Description 06/01/2024 Refill [facility] [address] [place], [place] [phone] Ania Ballesteros MD [address] [place], [place] [phone] Social History Tobacco Use Types Packs/Day Years [...] Description 01/14/2025 9:00 AM EDT Office Visit [facility] [address] [place] [address] Ania Ballesteros MD [address] [place] [phone] documented as of this encounter Visit Diagnoses Not on filedocumented in this encounter Care Teams Line And Frame Poler Relationship Specialty Start Date End Date Ania Ballesteros MD [address] [place] [phone] PCP - General Family Medicine 11/20/16 [employer] 06/28/24 documented as of this encounter
--- OUTSIDE RECORDS SUMMARY | 2024-11-27 08:40 | XMS_ITS | Encounter Summary ---
Author Organization [employer] Address [address] [facility] 7t [place] [address] Care Team Providers Care Superintendent Colliery Name Role Phone Ania Ballesteros MD Primary Care Provider + Reason for Visit * Reason Comments Med Refill Encounter Details Date Type Department Care Team ([facility] st Contact Info) Description 06/29/2023 Refill [facility] [address] [place], [place] [phone] Ania Ballesteros MD 230 [place], [place] [phone] Social History Tobacco Use Types Packs/Day Years [...] Description 01/14/2025 9:00 AM EDT Office Visit [facility] [address] [place] [address] Ania Ballesteros MD [address] [place] [address] documented as of this encounter Visit Diagnoses Not on filedocumented in this encounter Care Teams Superintendent Colliery Relationship Specialty Start Date End Date Ania Ballesteros MD [address] [place] [phone] PCP - General Family Medicine 11/20/16 [employer] 06/28/24 documented as of this encounter
--- OUTSIDE RECORDS SUMMARY | 2024-11-27 08:40 | XMS_ITS ---
Author Organization [facility] Address [address] [place] [phone] Care Team Providers Care Survey Cad Technician Name Role Phone Lesli LESTER, Ania Primary Care Provider Unavail Catarino Sanchez Unavailable [phone] REASON FOR VISIT scripts Medications Medication SIG (Take, Route, Frequency, Duration) Notes Start Date End Date Status Dulcolax (colon prep) 5 MG take at 3:00 p.m and 7:00p.m. Orally two tablets twice a day for one day for 1 day 12/24/2023 Active MiraLax (colon prep) 17 GM/SCOOP 1 238 Gm bottle mixed with Gatorade or Crystal Light Orally begin at 5:00 p.m. the day before the procedure for 1 day 12/24/2023 Active Encounters Encounter Location Date Provider Diagnosis [facility] [address] [address] 03/24/2024 Catarino Cordova Plan Of Treatment Medication Medication Name Sig Start Date Stop Date Notes Dulcolax (colon prep) 5 MG take at 3:00 p.m and 7:00p.m. Orally two tablets twice a day for one day for 1 day 12/24/2023 MiraLax (colon prep) 17 GM/SCOOP 1 238 Gm bottle mixed with Gatorade or Crystal Light Orally begin at 5:00 p.m. the day before the procedure for 1 day 12/24/2023 Progress Notes * LUI SIMON RDOB: (73 yo M)Acc No.[id number]:03/24/2024 Patient:?SHELBY SIMON :1950???Age:73 Y???Sex:Male Address:[address] [place] [address] * Refills? Refill MiraLax (colon prep) Powder, 17 GM/SCOOP, Orally, 1, 1 238 Gm bottle mixed with Gatorade or Crystal Light, begin at 5:00 p.m. the day before the procedure, 1 day, Refills=0 Refill Dulcolax (colon prep) Tablet Delayed Release, 5 MG, Orally, 4, take at 3:00 p.m and 7:00p.m., two tablets twice a day for one day, 1 day, Refills=0 * true * Date:? Generated for Isi bunch/Lilly/Odalisitting on:?11/27/2024 08:40 AM EDT
--- OUTSIDE RECORDS SUMMARY | 2024-11-27 08:40 | XMS_ITS | Encounter Summary ---
Author Organization [employer] Address [address] [facility] 7t [place] [address] Care Team Providers Care Epic Interface Analyst Name Role Phone Ania Ballesteros MD Primary Care Provider + Reason for Visit * Reason Comments Med Refill Encounter Details Date Type Department Care Team (Late st Contact Info) Description 11/14/2024 Refill [facility] [address] [place], [place] [phone] Ania Ballesteros MD [address] [place], [place] [phone] Type 2 diabetes mellitus with hyperglycemia ([facility]/HCC) Social History Tobacco Use Types Packs/Day Years [...] t he electric, gas, oil or water IP Street threatened to shut off services in your [...] Description 01/14/2025 9:00 AM EDT Office Visit [facility] [address] [place] [address] Ania Ballesteros MD [address] [place] [address] documented as of this encounter Visit Diagnoses Diagnosis Type 2 diabetes mellitus with hyperglycemia (CMS/HCC) documented in this encounter Care Teams Epic Interface Analyst Relationship Specialty Start Date End Date Ania Ballesteros MD [address] [place] [phone] PCP - General Family Medicine 11/20/16 [email or web address] 06/28/24 documented as of this encounter
--- OUTSIDE RECORDS SUMMARY | 2024-11-27 08:40 | XMS_ITS | Encounter Summary ---
Author Organization [employer] Address [address] [facility] 7t [place] [address] Care Team Providers Care Nuclear Physician Name Role Phone Ania Ballesteros MD Primary Care Provider + Encounter Details Date Type Department Care Team (Late Contact Info) Description 11/28/2022 Orders Only [facility] [address] [place], [place] [phone] Trini Sun LPN Social History Tobacco Use [...] Description 01/14/2025 9:00 AM EDT Office Visit [facility] [address] [place] [address] Ania Ballesteros MD [address] [place], [place] [phone] documented as of this encounter Visit Diagnoses Not on filedocumented in this encounter Care Teams Nuclear Physician Relationship Specialty Start Date End Date Ania Ballesteros MD [address] [place], [place] [phone] PCP - General Family Medicine 11/20/16 [employer] 06/28/24 documented as of this encounter
--- OUTSIDE RECORDS SUMMARY | 2024-11-27 08:40 | XMS_ITS | Encounter Summary ---
Author Organization [employer] Address [address] [facility] 7t [place] [address] Care Team Providers Care Coordinator Of Library Services Name Role Phone Ania Ballesteros MD Primary Care Provider + Reason for Visit * Reason Comments Med Refill Encounter Details Date Type Department Care Team ([facility] st Contact Info) Description 11/09/2024 Refill [facility] [address] [place], [place] [phone] Ania Ballesteros MD [address] [place], [place] [phone] Social History Tobacco Use Types Packs/Day Years [...] Description 01/14/2025 9:00 AM EDT Office Visit [facility] [address] [place] [address] Ania Ballesteros MD [address] [place] [address] documented as of this encounter Visit Diagnoses Not on filedocumented in this encounter Care Teams Coordinator Of Library Services Relationship Specialty Start Date End Date Ania Ballesteros MD [address] [place] [address] PCP - General Family Medicine 11/20/16 [employer] 06/28/24 documented as of this encounter
--- OUTSIDE RECORDS SUMMARY | 2024-11-27 08:40 | XMS_ITS ---
Author Organization [facility] Address [address] [place] [address] Care Team Providers Care Looping Inspector Name Role Phone Ania Ballesteros MD Primary Care Provider Unavail Catarino Sanchez Unavailable [phone] REASON FOR VISIT colon screening,gerd Problems Problem Type SNOMED Code ICD Code Onset Dates Problem Status W/U Status Risk Notes Problem Iron deficiency anemia (04679476) Iron deficiency anemia (D50.9) Active confirmed Problem History of polyp of colon (situation) (964726074) Personal history of colonic polyps (Z86.010) Active confirmed Problem Diverticular disease of colon (793276389) Diverticulosis of large intestine without perforation or abscess without bleeding (K57.30) Active confirmed Problem Gastroesophageal reflux disease (209697503) Gastroesophageal reflux disease (K21.9) Active confirmed Encounters Encounter Location Date Provider Diagnosis [facility] [place] [address] [place] [phone] 04/02/2024 Catarino Cordova Iron deficiency anem ia [...] * LUI SIMON RDOB: (74 yo M)Acc No.[id number]:04/02/2024 EGD and COL/MAC Patient:?SHELBY SIMON Provider:?Catarino Cordova MD :1950???Age:73 Y???Sex:Male Pierce e:04/02/2024 Address:[address] [place], [place] [id number] Pcp:Ania Ballesteros MD Subjective: * Chief Complaints: * ???1. Colon screening,gerd. * Medical History:? Objective: * Vitals:? Assessment: * Assessment: 1.?Iron deficiency anemia - D50.9 (Primary)???2.?Personal history of colonic polyps - Z86.010???3.?Diverticulosis of large intestine without perforation or abscess without bleeding - K57.30???4.?Other hemorrhoids - K64.8?? 5.?Hiatal hernia - K44.9???6.?Gastroesophageal reflux disease - K21.9??? Plan: * Treatment: * Procedure Codes:?91833 DIAGN OSTIC COLONOSCOPY, 57778 UPPER GI ENDOSCOPY, BIOPSY * Preventive Medicine:? ??OREN Screening:?Colonoscopy?Was interval between colonoscopies three years or more??Yes,?Was last colonoscopy performed three or more years ago??Yes.? * * The named appointment provid er may or may not be the originator of this progress note, and it is not deemed complete until electronically signed by the appointment provider. Sign off status: Pending * Provider:?Catarino Cordova MD Date:? 024 Generated for Navyai alivia/Lilly/eTransmitting on:?11/27/2024 08:39 AM EDT
--- OUTSIDE RECORDS SUMMARY | 2024-11-27 08:40 | XMS_ITS | Encounter Summary ---
Author Organization [employer] [facility] Address [address] [facility] 7t [place] [address] Care Team Providers Care Ornamental Metal Erector Name Role Phone Ania Ballesteros MD Primary Care Provider + Encounter Details Date Type Department Care Team (Late Contact Info) Description 10/14/2022 Orders Only [facility] [address] [place] [phone] Estefany Winslow LPN Social History Tobacco Use Types Packs/Day [...] suspected to have Coronavirus/COVID-19? No / Unsure 09/19/2022 10:58 AM EST documented as of this encounter Plan of Treatment Upcoming Encounters Date Type Department Care Team (Late st Contact Info) Description 01/14/2025 9:00 AM EDT Office Visit [facility] [address] [place] [address] [phone] Ania Ballesteros MD 230 [place], [place] [phone] documented as of this encounter Visit Diagnoses Not on filedocumented in this encounter Care Teams Ornamental Metal Erector Relationship Specialty Start Date End Date Ania Ballesteros MD [address] [place] [address] PCP - General Family Medicine 11/20/16 [employer] 06/28/24 documented as of this encounter
--- NOTE | 2024-11-27 09:02 | ED_ITS ---
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 He reports his pain 1st started on the right side and then 2 days later started on the left side as well. His son got him debrox drops from [facility] which he has been using without improvement. He reports small amount of yellowish drainage from the left ear. His hearing is slightly decreased from his baseline. He denies any URI symptoms. No fevers. No headaches. MD Complaint: ear pain and ear discharge Location: bilateral Duration: constant Severity: moderate Relieving factors: nothing Exacerbating factors: position of head and palpation Discharge from ear: yes - purulent Associated symptoms ear: decreased hearing and external ear tenderness Treatment prior to arrival: eardrops Related Data Home Medications ?Medication ?Instructions ?Recorded ?Confirmed aspirin 81 mg tablet,delayed 81 mg PO DAILY 03/16/21 03/31/24 release bisacodyl 5 mg tablet 10 mg PO DAILY PRN Constipation 03/16/21 03/31/24 blood sugar diagnostic #10 ea 03/16/21 gabapentin 300 mg capsule 300 mg PO DAILY 03/16/21 03/31/24 lancets 28 gauge (FreeStyle #100 ea 03/16/21 Lancets) metformin 500 mg tablet 500 mg PO DAILY 03/16/21 03/31/24 omeprazole 20 mg delayed 20 mg PO DAILY@0630 03/16/21 03/31/24 release,disintegrating tablet pen needle, diabetic 31 gauge x #50 ea 03/16/2111/28 (1st Tier Unifine Pentips) pen needle, diabetic 32 gauge x #50 ea 03/16/21 (BD Susannah 2nd Gen Pen Needle) glipizide 10 mg tablet, extended 1 tab PO DAILY 08/21/21 03/31/24 release 24 hr lisinopril 5 mg tablet 1 tab PO DAILY 09/01/22 03/31/24 insulin degludec 200 unit/mL (3 68 unit subcut BEDTIME 10/06/23 03/31/24 mL) subcutaneous pen (Tresiba FlexTouch U-200 insulin) empagliflozin 25 mg tablet 25 mg PO QAM 01/05/24 03/31/24 (Jardiance) simvastatin 40 mg tablet 40 mg PO BEDTIME 01/05/24 03/31/24 Previous Rx's ?Medication ?Instructions ?Recorded amoxicillin 875 mg-potassium 1 tab PO BID #20 tabs 11/27/24 clavulanate 125 mg tablet ofloxacin 0.3 % ear drops 10 drp otic (ears) DAILY 7 days 11/27/24 #10 mL Allergies Allergy/AdvReac Type Severity Reaction Status Date / Time No Known Allergies Allergy Verified 11/27/24 08:29 Review of Systems Review of Systems: Yes all other systems are reviewed and are negative [facility] Past Medical History Medical History GERD (gastroesophageal reflux disease) Foot abscess Diabetic foot ulcer History of acute renal failure Diabetic polyneuropathy Peripheral vascular disease Tubular adenoma of colon Osteomyelitis Hyperlipidemia Hypertension Diabetes mellitus Surgical History H/O colonoscopy History of esophagogastroduodenoscopy (EGD) History of ventral hernia repair Hx of eye surgery History of right inguinal hernia repair 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 Social History Social History Household Members: None Housing: Apartment Alcohol intake: never Patient Tobacco Use Status: Never used Tobacco Advance Directives: No Advance Directives Information Provided: No Advance Directives Date on File: 08/22/21 Do you have a plan to hurt others: No Plan service: No Current occupational status: retired Physical Exam 2 Vital Signs: Vital Signs: Last Vital Signs Temp 98.4 F 11/27/24 08:28 Pulse 114 H 11/27/24 08:28 Resp 18 11/27/24 08:28 BP 146/90 H 11/27/24 08:28 Pulse Ox 99 11/27/24 08:28 O2 Del Method Room Air 11/27/24 08:28 BMI result Body Mass Index 27.4 Appearance: Alert. Oriented X3. No acute distress. Head: normocephalic, atraumatic. Eyes: Pupils equal, round and reactive to light. ENT: Pharynx normal. No tonsillar swelling or exudate. no trismus. no external ear tenderness. mild pain with pinna pull on the left. bilateral EACs with swelling, purulent yellow drainage. TM on the left is yellowing, erythematous peripherally, no bulging, no perforation. Neck: Normal inspection. Neck supple. no cervical chain lymphadenopathy. no ma stoid redness or tenderness bilaterally. CVS: Normal heart rate and rhythm. Pulses normal. Respiratory: No respiratory distress. Breath sounds normal. Skin: Skin warm and dry. Normal skin color. Normal skin turgor. No rashes. Extremities: No lower extremity edema. No joint swelling. Neuro/psych: Oriented X 3. grossly normal, nonfocal. Normal speech and cognition. Medical Decision Making Medical Decision Making MDM Narrative: 74-year-old diabetic male presents to the ER for evaluation of bilateral ear pain. Has been using [id number] Debrox drops. On examination he has bilateral otitis externa with swelling and purulent material. Visualize TM on the left appears to be infected. No perforation. Hearing is grossly normal. No evidence of mastoiditis on examination. Will prescribe both topical and oral antibiotics. Patient counseled on diagnosis, management, return precautions and importance of tight glucose control. Stable for discharge home. Encouraged follow-up with his primary care doctor next week to ensure resolution. Stable for DC Differential Diagnosis Differential Diagnoses: The differential diagnosis associated with the presentation includes otitis media, otitis external, eustachian tube dysfunction, foreign body, impacted cerumen, ruptured tympanic membrane, bullous myringitis Independent Historian Clinical information obtained from an independent historian. History obtained from or confirmed by: EMS External Record Review External record reviewed: Outpatient record, Prior outpatient labs and Prior outpatient radiology Tests considered The following testing was considered but not selected: CT scan of the mastoid was considered however he does not have any mastoid tenderness on examination Prescription Management I considered prescription management with: Pain Medication and Antibiotic Chronic Conditions Patient?s care impacted by: Diabetes Critical Care Time Critical Care Time Critical Care Time: No Discharge Plan Discharge Clinical Impression: Otitis externa Qualifiers: Otitis externa type: diffuse Chronicity: acute Laterality: bilateral Qualified Code(s): H60.313 - Diffuse otitis externa, bilateral Otitis media Qualifiers: Otitis media type: unspecified Chronicity: acute Qualified Code(s): H66.90 - Otitis media, unspecified, unspecified ear Patient Disposition: Home, Self-Care Instructions: Otitis Externa (DC), Ear Infection (ED) Additional Instructions: You have both inner and outer ear infections. Use the prescribed antibiotic drops once a day for the next 1 week. Take the prescribed antibiotics as directed, complete the entire course and do not miss any doses Do not get water in your ears. Stop the [facility] ear drops Keep you glucose under tight control Take motrin and tylenol as needed for pain If you develop new or worsening symptoms call 911 or come back to the ER for further evaluation. Prescriptions: New ofloxacin 0.3 % drops 10 drp otic (ears) DAILY 7 Days Qty: 10 0RF amoxicillin-pot clavulanate 875-125 mg tablet 1 tab PO BID Qty: 20 0RF No Action glipizide 10 mg tablet extended release 24hr 1 tab PO DAILY lisinopril 5 mg tablet 1 tab PO DAILY Patient Comments: took this am with sip of water insulin degludec [Tresiba FlexTouch U-200] 200 unit/mL (3 mL) insulin pen 68 unit subcut BEDTIME simvastatin 40 mg Tablet 40 mg PO BEDTIME Jardiance 25 mg tablet 25 mg PO QAM Patient Comments: took in evening bisacodyl 5 mg tablet 10 mg PO DAILY PRN (Reason: Constipation) omeprazole 20 mg tablet,disintegrat, delay rel 20 mg PO DAILY@0630 gabapentin 300 mg capsule 300 mg PO DAILY aspirin 81 mg tablet,delayed release (DR/EC) 81 mg PO DAILY metformin 500 mg tablet 500 mg PO DAILY (DME) pen needle, diabetic [1st Tier Unifine Pentips] 31 gauge x 3/16 needle See Rx Instructions .ROUTE .MEDSUPPLY Qty: 50 Rx Instructions: As directed (DME) blood sugar diagnostic Strip See Rx Instructions .ROUTE .MEDSUPPLY Qty: 10 Rx Instructions: As directed (DME) lancets [FreeStyle Lancets] 28 gauge misc See Rx Instructions .ROUTE .MEDSUPPLY Qty: 100 Rx Instructions: As directed (DME) pen needle, diabetic [BD Susannah 2nd Gen Pen Needle] 32 gauge x 5/32 needle See Rx Instructions .ROUTE .MEDSUPPLY Qty: 50 Rx Instructions: As directed Referrals: Ania Ballesteros MD [Primary Care Provider] - Print Language: Martiniquais
[2024-11-27 09:42] VITALS: BP 146/90; PULSE 114; RESP 18; TEMP 36.9; O2SAT 99
== END 2024-11-27 09:42 | disposition home or self-care (01) ==
PROVIDERS: Emergency Provider Emergency Medicine; PCP Internal Medicine
DX: H60.313 Diffuse otitis externa, bilateral (principal); H66.92 Otitis media, unspecified, left ear; H92.03 Otalgia, bilateral; E11.9 Type 2 diabetes mellitus without complications; I10 Essential (primary) hypertension; E78.5 Hyperlipidemia, unspecified; Z79.82 Long term (current) use of aspirin; Z79.84 Long term (current) use of oral hypoglycemic drugs; Z79.899 Other long term (current) drug therapy; Z79.4 Long term (current) use of insulin; Z79.02 Long term (current) use of antithrombotics/antiplatelets
CPT/HCPCS: 99283; 99284

== ENCOUNTER 2024-12-11 19:13 | Emergency (ER) | payer OTHER, SELFPAY ==
--- NOTE | ~2024-12-11 | XR_ITS ---
CLINICAL HISTORY: infection? 3 view right foot Comparison: None Findings: No fractures or dislocations. Status post amputation of the toes. Irregularity of the 1st and 2nd distal metatarsal likely to be postsurgical. No aggressive osseous lesions No ankle effusion. There is soft tissue edema. Calcaneal enthesophytes. No radiopaque foreign body. IMPRESSION: No radiographic evidence of osteomyelitis. This document has been electronically signed by: Sandra Metz MD on 12/11/2024 20:45:36
[2024-12-11 19:22] VITALS: BP 130/75; BP 137/69; PULSE 105; PULSE 110; RESP 16; TEMP 36.7; O2SAT 96; O2SAT 98; BMI 28.4
--- NOTE | 2024-12-11 19:22 | ED_ITS ---
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 Patient states he has visiting nursing coming to the home to assess the foot, they were concerned for new infection. Patient denies foot pain or fever. There was no drainage from the chronic ulcer. Related Data Home Medications ?Medication ?Instructions ?Recorded ?Confirmed aspirin 81 mg tablet,delayed 81 mg PO DAILY 03/16/21 03/31/24 release bisacodyl 5 mg tablet 10 mg PO DAILY PRN Constipation 03/16/21 03/31/24 blood sugar diagnostic #10 ea 03/16/21 gabapentin 300 mg capsule 300 mg PO DAILY 03/16/21 03/31/24 lancets 28 gauge (FreeStyle #100 ea 03/16/21 Lancets) metformin 500 mg tablet 500 mg PO DAILY 03/16/21 03/31/24 omeprazole 20 mg delayed 20 mg PO DAILY@0630 03/16/21 03/31/24 release,disintegrating tablet pen needle, diabetic 31 gauge x #50 ea 03/16/21 3/16 (1st Tier Unifine Pentips) pen needle, diabetic 32 gauge x #50 ea 03/16/21/ (BD Susannah 2nd Gen Pen Needle) glipizide 10 mg tablet, extended 1 tab PO DAILY 08/21/21 03/31/24 release 24 hr lisinopril 5 mg tablet 1 tab PO DAILY 09/01/22 03/31/24 insulin degludec 200 unit/mL (3 68 unit subcut BEDTIME 10/06/23 03/31/24 mL) subcutaneous pen (Tresiba FlexTouch U-200 insulin) empagliflozin 25 mg tablet 25 mg PO QAM 01/05/24 03/31/24 (Jardiance) simvastatin 40 mg tablet 40 mg PO BEDTIME 01/05/24 03/31/24 Previous Rx's ?Medication ?Instructions ?Recorded amoxicillin 875 mg-potassium 1 tab PO BID #20 tabs 11/27/24 clavulanate 125 mg tablet ofloxacin 0.3 % ear drops 10 drp otic (ears) DAILY 7 days 11/27/24 #10 mL doxycycline hyclate 100 mg capsule 100 mg PO BID #19 caps 12/11/24 Allergies Allergy/AdvReac Type Severity Reaction Status Date / Time No Known Allergies Allergy Verified 12/11/24 19:26 Review of Systems 2 Review of Systems: Yes all other systems are reviewed and are negative Constitutional: Constitutional: Denies fatigue and Denies fever(s) Musculoskeletal: Musculoskeletal: Denies arthralgias and Denies joint swelling Integumentary/Breasts: Skin/Breast: Denies erythema and Reports wounds Endocrine: Endocrine: Denies fatigue PMFSH Past Medical History Attestation statement: The following information was validated with the patient. Medical History GERD (gastroesophageal reflux disease) Foot abscess Diabetic foot ulcer History of acute renal failure Diabetic polyneuropathy Peripheral vascular disease Tubular adenoma of colon Osteomyelitis Hyperlipidemia Hypertension Diabetes mellitus Surgical History H/O colonoscopy History of esophagogastroduodenoscopy (EGD) History of ventral hernia repair Hx of eye surgery History of right inguinal hernia repair 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 Social History Social History Household Members: None Housing: Apartment Alcohol intake: never Patient Tobacco Use Status: Never used Tobacco Advance Directives: Yes Advance Directives on File: Yes Advance Directives Date on File: 08/22/21 Do you have a plan to hurt others: No Plan service: No Current occupational status: retired Physical Exam ED Vital Signs: Vital Signs - 24 hr 12/11/24 19:22 12/11/24 21:54 Temperature 98.0 F 98.0 F Pulse Rate 105 H 105 H Respiratory Rate 16 16 Blood Pressure 137/69 137/69 Pulse Oximetry 96 96 Oxygen Delivery Method Room Air Room Air BMI result Body Mass Index 28.4 Const Other: Alert Orientation/consciousness: patient oriented x3 Resp Effort & Inspection: normal respiratory effort Cardio Other: Normal peripheral perfusion Skin Other: Warm dry no rash Neuro Other: Antalgic gait General: patient oriented x3, no focal motor deficits and CN's II-XI intact bilaterally Extrem Other: The right foot is subtly warmer than the left in general, there was no overt erythema, there was no tenderness to palpation over the foot, the site of the chronic diabetic foot ulcer appears as dry gangrene, there was no active purulence from the site Psych Other: Cooperative Medications Administered Discontinued Medications Generic Name Dose Route Start Last Admin Trade Name Freq PRN Reason Stop Dose Admin Doxycycline Monohydrate 100 mg 12/11/24 21:39 12/11/24 21:53 Doxycycline Monohydrate 100 Mg Capsule PO 12/11/24 21:40 100 mg ONCE ONE Administration Medical Decision Making Medical Decision Making [facility] Narrative: 74-year-old male with a history of hypertension, diabetes, peripheral vascular disease, 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 Patient states he has visiting nursing coming to the home to assess the foot, they were concerned for new infection. Patient denies foot pain or fever. There was no drainage from the chronic ulcer. Problem: Chronic diabetic foot wound, peripheral vascular disease, diabetes History: Per patient I have considered the following differential diagnoses: Cellulitis, purulent cellulitis, osteomyelitis, Plan: We will be obtaining screening labs including inflammatory markers and an x-ray. I have low suspicion for infection, perhaps this maybe early cellulitis given the temperature difference. I have independently reviewed the following tests: Labs: No leukocytosis, not anemic, ESR 25, no electrolyte abnormality, CRP 1.28 X-ray right foot:Findings: No fractures or dislocations. Status post amputation of the toes. Irregularity of the 1st and 2nd distal metatarsal likely to be postsurgical. No aggressive osseous lesions No ankle effusion. There is soft tissue edema. Calcaneal enthesophytes. No radiopaque foreign body. IMPRESSION: No radiographic evidence of osteomyelitis. Lab Data 12/11/24 19:58 12/11/24 19:58 Labs: Lab Results 12/11/24 Range/Units 19:58 WBC 7.2 (4.8-10.8) X10*3/uL RBC 4.51 L (4.60-5.80) X10*6/uL Hgb 11.9 L (14.0-18.0) g/dl Hct 37.0 L (42.0-52.0) % MCV 82.0 (80.0-98.0) fL MCH 26.4 L (27.0-33.0) pg MCHC 32.2 (31.0-36.0) g/dl RDW 15.9 (11.0-16.0) % Plt Count 181 (160-400) X10*3/uL MPV 10.8 (9.4-12.4) fL Immature Gran % (Auto) 0.4 (0.0-0.4) % Neut % (Auto) 70.1 (45-73) % Lymph % (Auto) 21.5 (20-40) % [place] % (Auto) 5.7 (2-11) % Eos % (Auto) 1.9 (0-4) % Baso % (Auto) 0.4 (0-2) % Lymph # (Auto) 1.6 (1.2-4.9) X10*3/uL [place] # (Auto) 0.4 (0.1-1.2) X10*3/uL Eos # (Auto) 0.1 (0.0-0.4) X10*3/uL Baso # (Auto) 0.0 (0.0-0.2) X10*3/uL Abs Immat Gran (auto) 0.03 (0.00-0.03) X10*3/uL Absolute Neuts (auto) 5.1 (2.0-8.3) x10*3/uL Absolute Nucleated RBC 0.000 (0.0-0.012) X10*3/uL Nucleated RBC % (auto) 0.0 (0.0-0.2) /100WBC ESR 25 H (0-15) MM/HR Sodium 137 (135-145) mmol/L Potassium 4.8 (3.3-5.1) mmol/L Chloride 108 (96-108) mmol/L Carbon Dioxide 20 L (22-29) mmol/L Anion Gap 14 (12-20) BUN 20 H (9-16) mg/dL Creatinine 1.07 (0.5-1.4) mg/dL Estim Creat Clear Calc 67.2 Estimated GFR > 60 Random Glucose 248 H (60-115) mg/dL Calcium 8.9 D (8.4-10.2) mg/dL Magnesium 2.0 (1.6-2.6) mg/dL C-Reactive Protein 1.28 H (< or = 0.50) mg/dL Discharge Plan Discharge Clinical Impression: Cellulitis of foot, right Patient Disposition: Home, Self-Care Instructions: Cellulitis (ED) Additional Instructions: All of your screening labs were normal the x-ray of the foot is normal. We are treating you for suspect early cellulitis. See home care instructions. Take the doxycycline as directed. Follow up with your primary care provider next week for a wound check. Prescriptions: New doxycycline hyclate 100 mg capsule 100 mg PO BID Qty: 19 0RF No Action glipizide 10 mg tablet extended release 24hr 1 tab PO DAILY lisinopril 5 mg tablet 1 tab PO DAILY Patient Comments: took this am with sip of water insulin degludec [Tresiba FlexTouch U-200] 200 unit/mL (3 mL) insulin pen 68 unit subcut BEDTIME simvastatin 40 mg Tablet 40 mg PO BEDTIME Jardiance 25 mg tablet 25 mg PO QAM Patient Comments: took in evening ofloxacin 0.3 % drops 10 drp otic (ears) DAILY 7 Days Qty: 10 0RF amoxicillin-pot clavulanate 875-125 mg tablet 1 tab PO BID Qty: 20 0RF bisacodyl 5 mg tablet 10 mg PO DAILY PRN (Reason: Constipation) omeprazole 20 mg tablet,disintegrat, delay rel 20 mg PO DAILY@0630 gabapentin 300 mg capsule 300 mg PO DAILY aspirin 81 mg tablet,delayed release (DR/EC) 81 mg PO DAILY metformin 500 mg tablet 500 mg PO DAILY (DME) pen needle, diabetic [1st Tier Unifine Pentips] 31 gauge x 3/16 needle See Rx Instructions .ROUTE .MEDSUPPLY Qty: 50 Rx Instructions: As directed (DME) blood sugar diagnostic Strip See Rx Instructions .ROUTE .MEDSUPPLY Qty: 10 Rx Instructions: As directed (DME) lancets [FreeStyle Lancets] 28 gauge misc See Rx Instructions .ROUTE .MEDSUPPLY Qty: 100 Rx Instructions: As directed (DME) pen needle, diabetic [BD Susannah 2nd Gen Pen Needle] 32 gauge x 5/32 needle See Rx Instructions .ROUTE .MEDSUPPLY Qty: 50 Rx Instructions: As directed Interventions: ED Discharge Assessment Last Done: 12/11/24 21:54 Discharge Date/Time: 12/11/24 21:56 Print Language: Korean
[2024-12-11 20:03] LABS: MANUAL DIFF FLAG NO
[2024-12-11 20:04] LABS: Basophils Percent Auto 0.4 % (0-2); Eosinophils Absolute Auto 0.1 X10*3/uL (0.0-0.4); Eosinophils Percent Auto 1.9 % (0-4); Hemoglobin 11.9 g/dl (14.0-18.0); Imm Gran Abs Auto 0.03 X10*3/uL (0.00-0.03); Imm Gran Pct Auto 0.4 % (0.0-0.4); Lymphocytes Absolute Auto 1.6 X10*3/uL (1.2-4.9); Lymphocytes Percent Auto 21.5 % (20-40); Mean Corpuscular HGB Conc 32.2 g/dl (31.0-36.0); Mean Corpuscular Hemoglobin 26.4 pg (27.0-33.0); Mean Platelet Volume 10.8 fL (9.4-12.4); Monocytes Absolute Auto 0.4 X10*3/uL (0.1-1.2); Monocytes Percent Auto 5.7 % (2-11); Neutrophils Absolute Auto 5.1 x10*3/uL (2.0-8.3); Neutrophils Percent Auto 70.1 % (45-73); Platelet Count 181 X10*3/uL (160-400); Red Blood Count 4.51 X10*6/uL (4.60-5.80); Red Cell Distribution Width 15.9 % (11.0-16.0); White Blood Count 7.2 X10*3/uL (4.8-10.8)
[2024-12-11 20:16] LABS: Anion Gap 14 (12-20); Blood Urea Nitrogen 20 mg/dL (9-16); C Reactive Protein 1.28 mg/dL (< or = 0.50); Calcium 8.9 mg/dL (8.4-10.2); Carbon Dioxide 20 mmol/L (22-29); Chloride 108 mmol/L (96-108); Creatinine Clr Calc Pharmacy 67.2; Estimated Glomerular Filt Rate > 60; Glucose Random 248 mg/dL (60-115); Potassium 4.8 mmol/L (3.3-5.1); Sodium 137 mmol/L (135-145)
[2024-12-11 20:41] LABS: Erythrocyte Sedimentation Rate 25 MM/HR (0-15)
[2024-12-11] MEDS: Doxycycline Monohydrate 100 MG CAPSULE PO (21:53)
[2024-12-11 21:54] VITALS: BP 137/69; PULSE 105; RESP 16; TEMP 36.7; O2SAT 96
== END 2024-12-11 21:56 | disposition home or self-care (01) ==
PROVIDERS: Physician Assistant Medical; Emergency Provider Emergency Medicine
DX: L03.115 Cellulitis of right lower limb (principal); M79.671 Pain in right foot; Z79.899 Other long term (current) drug therapy
CPT/HCPCS: 36415; 73630; 80048; 83735; 85025; 85652; 86140; 99283; 99284

== ENCOUNTER → 2024-12-11 19:31 | Outpatient (BNV) | payer OTHER, SELFPAY | PROVIDERS: Emergency Provider Emergency Medicine; Visit Provider Nuclear Medicine | DX: M79.671 Pain in right foot (principal) | CPT/HCPCS: 73630 ==

== ENCOUNTER 2024-12-28 13:47 | Outpatient (AMB) | payer OTHER, SELFPAY ==
--- NOTE | 2024-12-28 13:51 | A.OFFVIS_ITS ---
Vital Signs 12/28/24 13:52 Height 5 ft 10 in Weight 189 lb 9.561 oz BMI 27.2 BP 110/60 Blood Pressure Location Lt brachial Position Sitting Pulse 119 H Pulse Source Monitor Intake Visit Reasons: [employer]/ Lesli/NSVT on holter Allergies No Known Allergies Allergy (Verified 12/11/24 19:26) Medication List - Last Reconciled 12/28/24 by Alverto Castillo MD aspirin 81 mg PO DAILY bisacodyl 10 mg PO DAILY PRN blood sugar diagnostic As directed empagliflozin (Jardiance) 25 mg PO QAM gabapentin 300 mg PO DAILY glipizide ER 1 tab PO DAILY insulin degludec (Tresiba FlexTouch U-200 insulin) 68 units subcut BEDTIME lancets (FreeStyle Lancets) As directed lisinopril 5 mg PO DAILY metformin 500 mg PO DAILY ofloxacin 0.3% 10 drps otic (ears) DAILY 7 days omeprazole 20 mg PO DAILY@0630 pen needle, diabetic (1st Tier Unifine Pentips) As directed pen needle, diabetic (BD Susannah 2nd Gen Pen Needle) As directed pioglitazone (Actos) 45 mg PO DAILY simvastatin 40 mg PO BEDTIME HPI Comments Details: The patient is a 74-year-old male presenting for the evaluation of cardiac function in context with his age and diabetes. A referral to a sheet metal assembler and riveter took place many years ago, with the patient denying any subsequent cardiological issues. He reports no cardiac symptoms such as chest pain, heart attacks, or necessity for stent procedures. Heart monitoring was recommended because of his diabetic condition and age. Extra heartbeats were mentioned, though they were asymptomatic and not exacerbated by physical activity. He currently manages his hypertension with Lisinopril, indicating control over his blood pressure. His medical history does not include recent cardiovascular testing or interventions, ensuring the necessity for continued evaluation given his asymptomatic status. [facility] Medical History GERD (gastroesophageal reflux disease) Foot abscess Diabetic foot ulcer History of acute renal failure Diabetic polyneuropathy Peripheral vascular disease Tubular adenoma of colon Osteomyelitis Hyperlipidemia Hypertension Diabetes mellitus Surgical History H/O colonoscopy History of esophagogastroduodenoscopy (EGD) History of ventral hernia repair Hx of eye surgery History of right inguinal hernia repair 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 Family History Father Cancer of unknown origin Diabetes Mother No problems noted. Social History Household Members: None Housing: Apartment Alcohol intake: never Patient Tobacco Use Status: Never used Tobacco Advance Directives Date on File: 08/22/21 service: No Current occupational status: retired Review of Systems Const Denies weakness ENT Denies dizziness Card Denies chest pain, Denies chest pain with activity, Denies syncope, Denies rapid heart rate, Denies pedal edema, Denies edema, Denies leg edema, Denies lightheadedness, Denies palpitations, Reports dyspnea, Denies dyspnea on exer tion and Denies orthopnea Resp Denies cough, Reports dyspnea and Denies dyspnea on exertion GI Denies hematochezia and Denies change in stool character Musc Denies abnormal gait, Denies muscle cramps, Denies muscle weakness, Denies numbness, Denies radiating pain into limb and Denies tingling Neuro Denies abnormal gait, Denies dizziness, Denies syncope, Denies numbness, Denies tingling and Denies weakness Endo Denies palpitations Physical Exam Vital Signs: Last Vital Signs Pulse 119 H 12/28/24 13:52 BP 110/60 12/28/24 13:52 BMI result Body Mass Index 27.2 Const General: comfortable and no acute distress Orientation/consciousness: patient oriented x3 HEENT Other: Unremarkable Head: Yes normal to inspection Neck Neck: Yes normal visual inspection Chest Chest palpation & inspection: normal inspection of the chest Resp Auscultation: clear to auscultation bilaterally Cardio Palpation: normal PMI Heart sounds: S1 normal heart sound present, S2 normal heart sound present, no gallops, no murmurs and no rubs GI Palpation (GI): Soft to palpation Back/Spine/Pelvis Other: unremarkable Skin General skin exam: no rashes or lesions noted Neuro General: patient oriented x3 Extrem General: Yes normal to inspection Psych Mental Status: mental status grossly normal Office Procedures EKG Details: EKG with sinus tachycardia at 119/Min; no significant ST-T changes; [place] [id number], Complete Assessment & Plan Assessment & Plan (1) Sinus tachycardia: Code(s): R00.0 - Tachycardia, unspecified Category: Medical (2) NSVT (nonsustained ventricular tachycardia): Code(s): I47.29 - Other ventricular tachycardia Category: Medical Plan In the Holter monitor, underlying rhythm is sinus with an average rate of 98/Min. Frequent PVCs with a burden of 12.9%. Evidence of couplets, triplets, bigeminy, trigeminy. Several short runs on longest is 4 beats. Overall, diabetes, dyslipidemia, sinus tachycardia that could be from autonomic dysfunction versus inappropriate sinus tachycardia, frequent PVCs/NSVT, unknown coronary status and unknown LVEF. Considering his age and diabetes status, recommend comprehensive cardiac workup. We will start with an echocardiogram. If this is unremarkable, then he will need a stress perfusion imaging study for ischemia workup. If echocardiogram shows any clear LV dysfunction and/or wall motion abnormalities, then may need a diagnostic catheterization. We ischemic workup is unremarkable, then may need cardiac MRI to assess for scar/infiltrative disease. Discussion Notes I reviewed the necessity of cardiac evaluation with the patient, highlighting potential risks tied to his age and diabetes. Although asymptomatic, incidences of extra heartbeats necessitate an echocardiogram. I explained the possibility of additional tests contingent on preliminary results to detect any vascular blockages. The potential need for invasive catheterization was also discussed. The patient understood the rationale, potential outcomes, and agreed to the suggested plan. Follow-up arrangements will hinge on subsequent test outcomes. Patient was informed and verbally consented to the use of an ambient scribe for clinic note documentation during this visit. Orders: Orders CA echo transthoracic complete Today I25.10 - Atherosclerotic heart disease of [place] coronary artery without angina pectoris, I47.29 - Other ventricular tachycardia Patient Instructions: - Schedule and attend an echocardiogram to assess heart function. - Monitor for any changes in symptoms, such as chest pain or irregular heartbeats. - Maintain blood pressure management with current medication. - Report any new symptoms or concerns immediately. - Follow up as needed based on test results. Coding Level of Care Code New Pt Level 4 (42453) Complex EM visit Add On G2211 Diagnoses Sinus tachycardia R00.0 NSVT (nonsustained ventricular tachycardia) I47.29 CPT Codes EKG - CPT: 77708-[id number], Complete ([id number])
[2024-12-28 13:52] VITALS: BP 110/60; PULSE 119; BMI 27.2
--- OUTSIDE RECORDS SUMMARY | 2024-12-28 16:56 | XMS_ITS | Data Portability ---
Author Organization [employer] Address [address] [place] [phone] Care Team Providers Care Granulator Tender Name Role Phone HIM [facility] OTHER Assessment Encounter Date Assessment Date Assessment LastModified by Organization Details LastModified Time 12/11/2024 12/11/2024 As noted, we were called to see this patient regarding concerns of foot wound. Evaluation in the field was performed by my rotary shear cutter colleague, as noted above, I provided real-time direction and supervision for this visit. The evaluation revealed 74y M with DM and prior BLE digit amputations presenting with new wound just proximal to left 5th digit of foot. Based on size, depth in image, recommend ER referral for imaging to r/o osteomyelitis and get recs for appropriate abx. Impression: diabetic foot wound, c/f osteomyelitis Plan: ER referral Primary care, consider ER follow up atilhou Not available 12/11/2024 18:24:13 Plan of Treatment Reminders Order Date Submit Date Provider Last Modified By Organization Details Last Modified Time Details Appointments None record ed. Lab None record ed. Referral None record ed. Procedures None record ed. Surgeries None record ed. Imaging None record ed. Medication Orders None record ed. Patient TargetsNo targets recorded. Patient InstructionsNo instructions recorded. Reason for Referral None Reported. Medical Equipment None Reported. Allergies No known drug allergies Medications Name Sig Start Date Stop Date Status Note LastModified by Organization Details LastModified Time atorvastatin 40 mg tablet TAKE 1 TABLET BY MOUTH EVERY DAY active Not Available Not Available No t Available metformin 500 mg tablet TAKE 2 TABLETS BY MOUTH TWICE DAILY active Not Available Not Available No t Available glipizide ER 10 mg tablet, extended release 24 hr TAKE 1 TABLET BY MOUTH TWICE DAILY active Not Available Not Available No t Available polyvinyl alcohol 1.4 % eye drops INSTILL 1 DROP IN EACH EYE EVERY 2 TO 6 HOURS NEEDED FOR IRRITATION active Not Available Not Available N ot Available pioglitazone 45 mg tablet TAKE 1 TABLET BY MOUTH EVERY DAY active Not Available Not Available No t Available sulfamethoxa zole 800 mg-trimethop rim 160 mg tablet TAKE 1 TABLET BY MOUTH TWICE DAILY FOR 10 DAYS active Not Available Not Available No t Available ofloxacin 0.3 % ear drops INSTILL 10 DROPS INTO THE AFFECTED EAR(S) DAILY FOR 7 DAYS active Not Available Not Available No t Available gabapentin 300 mg capsule TAKE 1 CAPSULE BY MOUTH THREE TIMES DAILY active Not Available Not Available Not Available omeprazole 20 mg capsule,vivek yed release TAKE 1 CAPSULE BY MOUTH EVERY DAY active Not Available Not Available No t Available bisacodyl 5 mg tablet,delay ed release TAKE 2 TABLETS BY MOUTH TWICE DAILY AT 3 PM AND 7 PM DIRECTED active Not Available Not Available Not Available lisinopril 5 mg tablet TAKE 1 TABLET BY MOUTH ONCE DAILY active Not Available Not Available No t Available polyethylene glycol 3350 17 gram/dose oral powder MIX BOTTLE WITH GATORADE OR CRYSTAL LIGHT DIRECTED AND TAKE AT 5 PM THE DAY BEFORE THE PROCEDURE active Not Available Not Available No t Available amoxicillin 875 mg-potassium clavulanate 125 mg tablet TAKE 1 TABLET BY MOUTH TWICE A DAY active Not Available Not Available No t Available metformin ER 750 mg tablet,exten ded release 24 hr TAKE 2 TABLETS BY MOUTH EVERY MORNING and TAKE 1 TABLET EVERY EVENING active Not Available Not Available No t Available Alcohol Prep Pads USE DIRECTED WITH INSULIN active Not Available Not Available No t Available FreeStyle Lite Strips USE DIRECTED TO TEST BLOOD SUGAR FOUR TIMES DAILY active Not Available Not Available Not Available BD Ultra-Fine [place] Pen Needle 32 gauge x USE WITH LEVEMIR TWICE DAILY active Not Available Not Available Not Available Artificial Tears (jd637-mswro jennifer-glyceri n) 1 %-0.2 %-0.2 % eye drops INSERT 1 DROP EVERY 2 TO 6 HOURS IN EACH EYE NEEDED IRRITATION active Not Available Not Available N ot Available TRUEplus Lancets 33 gauge USE DIRECTED TO TEST BLOOD SUGAR FOUR TIMES DAILY active Not Available Not Available Not Available Jardiance 25 mg tablet TAKE 1 TABLET BY MOUTH EVERY DAY active Not Available Not Available No t Available Tresiba FlexTouch U-200 insulin 200 unit/mL (3 mL) subcutaneous pen INJECT 90 UNITS SUBCUTANEOU SLY EVERY DAY active Not Available Not Available No t Available Vitals Date Recorded Oxygen saturation Oxygen saturation in Arterial blood by Pulse oximetry Respiratory rate Body temperature Heart rate Systolic blood pressure Diastolic blood pressure Provider Name and Address Organization Details Last Updated DateTime 99 % 99 % 18 /min 98.1 [degF] 109 /min 130 mm[Hg] 75 mm[Hg] Not Available [facility] - production 18:19:44 Social History None recorded. Functional Status None recorded. Mental Status None recorded. Family History Nothing Reported. Medical History No medical history recorded. Past Encounters Encounter ID Performer Location Encounter Start Date Encounter Closed Date Diagnosis/Indication Diagnosis SNOMED-CT Code Diagnosis ICD10 Code Diagnosis Note [id number] Yoselyn Nagy MD [facility] - [facility] [address] [place] [phone] 12/11/2024 18:19:39 12/12/2024 17:26:20 Diabetic foot ulcer 447217817 E13.621 Health Concerns Section Related Observation LastModified by Organization Detai ls LastModified Time None Recorded Concern Status LastModified by Organization Details LastModified Time None Recorded Advance Directives Directive None Recorded Payers Encounter Date Sequence Insurance Name Policy Number Policy Roldan Covered Member ID Roldan Member ID Guarantor Name 12/11/2024 1 [facility] - DOS ON OR AFTER 2022 - DUAL ELIGIBLE - DETENTION OPTIONS AND ONE CARE (MEDICARE REPLACEMENT/ADV ANTAGE - HMO) Leila Roberts [id number] Leila Roberts Notes Date Note Type Note Provider Name and Address Organization Details Recorded Time 12/11/2024 text/html HPI: DiabeticAmputated toes ..................... ..................... ..................... ..................... ..................... ..................... ............... [facility] Nurse Triage Notes (Som Lees - ROBERTO): Denies: Zamorano ? Flash, circumferential zamorano Zamorano reported with black tissue to the area Open skin area after a fall with uncontrolled bleeding Abscess/infection with streaking noted, presence of fever or without Chief Complaints: Wound Care PMH: Diabetes Mellitus Type 2 PMH Reviewed at 12/11/2024:56 Allergies Reviewed at 12/11/2024:56 Comments: Liner Machine Operator Helper verified the Pt.'s name//address and phone number. Education provided on the response time and the Pt. was advised to monitor reported s/s and seek emergency treatment if needed. Pt reports feeling unwell - Wound care requested - Right foot wound - with bleeding - Skin tear - Denies redness and warmth - Denies being on blood thinners - Symptoms for since Friday. Denies fever - Denies any injuries and trauma - Wound care requested ..................... ..................... ..................... ..................... ..................... ..................... ............... Lock Maintenance Supervisor Note From Travis Coe: SC2 dispatched to address listed above for the report of a male constitution party with foot wound. Arrival on scene, patient was found inside with family seated in chair, alert and oriented x4, patent airway, breathing non labored speaking in complete sentences, skin WPD in no immediate distress. +/= Chest rise. -SOB, -CP, -NVD, -Trauma, -Fever. GCS 15. 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 Family reports that they called [facility] for evaluation of wound on patient right foot that is not improving. Family reports that they initially noticed patient bleeding from wound which has since subsided. Upon inspection of wound, [facility] noted full thickness wound about the size of a quarter in approximate location of fifth toe on right foot, wound noted to have purulent discharge, warm to touch around wound, no noted redness. Patient reports no pain from the wound. Family noted they have been using a antibiotic ointment and wrapping the wound with no noted improvement. Patient vital signs obtained as noted. [facility] consulted, recommended that patient go to the hospital due to concern for infection and osteomyelitis and potential for amputation. Patient eventually agreed to go to the hospital via ambulance after explaining risks of not going and the concern for the wound. 911 was called for patient and [facility] arrival on scene shortly after. Patient report and demographics given to EMS and care was transferred. EMS assisted on scene until transport initiated. SC2 clear. ..................... ..................... ..................... ..................... ..................... ..................... ............... [facility] Consulted: Yoselyn Nagy ..................... ..................... ..................... ..................... ..................... ..................... ............... Disposition: Dora Nagy MD [address] [facility],[address], [place], [phone], [employer] 12/11/2024 19:51:39
--- OUTSIDE RECORDS SUMMARY | 2024-12-28 16:56 | XMS_ITS ---
Author Organization [facility] Address [address] [place] [phone] Care Team Providers Care Director Translational Name Role Phone Lesli LESTER, Ania Primary Care Provider Unavail Catarino Sanchez Unavailable [phone] REASON FOR VISIT scripts Medications Medication SIG [...] Active Encounters Encounter Location Date Provider Diagnosis [facility] [address] [phone] 03/24/2024 Catarino Cordova Plan Of Treatment Medication [...] * LUI SIMON RDOB: (73 yo M)Acc No.[id number]:03/24/2024 Patient:?SHELBY SIMON :1950???Age:73 Y???Sex:Male Address:[address] [place] [id number] * Refills? Refill MiraLax (colon prep) Powder, [...] true * Date:? Generated for Isi bunch/Lilly/Odalisitting on:?12/28/2024 04:56 PM EDT
--- OUTSIDE RECORDS SUMMARY | 2024-12-28 16:56 | XMS_ITS | Clinical Summary ---
Author Organization [employer] Address [address] [place] [address] Care Team Providers Care Engine Room Helper Name Role Phone Mallika Acevedo MD Primary Care Provider + Allergies [...] bedtime. Active Blood Glucose Monitoring Suppl (FreeStyle [place] Lite) w/Device kit TEST BLOOD SUGAR DIRECTED [...] 3 024 Active gabapentin (Neurontin) 300 MG capsuleIndications: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 (CMS/HCC) Take 1 capsule (300 mg) by mouth 3 times daily. 270 capsule 1 Active insulin degludec (Tresiba FlexTouch) 200 UNIT/ML injectionIndications:T ype 2 diabetes mellitus with ulcer (CMS/HCC) Inject 90 Units under the skin Once per day. 40.5 mL 3 024 2024 Active pioglitazone (Actos) 45 MG tablet TAKE 1 TABLET BY MOUTH EVERY DAY 90 tablet 3 Active omeprazole (PriLOSEC) [address] capsule TAKE 1 CAPSULE BY MOUTH EVERY DAY 90 capsule 3 Active Pentips Generic Pen [place] 32G X 4 MM misc USE WITH LEVEMIR TWICE DAILY 100 each 2 Active TRUEplus Lancets 33G miscIndications:Type 2 diabetes mellitus with hyperglycemia (CMS/HCC) USE DIRECTED TO TEST BLOOD SUGAR FOUR TIMES DAILY 100 each Active lisinopril 5 MG tablet TAKE 1 TABLET BY MOUTH ONCE DAILY 90 tablet 1 Active metFORMIN (Glucophage) 500 MG tablet Take 2 tablets (1,000 mg) by mouth with breakfast and with evening meal. 180 tablet 1 025 2025 Active metFORMIN (Glucophage) 500 MG tablet TAKE 2 TABLETS BY MOUTH TWICE DAILY 360 tablet 1 024 2024 Discontinued( Reorder (will not trigger notification to Pharmacy)) lisinopril 5 MG tablet TAKE 1 TABLET BY MOUTH EVERY DAY 90 tablet 025 2024 Discontinued metFORMIN 750 MG tablet Take 2 tablets PO QAM and 1 tab po QPM 90 tablet 025 2024 Discontinued metFORMIN XR (Glucophage-XR) 750 MG 24 hr tablet TAKE 2 TABLETS BY MOUTH EVERY DAY IN THE MORNING AND TAKE 1 TABLET BY MOUTH EVERY DAY IN THE EVENING 90 tablet 025 2024 Discontinued( Dose adjustment) metFORMIN (Glucophage) 850 MG tablet Take 1 tablet (850 mg) by mouth with breakfast, with lunch, and with evening meal. 90 tablet 11 025 2024 Discontinued( Reorder (will not trigger notification to Pharmacy)) Active Problems Problem Noted Date Diagnosed Date Malignant otitis externa of both ears 12/03/2024 Assessment & Plan (12/03/2024 2:51 PM EDT): Improving, he also has suppurative otitis. Continue antibiotics and FU in 6 weeks to re evaluate ear canals. Acquired absence of other left toe(s) 12/03/2024 Assessment & Plan (12/03/2024 2:51 PM EDT): S/p diabetic foot. Overweight 08/11/2024 Assessment & Plan (08/11/2024 9:57 [...] significant findings may be related to Gynecomastia. Director Digital Advertising to avoid squeezing or picking on breast [...] use of insulin 02/12/2023 Assessment & Plan (12/03/2024 2:50 PM EDT): A1c is improved but still uncontrolled. Increased Metformin to 750 mg 2 tabs in the morning and 1 tab in the evening. Continue Tresiba, Actos, Glipizide and Jardiance. He declines GLPs or other type of Insulin. FU in 6 weeks. He has peripheral vascular disease, will obtain records from vascular surgery office. No foot ulcers at this time. Assessment & Plan (08/04/2023 10:01 AM EST): [...] & Plan (08/11/2024 10:00 AM EST): On , has a ppt with cardiology on September Assessment & Plan (06/22/2024 10:12 AM EDT): - refer to cardiology for further eval, may need to start on beta bonnie Assessment & Plan (03/24/2024 10:34 AM EDT): - persistent+ LAFB - will order 48 hour holter monitoring to r/o other issues and decide if he should be referred to a gate shear operator Assessment & Plan (09/19/2022 11:19 PM EST): [...] ro GIB Start Iron supplemetnation Callosity 08/17/2022 Tubular adenoma of colon 08/17/2022 Umbilical hernia 08/17/2022 Acute renal failure syndrome 01/28/2019 Amputated toe of left foot 07/31/2016 Peripheral vascular disease 07/31/2016 Assessment & Plan (12/03/2024 2:53 PM EDT): Patient sees Dr. Aguirre at wound care. Will obtain OV records. Assessment & Plan (03/21/2023 12:34 PM EDT): Secondary to DM Has a left plantar ulcer, follow up with Dr. Rowland Counseled regarding tight control of DM, reminded to get labs done Blood in urine 07/06/2012 Essential hypertension 02/17/2012 Assessment & Plan (03/21/2023 12:15 PM EDT): Stage 1 today Bring BP log at next appointment Continue lisinopril 5mg and check labs Counseled re low salt diet/increase moderate physical activity. Check home BP BIW and prn CP/KIGN/CEBALLOS Non smoking patient. FU with me in 6 weeks Pure hypercholesterolemia 02/17/2012 Resolved Problems Problem Noted Date Diagnosed Date Resolved Date Ulcer of right foot 08/17/2022 12/04/19 Assessment & Plan (08/11/2024 9:56 AM EST): [...] mobility device to help reduce foot pain Subacute osteomyelitis of right foot 01/28/2019 03/21/2023 Diabetic polyneuropathy 02/17/201211/14 Assessment & Plan (06/22/2024 10:35 AM EDT): - discussed about importance of tight control of DM - continue Gabapentin 300 mg TID - reminded him to reschedule appt with podiatry for foot care, I advised to call [facility] career transition specialist to help with filling out out the forms - reminded regarding daily foot check - will f/u with DM shoe provider regarding prescription sent 3 months ago Osteomyelitis of ankle and foot 02/17/2012 03/21/2023 Type 2 diabetes mellitus with ulcer 02/17/2012 12/03/2024 Assessment & Plan (08/11/2024 9:57 AM EST): [...] is improving, needs further foot care by mud jack nozzleman, I will obtain Dr. Anderson's notes from [...] TOE DUE TO TYPE 2 DIABETES MELLITUS ([facility]) WRITTEN ON 05/02/2023 10:21 AM BY CORNELIUS [...] FOR TYPE 2 DIABETES MELLITUS WITH ULCER ([facility]/HCC) WRITTEN ON 03/21/2023 12:34 PM BY JUSTEN DAMIAN Uncontrolled, improving with increased dose of tresiba continue tresiba, actos, and metformin, and glipizide same dose (refuses to use novolog) Add Jardiance 10mg and fu in 6 weeks Reminded to get labs done prior to next appointment Counseled re more frequent low calorie/carb meals. Encouraged physical activity as tolerated. Has an appointment with opthalmology on 8/22 >>ASSESSMENT AND PLAN FOR ULCER OF TOE [...] (CMS/HCC) WRITTEN ON 09/19/2022 11:16 PM BY MALLIKA ACEVEDO MD DM is uncontrolled, A1c is improving. D/w him re importance of meal compliance, decrease snack size, specially if high calorie/carbs Increase Levemir to 20u qam, continue 65 qpm FU in 4w >>ASSESSMENT AND PLAN FOR ULCER OF TOE DUE TO TYPE 2 DIABETES MELLITUS (CMS/HCC) WRITTEN ON 09/19/2022 11:02 PM BY MALLIKA ACEVEDO MD On left toes, improving. Continue calcium alginate dressings by [facility] every other day. FU closely by wound clinic. Counseled the importance of tight DM control Osteomyelitis 02/17/2012 03/21/2023 Encounters Date Type Department Care Team Description 12/22/2024 Telephone [facility] [address] [place] [phone] Mallika Acevedo MD Metformin 12/15/2024 Orders Only [facility] [address] [place] [address] Mallika Acevedo MD 12/09/2024 Refill [facility] [address] [place] [id number] Alexi Cole MD 12/03/2024 12:00 PM EDT Office Visit [facility] [address] [place], [place] [address] Mallika Acevedo MD Diabetes mellitus due to underlying condition with hyperglycemia, with long-term current use of insulin ([facility]) (Primary Dx); Malignant otitis externa of both ears, unspecified chronicity; Acquired absence of other left toe(s) (CMS/[facility]); Peripheral vascular disease ([facility]) 12/03/2024 Refill [facility] [address] [place] [id number] Mallika Acevedo MD 12/03/2024 Travel 11/30/2024 Telephone [facility] [address] [place] [id number] Melonie Sams, ROBERTO Appointment Request 11/14/2024 Refill [facility] [address] [place] [id number] Mallika Acevedo MD Type 2 diabetes mellitus with hyperglycemia ([facility]) 11/09/2024 Refill [facility] [address] [place] [id number] Mallika Acevedo MD 10/03/2024 Refill [facility] [address] [place] [id number] Mallika Acevedo MD from Last 3 Months Immunizations Name Administration [...] 10/05/2021,12/20/19 21,11/21/2020 Pfizer Covid-19 Vaccine 12+ 08/11/2024, 4 Pneumococcal Conjugate PCV 13 02/09/2016 Pneumococcal Polysaccharide [...] Sign Reading Time Taken Comments Blood Pressure 126/80 12/03/2024 12:02 PM EDT Pulse 96 12/03/2024 12:02 PM EDT Temperature 36.3 ??C (97.4 ??F) 12/03/2024 12:02 PM E DT Respiratory Rate 14 12/03/2024 12:02 PM EDT Oxygen Saturation 100% 06/22/2024 10:08 AM EDT Inhaled Oxygen Concentration - - Weight 88.1 kg (194 lb 3.2 oz) 12/03/2024 12:02 PM EDT Height 177.8 cm (5' 10 ) 12/03/2024 12:02 PM EDT Body Mass Index 27.86 12/03/2024 12:02 PM EDT Plan of Treatment Upcoming Encounters Date Type Department Care Team (Late st Contact Info) Description 01/14/2025 9:00 AM EDT Office Visit [facility] [address] [place] [address] Mallika Acevedo MD [address] [place] [address] Health Maintenance Due Date Last Done Comments CT Colonography 1950 Colonoscopy 1950 Colorectal Cancer Screening 1950 FIT DNA/Cologuard 1949 FIT 1950 FOBT 1950 Sigmoidoscopy 1950 Eye Exam 1959 Alcohol/Substance Use Screening 1961 Hepatitis C Screening 1967 SDOH Screening 02/13/2024 02/12/2023 Lipid Panel 04/28/2024 04/28/2023, 02/27/2021 Diabetes: Urine Protein Screening 12/29/2024 12/30/2023, 04/28/2023, 02/27/2021 Diabetes: Hemoglobin A1C 03/05/2025 025, 06/22/2024, 03/24/2024, Additional history exists Depression Screening 03/24/2025 03/24/2024, 03/24/20 24 Tobacco Screening 08/11/2025 08/11/2024 Diabetes: Foot Exam 12/03/2025 12/03/2024, 12/03/2024, 12/03/2024, Additional history exists DTaP/Tdap/Td Vaccines (2 - Td or Tdap) [...] Diagnosis Comments POCT GLYCATED HEMOGLOBIN, TOTAL Routine 12/03/2024 12:18 PM EDT Diabetes mellitus due to underlying condition with hyperglycemia, with long-term current use of insulin ([facility]) POCT GLUCOSE Routine 12/03/2024 12:18 PM EDT Diabetes mellitus due to underlying condition with hyperglycemia, with long-term current use of insulin (CMS/HCC) ALBUMIN, RANDOM URINE W/CREATININE Routine 12/30/2023 2:31 PM EDT 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) LIPID PANEL WITH REFLEX TO DIRECT LDL Routine 04/28/2023 8:58 AM EDT 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) from Last 3 Months or Most Recently Relevant to Health Maintenance Results * (ABNORMAL) POCT HGB A1C (12/03/2024 12:18 PM EDT) Hemoglobin A1C 8.7(A) 4.0 - 6.0 % Blood 12/03/2024 12:1 8 PM EDT Mallika Acevedo MD POINT OF CARE TE ST ENTER/EDIT ORDERABLES Edited Result - Final * POCT Glucose (12/03/2024 12:18 PM EDT) Glucose Blood, POC 165 60 - 200 mg/dL Blood Capillary blood specimen / Unknown 12/03/2024 12:18 PM EDT Mallika Acevedo MD POINT OF CARE TEST ENTER /EDIT ORDERABLES Final Result * (ABNORMAL) Albumin, Random Urine W/Creatinine (12/30/2023 2:31 PM EDT) Creatinine, Urine 59.02 mg/dL [facility] Microalbumin Urine 29.0 mg/L [facility] Microalbum Creatinine Ratio Ur 49.1(H) <30 ug/mg cr [facility] Comment:Albumin/Creatinine R at Reference Ranges: Normal: < 30 ug/mg creatinine Microalbuminuria: 30 - 300 ug/mg creatinineClinical Albuminuria: > 300 ug/mg creatinine Urine (Urine, Random) 12/30/2023 2:31 PM EDT 12/30/2023 3:54 PM EDT us Mallika Acevedo MD LAB URINE ORDERABLES Fin al Result Performing Organization Address [facility] Co de Phone Number [facility] [address] [place] [address] [phone] * Lipid Panel with Reflex to Direct LDL (04/28/2023 8:58 AM EDT) Triglycerides 266 mg/dL [facility] Comment:Desirable Triglyceri de: less than 150 mg/dLBorderline High Triglyceride 150-199 mg/dLHigh Triglyceride: 200-499 mg/dLVery High Triglyceride: greater than or equal to 5OO mg/dL Cholesterol 154 mg/dL [facility] Comment:Desirable Cholestero l: less than 200 mg/dLBorderline High Cholesterol: 200-239 mg/dLHigh Cholesterol: greater than 239 mg/dL LDL Cholesterol Calculated 67 mg/dl [facility] Comment:Desirable LDL: less than 100 mg/dLNear Optimal/Above Optimal LDL: 110- 129 mg/dLBorderline High LDL: 130-159 mg/dLHigh LDL: 160-189 mg/dLVery High LDL: greater than or equal to 190 mg/dL HDL Cholesterol 34 mg/dL [facility] Comment:Desirable HDL: great er than 40 mg/dL Note: This HDL assay may give artificially low results in patients with liver disease. 04/28/2023 8:58 AM EDT 04/28/2023 11:39 AM EDT us Mallika Acevedo MD LAB BLOOD ORDERABLES Fin al Result Performing Organization Address City/[facility]/ZIP Co de Phone Number [facility] [address] [place] [address] [phone] from Last 3 Months or Most Recently Relevant to Health Maintenance Insurance [employer] Care Teams Engine Room Helper Relationship Specialty Start Date End Date Mallika Acevedo MD [address] [place] [phone] PCP - General Family Medicine 11/20/16 M-Files 06/28/24
--- OUTSIDE RECORDS SUMMARY | 2024-12-28 16:56 | XMS_ITS | Encounter Summary ---
Author Organization [employer] Address 75 [facility] 7t [place] [address] Care Team Providers Care Jewel Bearing Grinder Name Role Phone Ania Acevedo MD Primary Care Provider + Reason for Visit * Reason Onset Date Comments Metformin 12/22/2024 Encounter Details Date Type Department Care Team ([facility] st Contact Info) Description 12/22/2024 Telephone [facility] MEDICINE [address] [place], [place] [phone] Ania Acevedo MD [address] [place], [place] [phone] Metformin Social History Tobacco Use Types Packs/Day Years [...] the past 12 months, has t he [employer], [employer], 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 * Addendum Note - Ania Acevedo MD - 12/23/2024 4:35 PM EDTAddended by: ANIA ACEVEDO on: 12/23/2024 04:35 PM Modules accepted: Orders * Telephone Encounter - Ania Acevedo MD - 12/23/2024 4:33 PM EDT Rx metformin sent * Telephone Encounter - Shwetha Del Toro RN - 12/22/2024 4:29 PM EDT RN received incoming call from [facility] pharmacy who reports the patient is requesting to return to metformin 500mg (take 2 tabs twice a day). Patient informed pharmacy his provider increased his metformin to 750mg XR (2 tabs in AM and 1 in the evenings) however it caused him to have abdominal pain and gas. Patient picked up the metformin 750mg on 12/08/24 however has returned to the metformin 500mg dose (which he had at home), since returning to the 500mg dose patients abdominal pain and gas have resolved. Patient is refusing to take any metformin dose higher than 500mg. Please review and advise. of note, patient has not p/u metformin 850mg RX sent on 12/15/24 documented in this encounter Plan of Treatment Upcoming Encounters Date Type Department Care Team (Late st Contact Info) Description 01/14/2025 9:00 AM EDT Office Visit [facility] MEDICINE [address] [place] [address] Ania Acevedo MD [address] [place] [address] documented as of this encounter Visit Diagnoses Not on filedocumented in this encounter Care Teams Jewel Bearing Grinder Relationship Specialty Start Date End Date Ania Acevedo MD [address] [place] [address] PCP - General Family Medicine 11/20/16 [email or web address] 06/28/24 documented as of this encounter
--- OUTSIDE RECORDS SUMMARY | 2024-12-28 16:56 | XMS_ITS | Encounter Summary ---
Author Organization [employer] Address 75 [facility] 7t [place] [address] Care Team Providers Care Rebrander Name Role Phone Ania Ballesteros MD Primary Care Provider + Encounter Details Date Type Department Care Team (Late Contact Info) Description 02/27/2023 Abstract [facility] MEDICINE [address] [place] [address] Ania Ballesteros MD [address] [place] [address] Social History Tobacco Use Types Packs/Day Years [...] Description 01/14/2025 9:00 AM EDT Office Visit [facility] MEDICINE [address] [place] [address] Ania Ballesteros MD 230 [place] [address] documented as of this encounter Visit Diagnoses Not on filedocumented in this encounter Care Teams Rebrander Relationship Specialty Start Date End Date Ania Ballesteros MD [address] [place], [place] [phone] PCP - General Family Medicine 11/20/16 [employer] 06/28/24 documented as of this encounter
--- OUTSIDE RECORDS SUMMARY | 2024-12-28 16:56 | XMS_ITS | Encounter Summary ---
Author Organization [employer] Address 75 [facility] 7t [place] [address] Care Team Providers Care Loan Funder Name Role Phone Ania Ballesteros MD Primary Care Provider + Encounter Details Date Type Department Care Team (Late Contact Info) Description 02/17/2023 Abstract [facility] MEDICINE [address] [place] [address] Ania Ballesteros MD [address] [place] [address] Social History Tobacco Use Types Packs/Day Years [...] Description 01/14/2025 9:00 AM EDT Office Visit [facility] MEDICINE [address] [place] [address] Ania Ballesteros MD [address] [place] [address] documented as of this encounter Visit Diagnoses Not on filedocumented in this encounter Care Teams Loan Funder Relationship Specialty Start Date End Date Ania Ballesteros MD [address] [place], [place] [phone] PCP - General Family Medicine 11/20/16 [employer] 06/28/24 documented as of this encounter
--- OUTSIDE RECORDS SUMMARY | 2024-12-28 16:56 | XMS_ITS | Encounter Summary ---
Author Organization [employer] [facility] Address 75 [facility] 7t [place] [address] Care Team Providers Care Program Engineer Name Role Phone Ania Ballesteros MD Primary Care Provider + Encounter Details Date Type Department Care Team (Late Contact Info) Description 10/14/2022 Orders Only [facility] MEDICINE [address] [place] [address] [phone] Estefany Winslow LPN Social History Tobacco Use [...] Description 01/14/2025 9:00 AM EDT Office Visit [facility] MEDICINE [address] [place] [address] [phone] Ania Ballesteros MD [address] [place], [place] [phone] documented as of this encounter Visit Diagnoses Not on filedocumented in this encounter Care Teams Program Engineer Relationship Specialty Start Date End Date Ania Ballesteros MD [address] [place] [address] PCP - General Family Medicine 11/20/16 [employer] 06/28/24 documented as of this encounter
--- OUTSIDE RECORDS SUMMARY | 2024-12-28 16:56 | XMS_ITS ---
Author Organization [facility] Address [address] [place] [address] Care Team Providers Care Finance Administrator Name Role Phone Ania Ballesteros MD Primary Care Provider Unavail Catarino Sanchez Unavailable [phone] REASON FOR VISIT colon screening,gerd Problems Problem Type SNOMED Code ICD Code Onset Dates Problem Status W/U Status Risk Notes Problem Iron deficiency anemia (59819558) Iron deficiency anemia (D50.9) Active confirmed Problem History of polyp of colon (situation) (082027325) Personal history of colonic polyps (Z86.010) Active confirmed Problem Diverticular disease of colon (812103602) Diverticulosis of large intestine without perforation or abscess without bleeding (K57.30) Active confirmed Problem Gastroesophageal reflux disease (975312287) Gastroesophageal reflux disease (K21.9) Active confirmed Encounters Encounter Location Date Provider Diagnosis [facility] Outpatient [address] [place] [address] [phone] 04/02/2024 Catarino Cordova Iron deficiency anem ia [...] * LUI SIMON RDOB: (74 yo M)Acc No.[id number]:04/02/2024 EGD and COL/MAC Patient:?SHELBY SIMON Provider:?Catarino Cordova MD :1950???Age:73 Y???Sex:Male Pierce e:04/02/2024 Address:[address] [place], [place] [phone] Pcp:Ania Ballesteros MD Subjective: * Chief Complaints: * ???1. Colon screening,gerd. * Medical History:? Objective: * Vitals:? Assessment: * Assessment: 1.?Iron deficiency anemia - D50.9 (Primary)???2.?Personal history of colonic polyps - Z86.010???3.?Diverticulosis of large intestine without perforation or abscess without bleeding - K57.30???4.?Other hemorrhoids - K64.8?? 5.?Hiatal hernia - K44.9???6.?Gastroesophageal reflux disease - K21.9??? Plan: * Treatment: * Procedure Codes:?64784 DIAGN OSTIC COLONOSCOPY, 53213 UPPER GI ENDOSCOPY, BIOPSY * Preventive Medicine:? [...] MD Date:? 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
--- OUTSIDE RECORDS SUMMARY | 2024-12-28 16:56 | XMS_ITS | Encounter Summary ---
Author Organization [employer] Address 75 [facility] 7t [place] [address] Care Team Providers Care Sex Crimes Detective Name Role Phone Ania Ballesteros MD Primary Care Provider + Encounter Details Date Type Department Care Team (Late Contact Info) Description 01/20/2023 Orders Only [facility] MED & PEDS [address] [place], [place] [phone] Trini Sun LPN Social History Tobacco Use [...] Description 01/14/2025 9:00 AM EDT Office Visit [facility] MEDICINE [address] [place] [address] Ania Ballesteros MD 230 [place], [place] [phone] documented as of this encounter Visit Diagnoses Not on filedocumented in this encounter Care Teams Sex Crimes Detective Relationship Specialty Start Date End Date Ania Ballesteros MD [address] [place], [place] [phone] PCP - General Family Medicine 11/20/16 [email or web address] 06/28/24 documented as of this encounter
--- OUTSIDE RECORDS SUMMARY | 2024-12-28 16:56 | XMS_ITS | Patient Health Record ---
Author Organization [facility] Address [address] [place] [address] Care Team Providers Care Development Trainer Name Role Phone Lesli LESTER, Ania Primary Care Provider Unavail able Catarino Cordova Unavailable [phone] Allergies No Known Allergies Results Component Value Reference Range Notes Glucose, Whole Blood Reviewed date:01/07/2024 01:01:02 PM Interpretation: Performing Lab:[facility], [address] [place] [phone] Notes/Report: Glucose, Whole Blood 165 60-115 mg/dL METER # : [id number] Glucose, Whole Blood Reviewed date:04/03/2024 06:40:13 PM Interpretation: Performing Lab:[facility], [address] [place] [phone] Notes/Report: Glucose, Whole Blood 138 60-115 mg/dL METER # : [id number] Pathology Reviewed date:04/10/2024 06:35:14 PM Interpretation: Performing Lab:[facility], [address] [place] [phone] Notes/Report: ---- Name: Leila Simon Age/Sex: 73/M : 1950 Unit#: [id number] Attend Dr: Catarino Cordova MD Re04/02/24 Status : [facility] Location: [facility] Disch: ---- SPEC : [id number] RECD : 04/02/24-151 STATUS: JOSEFINA BRIGHT NUM: [id number] SAIRA: 04/02/24-[address] [facility] [address]: Catarino Cordova MD ENTERED: 04/02/24- SP [...] AB/PAS stains Copies To: Ania Ballesteros MD [address] [address] Catarino Cordova MD [facility] [address] [place] [address] ---- Signed (signature on file) [...] Notes: Nonsmoker; no sig alcohol. Originally from [facility]--1996 Nonsmoker; No alcohol since 2007 Originally from [facility]--1996 Problems Problem Type SNOMED Code ICD Code Onset Dates Problem Status W/U Status Risk Notes Problem 633467039 History of adenomatous polyp of colon (Z86.010) Active confirmed Problem History of polyp of colon (situation) (438057772) Personal history of colonic polyps (Z86.010) Active confirmed Problem Diverticular disease of colon (518398572) Diverticulosis of large intestine without perforation or abscess without bleeding (K57.30) Active confirmed Problem Gastroesophageal reflux disease (050463958) Gastroesophageal reflux disease (K21.9) Active confirmed Problem Iron deficiency anemia (60127051) Iron deficiency anemia (D50.9) Active confirmed Problem 08371448 Iron deficiency anemia, unspecified iron deficiency anemia type (D50.9) Active confirmed Encounters Encounter Location Date Provider Diagnosis [facility] Outpatient [address] [place] [phone] 04/02/2024 Catarino Cordova Iron deficiency anem ia D50.9 ; Personal history of colonic polyps Z86.010 ; Diverticulosis of large intestine without perforation or abscess without bleeding K57.30 ; Other hemorrhoids K64.8 ; Hiatal hernia K44.9 and Gastroesophageal reflux disease K21.9 [facility] [address] [place] [phone] 01/04/2024 Catarino Cordova [facility] [address] [place] [phone] 01/11/2024 Catarino Cordova [facility] [address] [place] [phone] 01/12/2024 Catarino Cordova [facility] [address] [place] [phone] 03/24/2024 Catarino Cordova Assessments Encounter Date Diagnosis [...] Insured Coverage Start Date Coverage End Date [facility] [address] Attn Claims [employer] H[employer] [id number] LEILA SIMON Self - patient is the insured Medical (General) History Medical History History ICD Code NIDDM Hyperlipidemia Hypertension GERD--EGD in 09/2008--neg. es ophagitis/Denis's, gastric bx. 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
--- OUTSIDE RECORDS SUMMARY | 2024-12-28 16:56 | XMS_ITS | Encounter Summary ---
Author Organization [employer] Address [address] [facility] 7t [place] [address] Care Team Providers Care Deputy Clerk Of Superior Court Name Role Phone Ania Ballesteros MD Primary Care Provider + Encounter Details Date Type Department Care Team (Late st Contact Info) Description 01/28/2024 Orders Only [facility] MEDICINE [address] [place] [address] Provider, MD Yoli Social History Tobacco Use [...] Description 01/14/2025 9:00 AM EDT Office Visit [facility] MEDICINE [address] [place] [address] Ania Ballesteros MD 230 [place] [address] documented as of this encounter Visit Diagnoses Not on filedocumented in this encounter Care Teams Deputy Clerk Of Superior Court Relationship Specialty Start Date End Date Ania Ballesteros MD [address] [place] [address] PCP - General Family Medicine 11/20/16 [employer] 06/28/24 documented as of this encounter
--- OUTSIDE RECORDS SUMMARY | 2024-12-28 16:56 | XMS_ITS | Encounter Summary ---
Author Organization [employer] Address 75 [facility] 7t [place] [address] Care Team Providers Care Bird Cage Assembler Name Role Phone Ania Ballesteros MD Primary Care Provider + Encounter Details Date Type Department Care Team (Late Contact Info) Description 11/28/2022 Orders Only [facility] MED & PEDS [address] [place] [address] Trini Sun LPN Social History Tobacco Use [...] Description 01/14/2025 9:00 AM EDT Office Visit [facility] MEDICINE [address] [place] [address] Ania Ballesteros MD 230 [place], [place] [phone] documented as of this encounter Visit Diagnoses Not on filedocumented in this encounter Care Teams Bird Cage Assembler Relationship Specialty Start Date End Date Ania Ballesteros MD [address] [place], [place] [phone] PCP - General Family Medicine 11/20/16 [employer] 06/28/24 documented as of this encounter
--- OUTSIDE RECORDS SUMMARY | 2024-12-28 16:57 | XMS_ITS | Encounter Summary ---
Author Organization [employer] Address [address] [place] [address] 7t [place] [address] Care Team Providers Care Drop Wirer Name Role Phone Ania Ballesteros MD Primary Care Provider + Reason for Visit * Reason Comments Med Refill Encounter Details Date Type Department Care Team (Late Contact Info) Description 05/14/2023 Refill [facility] MEDICINE [address] [place] [address] [phone] Ania Ballesteros MD [address] [place] [address] [phone] Type 2 diabetes mellitus with ulcer ([facility]) Social History Tobacco Use Types [...] Description 01/14/2025 9:00 AM EDT Office Visit [facility] MEDICINE [address] [place] [address] [phone] Ania Ballesteros MD 230 [place], [place] [phone] documented as of this encounter Visit Diagnoses Diagnosis 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) documented in this encounter Care Teams Drop Wirer Relationship Specialty Start Date End Date Ania Ballesteros MD [address] [place] [address] PCP - General Family Medicine 11/20/16 [employer] 06/28/24 documented as of this encounter
--- OUTSIDE RECORDS SUMMARY | 2024-12-28 16:57 | XMS_ITS | Encounter Summary ---
Author Organization [employer] Address 75 [facility] 7t [place] [address] Care Team Providers Care Electric Engine Mechanic Name Role Phone Ania Ballesteros MD Primary Care Provider + Reason for Visit * Reason Comments Med Refill Encounter Details Date Type Department Care Team ([facility] st Contact Info) Description 10/19/2023 Refill [facility] MEDICINE 230 [place], [place] [phone] Ania Ballesteros MD [address] [place], [place] [phone] Diabetic polyneuropathy associated with type 2 diabetes [...] Description 01/14/2025 9:00 AM EDT Office Visit [facility] MEDICINE 230 [place], [place] [phone] Ania Ballesteros MD [address] [place] [address] documented as of this encounter Visit Diagnoses Diagnosis Diabetic polyneuropathy associated with type 2 diabetes mellitus ([facility]) documented in this encounter Care Teams Electric Engine Mechanic Relationship Specialty Start Date End Date Ania Ballesteros MD [address] [place] [address] [phone] PCP - General Family Medicine 11/20/16 [employer] 06/28/24 documented as of this encounter
--- OUTSIDE RECORDS SUMMARY | 2024-12-28 16:57 | XMS_ITS | Encounter Summary ---
Author Organization [employer] Address 75 [facility] 7t [place] [address] Care Team Providers Care Director Of Nuclear Medicine Name Role Phone Ania Ballesteros MD Primary Care Provider + Reason for Visit * Reason Comments Med Refill Encounter Details Date Type Department Care Team ([facility] st Contact Info) Description 06/01/2024 Refill [facility] MEDICINE [address] [place], [place] [phone] Ania Ballesteros MD [address] [place], [place] [phone] Social History Tobacco Use Types Packs/Day Years [...] Description 01/14/2025 9:00 AM EDT Office Visit [facility] MEDICINE [address] [place] [address] Ania Ballesteros MD [address] [place] [address] documented as of this encounter Visit Diagnoses Not on filedocumented in this encounter Care Teams Director Of Nuclear Medicine Relationship Specialty Start Date End Date Ania Ballesteros MD [address] [place] [address] PCP - General Family Medicine 11/20/16 [employer] 06/28/24 documented as of this encounter
--- OUTSIDE RECORDS SUMMARY | 2024-12-28 16:57 | XMS_ITS | Encounter Summary ---
Author Organization [email or web address] Address 75 [facility] 7t [place] [address] Care Team Providers Care Cotton Ginner Helper Name Role Phone Ania Ballesteros MD Primary Care Provider + Reason for Visit * Reason Comments Med Refill Encounter Details Date Type Department Care Team ([facility] st Contact Info) Description 06/29/2023 Refill [facility] MEDICINE [address] [place], [place] [phone] Ania Ballesteros MD 230 [place], [place] [phone] Social History Tobacco Use Types Packs/Day Years [...] Description 01/14/2025 9:00 AM EDT Office Visit [facility] MEDICINE [address] [place] [address] Ania Ballesteros MD [address] [place] [address] documented as of this encounter Visit Diagnoses Not on filedocumented in this encounter Care Teams Cotton Ginner Helper Relationship Specialty Start Date End Date Ania Ballesteros MD [address] [place] [address] PCP - General Family Medicine 11/20/16 [employer] 06/28/24 documented as of this encounter
--- OUTSIDE RECORDS SUMMARY | 2024-12-28 16:57 | XMS_ITS ---
Author Organization [facility] Address [address] [place] [phone] Care Team Providers Care Land Surveyor Name Role Phone Lesli LESTER, Ania Primary Care Provider Catarino Morse [phone] REASON FOR V[address]IT per Dr[address] Cordova pt cancelled procedure Encounters Encounter Location Date Provider Diagnosis [facility] [address] [place] [phone] 01/12/2024 Catarino Cordova Plan Of Treatment No Information Progress Notes * LUI SIMON RDOB: (73 yo M)Acc No.[id number]:01/12/2024 Patient:?SHELBY SIMON :1950???Age:73 Y???Sex:Male Address:[address] [place] [address] * true * Date:? Generated for [employer] alivia/Lilly/eTransmitting on:?12/28/2024 04:56 PM EDT
== END 2024-12-28 14:20 | disposition home or self-care (01) ==
LOC: HO.HCS 13:47
PROVIDERS: Visit Provider Internal Medicine
DX: I47.29 Other ventricular tachycardia (principal)
CPT/HCPCS: 93010; 99204; G2211

== ENCOUNTER → 2024-12-28 13:47 | Outpatient (BNVA) | payer OTHER, SELFPAY | PROVIDERS: Visit Provider Internal Medicine | DX: I47.29 Other ventricular tachycardia (principal); R00.0 Tachycardia, unspecified | CPT/HCPCS: 93005; 99202 ==

== ENCOUNTER → 2025-04-27 07:50 | Outpatient (REF) | payer OTHER, SELFPAY ==
--- OUTSIDE RECORDS SUMMARY | 2025-04-27 07:53 | XMS_ITS | Patient Health Record ---
Author Organization [facility] [facility] [facility] Address [address] [place] [address] Care Team Providers Care Forensic Investigator Name Role Phone Lesli LESTER, Ania Primary Care Provider Unavail able Art Catarino Unavailable [phone] Allergies No Known Allergies Reason For Referral No Information Medications Medication [...] Notes: Nonsmoker; no sig alcohol. Originally from [facility]--1996 Nonsmoker; No alcohol since 2007 Originally from [facility]--1996 Problems Problem Type SNOMED Code ICD Code Onset Dates Problem Status W/U Status Risk Notes Problem 562124025 History of adenomatous polyp of colon (Z86.010) Active confirmed Problem History of polyp of colon (situation) (994423126) Personal history of colonic polyps (Z86.010) Active confirmed Problem Diverticular disease of colon (299356554) Diverticulosis of large intestine without perforation or abscess without bleeding (K57.30) Active confirmed Problem Gastroesophageal reflux disease (465530826) Gastroesophageal reflux disease (K21.9) Active confirmed Problem Iron deficiency anemia (01577171) Iron deficiency anemia (D50.9) Active confirmed Problem 06948850 Iron deficiency anemia, unspecified iron deficiency anemia type (D50.9) Active confirmed Plan Of Treatment Pending Test Test Name Order Date IRON + IBC (FE) 07/15/2023 CBC w DIFF 07/15/2023 Ferritin 07/15/2023 Future Test Test Name Order Date COLONOSCOPY 01/12/2014 UPPER GI ENDOSCOPY 07/15/2023 COLONOSCOPY 07/15/2023 Insurance Providers Payer Name Payer Address Payer Phone Subscriber Number Group Number Insured Name Patient Relationship to Insured Coverage Start Date Coverage End Date [facility] [address] Attn Claims [employer] [id number] LUI SIMON Self - patient is the insured Medical (General) History Medical History History ICD Code NIDDM Hyperlipidemia Hypertension GERD--EGD in 09/2008--neg. es ophagitis/Denis's, gastric bx. 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
--- OUTSIDE RECORDS SUMMARY | 2025-04-27 07:53 | XMS_ITS | Encounter Summary ---
Author Organization [employer] Address [address] [place] [address] [address] [place] [address] Care Team Providers Care Orbitread Operator Name Role Phone Ania Ballesteros MD Primary Care Provider + Encounter Details Date Type Department Care Team (Late st Contact Info) Description 02/17/2023 Abstract [facility] [address] [place] [address] Ania Ballesteros MD [address] [place] [address] Social History Tobacco Use Types Packs/Day Years [...] Care Team (Late st Contact Info) Description 06/01/2025 10:15 AM EDT Office Visit [facility] [address] [place] [address] Ania Ballesteros MD [address] [place] [address] [place] [address] documented as of this encounter Visit Diagnoses Not on filedocumented in this encounter Care Teams Orbitread Operator Relationship Specialty Start Date End Date Ania Ballesteros MD [address] [place] [address] PCP - General Family Medicine 11/20/16 [employer] 06/28/24 documented as of this encounter
--- NOTE | 2025-04-27 07:56 | CA_ITS ---
Transthoracic Echocardiogram Patient (Last, First, Middle): Leila Vallejo R Gender: Male Date of : 1950 Age: 74 Procedure Date: 04/27/2025 Procedure Type: Transthoracic Echocardiogram Location: OP Height: 177.8 cm Weight: 85.73 kg BSA: 2.04 m2 Heart Rate: bpm BP: 110 / 60 mmHg Genetic Counselor: LALIT Referring MD: Alverto Castillo MD Hydraulic Governor Assembler: Saul Leonard MD Symptoms: I25.10 - Atherosclerotic heart disease of [place] coronary artery without... Study Quality: Fair ECG Rhythm: Sinus with extra beats Conclusions: - 1. Low normal LV ejection fraction 50-55% with regional wall motion abnormality suggestive of coronary artery disease although wall motion abnormalities difficult to assess due to frequent PVCs 2. Normal cardiac valvular Dopplers 3. Mildly dilated ascending aortic root with upper limits of normal ascending aortic size 4. Normal RV systolic pressure 5. No gross pericardial effusion Findings Left Ventricle Normal left ventricular cavity size. There is normal left ventricular wall thickness. The left ventricular systolic function is low normal. The visually estimated ejection fraction is between 50-55%. Diastolic function is indeterminate on the basis of available data. Wall Motion Rest Echo Findings The apical inferior and mid inferior segments are hypokinetic. The basal inferior and apical septum segments are akinetic. All other scored wall segments showed normal motion. Right Ventricle Normal right ventricular cavity size and systolic function. Atria The left atrium is normal in size. Interatrial shunt cannot be excluded. The right atrium is normal in size. Aortic Valve Normal aortic valve structure and function. There is no aortic valve stenosis. There is no aortic valve regurgitation. Mitral Valve There is mild anterior and posterior mitral leaflet thickening. There is trace mitral valve regurgitation. There is no mitral valve stenosis. Pulmonic Valve The pulmonic valve is likely normal. Tricuspid Valve Likely normal tricuspid valve structure and function. There is trace tricuspid valve regurgitation. The right ventricular systolic pressure is normal. The right ventricular systolic pressure is 18 mmHg. Normal right atrial pressure. There is no evidence of pulmonary hypertension. Great Vessels The pulmonary artery was not well visualized. There is mild dilatation of the sinuses of Valsalva and no dilatation of the ascending aorta measuring 3.50 cm. Moderate plaque is seen in the sino tubular ridge. Venous The inferior vena cava is normal in size and collapses greater than 50% with inspiration. Pericardium/Pleural There is no evidence of pericardial effusion. Prior Study Comparison No prior study available for comparison. Measurements 2D Linear Measurements IVSd: 0.96 0.6-0.9/0.6-1.0 cm LVIDd: 4.63 3.9-5.3/4.2-5.9 cm LVIDd Index: 2.27 2.4-3.2/2.2-3.1 cm/m2 LVIDs: 2.99 2.0-3.6 cm LVPWd: 1.02 0.7-1.1 cm LA Diam: 2.60 2.7-3.8/3.0-4.0 cm LAIDs Index: 1.27 1.5-2.3 cm/m2 LV Mass: 196.86 67-162/88-224 g LV Mass Index: 96.50 43-95/49-115 g/m2 LVOT Diam: 2.40 3.0+(-)1.3 cm 2D Systolic Function EF 4C: 52.70 >55% EF 2C: 50.20 >55% EF BiP: 51.70 >55% Mitral Valve MV Pk E: 0.81 MV PK A: 0.89 MV Decel Time: 163.00 E/A: 0.90 E'Lateral: 5.90 E'Medial: 3.70 E/E' Med: 21.80 E/E' Lat: 13.70 PHT: 48.00 MVA PHT: 4.58 Decel [place]: 4.93 Aortic Valve AoV Pk Ismael: 0.98 AoV Mn Ismael: 0.72 AoV VTI: 0.22 AoV Pk Grad: 4.00 Aov Mn Grad: 2.00 RUPERTO Cont.VTI: 3.37 LVOT LVOT Pk Ismael: 0.75 LVOT Mn Ismael: 0.54 LVOT VTI: 0.17 LVOT Pk Grad: 2.00 LVOT Mn Grad: 1.00 LVOT Diam: 2.40 LVOT Area: 4.52 Diastolic Function MV Pk E: 0.81 MV Pk A: 0.89 E/A: 0.90 E'Medial: 3.70 E/E' Med: 21.80 E' Laterial: 5.90 E/E' Lat: 13.70 Right Ventricle TAPSE (mm): 12.10 TVS' Ismael: 9.00 Tricuspid Valve TR Pk Ismael: 1.94 TR Pk Grad: 15.00 RA Press: 3.00 RVSP: 18.00 Great Vessels Aorta Sinus of Valsalva: 4.43 2.0-3.5 cm Ao Asc: 3.50 2.1-3.4 cm Updated in Other Vendor System with Status of Final Saul Leonard MD electronically signed on 04/27/2025 1:22:47 PM with status of Final
== END ==
LOC: HO.CARD 07:50
PROVIDERS: PCP Internal Medicine; Visit Provider Internal Medicine
DX: I25.10 Atherosclerotic heart disease of native coronary artery without angina pectoris (principal); I47.29 Other ventricular tachycardia
CPT/HCPCS: 93306

== ENCOUNTER → 2025-04-27 07:56 | Outpatient (BNV) | payer OTHER, SELFPAY | PROVIDERS: PCP Internal Medicine; Visit Provider Internal Medicine Cardiovascular Disease | DX: I77.810 Thoracic aortic ectasia (principal) | CPT/HCPCS: 93306 ==

== ENCOUNTER 2025-05-04 08:37 | Outpatient (AMB) | payer OTHER, SELFPAY ==
[2025-05-04 08:41] VITALS: BP 118/60; PULSE 90; BMI 25.9
--- NOTE | 2025-05-04 08:41 | A.OFFVIS_ITS ---
Vital Signs 05/04/25 08:41 Height 5 ft 10 in Weight 180 lb 12.465 oz BMI 25.9 BP 118/60 Blood Pressure Location Lt brachial Position Sitting Pulse 90 Pulse Source Pulse Oximeter Intake Visit Reasons: follow up echo result Allergies No Known Allergies Allergy (Verified 12/11/24 19:26) Medication List - Last Reconciled 05/04/25 by Alverto Castillo MD aspirin 81 mg PO DAILY bisacodyl 10 mg PO DAILY PRN blood sugar diagnostic As directed empagliflozin (Jardiance) 25 mg PO QAM gabapentin 300 mg PO DAILY glipizide ER 1 tab PO DAILY insulin degludec (Tresiba FlexTouch U-200 insulin) 68 units subcut BEDTIME lancets (FreeStyle Lancets) As directed lisinopril 5 mg PO DAILY metformin 500 mg PO DAILY ofloxacin 0.3% 10 drps otic (ears) DAILY 7 days omeprazole 20 mg PO DAILY@0630 pen needle, diabetic (1st Tier Unifine Pentips) As directed pen needle, diabetic (BD Susannah 2nd Gen Pen Needle) As directed pioglitazone (Actos) 45 mg PO DAILY simvastatin 40 mg PO BEDTIME HPI Comments Details: Patient returns for follow-up. To recall, multiple cardiovascular risk factors including diabetes, dyslipidemia who had a Holter last year that showed high PVC burden on also NSVT. In this context, he underwent echocardiogram that had shown some wall motion abnormalities. Patient denies any clear-cut exertional angina but he gets short of breath with going upstairs. He also describes some twinges in the chest that feel like a pinch, somewhat nonspecific. Otherwise, no documented coronary disease in the past. 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 Social History Household Members: None Housing: Apartment Alcohol intake: never Patient Tobacco Use Status: Never used Tobacco Advance Directives Date on File: 08/22/21 service: No Current occupational status: retired Review of Systems Const Denies weakness ENT Denies dizziness Card Denies chest pain, Denies chest pain with activity, Denies syncope, Denies rapid heart rate, Denies pedal edema, Denies edema, Denies leg edema, Denies lightheadedness, Reports palpitations, Denies dyspnea, Reports dyspnea on exertion and Denies orthopnea Resp Denies cough, Denies dyspnea and Reports dyspnea on exertion GI Denies hematochezia and Denies change in stool character Musc Denies abnormal gait, Denies muscle cramps, Denies muscle weakness, Denies numbness, Denies radiating pain into limb and Denies tingling Neuro Denies abnormal gait, Denies dizziness, Denies syncope, Denies numbness, Denies tingling and Denies weakness Endo Reports palpitations Physical Exam Vital Signs: Last Vital Signs Pulse 90 05/04/25 08:41 BP 118/60 05/04/25 08:41 BMI result Body Mass Index 25.9 Const General: comfortable and no acute distress Orientation/consciousness: patient oriented x3 HEENT Other: Unremarkable Head: Yes normal to inspection Neck Neck: Yes normal visual inspection Chest Chest palpation & inspection: normal inspection of the chest Resp Auscultation: clear to auscultation bilaterally Cardio Palpation: normal PMI Heart sounds: S1 normal heart sound present, S2 normal heart sound present, no gallops, no murmurs and no rubs GI Palpation (GI): Soft to palpation Back/Spine/Pelvis Other: unremarkable Skin General skin exam: no rashes or lesions noted Neuro General: patient oriented x3 Extrem General: Yes normal to inspection Psych Mental Status: mental status grossly normal Assessment & Plan Assessment & Plan (1) Sinus tachycardia: Code(s): R00.0 - Tachycardia, unspecified Category: Medical (2) NSVT (nonsustained ventricular tachycardia): Code(s): I47.29 - Other ventricular tachycardia Category: Medical (3) Atherosclerotic cardiovascular disease: Code(s): I25.10 - Atherosclerotic heart disease of [place] coronary artery without angina pectoris Category: Medical Plan Cardiac studies reviewed. Echocardiogram with LVEF of 50-55%. Wall motion abnormalities including basal inferior/apical akinesis. Apical inferior/mid inferior hypokinesis. In the Holter monitor, underlying rhythm is sinus with an average rate of 98/Min. Frequent PVCs with a burden of 12.9%. Evidence of couplets, triplets, bigeminy, trigeminy. Several short runs on longest is 4 beats. Overall, diabetes, dyslipidemia, sinus tachycardia that could be from autonomic dysfunction versus inappropriate sinus tachycardia, frequent PVCs/NSVT, wall motion abnormalities on the echocardiogram, unknown coronary status. We will proceed with a diagnostic catheterization to evaluate for any obstructive CAD. With regard to the arrhythmias above, we can start him on a small dose of beta- bonnie. Blood pressure is lowish but hopefully he can tolerate that. If the catheterization is unremarkable, then consider cardiac MRI. Follow-up after the above. Discussion Notes I discussed with the patient the need for an angiogram to evaluate for coronary artery blockages due to his age and risk factors, including diabetes. I explained the procedure, which involves accessing the heart through the wrist and injecting IV dye to take images. The patient was informed about the management of his cardiac arrhythmia with a new medication to control his heart rate and reduce extra beats. Patient was informed and verbally consented to the use of an ambient scribe for clinic note documentation during this visit. Orders: Orders Cardiac Cath LT Diagnostic Today I25.10 - Atherosclerotic heart disease of [place] coronary artery without angina pectoris, I47.29 - Other ventricular tachycardia Prothrombin Time INR Today I47.29 - Other ventricular tachycardia Complete Blood Count no Diff Today I47.29 - Other ventricular tachycardia Basic Metabolic Panel Today I47.29 - Other ventricular tachycardia Medications: New metoprolol succinate ER (Toprol XL) 25 mg PO DAILY 90 tabs 1RF I47.29 - Other ventricular tachycardia Patient Instructions: - Undergo the scheduled angiogram to check for heart blockages. - Start the new medication as prescribed to manage heart rate and rhythm. - Monitor for any new symptoms and report them immediately. Coding Level of Care Code Est Pt Level 4 (46774) Complex EM visit Add On G2211 Diagnoses Sinus tachycardia R00.0 NSVT (nonsustained ventricular tachycardia) I47.29 Atherosclerotic cardiovascular disease I25.10
--- OUTSIDE RECORDS SUMMARY | 2025-05-04 09:19 | XMS_ITS | Encounter Summary ---
Author Organization [employer] Address [address] [place] [address] [address] [place] [address] Care Team Providers Care Food Safety Auditor Name Role Phone Ania Ballesteros MD Primary Care Provider + Encounter Details Date Type Department Care Team (Late st Contact Info) Description 02/17/2023 Abstract [facility] [address] [place] [address] Ania Ballesteros MD [address] [place], [place] [id number] Social History Tobacco Use Types Packs/Day Years [...] Description 06/01/2025 10:15 AM EDT Office Visit [facility] [address] [place] [address] Ania Ballesteros MD [address] [place] [address] [place] [address] documented as of this encounter Visit Diagnoses Not on filedocumented in this encounter Care Teams Food Safety Auditor Relationship Specialty Start Date End Date Ania Ballesteros MD [address] [place] [address] PCP - General Family Medicine 11/20/16 [employer] 06/28/24 documented as of this encounter
--- OUTSIDE RECORDS SUMMARY | 2025-05-04 09:19 | XMS_ITS | Patient Health Record ---
Author Organization [facility] Address [address] [place] [address] Care Team Providers Care Lacquer Spray Booth Operator Name Role Phone Lesli LESTER, Ania Primary Care Provider Unavail able Art Catarino Unavailable [phone] Allergies No Known Allergies Reason For Referral [...] Notes: Nonsmoker; no sig alcohol. Originally from [facility]--1996 Nonsmoker; No alcohol since 2007 Originally from [facility]--1996 Problems Problem Type SNOMED Code ICD Code Onset Dates Problem Status W/U Status Risk Notes Problem 791173534 History of adenomatous polyp of colon (Z86.010) Active confirmed Problem History of polyp of colon (situation) (470297267) Personal history of colonic polyps (Z86.010) Active confirmed Problem Diverticular disease of colon (554434407) Diverticulosis of large intestine without perforation or abscess without bleeding (K57.30) Active confirmed Problem Gastroesophageal reflux disease (195890335) Gastroesophageal reflux disease (K21.9) Active confirmed Problem Iron deficiency anemia (30117800) Iron deficiency anemia (D50.9) Active confirmed Problem 57325569 Iron deficiency anemia, unspecified iron deficiency anemia [...] Insured Coverage Start Date Coverage End Date [facility] [address] Attn Claims JUST[place] [id number] LUI SIMON Self - patient is the insured Medical (General) History Medical History History ICD Code NIDDM Hyperlipidemia Hypertension GERD--EGD in 09/2008--neg. es ophagitis/Denis's, gastric bx. neg for H.pylori Osteomyelitis Screening colonoscopy 2008 Tubular adeno mas removed in 09/2008 Denies [place],CVA,Lung disease,renal disease Negative Screening Colonoscopy in 2013 Surgical History Surgery Date(Month/Year) Hernia x 2 Amputation of toes in relati on to osteomyelitis and vascular disease from his diabetes Left eye surgery-retina
== END 2025-05-04 09:11 | disposition home or self-care (01) ==
LOC: HO.HCS 08:38
PROVIDERS: PCP Internal Medicine; Visit Provider Internal Medicine
DX: I47.29 Other ventricular tachycardia (principal); I25.10 Atherosclerotic heart disease of native coronary artery without angina pectoris
CPT/HCPCS: 99214; G2211

== ENCOUNTER → 2025-05-04 08:37 | Outpatient (BNVA) | payer OTHER, SELFPAY | PROVIDERS: PCP Internal Medicine; Visit Provider Internal Medicine | DX: I47.29 Other ventricular tachycardia (principal); I25.10 Atherosclerotic heart disease of native coronary artery without angina pectoris; I10 Essential (primary) hypertension; E11.42 Type 2 diabetes mellitus with diabetic polyneuropathy; E78.5 Hyperlipidemia, unspecified | CPT/HCPCS: 99212 ==

== ENCOUNTER 2025-06-02 08:24 | Outpatient (REF) | payer OTHER, SELFPAY ==
--- OUTSIDE RECORDS SUMMARY | 2024-01-07 03:30 | XMS_ITS ---
Author Organization [facility] Address [address] [place] [address] Care Team Providers Care Miller Head Assistant Wet Process Name Role Phone Lesli LESTER, Ania Primary Care Provider Catarino Morse [phone] REASON FOR VISIT fe def anemia, hx polyps Encounters Encounter Location Date Provider Diagnosis [facility] [place] [address] [place], [place] [id number] 01/07/2024 Catarino Cordova Plan Of Treatment No Information Progress Notes * LUI SIMON RDOB: (74 yo M)Acc No.[id number]:01/07/2024 EGD and COL/MAC Patient: LUI MORAN Provider: Mendoza Cordova MD :1950 A ge:73 Y S ex:Male Date:01/07/2024 Address:[address] [place] [address] [address] [id number] Pcp:Ania Ballesteros MD Subjective: * Chief Complaints: * 1 . Fe def anemia, hx polyps. * Medical History: Objective: * Vitals: Assessment: Plan: * Treatment: * * The named appointment provid er may or may not be the originator of this progress note, and it is not deemed complete until electronically signed by the appointment provider. Sign off status: Pending * Provider: Mendoza Cordova MD Date: 0 01/07/2024 Generated for Navyai alivia/Lilly/eTransmitting on: 0 06/02/2025 09:30 AM EDT
--- OUTSIDE RECORDS SUMMARY | 2024-04-02 09:00 | XMS_ITS ---
Author Organization [facility] Address [address] [place] [address] Care Team Providers Care Apprentice Cosmetologist Name Role Phone Ania Ballesteros MD Primary Care Provider Unavail Catarino Sanchez Unavailable [phone] REASON FOR VISIT colon screening,gerd Problems Problem Type SNOMED Code ICD Code Onset Dates Problem Status W/U Status Risk Notes Problem Iron deficiency anemia (65193082) Iron deficiency anemia (D50.9) Active confirmed Problem History of polyp of colon (situation) (004022332) Personal history of colonic polyps (Z86.010) Active confirmed Problem Diverticular disease of colon (436762292) Diverticulosis of large intestine without perforation or abscess without bleeding (K57.30) Active confirmed Problem Gastroesophageal reflux disease (884953233) Gastroesophageal reflux disease (K21.9) Active confirmed Encounters Encounter Location Date Provider Diagnosis [facility] [place] Outpatient [address] [place] [address] [phone] 04/02/2024 Catarino Cordova Iron deficiency anem ia D50.9 ; Personal history of colonic polyps Z86.010 ; Diverticulosis of large intestine without perforation or abscess without bleeding K57.30 ; Other hemorrhoids K64.8 ; Hiatal hernia K44.9 and Gastroesophageal reflux disease K21.9 Assessments Encounter Date Diagnosis (ICD Code) Assessment Notes Treatment Notes Treatment Clinical Notes Section Notes 04/02/2024 Iron deficiency anemia (ICD-10 - D50.9) 04/02/2024 Personal history of colonic polyps (ICD-10 - Z86.010) 04/02/2024 Diverticulosis of large intestine without perforation or abscess without bleeding (ICD-10 - K57.30) 04/02/2024 Other hemorrhoids (ICD-10 - K64.8) 04/02/2024 Hiatal hernia (ICD-10 - K44.9) 04/02/2024 Gastroesophageal reflux disease (ICD-10 - K21.9) Plan Of Treatment No Information Progress Notes * LUI SIMON RDOB: (74 yo M)Acc No.[id number]:04/02/2024 EGD and COL/MAC Patient: LUI MORAN R Provider: Mendoza Cordova MD :1950 A ge:73 Y S ex:Male Date:04/02/2024 Address:[address] [place], [place] [phone] Pcp:Ania Ballesteros MD Subjective: * Chief Complaints: * 1 . Colon screening,gerd. * Medical History: Objective: * Vitals: Assessment: * Assessment: 1. I jonh deficiency anemia - D50.9 (Primary) 2 . P ersonal history of colonic polyps - Z86.010 3 . D iverticulosis of large intestine without perforation or abscess without bleeding - K57.30 4 . O ther hemorrhoids - K64.8 5. H iatal hernia - K44.9 6 . G astroesophageal reflux disease - K21.9? Plan: * Treatment: * Procedure Codes: 4 5378 DIAGNOSTIC COLONOSCOPY, 42349 UPPER GI ENDOSCOPY, BIOPSY * Preventive Medicine: OREN Screening: C olonoscopy W as interval between colonoscopies three years or more? Y es, W as last colonoscopy performed three or more years ago? Y es. * * The named appointment provid er may or may not be the originator of this progress note, and it is not deemed complete until electronically signed by the appointment provider. Sign off status: Pending * Provider: Mendoza Cordova MD Date: 0 04/02/2024 Generated for Isi bunch/Lilly/Odalisitting on: 0 06/02/2025 09:30 AM EDT
--- OUTSIDE RECORDS SUMMARY | 2025-06-01 10:15 | XMS_ITS | Encounter Summary ---
Author Organization [employer] Address [address] [place] [address] 7[address] [place] [address] Care Team Providers Care Back Wedger Name Role Phone Ania Acevedo MD Primary Care Provider + Reason for Referral * Imaging (Routine) - Authorized Specialty Diagnoses / Procedures Referred By Contac t Referred To Contact Radiology Diagnoses RUQ pain Procedures US Abdomen Complete Ania Acevedo MD [address] [place] [id number] Phone: tel: fax: [address] Phone: tel: fax: Referral ID Status Reason Start Date Expiration Date V isits Requested Visits Authorized [id number] Authorized 06/01/2025 06/01/2026 1 1 Reason for Visit * Reason Comments Follow-up Encounter Details Date Type Department Care Team (Late st Contact Info) Description 06/01/2025 10:15 AM EDT Office Visit [facility] [address] [place] [address] [phone] Ania Acevedo MD [address] [place] [address] [phone] Diabetes mellitus due to underlying condition with hyperglycemia, with long-term current use of insulin (CMS/HCC) (Primary Dx); Intercostal pain; RUQ pain; Other ventricular tachycardia (CMS/HCC); Induration of right breast; Preventative health care Social History Tobacco Use Types Packs/Day Years Used Date Smoking Tobacco: Never Smokeless Tobacco: Never Alcohol Use Standard Drinks/Week Comments Not Currently 0 (1 standard drink = 0.6 oz pur e alcohol) Depression Answer Date Recorded Patient Health Questionnaire-9 Score 1 06/01/2025 Patient Health Questionnaire-9 Score 1 06/01/2025 Last PHQ-9: Questionnaire Data Not on file 0 06/01/2025 Housing Stability Answer Date Recorded What is your housing situation today? I have andra arroyo 01/07/[address] you li ve. Do you have problems with any of the following? None of the above 01/07/2025 Food Insecurity Answer Date Recorded Within the past 12 months, y ou worried that your food would run out before you got money to buy more: Never True 01/07/2025 Within the past 12 months,th e food you bought just didn't last and you didn't have enough money to get more: Never True Transportation Answer Date Recorded In the past 12 months, has l ack of transportation kept you from medical appts, meetings, work or from getting things needed for daily living? No 01/07/2025 Utilities Answer Date Recorded In the past 12 months, has t he electric, gas, oil or water company threatened to shut off services in your home? No 01/07/2025 Depression Answer Date Recorded Patient Health Questionnaire-2 Score 0 06/01/2025 Internet Access Answer Date Recorded Internet Access Q1 Yes 01/07/2025 Internet Access Q2 Not on file 01/07/2025 Sex and Gender Information Value Date Recorded Sex Assigned at Male 07/15/2022 10:18 AM EDT Legal Sex Male 10:18 AM EDT Gender Identity Male 07/15/2022 10:18 AM EDT Sexual Orientation Straight 07/15/2022 10 :18 AM EDT documented as of this encounter Last Filed Vital Signs Vital Sign Reading Time Taken Comments Blood Pressure 130/70 06/01/2025 10:16 AM EDT Pulse 112 06/01/2025 10:16 AM EDT Temperature 36.3 C (97.4 F) 06/01/2025 10:16 AM EDT Respiratory Rate 24 06/01/2025 10:1 6 AM EDT Oxygen Saturation - - Inhaled Oxygen Concentration - - Weight 81.6 kg (179 lb 12.8 oz) 025 10:16 AM EDT Height 177.8 cm (5' 10 ) 06/01/2025 10: 16 AM EDT Body Mass Index 25.8 06/01/2025 10:16 AM EDT documented in this encounter Functional Status * Over the past 2 weeks, how often have you been bothered by any of the following problems? Question Answer Date of Assessment Author Patient Health Questionnaire -2 Score 0 06/01/2025 10:22 AM EDT Tran Winters [place] * Little interest or pleasure in doing things Answer Date of Assessment Author Not at all 06/01/2025 10:22 AM EDT Tran Winters [place] * Feeling down, depressed, or hopeless Answer Date of Assessment Author Not at all 06/01/2025 10:22 AM EDT Tran Winters [place] * Trouble falling or staying asleep, or sleeping too much Answer Date of Assessment Author Several days 06/01/2025 10:22 AM EDT Tran Winters [place] * Feeling tired or having little energy Answer Date of Assessment Author Not at all 06/01/2025 10:22 AM EDT Tran Winters [place] * Poor appetite or overeating Answer Date of Assessment Author Not at all 06/01/2025 10:22 AM EDT Tran Winters [place] * Feeling bad about yourself - or that you are a failure or have let yourself or your family down Answer Date of Assessment Author Not at all 06/01/2025 10:22 AM EDT Tran Winters [place] * Trouble concentrating on things, such as reading the newspaper or watching television Answer Date of Assessment Author Not at all 06/01/2025 10:22 AM EDT Tran Winters [place] * Moving or speaking so slowly that other people could have noticed? Or the opposite - being so fidgety or restless that you have been moving around a lot more than usual. Answer Date of Assessment Author Not at all 06/01/2025 10:22 AM Tran Jimenez [place] * Thoughts that you would be better off or hurting yourself in some way Answer Date of Assessment Author Not at all 06/01/2025 10:22 AM Tran Jimenez [place] * Patient Health Questionnaire-9 Score Answer Date of Assessment Author 1 06/01/2025 10:22 AM EDT Tran Winters [place] * Over the last 2 weeks, how often have you been bothered by any of the following problems? Question Answer Date of Assessment Author Feeling nervous, anxious, or on edge 0 06/01/2025 10:22 AM EDT Tran Winters MA Not being able to stop or co ntrol worrying 0 06/01/2025 10:22 AM EDT Tran Winters [place] Worrying too much about diff erent things 0 06/01/2025 10:22 AM EDT Tran Winters [place] Trouble relaxing 0 06/01/2025 10:22 AM EDT Tran Winters [place] Being so restless that it is hard to sit still 0 06/01/2025 10:22 AM EDT Tran Winters [place] Becoming easily annoyed or irritable 0 06/01/2025 10:22 AM EDT Tran Winters [place] Feeling afraid as if somethi ng awful might happen 0 06/01/2025 10:22 AM EDT Tran Winters MA OMI-7 Total Score 0 06/01/2025 10:22 AM EDT Tran Winters [place] documented as of this encounter Progress Notes * Ania Acevedo MD - 06/01/2025 10:15 AM EDT SUBJECTIVE: Leila Roberts is a 74 y.o. year old male who presents for follow up DM. Denies recent illness, injury, or hospitalization. FBS at home runs 100-180s, no hypoglycemia/ RBS up to mid 200. He's on Tresiba 20u/am + 75u QPM He's seen by cards due to abn EKG: Runs of NSVT on Holter monitor. He reports CEBALLOS/CP after 1 [address] stairs. Acute Concerns: Right sided chest pain mostly under right breast for about 6m , not related to exertion, meals, cough. Pain is improved when changing position. No gynecomastia. Patient brings in paperwork to start going to adult day health program, needs TB test and PE. Social History Social History Narrative He lives alone on a 1st floor apartment ([facility] kids are in the area and check on him as well.He is able to self care, cook, ADLs, except heavy lifting. Neg smoking, ETOH, drugs. He drives a electric bike. Problem List[1] Family History[2] Review of Systems Constitutional: Negative for fever. HENT: Negative for congestion, ear pain, rhinorrhea and sore throat. Eyes: Negative for pain and discharge. Respiratory: Negative for cough and shortness of breath. Cardiovascular: Positive for chest pain. Gastrointestinal: Positive for abdominal pain. Negative for constipation, diarrhea and nausea. Endocrine: Negative for polydipsia. Genitourinary: Negative for dysuria and frequency. Musculoskeletal: Negative for arthralgias, back pain and neck pain. Neurological: Negative for dizziness, numbness and headaches. Psychiatric/Behavioral: Negative for agitation. OBJECTIVE: Vitals: 06/01/25 1016 BP: 130/70 Pulse: (!) 112 Resp: 24 Temp: 97.4 ??F (36.3 ??C) Physical Exam Constitutional: Appearance: Normal appearance. HENT: Right Ear: Tympanic membrane and ear canal normal. Left Ear: Tympanic membrane and ear canal normal. Mouth/Throat: Mouth: Mucous membranes are moist. Pharynx: No oropharyngeal exudate or posterior oropharyngeal erythema. Eyes: Pupils: Pupils are equal, round, and reactive to light. Cardiovascular: Rate and Rhythm: Normal rate and regular rhythm. Pulses: Dorsalis pedis pulses are 2+ on the right side and 2+ on the left side. Posterior tibial pulses are 2+ on the right side and 2+ on the left side. Heart sounds: No murmur heard. Pulmonary: Breath sounds: Normal breath sounds. No wheezing. Abdominal: General: Bowel sounds are normal. Palpations: Abdomen is soft. Tenderness: There is no abdominal tenderness. Musculoskeletal: General: No tenderness. Normal range of motion. Cervical back: Normal range of motion. No tenderness. Right foot: Deformity (amputated toes) present. Left foot: No deformity. Right Lower Extremity: (sp right toes amputation) Feet: Right foot: Protective Sensation: 2 sites tested. 2 sites sensed. Skin integrity: No ulcer or fissure. Left foot: Protective Sensation: 7 sites tested. 7 sites sensed. Skin integrity: No ulcer or fissure. Toenail Condition: Left toenails are normal. Comments: Amputated toes right foot Absent 4th toe of left foot Skin: General: Skin is warm. Neurological: General: No focal deficit present. Mental Status: He is alert and oriented to person, place, and time. Psychiatric: Mood and Affect: Mood normal. Office Visit on 06/01/2025 Component Date Value Ref Range Status Hemoglobin A1C 06/01/2025 8.8 (A) 4.0 - 5.7 % Final QC Media Lot # 06/01/2025 [id number] Final Lot# Expiration Date 06/01/2025 [id number] Final Glucose Blood, POC 06/01/2025 189 60 - 200 mg/dL Final random QC Media Lot # 06/01/2025 [id number] Final Lot# Expiration Date 06/01/2025 [id number] Final Problem List Items Addressed This Visit Diabetes mellitus due to underlying condition with hyperglycemia, with long-term current use of insulin (CMS/HCC) - Primary A1c has not improved, DM still uncontrolled. Increase Tresiba to 48 units/at bedtime. We discussed about starting GLPs or short acting insulin, he does not want use additional needles. He wants to hold on Januvia at this time, apparently had previous intolerance. Will follow-up on the medications at next visit. Continue metformin 1000 mg twice daily (did not tolerate increased dose previously) Continue Actos,Glipizide and Jardiance. FU in 6 weeks. He has peripheral vascular disease, will obtain records from vascular surgery office. No foot ulcers at this time. Ophthalmology evaluation reportedly up-to-date this year, will obtain office notes from [facility] eye clinic Relevant Medications insulin degludec (Tresiba FlexTouch) 200 UNIT/ML injection Other Relevant Orders POCT Hgb A1c (Completed) POCT Glucose (Completed) Lipid Panel with Reflex to Direct LDL Comprehensive Metabolic Panel Albumin, Random Urine W/Creatinine Intercostal pain See above re mastalgia Relevant Orders CBC auto differential XR Ribs 2 Views Right XR Chest 2 Views T-SPOT??.TB RUQ pain Unclear if related to hepatomegaly or some pleurisy. Order abdominal ultrasound, LFTs and CXR neck and follow-up in 6 weeks Relevant Orders Comprehensive Metabolic Panel Gamma Glutamyl Transferase (GGT) Prothrombin Time-INR CBC auto differential Hepatitis Panel, General US Abdomen Complete Other ventricular tachycardia (CMS/HCC) On bblocker, seen by cardiology. Cardiac cath pending on 06/23/25 Relevant Medications insulin degludec (Tresiba FlexTouch) 200 UNIT/ML injection Induration of right breast No significant gynecomastia, area is somewhat tender but it seems to be more towards the rib cage. Order ribs x-rays and CXR Relevant Orders XR Ribs 2 Views Right XR Chest 2 Views Other Visit Diagnoses Preventative health care Order TB test for ADH, he's in optimal condition at this time to attend ADH program Patient will start [facility] as soon as paperwork is ready, he will FU with them Follow Up: Medications Ordered Prior to Encounter[3] [1] Patient Active Problem List Diagnosis Acute renal failure syndrome (CMS/HCC) Amputated toe of left foot (CMS/HCC) Blood in urine Callosity Essential hypertension Peripheral vascular disease (CMS/HCC) Pure hypercholesterolemia Tubular adenoma of colon Umbilical hernia Other ventricular tachycardia (CMS/HCC) Iron deficiency anemia Hyperkalemia Diabetes mellitus due to underlying condition with hyperglycemia, with long-term current use of insulin (CMS/HCC) Exercise counseling Problem with medical care compliance Dietary counseling Constipation Gastroesophageal reflux disease History of colonic polyps Encounter for screening for malignant neoplasm of colon Induration of right breast Gait disturbance Overweight Malignant otitis externa of both ears Acquired absence of other left toe(s) (CMS/HCC) Intercostal pain RUQ pain [2] No family history on file. [3] Current Outpatient Medications on File Prior to Visit Medication Sig Dispense Refill Alcohol Swabs (Easy Touch Alcohol Prep Medium) 70 % pads USE DIRECTED WITH INSULIN 100 each 11 aspirin 81 MG EC tablet Take 1 tablet by mouth in the morning and at bedtime. atorvastatin (Lipitor) 40 MG tablet TAKE 1 TABLET BY MOUTH EVERY DAY 90 tablet 3 bisacodyl (Dulcolax) 5 MG EC tablet Take 2 tablets by mouth every other day. Blood Glucose Monitoring Suppl (Poacht Appyle Red [employer] Lite) w/Device kit TEST BLOOD SUGAR DIRECTED 1kit 0 gabapentin (Neurontin) 300 MG capsule TAKE 1 CAPSULE BY MOUTH THREE TIMES DAILY 270 capsule 1 glipiZIDE XL (Glucotrol XL) 10 MG 24 hr tablet TAKE 1 TABLET BY MOUTH TWICE DAILY 180 tablet 3 glucose blood (FREESTYLE LITE) test strip USE DIRECTED TO TEST BLOOD SUGAR FOUR TIMES DAILY 100 strip 11 insulin pen needle (Pentips Generic Pen [place]) 32G x 4 mm misc USE WITH LEVEMIR TWICE DAILY 100 each 5 Jardiance 25 MG TAKE 1 TABLET BY MOUTH EVERY DAY 90 tablet 3 lisinopril 5 MG tablet TAKE 1 TABLET BY MOUTH ONCE DAILY 90 tablet 1 metFORMIN (Glucophage) 500 MG tablet TAKE 2 TABLETS BY MOUTH TWICE DAILY WITH BREAKFAST AND DINNER 360 tablet 1 omeprazole (PriLOSEC) [address] capsule TAKE 1 CAPSULE BY MOUTH EVERY DAY 90 capsule 3 pioglitazone (Actos) 45 MG tablet TAKE 1 TABLET BY MOUTH EVERY DAY 90 tablet 3 psyllium (Metamucil Smooth Texture) 58.6 % powder Take 1 g by mouth in the morning and at bedtime. TRUEplus Lancets 33G misc USE DIRECTED TO TEST BLOOD SUGAR FOUR TIMES DAILY 100 each 11 [DISCONTINUED] insulin degludec (Tresiba FlexTouch) 200 UNIT/ML injection Inject 90 Units under theskin Once per day. 40.5 mL 3 No current facility-administered medications on file prior to visit. documented in this encounter Miscellaneous Notes * Assessment & Plan Note - Ania Acevedo MD - 06/01/2025 3:47 PM EDT Associated Problem(s): Intercostal pain See above re mastalgia * Assessment & Plan Note - Ania Acevedo MD - 06/01/2025 3:46 PM EDT Associated Problem(s): Induration of right breast No significant gynecomastia, area is somewhat tender but it seems to be more towards the rib cage. Order ribs x-rays and CXR * Assessment & Plan Note - Ania Acevedo MD - 06/01/2025 3:46 PM EDT Associated Problem(s): RUQ pain Unclear if related to hepatomegaly or some pleurisy. Order abdominal ultrasound, LFTs and CXR neck and follow-up in 6 weeks * Assessment & Plan Note - Ania Acevedo MD - 06/01/2025 3:46 PM EDT Associated Problem(s): Diabetes mellitus due to underlying condition with hyperglycemia, with long-term current use of insulin (CMS/HCC) A1c has not improved, DM still uncontrolled. Increase Tresiba to 48 units/at bedtime. We discussed about starting GLPs or short acting insulin, he does not want use additional needles. He wants to hold on Januvia at this time, apparently had previous intolerance. Will follow-up on the medications at next visit. Continue metformin 1000 mg twice daily (did not tolerate increased dose previously) Continue Actos,Glipizide and Jardiance. FU in 6 weeks. He has peripheral vascular disease, will obtain records from vascular surgery office. No foot ulcers at this time. Ophthalmology evaluation reportedly up-to-date this year, will obtain office notes from [facility] eye clinic * Assessment & Plan Note - Ania Acevedo MD - 06/01/2025 11:16 AM EDT Associated Problem(s): Other ventricular tachycardia (CMS/HCC) On bblocker, seen by cardiology. Cardiac cath pending on 06/23/25 * Addendum Note - Ania Acevedo MD - 06/01/2025 10:15 AM EDTAddended by: ANIA ACEVEDO on: 06/01/2025 04:41 PM Modules accepted: Orders documented in this encounter Plan of Treatment Upcoming Encounters Date Type Department Care Team (Late st Contact Info) Description 08/16/2025 9:45 AM EST Office Visit [facility] [address] [place] [address] Ania Acevedo MD [address] [place] [address] Scheduled Orders Name Type Priority Associated Diagnoses Orde r Schedule Lipid Panel with Reflex to Direct LDL Lab Routine Diabetes mellitus due to underlying condition with hyperglycemia, with long-term current use of insulin (CMS/HCC) Expected: 06/01/2025 (Approximate), Expires: 06/01/2026 Comprehensive Metabolic Panel Lab Routine Diabetes mellitus due to underlying condition with hyperglycemia, with long-term current use of insulin (CMS/HCC) RUQ pain Expected: 06/01/2025 (Approximate), Expires: 06/01/2026 Gamma Glutamyl Transferase (GGT) Lab Routine RUQ pain Expected: 06/01/2025 (Approximate), Expires: 06/01/2026 Prothrombin Time-INR Lab Routine RUQ pain Expected: 06/01/2025, Expires: 06/01/2026 CBC auto differential Lab Routine Intercostal pain RUQ pain Expected: 06/01/2025 (Approximate), Expires: 06/01/2026 Albumin, Random Urine W/Creatinine Lab Routine Diabetes mellitus due to underlying condition with hyperglycemia, with long-term current use of insulin (CMS/HCC) Expected: 06/01/2025 (Approximate), Expires: 06/01/2026 Hepatitis Panel, General Lab Routine RUQ pain Expected: 06/01/2025 (Approximate), Expires: 06/01/2026 US Abdomen Complete Imaging Routine RUQ pain Expected: 06/01/2025 (Approximate), Expires: 06/01/2026 XR Ribs 2 Views Right Imaging Routine Induration of right breast Intercostal pain Expected: 06/01/2025 (Approximate), Expires: 06/01/2026 XR Chest 2 Views Imaging Routine Induration of right breast Intercostal pain Expected: 06/01/2025, Expires: 06/01/2026 T-SPOT .TB Lab Routine Intercostal pain Expected: 06/01/2025 (Approximate), Expires: 06/01/2026 documented as of this encounter Procedures Procedure Name Priority Date/Time Associated Diagnosis Comments POCT GLYCATED HEMOGLOBIN, TOTAL Routine 06/01/2025 10:21 AM EDT Diabetes mellitus due to underlying condition with hyperglycemia, with long-term current use of insulin ([facility]) POCT GLUCOSE Routine 06/01/2025 10:19 AM EDT Diabetes mellitus due to underlying condition with hyperglycemia, with long-term current use of insulin (CMS/[facility]) documented in this encounter Results * (ABNORMAL) POCT Hgb A1c (06/01/2025 10:21 AM EDT) Hemoglobin A1C 8.8(A) 4.0 - 5.7 % QC Media Lot # [id number] Lot# Expiration Date , Blood 06/01/2025 10:2 1 AM EDT Ania Acevedo MD POINT OF CARE TEST ENTER /EDIT ORDERABLES Final Result * POCT Glucose (06/01/2025 10:19 AM EDT) Glucose Blood, POC 189 60 - 200 mg/dL Comment:random QC Media Lot # [id number] Lot# Expiration Date 2072,781 Blood Capillary blood specimen / Unknown 06/01/2025 10:19 AM EDT Ania Acevedo MD POINT OF CARE TEST ENTER /EDIT ORDERABLES Final Result documented in this encounter Visit Diagnoses Diagnosis Diabetes mellitus due to underlying condition with hyperglycemia, with long-term current use of insulin ([facility]/HCC)- Primary Intercostal pain RUQ pain Abdominal pain, right upper quadrant Other ventricular tachycardia (CMS/HCC) Induration of right breast Preventative health care Routine general medical examination at a health care facility documented in this encounter Additional Health Concerns Assessment Noted Time PHQ-9 Depression Total Score: 1 06/01/20 25 10:22 AM EDT documented as of this encounter Care Teams Back Wedger Relationship Specialty Start Date End Date Ania Acevedo MD [address] [place] [phone] PCP - General Family Medicine 11/20/16 [employer] 06/28/24 documented as of this encounter
--- NOTE | ~2025-06-02 | XR_ITS ---
EXAMINATION: XR CHEST 2 VIEWS, XR RIBS 2 VIEWS RIGHT HISTORY: right sided chest pain COMPARISON: Comparison is made with the prior examination of the chest dated 11/27/2022. FINDINGS: PA and lateral views of the chest and 3 views of the right ribs are submitted. The lungs are expanded and clear. There is no pleural effusion, pneumothorax, or pulmonary vascular congestion. The heart is normal in size. There is degenerative disc disease of the spine. The right ribs are intact. No fracture is seen. XR/XR ribs RT 2V IMPRESSION: No acute cardiopulmonary abnormality. No evidence of fracture of the right ribs. Electronically signed by: Catarino Addison MD 06/02/2025 09:34 AM EDT
--- NOTE | ~2025-06-02 | XR_ITS ---
EXAMINATION: XR CHEST 2 VIEWS, XR RIBS 2 VIEWS RIGHT HISTORY: right sided chest pain COMPARISON: Comparison is made with the prior examination of the chest dated 11/27/2022. FINDINGS: PA and lateral views of the chest and 3 views of the right ribs are submitted. The lungs are expanded and clear. There is no pleural effusion, pneumothorax, or pulmonary vascular congestion. The heart is normal in size. There is degenerative disc disease of the spine. The right ribs are intact. No fracture is seen. XR/XR chest 2V IMPRESSION: No acute cardiopulmonary abnormality. No evidence of fracture of the right ribs. Electronically signed by: Catarino Addison MD 06/02/2025 09:34 AM EDT
--- OUTSIDE RECORDS SUMMARY | 2025-06-02 09:29 | XMS_ITS | Encounter Summary ---
Author Organization [employer] Address [address] [place] [address] [address] [place] [address] Care Team Providers Care All Round Butcher Name Role Phone Ania Ballesteros MD Primary Care Provider + Encounter Details Date Type Department Care Team (Late st Contact Info) Description 02/17/2023 Abstract [facility] [address] [place] [address] Ania Ballesteros MD [address] [place] [address] Social History Tobacco Use Types Packs/Day Years [...] Description 08/16/2025 9:45 AM EST Office Visit [facility] [address] [place] [address] Ania Ballesteros MD [address] [place] [address] documented as of this encounter Visit Diagnoses Not on filedocumented in this encounter Care Teams All Round Butcher Relationship Specialty Start Date End Date Ania Ballesteros MD [address] [place] [address] PCP - General Family Medicine 11/20/16 [employer] 06/28/24 documented as of this encounter
--- OUTSIDE RECORDS SUMMARY | 2025-06-02 09:30 | XMS_ITS | Encounter Summary ---
Author Organization [employer] Address [address] [place] [address] [address] [place] [address] Care Team Providers Care Physical Biochemist Name Role Phone Ania Ballesteros MD Primary Care Provider + Reason for Visit * Reason Comments Med Refill Encounter Details Date Type Department Care Team (Late st Contact Info) Description 05/14/2023 Refill [facility] [address] [place] [address] [phone] Ania Ballesteros MD [address] [place] [address] [phone] Type 2 diabetes mellitus with ulcer ([facility]) Social History Tobacco Use [...] Description 08/16/2025 9:45 AM EST Office Visit [facility] [address] [place] [phone] Ania Ballesteros MD [address] [place], [place] [phone] documented as of this encounter Visit Diagnoses Diagnosis 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
--- OUTSIDE RECORDS SUMMARY | 2025-06-02 09:30 | XMS_ITS | Encounter Summary ---
Author Organization [employer] Address [address] [facility] [address]t [place] [address] Care Team Providers Care Drier Operator Head Name Role Phone Ania Ballesteros MD Primary Care Provider + Reason for Visit * Reason Comments Med Refill Encounter Details Date Type Department Care Team (Late st Contact Info) Description 02/08/2025 Refill [facility] [address] [place] [address] Asia Ruth MD [address] [place] [address] Social History Tobacco Use Types Packs/Day Years [...] Recorded Patient Health Questionnaire-2 Score 0 03/24/2024 Internet Access Answer Date Recorded Internet Access [...] Description 08/16/2025 9:45 AM EST Office Visit [facility] [address] [place] [address] [phone] Ania Ballesteros MD [address] [place] [phone] documented as of this encounter Visit Diagnoses Not on filedocumented in this encounter Care Teams Drier Operator Head Relationship Specialty Start Date End Date Ania Ballesteros MD [address] [place] [phone] PCP - General Family Medicine 11/20/16 [employer] 06/28/24 documented as of this encounter
--- OUTSIDE RECORDS SUMMARY | 2025-06-02 09:30 | XMS_ITS | Encounter Summary ---
Author Organization [employer] Address [address] [facility] 7t [place] [address] Care Team Providers Care Ripsawyer Name Role Phone Ania Ballesteros MD Primary Care Provider + Encounter Details Date Type Department Care Team (Late Contact Info) Description 01/20/2023 Orders Only [facility] CHC MED & PEDS [address] [place], [place] [phone] Trini Sun LPN Social History Tobacco Use [...] Department Care Team (Late Contact Info) Description 08/16/2025 9:45 AM EST Office Visit [facility] MEDICINE [address] [place] [address] Ania Ballesteros MD [address] [place] [address] documented as of this encounter Visit Diagnoses Not on filedocumented in this encounter Care Teams Ripsawyer Relationship Specialty Start Date End Date Ania Ballesteros MD [address] [place], [place] [phone] PCP - General Family Medicine 11/20/16 [employer] 06/28/24 documented as of this encounter
--- OUTSIDE RECORDS SUMMARY | 2025-06-02 09:30 | XMS_ITS | Encounter Summary ---
Author Organization [employer] Address [address] [facility] 7t [place] [address] Care Team Providers Care Roll Repairer Name Role Phone Ania Ballesteros MD Primary Care Provider + Reason for Visit * Reason Comments Med Refill Encounter Details Date Type Department Care Team (Late st Contact Info) Description 06/29/2023 Refill [facility] MEDICINE [address] [place] [address] Ania Ballesteros MD [address] [place] [address] Social History Tobacco Use Types Packs/Day Years [...] Description 08/16/2025 9:45 AM EST Office Visit [facility] MEDICINE [address] [place] [address] Ania Ballesteros MD [address] [place] [address] documented as of this encounter Visit Diagnoses Not on filedocumented in this encounter Care Teams Roll Repairer Relationship Specialty Start Date End Date Ania Ballesteros MD [address] [place] [phone] PCP - General Family Medicine 11/20/16 [employer] 06/28/24 documented as of this encounter
--- OUTSIDE RECORDS SUMMARY | 2025-06-02 09:30 | XMS_ITS | Encounter Summary ---
Author Organization [employer] Address [address] [facility] 7t [place] [address] Care Team Providers Care Crown Perforator Operator Name Role Phone Ania Ballesteros MD Primary Care Provider + Encounter Details Date Type Department Care Team (Latest Contact Info) Description 06/01/2025 Travel Social History Tobacco Use Types Packs/Day Years [...] AM EDT documented as of this encounter Functional Status * Over the [...] 10:22 AM EDT Tran Winters [place] * Thoughts that you would be better off or hurting yourself in some way Answer Date of Assessment Author Not at all 06/01/2025 10:22 AM EDT Tran Winters [place] * Patient Health Questionnaire-9 Score Answer [...] OMI-7 Total Score 0 06/01/2025 10:22 AM RADHAT Tran Winters [place] documented as of this encounter Plan of Treatment Upcoming Encounters Date Type Department Care Team (Late st Contact Info) Description 08/16/2025 9:45 AM EST Office Visit [facility] MEDICINE [address] [place] [address] Ania Ballesteros MD [address] [place] [address] documented as of this encounter Visit Diagnoses Not on filedocumented in this encounter Additional Health Concerns Assessment Noted Time PHQ-9 Depression Total Score: 1 06/01/20 10:22 AM EDT documented as of this encounter Care Teams Crown Perforator Operator Relationship Specialty Start Date End Date Ania Ballesteros MD [address] [place] [address] PCP - General Family Medicine 11/20/16 [employer] 06/28/24 documented as of this encounter
--- OUTSIDE RECORDS SUMMARY | 2025-06-02 09:30 | XMS_ITS | Encounter Summary ---
Author Organization [employer] Address [address] [facility] 7t [place] [address] Care Team Providers Care Machine Pie Maker Name Role Phone Ania Ballesteros MD Primary Care Provider + Encounter Details Date Type Department Care Team ([facility] st Contact Info) Description 01/28/2024 Orders Only [facility] MEDICINE [address] [place] [address] ProviderYoli MD Social History Tobacco Use Types Packs/Day Years [...] Description 08/16/2025 9:45 AM EST Office Visit [facility] MEDICINE [address] [place] [address] Ania Ballesteros MD 230 [place] [address] documented as of this encounter Visit Diagnoses Not on filedocumented in this encounter Care Teams Machine Pie Maker Relationship Specialty Start Date End Date Ania Ballesteros MD [address] [place] [id number] PCP - General Family Medicine 11/20/16 [employer] 06/28/24 documented as of this encounter
--- OUTSIDE RECORDS SUMMARY | 2025-06-02 09:30 | XMS_ITS | Encounter Summary ---
Author Organization [employer] Address [address] [facility] 7t [place] [address] Care Team Providers Care Aircraft Engine Technician Name Role Phone Ania Ballesteros MD Primary Care Provider + Reason for Visit * Reason Onset Date Comments Appointment Request 01/24/2025 Encounter Details Date Type Department Care Team ([facility] st Contact Info) Description 01/24/2025 Telephone [facility] MEDICINE [address] [place] [address] Ania Ballesteros MD [address] [place] [address] Appointment Request Social History Tobacco Use Types Packs/Day Years [...] the past 12 months, has t he [employer] +, gas, oil or water [employer] threatened to shut off services in your [...] encounter Miscellaneous Notes * Telephone Encounter - Katarina Scott - 01/24/2025 8:19 AM EDT Tc from pt requesting reschedule 01/14 appointment fu DM/raúl. documented in this encounter Plan of Treatment Upcoming Encounters Date Type Department Care Team (Late st Contact Info) Description 08/16/2025 9:45 AM EST Office Visit [facility] MEDICINE [address] [place] [address] Ania Ballesteros MD [address] [place] [phone] documented as of this encounter Visit Diagnoses Not on filedocumented in this encounter Care Teams Aircraft Engine Technician Relationship Specialty Start Date End Date Ania Ballesteros MD [address] [place] [id number] PCP - General Family Medicine 11/20/16 [employer] 06/28/24 documented as of this encounter
--- OUTSIDE RECORDS SUMMARY | 2025-06-02 09:30 | XMS_ITS | Encounter Summary ---
Author Organization [employer] Address [address] [facility] 7t [place] [address] Care Team Providers Care Solar Business Developer Name Role Phone Ania Ballesteros MD Primary Care Provider + Encounter Details Date Type Department Care Team (Late Contact Info) Description 11/28/2022 Orders Only [facility] CHC MED & PEDS [address] [place], [place] [phone] Trini Sun LPN Social History Tobacco Use [...] 08/16/2025 9:45 AM EST Office Visit [facility] MEDICINE [address] [place] [address] Ania Ballesteros MD 230 [place] [address] documented as of this encounter Visit Diagnoses Not on filedocumented in this encounter Care Teams Solar Business Developer Relationship Specialty Start Date End Date Ania Ballesteros MD 230 [place], [place] [phone] PCP - General Family Medicine 11/20/16 [employer] 06/28/24 documented as of this encounter
--- OUTSIDE RECORDS SUMMARY | 2025-06-02 09:30 | XMS_ITS | Encounter Summary ---
Author Organization [employer] Address [address] [facility] 7t [place] [address] Care Team Providers Care Beveling Machine Operator Name Role Phone Ania Ballesteros MD Primary Care Provider + Encounter Details Date Type Department Care Team ([facility] st Contact Info) Description 01/14/2025 Orders Only [facility] CHC MED & PEDS [address] [place], [place] [phone] ProviderYoli MD Social History Tobacco Use Types Packs/Day Years Used Date Smoking Tobacco: Never Smokeless Tobacco: Never Alcohol Use Standard Drinks/Week Comments Not Currently 0 (1 standard drink = 0.6 oz pur e alcohol) Housing Stability Answer Date Recorded What is your housing situation today? I have andra cruz 01/07/[address] you li [...] Description 08/16/2025 9:45 AM EST Office Visit [facility] MEDICINE [address] [place] [address] Ania Ballesteros MD [address] [place] [address] documented as of this encounter Procedures Procedure Name Priority Date/Time Associated Diagnosis Comments COLONOSCOPY Routine 04/02/2024 10:37 PM EDT documented in this encounter Results * Hm Colonoscopy (04/02/2024 10:37 PM EDT) Colonoscopy Normal Normal Narrative Sweta Gaona - 04/02/2024 10:37 PM EDT See care everywhere note , no further screening needed Historical Provider HEALTH MAINTENANCE Edited Result - Final documented in this encounter Visit Diagnoses Not on filedocumented in this encounter Care Teams Beveling Machine Operator Relationship Specialty Start Date End Date Ania Ballesteros MD [address] [place] [address] PCP - General Family Medicine 11/20/16 [employer] 06/28/24 documented as of this encounter
--- OUTSIDE RECORDS SUMMARY | 2025-06-02 09:30 | XMS_ITS | Encounter Summary ---
Author Organization [employer] Address [address] [place] [address] 7t [place] [address] Care Team Providers Care Detacker Name Role Phone Ania Ballesteros MD Primary Care Provider + Encounter Details Date Type Department Care Team (Late st Contact Info) Description 02/27/2023 Abstract [facility] MEDICINE [address] [place] [address] Ania Ballesteros MD [address] [place] [address] Social History Tobacco Use Types Packs/Day Years [...] Description 08/16/2025 9:45 AM EST Office Visit [facility] MEDICINE [address] [place] [address] Ania Ballesteros MD [address] [place] [address] documented as of this encounter Visit Diagnoses Not on filedocumented in this encounter Care Teams Detacker Relationship Specialty Start Date End Date Ania Ballesteros MD [address] [place] [address] PCP - General Family Medicine 11/20/16 [employer] 06/28/24 documented as of this encounter
--- OUTSIDE RECORDS SUMMARY | 2025-06-02 09:30 | XMS_ITS | Encounter Summary ---
Author Organization [employer] Address [address] [facility] 7t [place] [address] Care Team Providers Care Advanced Quality Engineer Name Role Phone Ania Ballesteros MD Primary Care Provider + Reason for Visit * Reason Comments Med Refill Encounter Details Date Type Department Care Team (Late st Contact Info) Description 10/19/2023 Refill [facility] MEDICINE [address] [place], [place] [phone] Ania Ballesteros MD [address] [place] [address] Diabetic polyneuropathy associated with type 2 diabetes mellitus ([facility]/HCC) Social History Tobacco Use Types Packs/Day Years [...] t he electric, gas, oil or water [employer] threatened to shut off services in your [...] 9:45 AM EST Office Visit [facility] MEDICINE [address] [place], [place] [phone] Ania Ballesteros MD [address] [place] [address] documented as of this encounter Visit Diagnoses Diagnosis Diabetic polyneuropathy associated with type 2 diabetes mellitus (CMS/[facility]) documented in this encounter Care Teams Advanced Quality Engineer Relationship Specialty Start Date End Date Ania Ballesteros MD [address] [place] [id number] PCP - General Family Medicine 11/20/16 [employer] 06/28/24 documented as of this encounter
--- OUTSIDE RECORDS SUMMARY | 2025-06-02 09:30 | XMS_ITS | Encounter Summary ---
Author Organization [employer] Address [address] [place] [address] 7t [place] [address] Care Team Providers Care User Experience Researcher Name Role Phone Ania Balletseros MD Primary Care Provider + Encounter Details Date Type Department Care Team (Late Contact Info) Description 10/14/2022 Orders Only [facility] MEDICINE [address] [place] [phone] Estefany Winslow LPN Social History Tobacco Use [...] Description 08/16/2025 9:45 AM EST Office Visit [facility] MEDICINE [address] [place] [address] [phone] Ania Ballesteros MD [address] [place] [phone] documented as of this encounter Visit Diagnoses Not on filedocumented in this encounter Care Teams User Experience Researcher Relationship Specialty Start Date End Date Ania Ballesteros MD [address] [place] [address] PCP - General Family Medicine 11/20/16 [employer] 06/28/24 documented as of this encounter
--- OUTSIDE RECORDS SUMMARY | 2025-06-02 09:30 | XMS_ITS | Patient Health Record ---
Author Organization [employer] [facility] [employer] Address [address] [place] [address] Care Team Providers Care Machine Iii Coremaker Name Role Phone Lesli LESTER, Ania Primary Care Provider Unavail able Art Catarino Unavailable [phone] Allergies No Known Allergies Reason For Referral [...] no sig alcohol. Originally from [facility]--1996 Nonsmoker; No alcohol since 2007 Originally from [facility]--1996 Problems Problem Type SNOMED Code ICD Code Onset Dates Problem Status W/U Status Risk Notes Problem 034077591 History of adenomatous polyp of colon (Z86.010) Active confirmed Problem History of polyp of colon (situation) (071773689) Personal history of colonic polyps (Z86.010) Active confirmed Problem Diverticular disease of colon (852725783) Diverticulosis of large intestine without perforation or abscess without bleeding (K57.30) Active confirmed Problem Gastroesophageal reflux disease (689430879) Gastroesophageal reflux disease (K21.9) Active confirmed Problem Iron deficiency anemia (44416616) Iron deficiency anemia (D50.9) Active confirmed Problem 83289464 Iron deficiency anemia, unspecified iron deficiency anemia [...] Insured Coverage Start Date Coverage End Date [facility] [address] Attn Claims JUSTUS Hadd[place] [id number] LUI SIMON Self - patient is the insured Medical (General) History Medical History History ICD Code NIDDM Hyperlipidemia Hypertension GERD--EGD in 09/2008--neg. es ophagitis/Denis's, gastric bx. 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
--- OUTSIDE RECORDS SUMMARY | 2025-06-02 09:30 | XMS_ITS | Clinical Summary ---
Author Organization [email or web address] Address [address] [facility] 7t [place] [address] Care Team Providers Care Director Of Strategic Initiatives Name Role Phone Ania Acevedo MD Primary [...] in the morning and at bedtime. 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) USE DIRECTED WITH INSULIN 100 each 11 024 Active glipiZIDE XL (Glucotrol XL) 10 MG 24 hr tablet TAKE 1 TABLET BY MOUTH TWICE DAILY 180 tablet 3 024 Active pioglitazone (Actos) 45 MG tablet TAKE 1 TABLET BY MOUTH EVERY DAY 90 tablet 3 024 Active omeprazole (PriLOSEC) [address] capsule TAKE 1 CAPSULE BY MOUTH EVERY DAY 90 capsule 3 025 Active TRUEplus Lancets 33G miscIndications:Type 2 diabetes mellitus with hyperglycemia (CMS/HCC) USE DIRECTED TO TEST BLOOD SUGAR FOUR TIMES DAILY 100 each 11 025 Active lisinopril 5 MG tablet TAKE 1 TABLET BY MOUTH ONCE DAILY 90 tablet 1 025 Active gabapentin (Neurontin) 300 MG capsuleIndications: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 (CMS/HCC) TAKE 1 CAPSULE BY MOUTH THREE TIMES DAILY 270 capsule 1 025 Active Blood Glucose Monitoring Suppl (FreeStyle Mattawamkeag Lite) w/Device kitIndications:Diabete s mellitus due to underlying condition with hyperglycemia, with long-term current use of insulin ([facility]) TEST BLOOD SUGAR DIRECTED 1 kit 025 Active atorvastatin (Lipitor) 40 MG tabletIndications:Pure hypercholesterolemia TAKE 1 TABLET BY MOUTH EVERY DAY 90 tablet 3 025 Active glucose blood (FREESTYLE LITE) test stripIndications:Type 2 diabetes mellitus with hyperglycemia ([facility]/HCC) USE DIRECTED TO TEST BLOOD SUGAR FOUR TIMES DAILY 100 strip 11 025 Active metFORMIN (Glucophage) 500 MG tablet TAKE 2 TABLETS BY MOUTH TWICE DAILY WITH BREAKFAST AND DINNER 360 tablet 1 025 Active Jardiance 25 MGIndications: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) TAKE 1 TABLET BY MOUTH EVERY DAY 90 tablet 3 025 Active insulin pen needle (Pentips Generic Pen [place]) 32G x 4 mm miscIndications:Type 2 diabetes mellitus with ulcer ([facility]/HCC) USE WITH LEVEMIR TWICE DAILY 100 each 5 025 Active insulin degludec (Tresiba FlexTouch) 200 UNIT/ML injectionIndications:D iabetes mellitus due to underlying condition with hyperglycemia, with long-term current use of insulin ([facility]) Use 24u QAM/ 74u QPM 40.5 mL 3 025 Active empagliflozin (Jardiance) 25 MGIndications:Type 2 diabetes mellitus with ulcer ([facility]/HCC) Take 1 tablet (25 mg) by mouth Once per day. 90 tablet 3 024 2024 Discontinued insulin degludec (Tresiba FlexTouch) 200 UNIT/ML injectionIndications:T ype 2 diabetes mellitus with ulcer ([facility]) Inject 90 Units under the skin Once per day. 40.5 mL 3 024 2024 Discontinued( Reorder (will not trigger notification to Pharmacy)) Pentips Generic Pen [place] 32G X 4 MM misc USE WITH LEVEMIR TWICE DAILY 100 each 2 025 2024 Discontinued( Reorder (will not trigger notification to Pharmacy)) insulin degludec (Tresiba FlexTouch) 200 UNIT/ML injectionIndications:D iabetes mellitus due to underlying condition with hyperglycemia, with long-term current use of insulin ([facility]) Use 25u QAM/ 75u QPM 40.5 mL 3 025 2024 Discontinued( Reorder (will not trigger notification to Pharmacy)) Active Problems Problem Noted Date Diagnosed Date Intercostal pain 06/01/2025 Assessment & Plan (06/01/2025 3:47 PM EDT): See above re mastalgia RUQ pain 06/01/2025 Assessment & Plan (06/01/2025 3:46 PM EDT): Unclear if related to hepatomegaly or some pleurisy. Order abdominal ultrasound, LFTs and CXR neck and follow-up in 6 weeks Malignant otitis externa of both ears 12/03/2024 [...] of right breast 08/04/2023 Assessment & Plan (06/01/2025 3:46 PM EDT): No significant gynecomastia, area is somewhat tender but it seems to be more towards the rib cage. Order ribs x-rays and CXR Assessment & Plan (08/04/2023 10:03 AM EST): No significant findings may be related to Gynecomastia. Hosiery Knitter to avoid squeezing or picking on breast [...] use of insulin 02/12/2023 Assessment & Plan (06/01/2025 3:46 PM EDT): A1c has not improved, DM still uncontrolled. Increase Tresiba to 48 units/at bedtime. We discussed about starting GLPs or short acting insulin, he does not want use additional needles. He wants to hold on Januvia at this time, apparently had previous intolerance. Will follow-up on the medications at next visit. Continue metformin 1000 mg twice daily (did not tolerate increased dose previously) Continue Actos, Glipizide and Jardiance. FU in 6 weeks. He has peripheral vascular disease, will obtain records from vascular surgery office. No foot ulcers at this time. Ophthalmology evaluation reportedly up-to-date this year, will obtain office notes from [facility] eye clinic Assessment & Plan (12/03/2024 2:50 PM EDT): [...] Other ventricular tachycardia 09/19/2022 Assessment & Plan (06/01/2025 3:43 PM EDT): On [facility], seen by cardiology. 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 Anderson's notes from [...] Encounters Date Type Department Care Team Description 06/01/2025 10:15 AM EDT Office Visit [facility] [address] [place] [phone] Ania Acevedo MD Diabetes mellitus due to underlying condition with hyperglycemia, with long-term current use of insulin (CMS/[facility]) (Primary Dx); Intercostal pain; RUQ pain; Other ventricular tachycardia (CMS/HCC); Induration of right breast; Preventative health care 06/01/2025 Telephone [facility] [address] [place] [address] Ania Acevedo MD C Ophthalmology 06/01/2025 Travel 05/31/2025 Telephone [facility] [address] [place] [address] Ania Acevedo MD chart prep 05/17/2025 Refill [facility] [address] [place] [address] Ania Acevedo MD 05/15/2025 Refill [facility] [address] [place] [address] Ania Acevedo MD Type 2 diabetes mellitus with ulcer ([facility]) 05/03/2025 Refill [facility] [address] [place], [place] [phone] Ania Acevedo MD 03/22/2025 Refill [facility] [address] [place], [place] [phone] Ania Acevedo MD Type 2 diabetes mellitus with hyperglycemia ([facility]) from Last 3 Months Immunizations Immunization Administration Dates Next Due Hep B, adult [...] 06/01/2025 10:1 6 AM EDT Oxygen Saturation 100% 06/22/2024 10: 08 AM EDT Inhaled Oxygen Concentration - - Weight 81.6 kg (179 lb 12.8 oz) 025 10:16 AM EDT Height 177.8 cm (5' 10 ) 06/01/2025 10: 16 AM EDT Body Mass Index 25.8 06/01/2025 10:16 AM EDT Plan of Treatment Upcoming Encounters Date Type Department Care Team (Late st Contact Info) Description 08/16/2025 9:45 AM EST Office Visit [facility] [address] [place] [address] Ania Acevedo MD [address] [place] [address] Health Maintenance Due Date Last Done Comments CT Colonography 1949 FIT DNA/Cologuard 1949 FIT 1949 FOBT 1949 Sigmoidoscopy 1949 Eye Exam 1959 Hepatitis C Screening 1967 Lipid Panel 04/28/2024 04/28/2023, 02/27/2021 Diabetes: Urine Protein Screening 12/29/2024 12/30/2023, 04/28/2023, 02/27/2021 COVID-19 Vaccine ( season) 2025 08/11/2024, 11/18/2023, 08/01/2022, Additional history exists Influenza Vaccine (#1) 2025 , 08/04/2023, 08/01/2022, Additional history exists Diabetes: Hemoglobin A1C 08/31/2025 025, 12/03/2024, 06/22/2024, Additional history exists SDOH Screening 01/07/2026 01/07/2025 Alcohol/Substance Use Screening 06/01/2026 06/01/2025 Depression Screening 06/01/2026 06/01/2025, 06/01/20 Diabetes: Foot Exam 06/01/2026 06/01/2025, 06/01/2025, 06/01/2025, Additional history exists Tobacco Screening 06/01/2026 06/01/2025 DTaP/Tdap/Td Vaccines (2 - Td or Tdap) 07/31/2026 07/31/2016, 02/11/2007 Colonoscopy 04/02/2034 04/02/2024 Colorectal Cancer Screening 04/02/2034 Hepatitis B Vaccines Completed 06/11/2012, 03/17/2007, 02/11/2007 Pneumococcal Vaccine: 50+ Years Completed 08/03/2021, 02/09/2016, 08/27/2006 RSV Patients and Patients Aged 60 years or older Completed 02/06/2024 Zoster Vaccines Completed 02/06/2024, 11/13, 02/09/2016 HIB Vaccines Aged Out No longer eligi [...] patient's age to complete this topic Meningococcal B Vaccine Aged Out No l onger eligible based on patient's age to complete [...] hyperglycemia, with long-term current use of insulin ([facility]) POCT GLUCOSE Routine 06/01/2025 10:19 AM EDT Diabetes mellitus due to underlying condition with hyperglycemia, with long-term current use of insulin (CMS/HCC) HM COLONOSCOPY Routine 04/02/2024 10:37 PM EDT ALBUMIN, RANDOM URINE W/CREATININE Routine 12/30/2023 2:31 PM EDT 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) LIPID PANEL WITH REFLEX TO DIRECT LDL Routine 04/28/2023 8:58 AM EDT 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) from Last 3 Months or Most Recently Relevant to Health Maintenance Results * (ABNORMAL) POCT Hgb A1c (06/01/2025 10:21 AM EDT) Hemoglobin A1C 8.8(A) 4.0 - 5.7 % QC Media Lot # [id number] Lot# Expiration Date [id number] Blood 06/01/2025 10:2 1 AM EDT Ania Acevedo MD POINT OF CARE TEST ENTER /EDIT ORDERABLES Final Result * POCT Glucose (06/01/2025 10:19 AM EDT) Glucose Blood, POC 189 60 - 200 mg/dL Comment:random QC Media Lot # [id number] Lot# Expiration Date [id number] Blood Capillary blood specimen / Unknown 06/01/2025 10:19 AM EDT Ania Acevedo MD POINT OF CARE TEST ENTER /EDIT ORDERABLES Final Result * Colonoscopy (04/02/2024 10:37 PM EDT) Colonoscopy Normal Normal Narrative Sweta Gaona - 04/02/2024 10:37 PM EDT See care everywhere note , no further screening needed Yoli Savage MD HEALTH MAINTENANCE Edited Result - Final * (ABNORMAL) Albumin, Random Urine W/Creatinine (12/30/2023 2:31 PM EDT) Creatinine, Urine 59.02 mg/dL [facility] Microalbumin Urine 29.0 mg/L [facility] Microalbum Creatinine Ratio Ur 49.1(H) <30 ug/mg cr [facility] Comment:Albumin/Creatinine R atio Reference Ranges: Normal: < 30 ug/mg creatinine Microalbuminuria: 30 - 300 ug/mg creatinineClinical Albuminuria: > 300 ug/mg creatinine Urine (Urine, Random) 12/30/2023 2:31 PM EDT 12/30/2023 3:54 PM EDT us Ania Acevedo MD LAB URINE ORDERABLES Fin al Result [facility] [address] [place] [phone] * Lipid Panel with Reflex to Direct LDL (04/28/2023 8:58 AM EDT) Triglycerides 266 mg/dL [facility] Comment:Desirable Triglyceri de: less than 150 mg/dLBorderline High Triglyceride 150-199 mg/dLHigh Triglyceride: 200-499 mg/dLVery High Triglyceride: greater than or equal to 5OO mg/dL Cholesterol 154 mg/dL [facility] Comment:Desirable Cholestero l: less than 200 mg/dLBorderline High Cholesterol: 200-239 mg/dLHigh Cholesterol: greater than 239 mg/dL LDL Cholesterol Calculated 67 mg/dl [facility] Comment:Desirable LDL: less than 100 mg/dLNear Optimal/Above Optimal LDL: 110- 129 mg/dLBorderline High LDL: 130-159 mg/dLHigh LDL: 160-189 mg/dLVery High LDL: greater than or equal to 190 mg/dL HDL Cholesterol 34 mg/dL [facility] Comment:Desirable HDL: great er than 40 mg/dL Note: This HDL assay may give artificially low results in patients with liver disease. 04/28/2023 8:58 AM EDT 04/28/2023 11:39 AM EDT Ania Aceevdo MD LAB BLOOD ORDERABLES Fin al Result [facility] [address] [place] [address] [phone] from Last 3 Months or Most Recently Relevant to Health Maintenance Insurance [facility] [employer] OPT[employer] (HMO D-SNP) [employer] [id number] Care Teams Director Of Strategic Initiatives Relationship Specialty Start Date End Date Ania Acevedo MD [address] [place] [phone] PCP - General Family Medicine 11/20/16 [employer] 06/28/24
--- OUTSIDE RECORDS SUMMARY | 2025-06-02 09:30 | XMS_ITS | Encounter Summary ---
Author Organization [employer] Address [address] [facility] 7t [place] [address] Care Team Providers Care Account Representative Name Role Phone Ania Ballesteros MD Primary Care Provider + Reason for Visit * Reason Onset Date Comments chart prep 05/31/2025 Encounter Details Date Type Department Care Team ([facility] st Contact Info) Description 05/31/[address] [facility] [address] [place] [address] Ania Ballesteros MD [address] [place] [address] chart prep Social History Tobacco Use Types Packs/Day Years [...] encounter Miscellaneous Notes * Telephone Encounter - Shruthi Crawford [place] - 05/31/2025 2:33 PM EDT Chart Prep Labs: not applicable Images: not applicable Referrals: not applicable Vaccines due: Covid and Flu Screenings: eye exam Overdue care gaps: A1c, SBIRT, PHQ-9, and OMI-7 documented in this encounter Plan of Treatment Upcoming Encounters Date Type Department Care Team (Late st Contact Info) Description 08/16/2025 9:45 AM EST Office Visit [facility] [address] [place] [address] Ania Ballesteros MD [address] [place] [address] documented as of this encounter Visit Diagnoses Not on filedocumented in this encounter Care Teams Account Representative Relationship Specialty Start Date End Date Ania Ballesteros MD [address] [place] [phone] PCP - General Family Medicine 11/20/16 [employer] 06/28/24 documented as of this encounter
--- OUTSIDE RECORDS SUMMARY | 2025-06-02 09:30 | XMS_ITS | Encounter Summary ---
Author Organization [employer] Address [address] [facility] 7t [place] [address] Care Team Providers Care Narrow Gauge Engineer Name Role Phone Ania Ballesteros MD Primary Care Provider + Reason for Visit * Reason Onset Date Comments [facility] Ophthalmology 06/01/2025 Encounter Details Date Type Department Care Team ([facility] st Contact Info) Description 06/01/2025 Telephone [facility] [address] [place], [place] [phone] Ania Ballesteros MD [address] [place] [address] [facility] Ophthalmology Social History Tobacco Use Types Packs/Day Years [...] Questionnaire -2 Score 0 06/01/2025 10:22 AM EDTran Smart [place] * Little interest or pleasure in doing things Answer Date of Assessment Author Not at all 06/01/2025 10:22 AM Tran Jimenez [place] * Feeling down, depressed, or hopeless Answer Date of Assessment Author Not at all 06/01/2025 10:22 AM Tran Jimenez [place] * Trouble falling or staying asleep, or sleeping too much Answer Date of Assessment Author Several days 06/01/2025 10:22 AM Tran Jimenez [place] * Feeling tired or having little energy Answer Date of Assessment Author Not at all 06/01/2025 10:22 AM Tran Jimenez [place] * Poor appetite or overeating Answer Date of Assessment Author Not at all 06/01/2025 10:22 AM Tran Jimenez [place] * Feeling bad about yourself - or that you are a failure or have let yourself or your family down Answer Date of Assessment Author Not at all 06/01/2025 10:22 AM Tran Jimenez [place] * Trouble concentrating on things, such as reading the newspaper or watching television Answer Date of Assessment Author Not at all 06/01/2025 10:22 AM Tran Jimenez [place] * Moving or speaking so slowly [...] of Assessment Author 1 06/01/2025 10:22 AM RADHAT Tran Winters [place] * Over the last 2 weeks, how often have you been bothered by any of the following problems? Question Answer Date of Assessment Author Feeling nervous, anxious, or on edge 0 06/01/2025 10:22 AM EDT Tran Winters MA Not being able to stop or co ntrol worrying 0 06/01/2025 10:22 AM Tran Jimenez [place] Worrying too much about diff erent things 0 06/01/2025 10:22 AM EDT Tran Winters MA Trouble relaxing 0 06/01/2025 10:22 AM EDT Tran Winters MA Being so restless that it is hard to sit still 0 06/01/2025 10:22 AM EDTran Smart [place] Becoming easily annoyed or irritable 0 06/01/2025 10:22 AM EDT Tran Winters MA Feeling afraid as if somethi ng awful might happen 0 06/01/2025 10:22 AM EDT Tran Winters MA OMI-7 Total Score 0 06/01/2025 10:22 AM RADHAT Tran Winters [place] documented as of this encounter Miscellaneous Notes * Telephone Encounter - Tran Winters MA - 06/01/2025 4:00 PM EDT Called [facility] Ophthalmology [phone] to have the last OV note faxed to [phone]. Awaiting fax to update caregaps documented in this encounter Plan of Treatment Upcoming Encounters Date Type Department Care Team (Late st Contact Info) Description 08/16/2025 9:45 AM EST Office Visit [facility] [address] [place] [address] Ania Ballesteros MD [address] [place] [address] documented as of this encounter Visit Diagnoses Not on filedocumented in this encounter Additional Health Concerns Assessment Noted Time PHQ-9 Depression Total Score: 1 06/01/20 25 10:22 AM EDT documented as of this encounter Care Teams Narrow Gauge Engineer Relationship Specialty Start Date End Date Ania Ballesteros MD [address] [place] [phone] PCP - General Family Medicine 11/20/16 [employer] 06/28/24 documented as of this encounter
--- OUTSIDE RECORDS SUMMARY | 2025-06-02 09:30 | XMS_ITS | Encounter Summary ---
Author Organization [employer] Address 75 [facility] 7t [place] [address] Care Team Providers Care Assembler Wet Wash Name Role Phone Ania Ballesteros MD Primary Care Provider + Reason for Visit * Reason Comments Med Refill Encounter Details Date Type Department Care Team (Late st Contact Info) Description 06/01/2024 Refill [facility] [address] [place] [address] Ania Ballesteros MD [address] [place] [address] Social History Tobacco Use Types Packs/Day Years [...] Description 08/16/2025 9:45 AM EST Office Visit [facility] [address] [place] [address] Ania Ballesteros MD [address] [place] [phone] documented as of this encounter Visit Diagnoses Not on filedocumented in this encounter Care Teams Assembler Wet Wash Relationship Specialty Start Date End Date Ania Ballesteros MD [address] [place] [phone] PCP - General Family Medicine 11/20/16 [employer] 06/28/24 documented as of this encounter
[2025-06-02 11:58] LABS: Hematocrit 43.7 % (42.0-52.0); Hemoglobin 13.7 g/dl (14.0-18.0); Mean Corpuscular HGB Conc 31.4 g/dl (31.0-36.0); Mean Corpuscular Hemoglobin 26.1 pg (27.0-33.0); Mean Corpuscular Volume 83.2 fL (80.0-98.0); NRBC Abs Auto 0.000 X10*3/uL (0.0-0.012); NRBC Pct Auto 0.0 /100WBC (0.0-0.2); Platelet Count 189 X10*3/uL (160-400); Red Blood Count 5.25 X10*6/uL (4.60-5.80); White Blood Count 7.0 X10*3/uL (4.8-10.8)
[2025-06-02 12:11] LABS: INTERNATIONAL NORM RATIO 1.0 (0.9-1.1); Prothrombin Time 10.9 SEC (10.9-12.4)
[2025-06-02 12:24] LABS: Alanine Aminotransferase 42 U/L (0-40); Albumin Level 4.6 g/dL (3.5-5.0); Alkaline Phosphatase 82 U/L (39-117); Anion Gap 14 (12-20); Aspartate Amino Transferase 30 U/L (5-37); Blood Urea Nitrogen 19 mg/dL (9-16); Calcium 10.3 mg/dL (8.4-10.2); Carbon Dioxide 27 mmol/L (22-29); Chloride 104 mmol/L (96-108); Cholesterol 138 mg/dL (<200); Estimated Glomerular Filt Rate 58; Gamma Glutamyl Transpeptidase 83 U/L (11-51); HDL Cholesterol 32 mg/dL (>40); Potassium 5.2 mmol/L (3.3-5.1); Sodium 140 mmol/L (135-145); Total Protein 8.4 g/dL (6.5-8.0); Triglycerides 257 mg/dL (<150)
[2025-06-02 12:25] LABS: Reflex LDLD? No
[2025-06-02 12:38] LABS: Microalbum/Creatinine Ratio Ur 88.2 ug/mg cr (<30)
[2025-06-02 12:49] LABS: HBS Num1 0.00 mIU/mL (0-7.99); HBc Num1 0.07 S/CO (0.00-0.79); HBsAGNum1 0.47 S/CO (0.00-0.99); Hepatitis A Antibody IgM 0.24 Index (0-0.79); Hepatitis B Surface Antigen Negative (Negative); ~HepC Num1 0.08 S/CO (0.00-0.79); ~Hepatitis A Antibody IgM Nonreactive (Nonreactive); ~Hepatitis B Surface Antibody NONREACTIVE (Nonreactive); ~Hepatitis C Antibody Nonreactive (Nonreactive)
[2025-06-07 03:08] LABS: TS Negative Control Passed; TS Panel A 0; TS Panel B 1; TS Positive Control Passed; TSpotTB Negative (Negative)
== END 2025-06-02 08:25 | disposition home or self-care (01) ==
LOC: HO.HHCL 08:24
PROVIDERS: Internal Medicine; PCP Internal Medicine; Visit Provider Internal Medicine
DX: I47.29 Other ventricular tachycardia (principal); E08.65 Diabetes mellitus due to underlying condition with hyperglycemia; N64.51 Induration of breast; R07.82 Intercostal pain; R10.11 Right upper quadrant pain; Z79.4 Long term (current) use of insulin; Z11.1 Encounter for screening for respiratory tuberculosis
CPT/HCPCS: 36415; 71046; 71100; 80053; 80061; 82043; 82570; 82977; 85027; 85610; 86481; 86704; 86706; 86709; 86803; 87340

== ENCOUNTER → 2025-06-02 08:55 | Outpatient (BNV) | payer OTHER, SELFPAY | PROVIDERS: PCP Internal Medicine; Visit Provider Radiology Diagnostic Radiology | DX: R07.89 Other chest pain (principal); R07.9 Chest pain, unspecified | CPT/HCPCS: 71046; 71100 ==

== ENCOUNTER → 2025-06-23 23:59 | Outpatient (BNV) | payer OTHER, SELFPAY | PROVIDERS: PCP Internal Medicine; Visit Provider Internal Medicine Cardiovascular Disease | DX: I20.89 Other forms of angina pectoris (principal) | CPT/HCPCS: 93458; 99152 ==

== ENCOUNTER 2025-07-08 07:58 | Outpatient (AMB) | payer OTHER, SELFPAY ==
--- OUTSIDE RECORDS SUMMARY | 2024-01-07 03:30 | XMS_ITS ---
Author Organization [facility] Address [address] [place] [address] Care Team Providers Care Policy Value Calculator Name Role Phone Lesli LESTER, Ania Primary Care Provider Catarino Morse [phone] REASON FOR VISIT fe def anemia, hx polyps Encounters Encounter Location Date Provider Diagnosis [facility] [place] [address], [place] [id number] 01/07/2024 Catarino Cordova Plan Of Treatment No Information Progress Notes * LUI SIMON RDOB: (74 yo M)Acc No.[id number]:01/07/2024 EGD and COL/MAC Patient: LUI MORAN Provider: Mendoza Cordova MD :1950 A ge:73 Y S ex:Male Date:01/07/2024 Address:[address] [place] [address] [address] [facility] Pcp:Ania Ballesteros MD Subjective: * Chief Complaints: [...] 0 01/07/2024 Generated for Navyai alivia/Lilly/eTransmitting on: 08:04 AM EDT
--- OUTSIDE RECORDS SUMMARY | 2024-04-02 09:00 | XMS_ITS ---
Author Organization [facility] Address [address] [place] [address] Care Team Providers Care Mobile Sales Technician Name Role Phone Ania Ballesteros MD Primary Care Provider Unavail able Catarino Cordova Unavailable [phone] REASON FOR VISIT colon screening,gerd Problems Problem Type SNOMED Code ICD Code Onset Dates Problem Status W/U Status Risk Notes Problem Information temporarily unavailable Iron deficiency anemia (D50.9) Active confirmed Problem Information temporarily unavailable Personal history of colonic polyps (Z86.010) Active confirmed Problem Information temporarily unavailable Diverticulosis of large intestine without perforation or abscess without bleeding (K57.30) Active confirmed Problem Information temporarily unavailable Gastroesophageal reflux disease (K21.9) Active confirmed Encounters Encounter Location Date Provider Diagnosis [facility] [place] Outpatient [address] [place] [phone] 04/02/2024 Catarino Cordova Iron deficiency anem ia [...] * LUI SIMON RDOB: (74 yo M)Acc No.[id number]:04/02/2024 EGD and COL/MAC Patient: LUI MORAN R Provider: Mendoza Cordova MD :1950 A ge:73 Y S ex:Male Date:04/02/2024 Address:[address] [place], [place] [phone] Pcp:Ania Ballesteros MD Subjective: * Chief Complaints: [...] * Procedure Codes: 4 5378 DIAGNOSTIC COLONOSCOPY, 58083 UPPER GI ENDOSCOPY, BIOPSY * Preventive Medicine: [...] MD Date: 0 04/02/2024 Generated for Isi bunch/Lilly/Ginnysmitting on: 08:03 AM EDT
--- OUTSIDE RECORDS SUMMARY | 2025-07-08 08:03 | XMS_ITS | Encounter Summary ---
Author Organization [employer] Address [address] [place] [address] 7 [place] [address] Care Team Providers Care Aligning Checker Name Role Phone Ania Ballesteros MD Primary Care Provider + Reason for Visit * Reason Comments Med Refill Encounter Details Date Type Department Care Team (Late st Contact Info) Description 05/14/2023 Refill [facility] [address] [place] [phone] Ania Ballesteros MD [address] [place] [phone] Type 2 diabetes mellitus with ulcer ([facility]) Social History Tobacco Use Types Packs/Day Years [...] Care Team (Late st Contact Info) Description 07/27/2025 2:45 PM EST Office Visit [facility] [address] [place] [address] Gretel Harris FNP [address] [place], [place] [phone] 08/16/2025 9:45 AM EST Office Visit [facility] [address] [place] [address] Ania Ballesteros MD [address] [place] [address] documented as of this encounter Visit Diagnoses Diagnosis 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) documented in this encounter Care Teams Aligning Checker Relationship Specialty Start Date End Date Ania Ballesteros MD [address] [place] [phone] PCP - General Family Medicine 11/20/16 [employer] 06/28/24 documented as of this encounter
--- OUTSIDE RECORDS SUMMARY | 2025-07-08 08:03 | XMS_ITS | Encounter Summary ---
Author Organization [employer] Address 75 [facility] 7t [place] [address] Care Team Providers Care Director Health Name Role Phone Ania Ballesteros MD Primary Care Provider + Reason for Visit * Reason Comments Med Refill Encounter Details Date Type Department Care Team (Late st Contact Info) Description 06/29/2023 Refill [facility] [address] [place] [address] Ania Ballesteros MD [address] [place] [address] Social History Tobacco Use Types Packs/Day Years [...] Description 07/27/2025 2:45 PM EST Office Visit [facility] [address] [place] [phone] Gretel Harris FNP [address] [place] [phone] 08/16/2025 9:45 AM EST Office Visit [address] [address] Ania Ballesteros MD [address] [place] [address] documented as of this encounter Visit Diagnoses Not on filedocumented in this encounter Care Teams Director Health Relationship Specialty Start Date End Date Ania Ballesteros MD [address] [place] [phone] PCP - General Family Medicine 11/20/16 [employer] 06/28/24 documented as of this encounter
--- OUTSIDE RECORDS SUMMARY | 2025-07-08 08:03 | XMS_ITS | Encounter Summary ---
Author Organization [employer] Address [address] [facility] 7t [place] [address] Care Team Providers Care Gravity Prospecting Supervisor Name Role Phone Ania Ballesteros MD Primary Care Provider + Reason for Visit * Reason Comments Med Refill Encounter Details Date Type Department Care Team (Late st Contact Info) Description 10/19/2023 Refill [facility] MEDICINE [address] [place], [place] [phone] Ania Ballesteros MD [address] [place] [address] Diabetic polyneuropathy associated with type 2 diabetes mellitus ([facility]/HCC) Social History Tobacco Use Types Packs/Day [...] t he electric, gas, oil or water [employer] threatened to shut off services in your [...] Description 07/27/2025 2:45 PM EST Office Visit [facility] MEDICINE [address] [place] [address] [phone] Gretel Harris FNP [address] [place] [address] 08/16/2025 9:45 AM EST Office Visit [facility] MEDICINE [address] [place] [address] [phone] Ania Ballesteros MD [address] [place] [phone] documented as of this encounter Visit Diagnoses Diagnosis Diabetic polyneuropathy associated with type 2 diabetes mellitus (HCC) documented in this encounter Care Teams Gravity Prospecting Supervisor Relationship Specialty Start Date End Date Ania Ballesteros MD [address] [place] [address] [phone] PCP - General Family Medicine 11/20/16 [employer] 06/28/24 documented as of this encounter
--- OUTSIDE RECORDS SUMMARY | 2025-07-08 08:03 | XMS_ITS | Encounter Summary ---
Author Organization [employer] Address [address] [facility] 7t [place] [address] Care Team Providers Care Membership Administrator Name Role Phone Ania Ballesteros MD Primary Care Provider + Encounter Details Date Type Department Care Team ([facility] st Contact Info) Description 01/28/2024 Orders Only [facility] MEDICINE [address] [place] [address] ProviderYoli MD Social History Tobacco Use Types [...] Description 07/27/2025 2:45 PM EST Office Visit [facility] MEDICINE [address] [place] [phone] Gretel Harris FNP 230 [place] [address] 08/16/2025 9:45 AM EST Office Visit [facility] MEDICINE [address] [place] [phone] Ania Ballesteros MD [address] [place] [address] documented as of this encounter Visit Diagnoses Not on filedocumented in this encounter Care Teams Membership Administrator Relationship Specialty Start Date End Date Ania Ballesteros MD [address] [place] [address] [phone] PCP - General Family Medicine 11/20/16 [employer] 06/28/24 documented as of this encounter
--- OUTSIDE RECORDS SUMMARY | 2025-07-08 08:03 | XMS_ITS | Patient Health Record ---
Author Organization [facility] Address [address] [place] [address] Care Team Providers Care Elementary Reading Tutor Name Role Phone Lesli LESTER, Ania Primary Care Provider Unavail able Catarino Cordova Unavailable [phone] Allergies No Known Allergies Reason For Referral [...] a day Active glipiZIDE ER 10 MG Oral; Duration: 90 Active Omeprazole 20 MG 1 capsule Orally Onc e a day Active Dulcolax (colon prep) 5 MG take at 3:00 p.m and 7:00p.m. Orally two tablets twice a day for one day; Duration: 1 day 12/24/2023 Active Gabapentin 300 MG 1 capsule Orally Onc e a day; Duration: 30 day(s) Active Tresiba FlexTouch 200 UNIT/ML Subcutaneous; Duration: 45 Active FeroSul 325 (65 Fe) MG TAKE 1 TABLET BY MOUTH DAILY IN THE MORNING WITH BREAKFAST DO NOT BREAK, CRUSH, DISSOLVE OR CHEW Oral; Duration: 90 D509,Unavailabl e Active Lantus SoloStar 100 UNIT/ML as directed Subcutaneous Active MiraLax (colon prep) 17 GM/SCOOP 1 238 Gm bottle mixed with Gatorade or Crystal Light Orally begin at 5:00 p.m. the day before the procedure; Duration: 1 day 12/24/2023 Active Actos 45 MG 1 tablet Orally Once a day; Duration: 30 day(s) Active metFORMIN HCl 500 MG Oral; Duration: 90 Active Dulcolax (colon prep) 5 MG take at 3:00 p.m and 7:00p.m. Orally two tablets twice a day for one day; Duration: 1 day 07/16/2023 Active MiraLax (colon prep) 17 GM/SCOOP 1 238Gm bottle mixed with Gatorade or Crystal Light Orally begin at 5:00 p.m. the day before the procedure; Duration: 1 day 07/16/2023 Active Social History Alcohol Screen Question Answer Notes Did you have a drink containing alcohol in the p ast year? No Points 0 Interpretation Negative Section Notes: Nonsmoker; no sig alcohol. Originally from [facility]--1996 Nonsmoker; No alcohol since 2007 Originally from [facility]--1996 Problems Problem Type SNOMED Code ICD Code Onset Dates Problem Status W/U Status Risk Notes Problem Information temporarily unavailable History of adenomatous polyp of colon (Z86.010) Active confirmed Problem Information temporarily unavailable Personal history of colonic polyps (Z86.010) Active confirmed Problem Information temporarily unavailable Diverticulosis of large intestine without perforation or abscess without bleeding (K57.30) Active confirmed Problem Information temporarily unavailable Gastroesophageal reflux disease (K21.9) Active confirmed Problem Information temporarily unavailable Iron deficiency anemia (D50.9) Active confirmed Problem Information temporarily unavailable Iron deficiency anemia, unspecified iron deficiency anemia [...] Insured Coverage Start Date Coverage End Date [facility] [address] Attn Claims JUSTUS Haddad [id number] LUI SIMON Self - patient is the insured Medical (General) History Medical History History ICD Code NIDDM Hyperlipidemia Hypertension GERD--EGD in 09/2008--neg. es ophagitis/Denis's, gastric bx. 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
--- OUTSIDE RECORDS SUMMARY | 2025-07-08 08:04 | XMS_ITS | Encounter Summary ---
Author Organization [employer] Address [address] [facility] 7t [place] [address] Care Team Providers Care Cutter In Name Role Phone Ania Ballesteros MD Primary Care Provider + Encounter Details Date Type Department Care Team ([facility] st Contact Info) Description 01/14/2025 Orders Only [facility] CHC MED & PEDS [address] [place], [place] [phone] ProviderYoli MD Social History Tobacco Use Types [...] Description 07/27/2025 2:45 PM EST Office Visit [facility] MEDICINE [address] [place] [phone] Gretel Harris FNP [address] [place] [address] 08/16/2025 9:45 AM EST Office Visit [facility] MEDICINE [address] [place] [address] Ania Ballesteros MD [address] [place] [address] documented as of this encounter Procedures Procedure Name Priority Date/Time Associated Diagnosis Comments COLONOSCOPY Routine 04/02/2024 10:37 PM EDT documented in this encounter Results * Hm Colonoscopy (04/02/2024 10:37 PM EDT) Colonoscopy Normal Normal Narrative Sweta Gaona - 04/02/2024 10:37 PM EDT See care everywhere note , no further screening needed us Historical Provider HEALTH MAINTENANCE Edited Result - Final documented in this encounter Visit Diagnoses Not on filedocumented in this encounter Care Teams Cutter In Relationship Specialty Start Date End Date Ania Ballesteros MD [address] [place] [address] [phone] PCP - General Family Medicine 11/20/16 [employer] 06/28/24 documented as of this encounter
--- OUTSIDE RECORDS SUMMARY | 2025-07-08 08:04 | XMS_ITS | Encounter Summary ---
Author Organization [employer] Address [address] [place] [address] 7t [place] [address] Care Team Providers Care Engineer Operations And Maintenance Name Role Phone Ania Ballesteros MD Primary Care Provider + Encounter Details Date Type Department Care Team (Late Contact Info) Description 01/20/2023 Orders Only [facility] CHC MED & PEDS [address] [place] [address] Trini Sun LPN Social History Tobacco Use [...] Department Care Team (Late Contact Info) Description 07/27/2025 2:45 PM EST Office Visit [facility] MEDICINE [address] [place] [address] Gretel Harris FNP [address] [place] [address] [phone] 08/16/2025 9:45 AM EST Office Visit [facility] MEDICINE [address] [place] [address] Ania Ballesteros MD [address] [place] [address] [phone] documented as of this encounter Visit Diagnoses Not on filedocumented in this encounter Care Teams Engineer Operations And Maintenance Relationship Specialty Start Date End Date Ania Ballesteros MD [address] [place] [address] [phone] PCP - General Family Medicine 11/20/16 [employer] 06/28/24 documented as of this encounter
--- OUTSIDE RECORDS SUMMARY | 2025-07-08 08:04 | XMS_ITS | Data Portability ---
Author Organization [facility] Address [address] [place] [address] Care Team Providers Care Medical Staff Services Manager Name Role Phone HIM CCA OTHER Assessment Encounter Date Assessment Date Assessment LastModified by Organization Details LastModified Time 12/11/2024 12/11/2024 As noted, we were called to see this patient regarding concerns of foot wound. Evaluation in the field was performed by my convenience store manager colleague, as noted above, I provided real-time [...] Ultra-Fine Susannah Pen Needle 32 gauge x /32 USE WITH LEVEMIR TWICE DAILY active Not Available Not Available Not Available Artificial Tears (hy489-ecxxp jennifer-glyceri n) 1 %-0.2 %-0.2 % eye [...] Respiratory rate Body temperature Heart rate Systolic And Diastolic Provider Name and Address Organization Details Last Updated DateTime 99 % 99 % 18 /min 98.1 [degF] 109 /min 130/75 mm[Hg] Not Available [employer] production 18:19:44 Social History None recorded. Functional Status None recorded. Mental Status None recorded. Family History Nothing Reported. Medical History No medical history recorded. Past Encounters Encounter ID Performer Location Encounter Start Date Encounter Closed Date Diagnosis/Indication Diagnosis SNOMED-CT Code Diagnosis ICD10 Code Diagnosis IMO Codes Diagnosis Note [id number] Yoselyn Nagy MD Main - [address] [phone] 12/11/2024 18:19:39 12/12/2024 17:26:20 Diabetic foot ulcer 782874421 E13.621 Health Concerns Section Related Observation LastModified by Organization Detai ls LastModified Time None Recorded Concern Status LastModified by Organization Details LastModified Time None Recorded Advance Directives Directive None Recorded Payers Insurance Date Sequence Insurance Name Policy Number Policy Roldan Covered Member ID Roldan Member ID Guarantor Name 12/11/2024 1 [facility] - DOS ON OR AFTER 2022 - DUAL ELIGIBLE - HALF-WAY OPTIONS AND ONE CARE (MEDICARE REPLACEMENT/ADV ANTAGE - HMO) Leila Roberts [id number] Leila Roberts Notes Date Note Type Note Provider Name and Address Organization Details Recorded Time 12/11/2024 text/html HPI: DiabeticAmputated toes ..................... ..................... ..................... ..................... ..................... ..................... ............... [facility] Nurse Triage Notes (Som Lees - RN): Denies: Zamorano Flash, circumferential zamorano Zamorano reported with black tissue to the area Open skin area after a fall with uncontrolled bleeding Abscess/infection with streaking noted, presence of fever or without Chief Complaints: Wound Care PMH: Diabetes Mellitus Type 2 PMH Reviewed at 12/11/2024:56 Allergies Reviewed at 12/11/2024:56 Comments: Thread Drawer verified the Pt.'s name//address and phone number. [...] ..................... ..................... ..................... ..................... ..................... ..................... ............... Human Development Professor Note From Travis Coe: SC2 dispatched to [...] has since subsided. Upon inspection of wound, [facility] noted full thickness wound about the size of a quarter in approximate location of fifth toe on right foot, wound noted to have purulent discharge, warm to touch around wound, no noted redness. Patient reports no pain from the wound. Family noted they have been using a antibiotic ointment and wrapping the wound with no noted improvement. Patient vital signs obtained as noted. [facility] consulted, recommended that patient go [...] ..................... ..................... ..................... ..................... ..................... ..................... ............... [facility] Consulted: Yoselyn Nagy ..................... ..................... ..................... ..................... ..................... ..................... ............... Disposition: Dora Nagy MD [address] [place] [address],[address], [place], [phone], [facility] 12/11/2024 19:51:39
--- OUTSIDE RECORDS SUMMARY | 2025-07-08 08:04 | XMS_ITS | Encounter Summary ---
Author Organization [employer] Address [address] [facility] 7t [place] [address] Care Team Providers Care Plant Safety Engineer Name Role Phone Ania Ballesteros MD Primary Care Provider + Reason for Visit * Reason Comments Med Refill Encounter Details Date Type Department Care Team (Late st Contact Info) Description 06/01/2024 Refill [facility] MEDICINE [address] [place] [address] Ania Ballesteros MD [address] [place] [address] Social History Tobacco Use Types Packs/Day Years [...] Description 07/27/2025 2:45 PM EST Office Visit [facility] MEDICINE [address] [place] [phone] Gretel Harris FNP [address] [place] [address] 08/16/2025 9:45 AM EST Office Visit [address] [address] Ania Ballesteros MD [address] [place] [address]47 documented as of this encounter Visit Diagnoses Not on filedocumented in this encounter Care Teams Plant Safety Engineer Relationship Specialty Start Date End Date Ania Ballesteros MD [address] [place] [phone] PCP - General Family Medicine 11/20/16 [employer] 06/28/24 documented as of this encounter
--- OUTSIDE RECORDS SUMMARY | 2025-07-08 08:04 | XMS_ITS | Encounter Summary ---
Author Organization [employer] Address [address] [facility] 7t [place] [address] Care Team Providers Care It Help Desk Technician Name Role Phone Ania Ballesteros MD Primary Care Provider + Reason for Visit * Reason Comments Med Refill Encounter Details Date Type Department Care Team (Late st Contact Info) Description 02/08/2025 Refill [facility] MEDICINE [address] [place] [address] Asia Ruth MD [address] [place] [address] Social History Tobacco Use Types Packs/Day Years [...] Description 07/27/2025 2:45 PM EST Office Visit [facility] MEDICINE [address] [place] [address] Gretel Harris FNP [address] [place] [address] 08/16/2025 9:45 AM EST Office Visit [address] [address] Ania Ballesteros MD [address] [place] [phone] documented as of this encounter Visit Diagnoses Not on filedocumented in this encounter Care Teams It Help Desk Technician Relationship Specialty Start Date End Date Ania Ballesteros MD [address] [place] [phone] PCP - General Family Medicine 11/20/16 [employer] 06/28/24 documented as of this encounter
--- OUTSIDE RECORDS SUMMARY | 2025-07-08 08:04 | XMS_ITS | Encounter Summary ---
Author Organization [employer] Address [address] [place] [address] 7t [place] [address] Care Team Providers Care Esthetician Name Role Phone Ania Ballesteros MD Primary Care Provider + Encounter Details Date Type Department Care Team (Late st Contact Info) Description 02/27/2023 Abstract [facility] MEDICINE [address] [place] [address] Ania Ballesteros MD [address] [place] [address] Social History Tobacco Use Types Packs/Day Years [...] Description 07/27/2025 2:45 PM EST Office Visit [facility] MEDICINE [address] [place] [address] Gretel Harris FNP [address] [place] [address] 08/16/2025 9:45 AM EST Office Visit [facility] MEDICINE [address] [place], [place] [phone] Ania Ballesteros MD [address] [place], [place] [phone] documented as of this encounter Visit Diagnoses Not on filedocumented in this encounter Care Teams Esthetician Relationship Specialty Start Date End Date Ania Ballesteros MD [address] [place] [address] [phone] PCP - General Family Medicine 11/20/16 [employer] 06/28/24 documented as of this encounter
--- OUTSIDE RECORDS SUMMARY | 2025-07-08 08:04 | XMS_ITS | Encounter Summary ---
Author Organization [employer] Address [address] [place] [address] 7t [place] [address] Care Team Providers Care Assistant Bookkeeper Name Role Phone Ania Ballesteros MD Primary Care Provider + Encounter Details Date Type Department Care Team (Late Contact Info) Description 11/28/2022 Orders Only [facility] CHC MED & PEDS [address] [place] [address] Trini Sun LPN Social History Tobacco Use [...] Description 07/27/2025 2:45 PM EST Office Visit [facility] MEDICINE [address] [place] [address] Gretel Harris FNP [address] [place] [address] [phone] 08/16/2025 9:45 AM EST Office Visit [facility] MEDICINE [address] [place] [address] Ania Ballesteros MD [address] [place] [address] [phone] documented as of this encounter Visit Diagnoses Not on filedocumented in this encounter Care Teams Assistant Bookkeeper Relationship Specialty Start Date End Date Ania Ballesteros MD [address] [place] [address] [phone] PCP - General Family Medicine 11/20/16 [employer] 06/28/24 documented as of this encounter
--- OUTSIDE RECORDS SUMMARY | 2025-07-08 08:04 | XMS_ITS | Clinical Summary ---
Author Organization [employer] Address [address] [facility] [address] [place] [address] Care Team Providers Care Biodiesel Process Control Technician Name Role Phone Mallika Acevedo MD Primary [...] % padsIndications: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) USE DIRECTED WITH INSULIN 100 each 11 024 Active omeprazole (PriLOSEC) [address] capsule TAKE 1 CAPSULE BY MOUTH EVERY DAY 90 capsule 3 025 Active TRUEplus Lancets 33G miscIndications:Type 2 diabetes mellitus with hyperglycemia (HCC) USE DIRECTED TO TEST BLOOD SUGAR FOUR TIMES DAILY 100 each 11 025 Active gabapentin (Neurontin) 300 MG capsuleIndications: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 (HCC) TAKE 1 CAPSULE BY MOUTH THREE TIMES DAILY 270 capsule 1 025 Active Blood Glucose Monitoring Suppl (FreeStyle [place] Lite) w/Device kitIndications:Diabete s mellitus due to underlying condition with hyperglycemia, with long-term current use of insulin (HCC) TEST BLOOD SUGAR DIRECTED 1 kit 025 Active atorvastatin (Lipitor) 40 MG tabletIndications:Pure hypercholesterolemia TAKE 1 TABLET BY MOUTH EVERY DAY 90 tablet 3 025 Active glucose blood (FREESTYLE LITE) test stripIndications:Type 2 diabetes mellitus with hyperglycemia (HCC) USE DIRECTED TO TEST BLOOD SUGAR FOUR TIMES DAILY 100 strip 11 025 Active metFORMIN (Glucophage) 500 MG tablet TAKE 2 TABLETS BY MOUTH TWICE DAILY WITH BREAKFAST AND DINNER 360 tablet 1 025 Active Jardiance 25 MGIndications: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) TAKE 1 TABLET BY MOUTH EVERY DAY 90 tablet 3 025 Active insulin pen needle (Pentips Generic Pen Newell) 32G x 4 mm miscIndications: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) USE WITH LEVEMIR TWICE DAILY 100 each 5 025 Active insulin degludec (Tresiba FlexTouch) 200 UNIT/ML injectionIndications:D iabetes mellitus due to underlying condition with hyperglycemia, with long-term current use of insulin (HCC) Use 24u QAM/ 74u QPM 40.5 mL 3 025 Active lisinopril 5 MG tablet TAKE 1 TABLET BY MOUTH DAILY 90 tablet 1 025 Active glipiZIDE XL (Glucotrol XL) 10 MG 24 hr tablet TAKE 1 TABLET BY MOUTH TWICE DAILY 180 tablet 3 025 Active pioglitazone (Actos) 45 MG tablet TAKE 1 TABLET BY MOUTH EVERY DAY 90 tablet 3 025 Active glipiZIDE XL (Glucotrol XL) 10 MG 24 hr tablet TAKE 1 TABLET BY MOUTH TWICE DAILY 180 tablet 3 024 2024 Discontinued pioglitazone (Actos) 45 MG tablet TAKE 1 TABLET BY MOUTH EVERY DAY 90 tablet 3 024 2024 Discontinued lisinopril 5 MG tablet TAKE 1 TABLET BY MOUTH ONCE DAILY 90 tablet 1 025 2024 Discontinued Active Problems Problem Noted Date [...] significant findings may be related to Gynecomastia. Champagne Maker to avoid squeezing or picking on breast [...] this year, will obtain office notes from [facility] Assessment & Plan (12/03/2024 2:50 [...] & Plan (06/01/2025 3:43 PM EDT): On , seen by cardiology. Cardiac cath pending on 06/23/25 Assessment & Plan (08/11/2024 10:00 AM EST): On [facility], has a ppt with cardiology on September Assessment & Plan (06/22/2024 10:12 AM EDT): - refer to cardiology for further eval, may need to start on beta bonnie Assessment & Plan (03/24/2024 10:34 AM EDT): - persistent+ LAFB - will order 48 hour holter monitoring to r/o other issues and decide if he should be referred to a global chief creative officer Assessment & Plan (09/19/2022 11:19 PM EST): [...] Date Resolved Date Ulcer of right foot (CMS/HCC) 08/17/2022 12/03/2024 Assessment & Plan (08/11/2024 9:56 AM EST): [...] help reduce foot pain Subacute osteomyelitis of ri ght foot ([facility]) 01/28/2019 03/21/2023 Diabetic polyneuropathy 02/17/201211/14 Assessment & Plan (06/22/2024 10:35 AM EDT): - discussed about importance of tight control of DM - continue Gabapentin 300 mg TID - reminded him to reschedule appt with podiatry for foot care, I advised to call [facility] day care home provider to help with filling out out the forms - reminded regarding daily foot check - will f/u with DM shoe provider regarding prescription sent 3 months ago Osteomyelitis of ankle and foot ([facility]) 02/17/2012 03/21/2023 Type 2 diabetes mellitus with [...] is improving, needs further foot care by digital marketing analyst, I will obtain Dr. Anderson's notes from [...] (CMS/HCC) WRITTEN ON 02/12/2023 12:26 PM BY LAWRENCEPATRICIA RICKIE On left foot, nonhealing for over 6 [...] Encounters Date Type Department Care Team Description 07/03/2025 Refill [facility] [address] [place] [address] Mallika Acevedo MD 06/26/2025 Refill [facility] [address] [place] [address] Mallika Acevedo MD 06/20/2025 Telephone [facility] [address] [place] [address] Mallika Acevedo MD telephone call 06/14/2025 Refill [facility] [address] [place] [address] Mallika Acevedo MD 06/02/2025 Orders Only GENERIC EXTERNAL DATA DEPARTMENT Provider, Generic External Data 06/01/2025 10:15 AM EDT Office Visit [facility] [address] [place] [address] Mallika Acevedo MD Diabetes mellitus due to underlying condition with hyperglycemia, with long-term current use of insulin ([facility]) (Primary Dx); Intercostal pain; RUQ pain; Other ventricular tachycardia ([facility]); Induration of right breast; Preventative health care 06/01/2025 Telephone [facility] [address] [place], [place] [phone] Mallika Acevedo MD C Ophthalmology 06/01/2025 Travel 05/31/2025 Telephone [facility] [address] [place] [address] Mallika Acevedo MD chart prep 05/17/2025 Refill [facility] [address] [place], [place] [phone] Mallika Acevedo MD 05/15/2025 Refill [facility] [address] [place], [place] [phone] Mallika Acevedo MD Type 2 diabetes mellitus with ulcer ([facility]) 05/03/2025 Refill [facility] [address] [place], [place] [phone] Mallika Acevedo MD from Last 3 Months Immunizations Immunization Administration [...] Description 07/27/2025 2:45 PM EST Office Visit [address] [address] Gretel Harris FNP [address] [place] [address] 08/16/2025 9:45 AM EST Office Visit [address] [address] Mallika Acevedo MD [address] [place] [address] Health Maintenance Due Date Last Done Comments CT Colonography 1950 FIT DNA/Cologuard 1950 FIT 1950 FOBT 1950 Sigmoidoscopy 1950 Eye Exam 1959 COVID-19 Vaccine ( season) 2025 08/11/2024, 11/18/2023, 08/01/2022, Additional history exists Influenza Vaccine (#1) 2025 , 08/04/2023, 08/01/2022, Additional history exists Diabetes: Hemoglobin A1C 08/31/2025 025, 12/03/2024, 06/22/2024, Additional history exists SDOH Screening 01/07/2026 01/07/2025 Alcohol/Substance Use Screening 06/01/2026 06/01/2025 Depression Screening 06/01/2026 06/01/2025, 06/01/20 Diabetes: Foot Exam 06/01/2026 06/01/2025, 06/01/2025, 06/01/2025, Additional history exists Tobacco Screening 06/01/2026 06/01/2025 Diabetes: Urine Protein Screening 06/02/2026 06/02/2025, 12/30/2023, 04/28/2023, Additional history exists Lipid Panel 06/02/2026 06/02/2025, 04/15, 02/27/2021 DTaP/Tdap/Td Vaccines (2 - Td or Tdap) 07/31/2026 07/31/2016, 02/11/2007 Colonoscopy 04/02/2034 04/02/2024 Colorectal Cancer Screening 04/02/2034 Hepatitis B Vaccines Completed 06/11/2012, 03/17/2007, 02/11/2007 Pneumococcal Vaccine: 50+ Years Completed 08/03/2021, 02/09/2016, 08/27/2006 RSV Patients and Patients Aged 60 years or older Completed 02/06/2024 Zoster Vaccines Completed 02/06/2024, 11/13, 02/09/2016 Hepatitis C Screening Completed 06/02/2025 HIB Vaccines Aged Out No longer eligi [...] Procedure Name Priority Date/Time Associated Diagnosis Comments HOLD LT BLUE - POSSIBLE COAG Routine 06/02/2025 11:44 AM EDT XR RIBS 2 VIEWS RIGHT Routine 06/02/2025 9:25 AM EDT Induration of right breast Intercostal pain XR CHEST 2 VIEWS Routine 06/02/2025 9:20 AM EDT Induration of right breast Intercostal pain CBC Routine 06/02/2025 8:40 AM EDT T-SPOT(R).TB Routine 06/02/2025 8:40 AM EDT Intercostal pain HEPATITIS PANEL, GENERAL Routine 06/02/2025 8:40 AM EDT RUQ pain ALBUMIN, RANDOM URINE W/CREATININE Routine 06/02/2025 8:40 AM EDT Diabetes mellitus due to underlying condition with hyperglycemia, with long-term current use of insulin (CMS/HCC) PROTHROMBIN TIME-INR Routine 06/02/2025 8:40 AM EDT RUQ pain GGT Routine 06/02/2025 8:40 AM EDT RUQ pain COMPREHENSIVE METABOLIC PANEL Routine 06/02/2025 8:40 AM EDT Diabetes mellitus due to underlying condition with hyperglycemia, with long-term current use of insulin (CMS/HCC) RUQ pain LIPID PANEL WITH REFLEX TO DIRECT LDL Routine 06/02/2025 8:40 AM EDT Diabetes mellitus due to underlying condition with hyperglycemia, with long-term current use of insulin (CMS/HCC) POCT GLYCATED HEMOGLOBIN, TOTAL Routine 06/01/2025 10:21 AM EDT Diabetes mellitus due to underlying condition with hyperglycemia, with long-term current use of insulin (CMS/HCC) POCT GLUCOSE Routine 06/01/2025 10:19 AM EDT Diabetes mellitus due to underlying condition with hyperglycemia, with long-term current use of insulin (CMS/HCC) HM COLONOSCOPY Routine 04/02/2024 10:37 PM EDT from Last 3 Months or Most Recently Relevant to Health Maintenance Results * HOLD LT BLUE - POSSIBLE COAG (06/02/2025 11:44 AM EDT) Hold Lt Blue - Possible Coag SEE NOTE [facility] Comment:Specimen will be hel d untested for 4 hours. Call Hematologyif testing is desired. 06/02/2025 11:4 4 AM EDT 06/02/2025 12:04 PM EDT us Mallika Acevedo MD LAB BLOOD ORDERABLES Fin al Result Performing Organization Address City/State/[facility] Co de Phone Number [facility] [address] [place] [phone] * XR Ribs 2 Views Right (06/02/2025 9:25 AM EDT) Anatomical Region Laterality Modality Rib, Abdomen Right Radiographic Sayra ging 06/02/2025 9:25 AM EDT Narrative 06/02/2025 9:37 AM EDT [address] [address] XRay Report Signed Patient: Leila Vallejo MR#: [id number] : 1950 Acct:[id number] Age/Sex: 74 / M ADM Date: 06/02/25 Loc: .[facility] Attending Dr: Mallika Acevedo MD Ordering Physician: Mallika Acevedo MD Date of Service: 06/02/25 Procedure(s): XR ribs RT 2V Accession Number(s): [id number] cc: Mallika Acevedo MD Reason for Exam: righ sided chest pain EXAMINATION: XR CHEST 2 VIEWS, XR RIBS 2 VIEWS RIGHT HISTORY: right sided chest pain COMPARISON: Comparison is made with the prior examination of the chest dated 11/27/2022. FINDINGS: PA and lateral views of the chest and 3 views of the right ribs are submitted. The lungs are expanded and clear. There is no pleural effusion, pneumothorax, or pulmonary vascular congestion. The heart is normal in size. There is degenerative disc disease of the spine. The right ribs are intact. No fracture is seen. XR/XR ribs RT 2V IMPRESSION: No acute cardiopulmonary abnormality. No evidence of fracture of the right ribs. Electronically signed by: Catarino Addison MD 06/02/2025 09:34 AM EDT Dictated By: Catarino Addison MD Signed By: <Electronically signed by Catarino Addison MD in OV> 06/02/25933 DD/ 4 TD/TT: 06/02/25923 Bridge Construction Inspector: Procedure Note Jonater, Image - 06/02/2025 [place] [address] XRay Report Signed Patient: Leila Vallejo RMR#: [id number] : 9Acct:[id number] Age/Sex: 74 / MADM Date: 06/02/25 Loc: [facility] Attending Dr: Mallika Acevedo MD Ordering Physician: Mallika Acevedo MD Date of Service: 06/02/25 Procedure(s): XR ribs RT 2V Accession Number(s): [id number] cc: Mallika Acevedo MD Reason for Exam: righ sided chest pain EXAMINATION: XR CHEST 2 VIEWS, XR RIBS 2 VIEWS RIGHT HISTORY: right sided chest pain COMPARISON: Comparison is made with the prior examination of the chest dated 11/27/2022. FINDINGS: PA and lateral views of the chest and 3 views of the right ribs are submitted. The lungs are expanded and clear. There is no pleural effusion, pneumothorax, or pulmonary vascular congestion. The heart is normal in size. There is degenerative disc disease of the spine. The right ribs are intact. No fracture is seen. XR/XR ribs RT 2V IMPRESSION: No acute cardiopulmonary abnormality. No evidence of fracture of the right ribs. Electronically signed by: Catarino Addison MD 06/02/2025 09:34 AM EDT RP Dictated By: Catarino Addison MD Signed By: <Electronically signed by Catarino Addison MD in OV> 06/02/25933 DD/ 4 TD/TT: 06/02/25923 Bridge Construction Inspector: Mallika Acevedo MD IMG XR PROCEDURES Edited Result - Final * XR Chest 2 Views (06/02/2025 9:20 AM EDT) Anatomical Region Laterality Modality Chest Radiographic Sayra ging 06/02/2025 9:20 AM EDT Narrative 06/02/2025 9:37 AM EDT [address] [address] XRay Report Signed Patient: Leila Vallejo MR#: [id number] : 1950 Acct:[id number] Age/Sex: 74 / M ADM Date: 06/02/25 Loc: .[facility] Attending Dr: Mallika Acevedo MD Ordering Physician: Mallika Acevedo MD Date of Service: 06/02/25 Procedure(s): XR chest 2V Accession Number(s): [id number] cc: Mallika Acevedo MD Reason for Exam: right sided chest pain EXAMINATION: XR CHEST 2 VIEWS, XR RIBS 2 VIEWS RIGHT HISTORY: right sided chest pain COMPARISON: Comparison is made with the prior examination of the chest dated 11/27/2022. FINDINGS: PA and lateral views of the chest and 3 views of the right ribs are submitted. The lungs are expanded and clear. There is no pleural effusion, pneumothorax, or pulmonary vascular congestion. The heart is normal in size. There is degenerative disc disease of the spine. The right ribs are intact. No fracture is seen. XR/XR chest 2V IMPRESSION: No acute cardiopulmonary abnormality. No evidence of fracture of the right ribs. Electronically signed by: Catarino Addison MD 06/02/2025 09:34 AM EDT RP Dictated By: Catarino Addison MD Signed By: <Electronically signed by Catarino Addison MD in OV> 06/02/25933 DD/ 9 TD/TT: 06/02/25923 Bridge Construction Inspector: Procedure Note Jonater, Image - 06/02/[address] [address] XRay Report Signed Patient: Leila Vallejo RMR#: [id number] : 9Acct:[id number] Age/Sex: 74 / MADM Date: 06/02/25 Loc: [facility] Attending Dr: Mallika Acevedo MD Ordering Physician: Mallika Acevedo MD Date of Service: 06/02/25 Procedure(s): XR chest 2V Accession Number(s): [id number] cc: Mallika Acevedo MD Reason for Exam: right sided chest pain EXAMINATION: XR CHEST 2 VIEWS, XR RIBS 2 VIEWS RIGHT HISTORY: right sided chest pain COMPARISON: Comparison is made with the prior examination of the chest dated 11/27/2022. FINDINGS: PA and lateral views of the chest and 3 views of the right ribs are submitted. The lungs are expanded and clear. There is no pleural effusion, pneumothorax, or pulmonary vascular congestion. The heart is normal in size. There is degenerative disc disease of the spine. The right ribs are intact. No fracture is seen. XR/XR chest 2V IMPRESSION: No acute cardiopulmonary abnormality. No evidence of fracture of the right ribs. Electronically signed by: Catarino Addison MD 06/02/2025 09:34 AM EDT Dictated By: Catarino Addison MD Signed By: <Electronically signed by Catarino Addison MD in OV> 06/02/25933 DD/ 9 TD/TT: 06/02/25923 Bridge Construction Inspector: Mallika Acevedo MD IMG XR PROCEDURES Edited Result - Final * T-SPOT??.TB (06/02/2025 8:40 AM EDT) T Spot TB Negative Negative [facility] Comment:A negative test resu lt does not exclude the possibilityof exposure to or infection with Mycobacteriumtuberculosis (M. tuberculosis). Patients with recentexposure to TB infected individuals exhibiting anegative T-SPOT.TB result should be considered forretesting within 6 weeks or if other relevant clinicalsymptoms indicate. Results from T-SPOT.TB testing mustbe used in conjunction with each individual'sepidemiological history, current medical status,and results of other diagnostic evaluations.The T-SPOT.TB test is qualitative and results arereported as positive, borderline, or negative, giventhat the test controls perform as expected. In linewith the Centers for Disease Control and Prevention's2010 recommendation to report quantitative measurementsalongside the qualitative result, the laboratoryprovides spot counts for informational purposes only.The T-SPOT.TB test should not be interpreted as aquantitative test. TS PANEL A 0 [facility] TS PANEL B 1 [facility] Negative Control Passed [facility] Positive Control Passed [facility] Comment:For additional infor mation, please refer [email or web address].Animated Speech/faq/RUL855(This link is being provided for informational/educational purposes only.)THIS TEST WAS PERFORMED AT:[facility] [place] [address]RAZNCNUJUANY FRENCH MD,PHD 06/02/2025 8:40 AM EDT 06/02/2025 11:44 AM EDT us Mallika Acevedo MD LAB BLOOD ORDERABLES Fin al Result [facility] [address] [place] [phone] * (ABNORMAL) Lipid Panel with Reflex to Direct LDL (06/02/2025 8:40 AM EDT) Pathologist [facility] Triglycerides 257(H) <150 mg/dL [facility] Comment:Desirable Triglyceri de: less than 150 mg/dLBorderline High Triglyceride 150-199 mg/dLHigh Triglyceride: 200-499 mg/dLVery High Triglyceride: greater than or equal to 5OO mg/dL Cholesterol 138 <200 mg/dL [facility] Comment:Desirable Cholestero l: less than 200 mg/dLBorderline High Cholesterol: 200-239 mg/dLHigh Cholesterol: greater than 239 mg/dL LDL Cholesterol Calculated 55 <100 mg/dL [facility] Comment:Desirable LDL: less than 100 mg/dLNear Optimal/Above Optimal LDL: 110- 129 mg/dLBorderline High LDL: 130-159 mg/dLHigh LDL: 160-189 mg/dLVery High LDL: greater than or equal to 190 mg/dL HDL Cholesterol 32(L) >40 mg/dL [facility] Comment:Desirable HDL: great er than 40 mg/dL Note: This HDL assay may give artificially low results in patients with liver disease. Blood 06/02/2025 8:40 AM EDT 06/02/2025 11:44 AM EDT us Mallika Acevedo MD LAB BLOOD ORDERABLES Fin al Result [facility] [address] [place] [phone] * Hepatitis Panel, General (06/02/2025 8:40 AM EDT) Hepatitis A IgM Nonreactive Nonreactive [facility] Comment:IgM antibodies to AVENDAÑO V not detected; does not exclude earlyacute or recovered HAV infection. ~Hepatitis B Surface Antibody NONREACTIVE Nonreactive [facility] Comment:Nonreactive: < 8.00 mIU/mL Hepatitis B Core Antibody Nonreactive Nonreactive [facility] Hepatitis C Antibody Nonreactive Nonreactive [facility] Comment:Antibodies to HCV no t detected; does not exclude early acuteHCV infection. Hepatitis B Surface Ag Negative Negative [facility] Blood 06/02/2025 8:40 AM EDT 06/02/2025 11:44 AM EDT us Lori Lesli MD LAB BLOOD ORDERABLES Fin al Result Performing Organization Address [facility] Co de Phone Number [facility] [address] [place] [phone] * (ABNORMAL) Albumin, Random Urine W/Creatinine (06/02/2025 8:40 AM EDT) Creatinine, Urine 71.36 mg/dL [facility] Microalbumin Urine 63.0 mg/L [facility] Microalbum Creatinine Ratio Ur 88.2(H) <30 ug/mg cr [facility] Comment:Albumin/Creatinine R atio Reference Ranges: Normal: < 30 ug/mg creatinine Microalbuminuria: 30 - 300 ug/mg creatinineClinical Albuminuria: > 300 ug/mg creatinine Urine (Urine, Random) 06/02/2025 8:40 AM EDT 06/02/2025 12:00 PM EDT Malilka Acevedo MD LAB URINE ORDERABLES Fin al Result Performing Organization Address [facility] de Phone Number [facility] [address] [place] [phone] * Prothrombin Time-INR (06/02/2025 8:40 AM EDT) Prothrombin Time 10.9 10.9 - 12.4 SEC [facility] INTERNATIONAL NORM RATIO 1.0 0.9 - 1.1 [facility] Comment:INTERNATIONAL NORMAL IZED RATIO (INR) REFERENCE RANGES Reference RangeFor patients not on anticoagulant therapy: 0.9 - 1.1INR ranges for oral anticoagulanttherapy:For prevention and treatment of venous thrombosis and pulmonary embolism: 2.0 - 3.0For acute myocardial infarction with aspirin therapy: 2.0 - 3.0For acute myocardial infarction without aspirin therapy: 3.0 - 4.0For patients with mechanical prosthetic heart valves: 2.5 - 3.5 Blood Venous blood specimen / Unknown 06/02/2025 8:40 AM EDT 06/02/2025 11:44 AM EDT us Mallika Acevedo MD LAB BLOOD ORDERABLES Fin al Result Performing Organization Address City/[facility]/ZIP Co de Phone Number [facility] [address] [place] [phone] * (ABNORMAL) CBC (06/02/2025 8:40 AM EDT) White Blood Count 7.0 4.8 - 10.8 X10*3/uL [facility] Red Blood Count 5.25 4.60 - 5.80 X10*6/uL [facility] Hemoglobin 13.7(L) 14.0 - 18.0 g/dl [facility] Hematocrit 43.7 42.0 - 52.0 % [facility] Mean Corpuscular Volume 83.2 80.0 - 98.0 fL [facility] Mean Corpuscular Hemoglobin 26.1(L) 27.0 - 33.0 pg [facility] Mean Corpuscular HGB Conc 31.4 31.0 - 36.0 g/dl [facility] Red Cell Distribution Width 16.1(H) 11.0 - 16.0 % [facility] Platelet Count 189 160 - 400 X10*3/uL [facility] Mean Platelet Volume 12.6(H) 9.4 - 12.4 fL [facility] NRBC Pct Auto 0.0 0.0 - 0.2 /100WBC [facility] NRBC Abs Auto 0.000 0.0 - 0.012 X10*3/uL [facility] 06/02/2025 8:40 AM EDT 06/02/2025 11:44 AM EDT us Generic External Data Provider LAB BLOOD ORDERAB LES Final Result Performing Organization Address City/[facility]/ZIP Co de Phone Number [facility] [address] [place] [phone] * (ABNORMAL) Gamma Glutamyl Transferase (GGT) (06/02/2025 8:40 AM EDT) Gamma Glutamyl Transpeptidase 83(H) 11 - 51 U/L [facility] Blood Venous blood specimen / Unknown 06/02/2025 8:40 AM EDT 06/02/2025 11:44 AM EDT us Mallika Acevedo MD LAB BLOOD ORDERABLES Fin al Result [facility] [address] [place] [phone] * (ABNORMAL) Comprehensive Metabolic Panel (06/02/2025 8:40 AM EDT) Pathologist [facility] Sodium 140 135 - 145 mmol/L [facility] Potassium 5.2(H) 3.3 - 5.1 mmol/L [facility] Chloride 104 96 - 108 mmol/L [facility] Carbon Dioxide 27 22 - 29 mmol/L [facility] Anion Gap 14 12 - 20 [facility] Urea Nitrogen (BUN) 19(H) 9 - 16 mg/dL [facility] Creatinine, Serum 1.21 0.5 - 1.4 mg/dL [facility] Estimated Glomerular Filt Rate 58 [facility] Comment:Chronic Kidney Disea se: Estimated GFR < 60 mL/min/1.15f3Ktzdng Kidney Disease: Estimated GFR < 15 mL/min/1.73m2 Glucose 187(H) 60 - 115 mg/dL [facility] Calcium 10.3(H) 8.4 - 10.2 mg/dL [facility] Bilirubin, Total 0.3 0.0 - 1.0 mg/dL [facility] Aspartate Amino Transferase 30 5 - 37 U/L [facility] Alanine Aminotransferase 42(H) 0 - 40 U/L [facility] Total Protein 8.4(H) 6.5 - 8.0 g/dL [facility] Albumin Level 4.6 3.5 - 5.0 g/dL [facility] Alkaline Phosphatase 82 39 - 117 U/L [facility] Blood Venous blood specimen / Unknown 06/02/2025 8:40 AM EDT 06/02/2025 11:44 AM EDT Result [facility] Mallika Acevedo MD LAB BLOOD ORDERABLES Fin al Result [facility] [address] [place] [address] [phone] * (ABNORMAL) POCT Hgb A1c (06/01/2025 10:21 AM EDT) Hemoglobin A1C 8.8(A) 4.0 - 5.7 % QC Media Lot # [id number] Lot# Expiration Date [id number] Blood 06/01/2025 10:2 1 AM EDT Mallika Acevedo MD POINT OF CARE TEST ENTER /EDIT ORDERABLES Final Result * POCT Glucose (06/01/2025 10:19 AM EDT) Glucose Blood, POC 189 60 - 200 mg/dL Comment:random QC Media Lot # [id number] Lot# Expiration Date [id number] Blood Capillary blood specimen / Unknown 06/01/2025 10:19 AM EDT Result [facility] Mallika Acevedo MD POINT OF CARE TEST ENTER /EDIT ORDERABLES Final Result * Hm Colonoscopy (04/02/2024 10:37 PM EDT) Colonoscopy Normal Normal Narrative Sweta Gaona - 04/02/2024 10:37 PM EDT See care everywhere note , no further screening needed Yoli Savage MD HEALTH MAINTENANCE Edited Result - Final from Last 3 Months or Most Recently Relevant to Health Maintenance Insurance [facility] LONG TERM OPTIONS (HMO D-SNP) [place] [id number] Care Teams Biodiesel Process Control Technician Relationship Specialty Start Date End Date Mallika Acevedo MD [address] [place] [phone] PCP - General Family Medicine 11/20/16 [employer] 06/28/24
--- OUTSIDE RECORDS SUMMARY | 2025-07-08 08:04 | XMS_ITS | Encounter Summary ---
Author Organization [employer] Address [address] [facility] 7t [place] [address] Care Team Providers Care Foreclosure Paralegal Name Role Phone Ania Ballesteros MD Primary Care Provider + Reason for Visit * Reason Onset Date Comments Appointment Request 01/24/2025 Encounter Details Date Type Department Care Team ([facility] st Contact Info) Description 01/24/2025 Telephone [facility] [address] [place] [address] Ania Ballesteros MD [address] [place] [address] Appointment Request Social History Tobacco Use Types [...] the past 12 months, has t he [employer], gas, oil or water [employer] threatened to shut off services in your [...] from pt requesting reschedule 01/14 appointment fu HUBERT/raúl. documented in this encounter Plan of Treatment Upcoming Encounters Date Type Department Care Team (Late st Contact Info) Description 07/27/2025 2:45 PM EST Office Visit [facility] [address] [place] [phone] Gretel Harris FNP [address] [place] [phone] 08/16/2025 9:45 AM EST Office Visit [address] [address] Ania Ballesteros MD [address] [place] [phone] documented as of this encounter Visit Diagnoses Not on filedocumented in this encounter Care Teams Foreclosure Paralegal Relationship Specialty Start Date End Date Ania Ballesteros MD [address] [place] [phone] PCP - General Family Medicine 11/20/16 [employer] 06/28/24 documented as of this encounter
--- OUTSIDE RECORDS SUMMARY | 2025-07-08 08:04 | XMS_ITS | Encounter Summary ---
Author Organization [employer] Address [address] [place] [address] 7t [place] [address] Care Team Providers Care Phys Assistant Name Role Phone Ania Ballesteros MD Primary Care Provider + Encounter Details Date Type Department Care Team (Late Contact Info) Description 10/14/2022 Orders Only [facility] [address] [place] [phone] Estefany Winslow LPN Social History Tobacco Use [...] Description 07/27/2025 2:45 PM EST Office Visit [address] [phone] Gretel Harris FNP [address] [place] [address] [phone] 08/16/2025 9:45 AM EST Office Visit [address] [address] Ania Ballesteros MD [address] [place] [phone] documented as of this encounter Visit Diagnoses Not on filedocumented in this encounter Care Teams Phys Assistant Relationship Specialty Start Date End Date Ania Ballesteros MD [address] [place] [address] PCP - General Family Medicine 11/20/16 [employer] 06/28/24 documented as of this encounter
--- OUTSIDE RECORDS SUMMARY | 2025-07-08 08:04 | XMS_ITS | Encounter Summary ---
Author Organization [employer] Address [address] [place] [address] [address]t [place] [address] Care Team Providers Care Tower Erector Helper Name Role Phone Ania Ballesteros MD Primary Care Provider + Encounter Details Date Type Department Care Team (Late st Contact Info) Description 02/17/2023 Abstract [facility] [address] [place] [address] Ania Ballesteros MD [address] [place] [address] Social History Tobacco Use Types Packs/Day Years [...] Description 07/27/2025 2:45 PM EST Office Visit [facility] [address] [place] [address] Gretel Harris FNP [address] [place] [address] 08/16/2025 9:45 AM EST Office Visit [facility] [address] [place], [place] [phone] Ania Ballesteros MD [address] [place], [place] [phone] documented as of this encounter Visit Diagnoses Not on filedocumented in this encounter Care Teams Tower Erector Helper Relationship Specialty Start Date End Date Ania Ballesteros MD [address] [place] [address] [phone] PCP - General Family Medicine 11/20/16 [employer] 06/28/24 documented as of this encounter
--- OUTSIDE RECORDS SUMMARY | 2025-07-08 08:04 | XMS_ITS | Encounter Summary ---
Author Organization [employer] Address [address] [facility] [address] [place] [address] Care Team Providers Care Property Maintenance Supervisor Name Role Phone Ania Ballesteros MD Primary Care Provider + Reason for Visit * Reason Comments Med Refill Encounter Details Date Type Department Care Team (Late st Contact Info) Description 07/03/2025 Refill [facility] [address] [place] [address] Ania Ballesteros MD [address] [place] [address] Social History Tobacco Use Types Packs/Day Years [...] Description 07/27/2025 2:45 PM EST Office Visit [facility] [address] [place] [phone] Gretel Harris FNP [address] [place] [phone] 08/16/2025 9:45 AM EST Office Visit [address] [address] Ania Ballesteros MD [address] [place] [phone] documented as of this encounter Visit Diagnoses Not on filedocumented in this encounter Additional Health Concerns Assessment Noted Time PHQ-9 Depression Total Score: 1 06/01/20 25 10:22 AM EDT documented as of this encounter Care Teams Property Maintenance Supervisor Relationship Specialty Start Date End Date Ania Ballesteros MD [address] [place] [phone] PCP - General Family Medicine 11/20/16 [employer] 06/28/24 documented as of this encounter
[2025-07-08 08:20] VITALS: BP 118/52; PULSE 58; BMI 25.4
--- NOTE | 2025-07-08 08:20 | A.OFFVIS_ITS ---
Vital Signs 07/08/25 08:20 Height 5 ft 10 in Weight 176 lb 12.972 oz BMI 25.4 BP 118/52 L Blood Pressure Location Lt brachial Position Sitting Pulse 58 Pulse Source Pulse Oximeter Intake Visit Reasons: 2 wk s/p cath [employer] Internship Required: No Allergies No Known Allergies Allergy (Verified 07/08/25 08:24) Medication List - Last Reconciled 07/08/25 by Lakesha Lennon NP-C aspirin 81 mg PO DAILY bisacodyl 10 mg PO DAILY PRN blood sugar diagnostic As directed empagliflozin (Jardiance) 25 mg PO QAM gabapentin 300 mg PO DAILY glipizide ER 1 tab PO DAILY insulin degludec (Tresiba FlexTouch U-200 insulin) 68 units subcut BEDTIME lancets (FreeStyle Lancets) As directed lisinopril 5 mg PO DAILY metformin 500 mg PO DAILY ofloxacin 0.3% 10 drps otic (ears) DAILY 7 days omeprazole 20 mg PO DAILY@0630 pen needle, diabetic (1st Tier Unifine Pentips) As directed pen needle, diabetic (BD Susannah 2nd Gen Pen Needle) As directed pioglitazone (Actos) 45 mg PO DAILY simvastatin 40 mg PO BEDTIME HPI HPI 2 wk s/p cath: Details: Leila is a 74-year-old male with past medical history of hypertension, hyperlipidemia, diabetes, frequent PVCs, abnormal echocardiogram who recently underwent cardiac catheterization showing normal coronary arteries and now presents for follow-up. Today he states that he feels good with no concerning symptoms. He denies heart palpitations, lightheadedness, presyncope, syncope, falls. No chest discomfort at rest or with activity. No shortness of breath, PND, orthopnea or edema. He does only light physical activity. He states he did not start metoprolol as he never received it. Takes all other meds as directed. 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 Social History Household Members: None Housing: Apartment Alcohol intake: never Patient Tobacco Use Status: Never used Tobacco Advance Directives Date on File: 08/22/21 service: No Current occupational status: retired Review of Systems Const All systems reviewed & are unremarkable except as noted in HPI and below ENT Denies dizziness Card Denies chest pain, Denies chest pain at rest, Denies chest pain with activity, Denies rapid heart rate, Denies pedal edema, Denies edema, Denies leg edema, Denies lightheadedness, Denies palpitations, Denies dyspnea, Denies dyspnea on exertion and Denies orthopnea Resp Denies cough, Denies dyspnea and Denies dyspnea on exertion GI Denies hematochezia and Denies change in stool character Musc Denies abnormal gait, Denies limited range of motion, Denies muscle cramps, Denies muscle weakness, Denies numbness, Denies radiating pain into limb, Denies stiffness and Denies tingling Neuro Denies abnormal gait, Denies dizziness, Denies numbness and Denies tingling Endo Denies palpitations Physical Exam Vital Signs: Last Vital Signs Pulse 58 07/08/25 08:20 BP 118/52 L 07/08/25 08:20 BMI result Body Mass Index 25.4 Const General: comfortable and no acute distress Orientation/consciousness: patient oriented x3 HEENT Head: Yes normal to inspection Eyes Sclerae: sclerae normal Neck Neck: Yes normal visual inspection Carotids: normal carotid upstroke Chest Chest palpation & inspection: normal inspection of the chest Resp Effort & Inspection: normal respiratory effort Auscultation: clear to auscultation bilaterally Cardio Jugular venous distension: no JVD Palpation: normal PMI Rate: regular rate Rhythm: regular rhythm Heart sounds: S1 normal heart sound present, S2 normal heart sound present, no gallops, no murmurs and no rubs Peripheral pulses: Peripheral pulses 2+ throughout GI Inspection: Yes normal to inspection Skin General skin exam: no rashes or lesions noted Neuro General: patient oriented x3 Extrem Other: Right radial catheterization site with easily palpable radial pulse, right hand assessment normal. General: Yes normal to inspection Psych Appearance: grossly normal Mental Status: mental status grossly normal Speech and movement: Normal speech and movement present Assessment & Plan Assessment & Plan (1) Frequent PVCs: Code(s): I49.3 - Ventricular premature depolarization Category: Medical Plan: History of frequent PVCs. Holter monitor done 04/06/2024 for 2 days showed sinus rhythm with average heart rate 98 beats per minute, frequent PVCs 12.9%, 3 beat NSVT. Echocardiogram 04/27/2025 showed EF 50-55%, wall motion abnormality suggesting CAD, ascending aorta upper limits of normal. He then had cardiac catheterization 06/23/2025 which showed normal coronary arteries. On last visit he was put on metoprolol XL 25 mg daily which he said he never started. Will resend this to his pharmacy. Instructed on metoprolol use and rationale. It is likely that his frequent PVCs are contributing to his low normal EF. Wall motion abnormality on echocardiogram likely false positive. Reviewed reduction in caffeinated beverages, maintain good hydration, activity as tolerated. Will check Holter prior to his next visit. Cardiology follow-up 6 months, sooner if needed. (2) NSVT (nonsustained ventricular tachycardia): Code(s): I47.29 - Other ventricular tachycardia Category: Medical Plan: Brief, 3 beat NSVT seen on Holter. -starting metoprolol (3) S/P cardiac catheterization: Comment: 06/23/2025, normal coronary arteries Code(s): Z98.890 - Other specified postprocedural states Category: Surgical Plan: Right radial catheterization site well healed (4) Abnormal echocardiogram: Code(s): R93.1 - Abnormal findings on diagnostic imaging of heart and coronary circulation Category: Medical Plan: Echocardiogram showing low normal EF and wall motion abnormality suggesting CAD. (5) H/O: HTN (hypertension): Code(s): Z86.79 - Personal history of other diseases of the circulatory system Category: Medical Plan: Blood pressure goal less than 130/80. Well controlled at this time. Adding low-dose metoprolol. If blood pressure becomes low then lisinopril dose can be reduced. Plan Time spent on chart review, documentation, interview and assessment Orders: Orders ECG 3 day holter monitor 5 Months I47.29 - Other ventricular tachycardia, I49.3 - Ventricular premature depolarization Medications: New metoprolol succinate ER 25 mg PO DAILY 30 tabs 5RF Coding Level of Care Code Est Pt Level 4 (78680) Complex EM visit Add On G2211 Diagnoses Frequent PVCs I49.3 NSVT (nonsustained ventricular tachycardia) I47.29 S/P cardiac catheterization Z98.890 Abnormal echocardiogram R93.1 H/O: HTN (hypertension) Z86.79 Time Spent (min) 28
== END 2025-07-08 08:46 | disposition home or self-care (01) ==
LOC: HO.HCS 07:59
PROVIDERS: PCP Internal Medicine; Visit Provider Nurse Practitioner Family
DX: I49.3 Ventricular premature depolarization (principal); I47.29 Other ventricular tachycardia; Z98.890 Other specified postprocedural states; R93.1 Abnormal findings on diagnostic imaging of heart and coronary circulation; Z86.79 Personal history of other diseases of the circulatory system
CPT/HCPCS: 99214; G2211

== ENCOUNTER → 2025-07-08 07:58 | Outpatient (BNVA) | payer OTHER, SELFPAY | PROVIDERS: PCP Internal Medicine; Visit Provider Nurse Practitioner Family | DX: I49.3 Ventricular premature depolarization (principal); I47.29 Other ventricular tachycardia; I10 Essential (primary) hypertension; R93.1 Abnormal findings on diagnostic imaging of heart and coronary circulation; Z86.79 Personal history of other diseases of the circulatory system; Z98.890 Other specified postprocedural states | CPT/HCPCS: 99212 ==